=== PATIENT | male | born 1950 | race Caucasian/White ===

== ENCOUNTER 2017-04-21 07:07 | Day surgery (SDC) | payer MEDICARE ==
[~2017-04-21 07:07] MED LIST: Acetaminophen TAB* 325 MG PO PRN; Buffered Lidocaine 0.9% SYRIN* 5 ML/SYR SYRINGE INTRADERM ONE
[2017-04-21] MEDS ORDERED: Midazolam* 1 MG/ML 2 ML VIAL (2 MG) ONE (07:35)
[2017-04-21] MEDS ORDERED: fentaNYL* 50 MCG/ML 2 ML VIAL (100 MCG VIAL) ONE (07:35)
[2017-04-21] MEDS ORDERED: Ondansetron INJ* 2 MG/ML VIAL ONE (08:59)
[2017-04-21 09:02] VITALS: BP 128/72
[2017-04-21] MEDS ORDERED: Lidocaine 1% MPF* 2 ML VIAL ONE (10:20)
[2017-04-21] MEDS ORDERED: acetaZOLAMIDE TAB* 250 MG ONE (10:20)
[2017-04-21] MEDS ORDERED: Phenylephrine 2.5% OPTH.SOL* 2 ML BTL ONE (10:20)
[2017-04-21] MEDS ORDERED: Povidone Iodine 5% OPTH* 30 ML BTL ONE (10:20)
[2017-04-21] MEDS ORDERED: Tetracaine 0.5% OPTH.SOL 4 ML* 1 DROP BTL ONE (10:20)
[2017-04-21] MEDS ORDERED: Neomycin/Polymy/Dex OPHTH.OIN* 3.5 GM ONE (10:20)
[2017-04-21] MEDS ORDERED: Cyclopentolate 1% OPTH.SOL* 2 ML BTL ONE (10:20)
[2017-04-21] MEDS ORDERED: Flurbiprofen 0.03% OPTH.SOL* 2.5 ML BTL ONE (10:20)
[2017-04-21] MEDS ORDERED: Tropicamide 1% OPTH.SOL* BTL ONE (10:20)
[2017-04-21] MEDS ORDERED: Buffered Lidocaine 0.9% SYRIN* 5 ML/SYR SYRINGE ONE (10:21)
--- NOTE | 2017-04-22 08:30 | OP ---
DATE OF OPERATION: 04/21/17 - [facility] DATE OF : 46 SURGEON: Sukhjinder Bach MD ANESTHESIOLOGIST: Cesar Boone MD ANESTHESIA: Monitored anesthesia care. PRE-OP DIAGNOSIS: Cataract, right eye. POST-OP DIAGNOSIS: Cataract, right eye. OPERATIVE PROCEDURE: Cataract surgery of the right eye. IMPLANT: SN60WF 20.0 diopter lens to the right eye. COMPLICATIONS: None. DESCRIPTION OF PROCEDURE: The patient was given phenylephrine 2.5% and cyclopentolate 1% eye drops to the operative eye in the preoperative area. The patient was brought to the operating room, where time-out was taken to identify the correct patient, side, and site of the surgery. The patient's right eye was prepped and draped in the usual sterile fashion with 5% Betadine. A second time-out was taken to verify the correct patient, side, and site of surgery, and correct lens selection. A lid speculum was placed to the right eye. A 1- mm paracentesis blade was used to make a clear corneal incision in the superotemporal position. Preservative-free 1% lidocaine was injected into the anterior chamber. DisCoVisc was then injected into the anterior chamber. A 2.75-mm keratome blade was used to make a triplanar incision at the inferotemporal position. A cystotome was used to initiate a capsulorrhexis, which was completed with Utrata forceps in a continuous and curvilinear manner. Hydrodissection of the lens was performed with BSS on a cannula. The lens could be spun in the capsular bag. The phacoemulsification handpiece was used with [id number] technique to remove the nucleus in its entirety with 17.93 CDE. The I/A handpiece then removed the residual cortical lens material. DisCoVisc was injected to inflate the capsular bag. The planned SN60WF 20.0 diopter lens was injected into the capsular bag. The residual DisCoVisc was removed from the eye with I/A handpiece. The corneal incisions were hydrated and no leaks occurred at physiologic pressure around 20 mmHg per palpation. The lid speculum was then removed and drapes removed. Maxitrol ointment was placed on the surface of the operative eye. An adhesive patch and shield was placed on the operative eye. The patient was taken to the postoperative area in stable condition. [id number]/[facility] #: [id number] MTDAsh
== END 2017-04-21 09:03 | disposition home or self-care (01) ==
LOC: OREAST 07:07
PROVIDERS: ATTEND Student in an Organized Health Care Education/Training Program
DX: H25.13 Age-related nuclear cataract, bilateral (principal); E11.9 Type 2 diabetes mellitus without complications; G47.33 Obstructive sleep apnea (adult) (pediatric); E66.9 Obesity, unspecified; I25.10 Atherosclerotic heart disease of native coronary artery without angina pectoris; I25.2 Old myocardial infarction; I10 Essential (primary) hypertension; J45.909 Unspecified asthma, uncomplicated; Z79.01 Long term (current) use of anticoagulants; Z79.84 Long term (current) use of oral hypoglycemic drugs; Z79.82 Long term (current) use of aspirin; M54.9 Dorsalgia, unspecified; Z88.5 Allergy status to narcotic agent; Z95.2 Presence of prosthetic heart valve; I48.91 Unspecified atrial fibrillation; F17.210 Nicotine dependence, cigarettes, uncomplicated
CPT/HCPCS: A9270-GY; J2250; J2405; J3010; V2632

== ENCOUNTER → 2017-12-09 12:40 | Day surgery (SDC) | payer MEDICARE ==
[~2017-12-09 12:40] MED LIST changes: -Acetaminophen TAB* 325 MG PO PRN; +Buffered Lidocaine 0.9% SYRIN* 5 ML/SYR SYRINGE ONE; +Famotidine IV* 10 MG/ML 2 ML (20 mg) IV ONE; +Famotidine IV* 10 MG/ML 2 ML (20 mg) ONE; +Insulin LISPRO* 1 UNITS UNIT SUBCUT ONE; +Levalbuterol 0.63MG/3ML NEB* UNIT OF USE INH ONE; +Levalbuterol 1.25MG/0.5ML NEB ONE; +Phytonadione INJ (Adult)* 10 MG/ML 1 ML AMP SUBCUT ONE
[2017-12-09 13:20] VITALS: BP 108/78
== END | disposition home or self-care (01) ==
LOC: OR 12:40 → UNDOADMOB 16:44 → SSU 16:44
PROVIDERS: ATTEND Internal Medicine Gastroenterology
DX: R17 Unspecified jaundice (principal); Z53.09 Procedure and treatment not carried out because of other contraindication; I10 Essential (primary) hypertension; I35.8 Other nonrheumatic aortic valve disorders; E11.9 Type 2 diabetes mellitus without complications; G47.33 Obstructive sleep apnea (adult) (pediatric); E78.00 Pure hypercholesterolemia, unspecified; E66.9 Obesity, unspecified; I48.2 Chronic atrial fibrillation; Z88.0 Allergy status to penicillin; Z88.5 Allergy status to narcotic agent; Z79.01 Long term (current) use of anticoagulants; Z87.891 Personal history of nicotine dependence; Z79.4 Long term (current) use of insulin
CPT/HCPCS: A9270-GY; J3430

== ENCOUNTER 2017-12-09 15:40 | Observation (INO) | payer MEDICARE ==
[2017-12-09] MEDS ORDERED: Ondansetron INJ* 2 MG/ML VIAL IV PRN (15:43)
[2017-12-09] MEDS ORDERED: Dextrose 50% Syringe 50 ML* 25 GM/50 ML SYRINGE IV PUSH PRN (15:43)
[2017-12-09] MEDS: Insulin LISPRO* 1 UNITS UNIT SUBCUT SCH (17:12)
[2017-12-09 17:44] LABS: INR 2.55 (0.77-1.02)
[2017-12-09 17:57] LABS: EGFR Non-African American 53.8 (>60)
[2017-12-09] MEDS ORDERED: Insulin GLARGINE(*) 1 UNITS UNIT SUBCUT SCH ×2 (18:00→21:00)
[2017-12-09 18:06] LABS: Hematocrit 34 % (42-52); Hemoglobin 11.3 g/dl (14.0-18.0); Mean Corpuscular HGB Conc 34 g/dl (31-36); Mean Corpuscular Hemoglobin 28 pg (27-31); Mean Corpuscular Volume 82 fL (80-94); Mean Platelet Volume 9 um3 (7.4-10.4); Platelet Count 244 10^3/ul (150-450); Red Cell Distribution Width 22 % (10.5-15); White Blood Count 9.2 10^3/ul (3.5-10.8)
[2017-12-09 18:07] LABS: Monocytes % 6 % (0-7)
[2017-12-09] MEDS: Metoprolol Succinate XL TAB* 25 MG PO SCH (21:25)
--- NOTE | 2017-12-09 22:03 | HP ---
CC: Dr. Banegas; Dr. Stevenson * HISTORY AND PHYSICAL: DATE OF ADMISSION: 12/09/17 PRIMARY CARE PROVIDER: Dr. Banegas. ATTENDING PHYSICIAN WHILE IN THE HOSPITAL: Gloria Eli DO * (report dictated by Rosas Arellano NP). CONSULTING MACHINE OPERATOR GENERAL: Dr. Stevenson. CHIEF COMPLAINT: 1. Jaundice. 2. Coagulopathy. HISTORY OF PRESENT ILLNESS: Mr. Collins is a 67-year-old male patient. He has a history of AFib, hypertension. He has had a history of left knee infection in the setting of hardware requiring 3 surgeries. He also has a history of nephrolithiasis. He has a history of a thoracic aneurysm, which was repaired, history of hypertension, hyperlipidemia, JADE, diabetes, and CAD. He comes in to Dr. Stevenson's services today. He has been being worked up in the outpatient setting for weight loss and painless jaundice. Ultimately found on an MRCP that a pancreatic head mass. He was in to the hospital today for an ERCP. Plan was to place a stent to help relieve this obstruction. Unfortunately, it was noted that his INR was 2.36 despite being off his warfarin for several days. In addition to this, also being on vitamin K throughout the weekend and yesterday. The patient denies any episodes of bleeding. He denied having any chest pain or shortness of breath. He denied having any abdominal pain. He says this really started out when he had an episode of 3 weeks of diarrhea. He saw his primary initially for the diarrhea. There were concerns because he appeared to be jaundiced and workup did reveal ultimately that he did have a pancreatic mass and is why here today in the preop area and we were asked to get involved because the INR not responding to the vitamin K and he says he has been on warfarin for about 10 days. PAST MEDICAL HISTORY: Significant for: 1. AFib. 2. Hypertension. 3. He has had left knee hardware infection in the past. 4. He has a history of nephrolithiasis. 5. Thoracic aneurysm. 6. Hyperlipidemia. 7. Aortic stenosis, status post replacement. 8. JADE. 9. Diabetes. 10. CAD. PAST SURGICAL HISTORY: 1. He has had hernia repair. 2. Aortic valve replacement, which was porcine with a thoracic aneurysm repair. 3. He has had left total knee replacement with 2 revisions. 4. He has had a right total knee replacement. 5. He has had a right thumb surgery. HOME MEDICATIONS: Include: 1. Percocet 1 to 2 tablets p.o. every 6 hours as needed. 2. Glipizide 10 mg p.o. b.i.d. 3. Potassium 40 mEq p.o. daily. 4. Lopressor 12.5 mg p.o. b.i.d. as metoprolol succinate. 5. Metformin 1000 mg p.o. b.i.d. 6. Victoza 1.8 mg subcu q.a.m. 7. Lantus 70 units subcu q.p.m. 8. Lasix 20 mg a day. 9. Finasteride 5 mg p.o. daily. 10. Vasotec 10 mg p.o. daily. 11. Aspirin 81 mg daily. 12. Allopurinol 300 mg daily. 13. Warfarin, which he has been off for. He was taking 1 tablet at h.s. He was on 2 mg and he has been off that for about 10 days. ALLERGIES TO MEDICATION: Include MORPHINE and AMOXICILLIN. FAMILY HISTORY: His mother had a history of hiatal hernia. Father had a history of diabetes and liver cancer. SOCIAL HISTORY: He does smoke cigar occasionally. Rarely drinks alcohol. Surrogate decision maker is his . REVIEW OF SYSTEMS: There is no documented fever. He does admit to having a weight change. He did not quantify how much. He denies having any double vision. There is no ear discharge. He denies having any rhinorrhea. He denies having any sore throat. There is no thyroid enlargement. Denied having any chest pain. He denies having any abdominal pain. He does admit at times being nauseous. No vomiting, though he did admit to having diarrhea. There is no dysuria, no frequency, no seizure. No loss of consciousness, no pruritus, and no skin ulcerations. Review of 14 systems completed, all others negative. PHYSICAL EXAMINATION GENERAL: At this time, Mr. Collins is a 67-year-old male patient. He is sitting in the PACU bed. He does not appear to be in any acute distress. He appears to be well nourished and well developed. VITAL SIGNS: Blood pressure 108/78, pulse of 91, respirations 18, O2 sat 98%, temperature 96.6. HEENT: Head is atraumatic, normocephalic. Eyes: His sclerae did appear to be icteric and jaundice. Throat: Oral mucosa appears to be dry. No oropharyngeal erythema. NECK: Supple. LUNGS: Clear to auscultation bilaterally. No wheezes, rales, or rhonchi. HEART: Sounds S1, S2. Regular rate and rhythm. No murmurs, rubs, or gallops. ABDOMEN: Soft, flat, nontender. Bowel sounds are present. EXTREMITIES: Pulses were 2+ throughout. He is moving all 4 extremities with 5/ 5 strength. NEUROLOGIC: The patient is awake. He is alert. He is oriented x3. His tongue is midline. His cabinetmaker supervisor were equal. He had no gross focal deficits. SKIN: Intact. He does appear to be again jaundice. DIAGNOSTIC STUDIES/LAB DATA: He had an INR today at 2.36. Sodium of 132, potassium 3.8, chloride 100, BUN was 25. His creatinine was 1.44, which is where he has been running the last 3 draws. He has a glucose of 130. Total bili of 26.2, which is steadily increasing since 11/25/17. AST 151, ALT 121, alk phos 414, albumin 3.2. He did have a CBC done yesterday, WBC of 10, RBC of 4.4, hemoglobin 12.5, hematocrit 37, and his platelet count was 287. He had an MRCP, which was done 5 days ago revealing impression: Constellation of findings between the MRCP and 11/27/17 CT is consistent with a subtle 1 cm maximal dimension pancreatic head mass accounting for noted mild biliary dilatation. Old medical records were reviewed. ASSESSMENT AND PLAN: Mr. Collins is a 67-year-old male patient coming in as an outpatient to Dr. Stevenson service for an ERCP today. It was noted that his INR was 2.36 despite several attempts with vitamin K. We were asked to evaluate for admission. He will be admitted under observation status for: 1. Coagulopathy. I suspect this is multifactorial. He probably has decreased excretion of the warfarin due to liver congestion secondary to that pancreatic mass. Also, he could have some coagulopathy secondary to the biliary dilatation and possibly some hepatic congestion. My plan at this point will be go ahead and give him FFP. He got a subcu vitamin K down here in the preop holding area. We will go ahead and give him FFP, repeat the INR in the morning. Continue to hold his warfarin and continue to follow him closely. 2. Pancreatic mass with jaundice. Again is concerning for possible pancreatic carcinoma. We will repeat the CMP and follow and Dr. Stevenson is monitoring and following along with us. 3. Atrial fibrillation. Continue with rate control of his Lopressor. Hold his warfarin. 4. Hypertension. Again, his blood pressure is unstable. I am going to hold the lisinopril particularly if he needs general anesthetics tomorrow. In addition to this, he is going to hold his Lasix preoperatively. He does appear to be a little on the dry side, so we will hold the Lasix for now and we will go ahead and restart when able. 5. History of left knee infection, not an active issue. Follow with his primary. 6. History of nephrolithiasis. Continue his allopurinol. 7. History of thoracic aneurysm. Again, continue to follow with his cardiothoracic surgeon. 8. History of aortic stenosis. Follow with his PCP and follow with his apn. 9. Hyperlipidemia. Continue his current medical regimen. 10. Obstructive sleep apnea. He does have a CPAP in his truck, which his will be getting for us. 11. Diabetes. I will put him on a lispro sliding scale. Also, going to go ahead and give him half dose Lantus as he is going to be n.p.o. after midnight tonight. 12. History of coronary artery disease. Continue his beta-abdulkadir therapy. Could consider a statin; but in the setting of liver dysfunction, I would hold off on this for now and I will get him back on his aspirin as soon as possible after the procedure. 13. DVT prophylaxis. Again, his INR is 2.3. I just ordered SCDs. 14. Code status. Full code. 15. Fluids, electrolytes, and nutrition. He can have a consistent carb diet and n.p.o. after midnight. TIME SPENT: Time spent on admission 60 minutes; greater than half the time spent [id number] with the patient obtaining my history and physical, other half of the time spent going over the plan of care with the patient and implementing the plan of care. I did discuss the plan of care with my attending, Dr. Eli, she is in agreement. ROSAS ARELLANO, JEMMA [id number]/[facility] #: [id number] [facility]OSPITALAsh
[2017-12-10 06:36] LABS: INR 1.59 (0.77-1.02)
[2017-12-10 06:46] LABS: ABS Basophils 0.2 10^3/ul (0-0.2); ABS Eosinophils 0.1 10^3/ul (0-0.6); ABS Lymphocytes 6.1 10^3/ul (1.0-4.8); ABS Monocytes 0.3 10^3/ul (0-0.8); ABS Neutrophils 1.9 10^3/ul (1.5-7.7); ABS Nucleated RBC 0 10^3/ul; Eosinophil % 0.8 % (0-6); Hematocrit 33 % (42-52); Hemoglobin 11.1 g/dl (14.0-18.0); Lymphocyte % 71.5 % (25-47); Mean Corpuscular HGB Conc 34 g/dl (31-36); Mean Corpuscular Hemoglobin 28 pg (27-31); Mean Corpuscular Volume 82 fL (80-94); Mean Platelet Volume 10 um3 (7.4-10.4); Nucleated Red Blood Cells % 0; Platelet Count 239 10^3/ul (150-450); Red Blood Count 3.97 10^6/ul (4.0-5.4); Red Cell Distribution Width 22 % (10.5-15); White Blood Count 8.5 10^3/ul (3.5-10.8)
[2017-12-10 06:50] LABS: EGFR Non-African American 52.4 (>60)
[2017-12-10 07:20] LABS: Monocytes % 8 % (0-7)
[2017-12-10] MEDS: Insulin LISPRO* 1 UNITS UNIT SUBCUT SCH ×3 (08:29→17:53)
[2017-12-10] MEDS: Finasteride TAB* 5 MG PO SCH (08:35)
[2017-12-10] MEDS: Allopurinol TAB* 300 MG PO SCH (08:35)
[2017-12-10] MEDS: Metoprolol Succinate XL TAB* 25 MG PO SCH ×2 (08:35→21:12)
[2017-12-10] MEDS ORDERED: KCL 20 MEQ/100 ML IVPREMIX* 20 MEQ/100 ML BAG IV SCH (13:00)
[2017-12-10] MEDS ORDERED: Potassium Chloride IV* 40 MEQ in NS 0.9% 250 ML* 250 ML IVPB ONE (14:00)
[2017-12-10 14:22] LABS: INR 1.35 (0.77-1.02)
--- NOTE | 2017-12-10 15:41 | PN ---
Subjective Date of Service: 12/10/17 Interval History: feels good today, anxious for the procedure. +pruritis +thirst Objective Active Medications: Allopurinol (Zyloprim Tab*) 300 mg PO QAM [facility] Last Admin: 12/10/17 08:35 Dose: 300 mg Dextrose (D50w Syringe 50 Ml*) 12.5 gm IV PUSH .FOR FS < 60 - SS PRN PRN Reason: FS < 60 Finasteride (Proscar Tab*) 5 mg PO QAM [facility] Last Admin: 12/10/17 08:35 Dose: 5 mg Potassium Chloride 40 meq/ (Sodium Chloride) 270 mls @ 67.5 mls/hr IVPB ONCE ONE Stop: 12/10/17 17:59 Insulin Glargine (Lantus(*)) 35 units SUBCUT BEDTIME [facility] Last Admin: 12/09/17 21:24 Dose: 35 units Insulin Human Lispro (Humalog*) 0 units SUBCUT AC [facility] PRN Reason: Protocol Last Admin: 12/10/17 11:48 Dose: Not Given Metoprolol Succinate (Toprol Xl Tab*) 25 mg PO BID [facility] Last Admin: 12/10/17 08:35 Dose: 25 mg Ondansetron HCl (Zofran Inj*) 4 mg IV Q6H PRN PRN Reason: NAUSEA Vital Signs - 8 hr 12/10/17 12/10/17 12/10/17 07:40 08:40 11:35 Temperature 97.7 F 98.1 F Pulse Rate 85 93 Respiratory 16 18 16 Rate Blood Pressure 123/59 112/42 (mmHg) O2 Sat by Pulse 99 100 Oximetry 12/10/17 15:13 Temperature 97.5 F Pulse Rate 92 Respiratory 16 Rate Blood Pressure 115/81 (mmHg) O2 Sat by Pulse 97 Oximetry Oxygen Devices in Use Now: None Appearance: jaundiced, obese, comfortable Eyes: - - +scleral icterus, +subungual jaundice Neck: NL Appearance and Movements; NL JVP Respiratory: Symmetrical Chest Expansion and Respiratory Effort, Clear to Auscultation Cardiovascular: RRR, - - systolic murmur throughout; healed sternotomy incision Abdominal: NL Sounds; No Tenderness; No Distention, No Hepatosplenomegaly Lymphatic: No Cervical Adenopathy Extremities: No Edema Skin: No Rash or Ulcers Neurological: Alert and Oriented x 3, - - no asterixis Result Diagrams: 12/10/17 05:39 12/10/17 05:39 Assess/Plan/Problems-Billing Assessment: 67 yo man with history of bioprosthetic aortic valve replacement, c. diff, and knee replacements presents with one week of painless jaundice for ERCP but was found to have coagulopathy despite vitamin k - Patient Problems (1) Coagulopathy Current Visit: Yes Status: Acute Comment: warfarin in setting of liver dysfunction reversed yesterday with subcu vitamin k, and subcu vitamin k this morning (2) Jaundice Current Visit: Yes Status: Acute Code(s): R17 - UNSPECIFIED JAUNDICE SNOMED Code(s): 21789744 Comment: concerning for pancreatic adenoca, awaiting ERCP today (3) Aortic valve prosthesis present Current Visit: Yes Status: Acute Code(s): Z95.2 - PRESENCE OF PROSTHETIC HEART VALVE SNOMED Code(s): 7247258429812 Comment: bioprosthesis; no AC indicated (4) Diabetes mellitus Current Visit: Yes Status: Acute Code(s): E11.9 - TYPE 2 DIABETES MELLITUS WITHOUT COMPLICATIONS SNOMED Code(s): 56264781 Comment: increase lantus back to 70U nightly tonight
[2017-12-10] MEDS ORDERED: Insulin GLARGINE(*) 1 UNITS UNIT SUBCUT SCH (15:53)
--- NOTE | 2017-12-10 17:05 | RAD ---
Amended report to correct patient account number. INDICATION: Jaundice COMPARISONS: MR quadrant dated December 04, 2017 TECHNIQUE: Fluoroscopy was provided for ERCP. Total fluoroscopy time is: 2 minutes, 27 seconds FINDINGS: Spot images demonstrate a balloon within the distal common duct, as well as a stent within the distal common duct. The intrahepatic biliary tree is not visualized on the submitted images. IMPRESSION: FLUOROSCOPY WAS PROVIDED FOR ERCP CPT II Codes: 6045F MTDD
[2017-12-10] MEDS ORDERED: Ondansetron INJ* 2 MG/ML VIAL IV PRN (17:30)
[2017-12-10] MEDS ORDERED: fentaNYL* 50 MCG/ML 2 ML VIAL (100 MCG VIAL) IV PRN (17:30)
[2017-12-10] MEDS ORDERED: Naloxone* 0.4 MG/ML 1 ML VIAL IV PRN (17:30)
[2017-12-10] MEDS ORDERED: DiMENhydriNATE IV* 50 MG/ML VIAL IV PUSH PRN (17:30)
[2017-12-11 05:34] LABS: Hematocrit 32 % (42-52); Hemoglobin 11.1 g/dl (14.0-18.0); INR 1.18 (0.77-1.02); Mean Corpuscular HGB Conc 35 g/dl (31-36); Mean Corpuscular Hemoglobin 29 pg (27-31); Mean Corpuscular Volume 82 fL (80-94); Mean Platelet Volume 9.4 um3 (7.4-10.4); Platelet Count 218 10^3/ul (150-450); Red Blood Count 3.89 10^6/ul (4.0-5.4); Red Cell Distribution Width 22 % (10.5-15); White Blood Count 7.6 10^3/ul (3.5-10.8)
[2017-12-11 05:42] LABS: EGFR Non-African American 57.8 (>60)
[2017-12-11] MEDS: Allopurinol TAB* 300 MG PO SCH (08:13)
[2017-12-11] MEDS: Metoprolol Succinate XL TAB* 25 MG PO SCH (08:13)
[2017-12-11] MEDS: Finasteride TAB* 5 MG PO SCH (08:13)
[2017-12-11 08:15] VITALS: BP 135/59
[2017-12-11] MEDS: Insulin LISPRO* 1 UNITS UNIT SUBCUT SCH ×2 (08:30→12:42)
--- NOTE | 2017-12-11 14:15 | PRO ---
DATE: 12/10/17 - ROOM #[id number] REFERRING PHYSICIAN: Dmitry Banegas MD * PROCEDURE: ERCP and sphincterotomy with common bile duct brushing and placement of 10-Yakut 7 cm plastic stent. INDICATION: This 67-year-old man presented with jaundice. He had no pain or itching. CT scan showed a small lesion in the head of the pancreas and questionable lymph nodes. He was on warfarin and despite holding it, his INR was falling very slowly. Oral vitamin K 10 mg x3 days or 4 days just slightly accelerated the diminution in INR. He was therefore, admitted because of his multiple medical problems for more IV vitamin K including SQ on the morning of the procedure and to facilitate volume and electrolyte management. Informed consent had been obtained in the office and a second opportunity for questions occurred yesterday and today with his present. ENDOSCOPIST: Dr. Stevenson ANESTHESIOLOGIST: Dr. Altman. FINDINGS: He is a morbidly obese man (326 pounds) in no distress, intensely jaundiced. He was positioned on the table under general anesthesia. All areas were padded per the experience of the OR staff. ERCP: Esophagus - 10% to 20% views are normal. Stomach - 80% views are normal including fundus and antrum and pylorus. Duodenum - normal contours without any inflammatory disease or edema. Ampulla of Vater - appeared normal with no drainage. Initial approaches with the sphincterotome slightly bowed yielded pancreatic duct orientation with the guidewire. After 4 such attempts, a different plane was located in the left upper area. The guidewire then went high into the liver. Dye injection showed stricture ending at about 5 cm above the papilla. It did have a smooth contour. There were no abnormalities in the high common duct or common hepatic duct. A sphincterotomy was done at 11 o'clock orientation about 7 or 8 mm. There was no enhanced flow of bile. A brushing was then done with 2 passes of the brush and aspiration of fluid. Then, a 10- Yakut 7 cm plastic stent was inserted in a standard technique and appeared well localized with copious drainage of bile evident. IMPRESSION: 1. Pancreatic duct - appeared blocked based on obstruction with the guidewire. 2. Common bile duct stricture -suspected malignancy in the distal to mid duct, now brushed and stent placed. 3. Status post sphincterotomy - no anticoagulants for 3 days Addendum - brushing + for adenocarcinoma [id number]/[facility] #: [id number] [facility]OSPITALAsh
--- NOTE | 2017-12-12 02:48 | DS ---
CC: Dr. Banegas; Dr. Stevenson; Dr. Tran * DISCHARGE SUMMARY: DATE OF ADMISSION: 12/09/17 DATE OF DISCHARGE: 12/11/17 PRINCIPAL DISCHARGE DIAGNOSES: 1. Painless jaundice. 2. Elevated INR in the setting of warfarin use. SECONDARY DISCHARGE DIAGNOSES: 1. Atrial fibrillation. 2. Hypertension. 3. Prosthetic aortic valve. 4. Nephrolithiasis. 5. Hyperlipidemia. 6. Obstructive sleep apnea. 7. Diabetes. 8. Coronary artery disease. DISCHARGE MEDICATIONS: 1. Allopurinol 300 mg daily. 2. Lasix 40 mg daily. 3. KCl 40 mEq daily. 4. Percocet 1 to 2 tabs q.6 p.r.n. pain. 5. Victoza 1.8 mg subcu in the morning. 6. Glipizide 10 mg b.i.d. 7. Finasteride 5 mg daily. 8. Aspirin 81 mg daily. 9. Metformin 1000 mg b.i.d. 10. Lantus 70 units q.h.s. 11. Metoprolol succinate 25 mg b.i.d. 12. Enalapril 10 mg in the morning. 13. Warfarin 5 mg daily. PHYSICAL EXAMINATION AT THE TIME OF DISCHARGE: Temperature 97.7, heart rate 103 , respiratory rate 18, pulse ox 100% on room air, blood pressure 135/59. General: Alert, well-appearing man, sitting up in bed, eating lunch, has generalized jaundice. HEENT: Pupils are 3 mm bilaterally and reactive to light. He has scleral icterus. He has moist mucosa and subungual jaundice. Neck: No cervical or supraclavicular lymphadenopathy. No JVP. Chest: 3/6 systolic murmur at the right upper sternal border with radiation to the carotids. PMI is nondisplaced. He has a healed sternotomy incision. Lungs are clear bilaterally. No wheezes or rhonchi. Abdomen is obese, soft, nontender, nondistended. Liver is nonpalpable. Spleen is nonpalpable. No guarding or rebound. Extremities: No edema, no rashes, no ulcers. Healed knee incisions bilaterally. Neurologic: No asterixis. Strength is 5+ throughout. He is oriented x3. HOSPITAL COURSE BY PROBLEM: 1. Painless jaundice. Mr. Collins presented to the endoscopy suite for elective ERCP when he was found to have painless jaundice as an outpatient. However, when he presented, an INR was checked and was found to be 2.3 in the setting of warfarin use despite having been on vitamin K for 2 days prior to his ERCP. He was admitted for reversal of his coagulopathy so as to expedite this procedure. He received subcutaneous vitamin K on the day of admission and the following morning and the second day of admission, his INR was 1.35 prior to the ERCP. The ERCP was performed by Dr. Stevenson on 12/10/17 without complications and pathology is pending at the time of discharge. He and his are aware of the very high likelihood of malignancy and they have been scheduled for a followup appointment with Dr. Tran next week and are in the process of researching surgeons in [place] and [place]. On the day of discharge, his total bilirubin is 25.7, his direct bilirubin is 19.3, and his indirect bilirubin is 6.4. 2. Coagulopathy. His INR was 2.36 on admission, this is in the setting of warfarin use and some intrinsic liver dysfunction. He had no evidence of bleeding, but was reversed for the urgency of the procedure. At the time of discharge, his INR was 1.18, the indication is for atrial fibrillation, so he does not warrant bridging. He was instructed to resume his warfarin at 5 mg daily beginning tomorrow, this is a reduced dose from his previous dose where he was taking 5 mg 3 days a week and 7.5 mg 4 days a week. He will follow up with Dr. Banegas within the next week to get an INR checked. 3. Atrial fibrillation. He was continued on his home dose of metoprolol and was well controlled during his admission. 4. Insulin dependent diabetes. He is continued on Lantus 70 units daily. 5. Bioprosthetic aortic valve noted. 6. JADE. He was continued on his home CPAP nocturnally. 7. Disposition. Mr. Collins was discharged to home on 12/11/17 with his . He has followup with Dr. Tran for next week and Dr. Banegas within the week. He is scheduled for a stress test with Dr. Wick tomorrow. All of he and his 's questions were answered. He is instructed to return to the emergency department with any abdominal pain, nausea, vomiting, diarrhea or fevers. [id number]/[facility] #: [id number] MTDD
== END 2017-12-11 13:40 | disposition home or self-care (01) ==
LOC: SSU 16:56
PROVIDERS: ADMIT Internal Medicine; ATTEND Internal Medicine
PROC: 0FB98ZX Excision of Common Bile Duct, Via Natural or Artificial Opening Endoscopic, Diagnostic (ICD-10-PCS; principal; 2017-12-09)
DX: C24.9 Malignant neoplasm of biliary tract, unspecified (principal); R17 Unspecified jaundice; D68.9 Coagulation defect, unspecified; I48.91 Unspecified atrial fibrillation; Z79.01 Long term (current) use of anticoagulants; I10 Essential (primary) hypertension; Z95.2 Presence of prosthetic heart valve; Z87.442 Personal history of urinary calculi; E78.5 Hyperlipidemia, unspecified; G47.33 Obstructive sleep apnea (adult) (pediatric); E11.9 Type 2 diabetes mellitus without complications; Z79.84 Long term (current) use of oral hypoglycemic drugs; Z79.4 Long term (current) use of insulin; Z79.899 Other long term (current) drug therapy; Z88.1 Allergy status to other antibiotic agents; Z88.5 Allergy status to narcotic agent; F17.210 Nicotine dependence, cigarettes, uncomplicated; I71.4 Abdominal aortic aneurysm, without rupture; I35.0 Nonrheumatic aortic (valve) stenosis
CPT/HCPCS: 36415; 74328; 80048; 80053; 80076; 85025; 85027; 85060; 85610; 86850; 86900; 86901; 88112; 96360; 96361; A9270-GY; C1769; C2625; G0378; J3480

== ENCOUNTER 2018-01-02 06:06 | Day surgery (SDC) | payer MEDICARE ==
[~2018-01-02 06:06] MED LIST changes: -Buffered Lidocaine 0.9% SYRIN* 5 ML/SYR SYRINGE ONE; -Famotidine IV* 10 MG/ML 2 ML (20 mg) IV ONE; -Famotidine IV* 10 MG/ML 2 ML (20 mg) ONE; -Insulin LISPRO* 1 UNITS UNIT SUBCUT ONE; -Levalbuterol 0.63MG/3ML NEB* UNIT OF USE INH ONE; -Levalbuterol 1.25MG/0.5ML NEB ONE; -Phytonadione INJ (Adult)* 10 MG/ML 1 ML AMP SUBCUT ONE
[2018-01-02] MEDS ORDERED: Buffered Lidocaine 0.9% SYRIN* 5 ML/SYR SYRINGE ONE (06:20)
[2018-01-02] MEDS ORDERED: Clindamycin 900 MG IVPREMIX(* 900 MG/50 ML SDV IV ONE (06:20)
[2018-01-02] MEDS ORDERED: Lidocain 1% EPI 1:100,000 * 30 ML MDV ONE (07:11)
[2018-01-02] MEDS ORDERED: Bupivacaine 0.5%* 50 ML VIAL ONE (07:12)
[2018-01-02] MEDS ORDERED: Naloxone* 0.4 MG/ML 1 ML VIAL IV PRN (07:27)
[2018-01-02] MEDS ORDERED: fentaNYL* 50 MCG/ML 2 ML VIAL (100 MCG VIAL) ONE (08:44)
[2018-01-02] MEDS ORDERED: Midazolam* 1 MG/ML 2 ML VIAL (2 MG) ONE (08:44)
[2018-01-02] MEDS ORDERED: Propofol* 10 MG/ML 20 ML BTL IV PUSH ONE (08:50)
--- NOTE | 2018-01-02 09:36 | BRIEFOPN ---
Brief Operative Note - Surgery Procedures: Procedures AMBULAT & GAIT TRAINING (01/17/09) DX ULTRASOUND-HEART (04/20/13) EXCISION OF COMMON BILE DUCT, ENDO, DIAGN (12/09/17) FUNCTIONAL PT EVALUATION (01/17/09) HEMODIALYSIS (04/20/13) INJECT ANTICOAGULANT (07/27/12) INSERT INDWELLING CATH (04/20/13) NON-INVASIVE MECHANICAL VENTILATION (01/17/09) OCCUPATIONAL THERAPY (10/25/08) OTH ARTHROTOMY-KNEE (07/27/12) PACKED CELL TRANSFUSION (07/27/12) PERIOP AUTOLOGOUS BLOOD/COMP TRANS (01/17/09) REMOVAL OF (CEMENT) SPACER (07/27/12) MARNIE OF KNEE REPLACEMENT, TOTAL (ALL COMPONENTS) (07/27/12) SERUM TRANSFUSION NEC (04/20/13) TOTAL KNEE REPLACEMENT (01/17/09) TU REMOV URETER OBSTRUCT (03/24/02) UMBIL HERNIA REPAIR NEC (10/27/01) URETERAL CATHETERIZATION (04/08/02) VENOUS CATHETERIZATION NEC (04/20/13) [ESWL] OF THE KIDNEY, URETER AND/OR BLADDER (05/07/02) 01/02/18 Op Note Pre-op dx: pancreatic cancer Post-op dx: same Procedure: power port placement Surgeon: Yovany Asst: none Anesth: local-MAC SCDs: on during surgery Abx: given pre-op Complications: none EBL: 5 cc Pt. tolerated procedure well and was transferred to in a stable condition. CLFoster
[2018-01-02 10:08] VITALS: BP 127/56
--- NOTE | 2018-01-02 10:08 | OP ---
CC: Dr. Dmitry Banegas; Dr. Sid Wick * DATE OF OPERATION: 01/02/18 - [facility] DATE OF : 46 SURGEON: Francine Pedroza MD ACT ENGLISH TUTOR: There was no orthodontic technician assistant for this case. PRE-OP DIAGNOSIS: Pancreatic cancer. POST-OP DIAGNOSIS: Pancreatic cancer. OPERATIVE PROCEDURE: PowerPort placement. INDICATIONS: This patient is a 67-year-old male who has a history of recently diagnosed pancreatic cancer, who is about to undergo chemotherapy for which he will need a PowerPort placement. He was therefore prepared for surgery and brought to the operating room. DESCRIPTION OF PROCEDURE: He was placed on the OR table in a supine position and given IV sedation. The right chest was prepped and draped in the usual sterile fashion. After infiltrating with local anesthetic, using a Seldinger technique, a wire was placed in the right subclavian vein under fluoroscopic visualization. Next, the port pocket was created by making an incision on the chest wall after infiltrating with local anesthetic and developing a pocket with electrocautery inferiorly. Once the pocket was of a size adequate to accommodate the port, the catheter was tunneled from the port pocket site to the wire exit site and then a dilator and introducer were placed over the wire. The wire and dilator were removed and the catheter was advanced through the introducer under fluoroscopic visualization to an appropriate depth and the introducer was peeled away. The catheter was pulled back to just above the right atrium and trimmed to an appropriate length, attached to the port. The port was inserted into the port pocket and secured to the chest wall with 2-0 Surgipro. The function of the port was checked and found to be adequate. Then , closure was accomplished, 3-0 Polysorb was used to approximate the subcutaneous layer and the skin was closed with 4-0 Prolene in a subcuticular fashion. Steri-Strips and a dry sterile dressing were applied. Bent Tolbert needle was left in place, so that he could go to chemotherapy later today. [id number]/[facility] #: [id number] MTDD
--- NOTE | 2018-01-02 10:23 | RAD ---
INDICATION: Status post central line placement evaluate for pneumothorax. COMPARISON: Comparison is made with a prior study from April 20, 2013. TECHNIQUE: A portable view of the chest was obtained. FINDINGS: The patient is status post sternotomy. There is a power port central venous catheter present entering on the right side. The catheter tip projects over the region of the superior vena cava. The heart is mildly enlarged and unchanged from the prior exam. The lungs are clear. No pleural effusion or pneumothorax is seen. IMPRESSION: STATUS POST CENTRAL LINE PLACEMENT, NO EVIDENCE FOR ACUTE FINDING.
--- NOTE | 2018-01-07 09:21 | RAD ---
INDICATION: Power port placement. COMPARISON: There are no prior studies available for comparison. TECHNIQUE: 24.3 seconds of intermittent fluoroscopic guidance were provided and 2 spot films of the chest were obtained in the operating room. FINDINGS: The films demonstrate a power port central venous catheter entering on the right side. IMPRESSION: INTRAOPERATIVE CONTROL FILMS. CPT II Codes: G9500
== END 2018-01-02 10:12 | disposition home or self-care (01) ==
LOC: OR 06:06
PROVIDERS: ATTEND Surgery
DX: C25.3 Malignant neoplasm of pancreatic duct (principal); I48.91 Unspecified atrial fibrillation; Z51.11 Encounter for antineoplastic chemotherapy; Z79.01 Long term (current) use of anticoagulants; Z95.2 Presence of prosthetic heart valve; Z87.891 Personal history of nicotine dependence; I10 Essential (primary) hypertension; G47.33 Obstructive sleep apnea (adult) (pediatric); E11.9 Type 2 diabetes mellitus without complications; Z79.4 Long term (current) use of insulin
CPT/HCPCS: 71045; 76000; C1788; J1642; J2250; J2704; J3010

== ENCOUNTER 2018-01-23 18:32 | Inpatient (IN) | payer MEDICARE ==
[2018-01-23] MEDS ORDERED: Dextrose 50% Syringe 50 ML* 25 GM/50 ML SYRINGE IV PUSH PRN (18:43)
[2018-01-23] MEDS ORDERED: NS 0.9% 1000 ML* 1,000 ML IV SCH (18:45)
[2018-01-23] MEDS: Acetaminophen TAB* 325 MG PO PRN (19:54)
[2018-01-23] MEDS: Cefepime 2 GM in Dextrose(*) 2 GM/50 ML BAG IV SCH (20:51)
[2018-01-23] MEDS: Metoprolol Tartrate TAB* 25 MG PO SCH (21:00)
[2018-01-24] MEDS: Cefepime 2 GM in Dextrose(*) 2 GM/50 ML BAG IV SCH ×3 (03:58→23:34)
[2018-01-24 06:12] LABS: Hematocrit 26 % (42-52); Hemoglobin 8.6 g/dl (14.0-18.0); Mean Corpuscular HGB Conc 33 g/dl (31-36); Mean Corpuscular Hemoglobin 30 pg (27-31); Mean Corpuscular Volume 90 fL (80-94); Mean Platelet Volume 7.1 um3 (7.4-10.4); Platelet Count 447 10^3/ul (150-450); Red Blood Count 2.92 10^6/ul (4.0-5.4); Red Cell Distribution Width 17 % (10.5-15); White Blood Count 14.6 10^3/ul (3.5-10.8)
[2018-01-24 06:26] LABS: EGFR Non-African American 34.7 (>60)
[2018-01-24 06:32] LABS: INR 3.63 (0.77-1.02)
[2018-01-24 07:22] LABS: ABS Basophils 0.1 10^3/ul (0-0.2); ABS Eosinophils 0 10^3/ul (0-0.6); ABS Lymphocytes 2.3 10^3/ul (1.0-4.8); ABS Monocytes 2.4 10^3/ul (0-0.8); ABS Neutrophils 9.9 10^3/ul (1.5-7.7); ABS Nucleated RBC 0 10^3/ul; Eosinophil % 0 % (0-6); Lymphocyte % 15.5 % (25-47); Nucleated Red Blood Cells % 0.1
[2018-01-24] MEDS: Insulin LISPRO* 1 UNITS UNIT SUBCUT SCH ×3 (07:43→18:00)
[2018-01-24] MEDS: Finasteride TAB* 5 MG PO SCH (10:08)
[2018-01-24] MEDS: Metoprolol Tartrate TAB* 25 MG PO SCH ×2 (10:08→20:03)
[2018-01-24] MEDS: Insulin GLARGINE(*) 1 UNITS UNIT SUBCUT SCH (10:08)
[2018-01-24] MEDS: Potassium Chlor TAB* 20 MEQ TAB.ER PO SCH (10:08)
[2018-01-24] MEDS: Aspirin 81 mg CHEW TAB* 81 MG TAB.CHEW PO SCH (10:08)
[2018-01-24] MEDS ORDERED: Warfarin TAB(*) 5 MG PO SCH (17:00)
[2018-01-24] MEDS: Acetaminophen TAB* 325 MG PO PRN (19:33)
[2018-01-25] MEDS: Acetaminophen TAB* 325 MG PO PRN ×3 (03:25→16:49)
[2018-01-25 04:28] LABS: Hematocrit 25 % (42-52); Hemoglobin 8.1 g/dl (14.0-18.0); Mean Corpuscular HGB Conc 33 g/dl (31-36); Mean Corpuscular Hemoglobin 29 pg (27-31); Mean Corpuscular Volume 89 fL (80-94); Mean Platelet Volume 7.4 um3 (7.4-10.4); Platelet Count 353 10^3/ul (150-450); Red Blood Count 2.76 10^6/ul (4.0-5.4); Red Cell Distribution Width 17 % (10.5-15); White Blood Count 12.8 10^3/ul (3.5-10.8)
[2018-01-25 04:38] LABS: INR 2.58 (0.77-1.02)
[2018-01-25 05:01] LABS: Monocytes % 8 % (0-7)
[2018-01-25] MEDS: Potassium Chlor TAB* 20 MEQ TAB.ER PO SCH (08:46)
[2018-01-25] MEDS: Aspirin 81 mg CHEW TAB* 81 MG TAB.CHEW PO SCH (08:46)
[2018-01-25] MEDS: Metoprolol Tartrate TAB* 25 MG PO SCH ×2 (08:46→21:42)
[2018-01-25] MEDS: Insulin LISPRO* 1 UNITS UNIT SUBCUT SCH ×3 (08:46→21:34)
[2018-01-25] MEDS: Finasteride TAB* 5 MG PO SCH (08:46)
[2018-01-25] MEDS: Insulin GLARGINE(*) 1 UNITS UNIT SUBCUT SCH (08:46)
[2018-01-25] MEDS: Cefepime 2 GM in Dextrose(*) 2 GM/50 ML BAG IV SCH ×2 (11:40→22:15)
[2018-01-25] MEDS: Furosemide TAB* 40 MG PO SCH (13:35)
[2018-01-25 14:05] LABS: Urine Appearance Cloudy; Urine Blood 3+ (Negative); Urine Color Amber; Urine Ketones Negative (Negative); Urine Protein 2+(100 mg/dL) (Negative); Urine Specific Gravity 1.018 (1.010-1.030); Urine Urobilinogen Negative (Negative)
[2018-01-25 16:01] LABS: EGFR Non-African American 30.6 (>60)
[2018-01-25] MEDS ORDERED: Vancomycin(*) 1,000 MG in NS 0.9% 250 ML* 250 ML IVPB ONE (16:51)
[2018-01-25] MEDS ORDERED: Warfarin TAB(*) 7.5 MG PO SCH (17:00)
[2018-01-25] MEDS: NS 0.9% 250 ML* 250 ML IV ONE ×2 (17:15→19:08)
--- NOTE | 2018-01-25 20:43 | RAD ---
INDICATION: Fever of evaluate for abscess. COMPARISON: Comparison is made with a prior CT angiogram of the chest from July 29, 2012, prior CT of the abdomen and from November 27, [address] of the abdomen and pelvis from February 19, 2017. TECHNIQUE: A CT scan of the chest, abdomen and pelvis was performed without intravenous or oral contrast. Contiguous axial sections were obtained from the lung apices through the symphysis pubis. Images were reconstructed in the coronal and sagittal planes. FINDINGS: There is a 3 mm pulmonary nodule present in the right middle lobe adjacent to the minor fissure best seen on image #[id number] of [id number] which is unchanged from the prior CT angiogram of the chest and therefore consistent with a benign nodule. The lungs are otherwise clear. No pleural effusion is seen. No significant enlarged mediastinal or hilar lymph nodes are seen. The heart is within normal limits in size. No pericardial effusion is present. The patient appears to be status post aortic aneurysm repair with an endovascular stent graft. The aortic diameter measures up to 4.4 cm and previously measured 5.0 cm. The liver and spleen appear mildly enlarged. The liver is decreased in attenuation consistent with fatty infiltration. There is pneumobilia present. There appears to be a biliary stent extending from the region of the common bile duct to the duodenum. No intra or extrahepatic ductal distention is noted. The pancreas is not enlarged. No pancreatic ductal distention is seen. The adrenal glands appear to be within normal limits. There are multiple bilateral renal calculi present measuring between 2 and 10 mm. In addition there is a large calculus present at the left ureteropelvic junction measuring 12 x 7 mm in size causing moderate hydronephrosis. The aorta is normal in caliber without significant calcific plaque. No significant enlarged retroperitoneal lymph nodes are seen. The stomach, small and large bowel appear nondistended. No free intraperitoneal air or fluid is seen. No significant focal osseous abnormality is seen. The results of this exam were discussed with the referring clinician. IMPRESSION: 1. MULTIPLE BILATERAL RENAL CALCULI. IN ADDITION THERE IS A LARGE CALCULUS PRESENT AT THE LEFT URETEROPELVIC JUNCTION CAUSING MODERATE HYDRONEPHROSIS. 2. PNEUMOBILIA, THERE IS A BILIARY STENT IN PLACE. NO INTRA-OR EXTRAHEPATIC DUCTAL DISTENTION IS SEEN. 3. MILD HEPATOSPLENOMEGALY AND HEPATIC STEATOSIS. 4. STATUS POST THORACIC AORTIC ANEURYSM REPAIR. 5. SMALL STABLE RIGHT MIDDLE LOBE PULMONARY NODULE.
[2018-01-25] MEDS ORDERED: NS 0.9% 500 ML* 500 ML IV ONE (21:35)
[2018-01-25] MEDS ORDERED: Iohexol 180 (CONTRAST) 10 ML SDV IV ONE (21:53)
[2018-01-25] MEDS ORDERED: fentaNYL* 50 MCG/ML 2 ML VIAL (100 MCG VIAL) ONE (22:42)
[2018-01-25] MEDS ORDERED: Lidocaine 2% JELLY* 20 ML (for OR use) ONE (22:44)
[2018-01-25] MEDS ORDERED: Lidocaine 2% PF * 5 ML VIAL ONE (22:47)
[2018-01-25] MEDS ORDERED: Propofol* 10 MG/ML 20 ML BTL IV PUSH ONE (22:47)
[2018-01-25] MEDS ORDERED: Naloxone* 0.4 MG/ML 1 ML VIAL IV PRN (23:03)
[2018-01-26] MEDS: oxyCODONE/Acetamin 5/325 MG* TAB PO PRN (01:00)
[2018-01-26] MEDS: Acetaminophen TAB* 325 MG PO PRN ×4 (02:16→21:24)
--- NOTE | 2018-01-26 03:03 | OP ---
CC: Dr. Tran * DATE OF OPERATION: 01/25/18 - ROOM #ICU-06 DATE OF : 46 LOCATION: The patient is in ICU. SURGEON: Los Love MD ANESTHESIOLOGIST: Raúl Jacques DO. ANESTHESIA: IV sedation with MAC. PRE-OP DIAGNOSES: 1. Urosepsis. 2. Obstructing 1.2 cm calculus at left UPJ. 3. Bilateral renal calculi. POST-OP DIAGNOSES: 1. Bulbar urethral stricture. 2. Partial urinary retention. 3. Gross hematuria from right ureteral orifice. 4. Left UPJ calculus, 1.2 cm with pyonephrosis. OPERATIVE PROCEDURE: 1. Cystoscopy. 2. Left retrograde pyelography and placement of left ureteral stent (6-Azerbaijani). INDICATION FOR PROCEDURE: Mr. Collins is a 67-year-old white male who is a known stone former and is followed in our office by Dr. Stephenson. He is morbidly obese (340 lbs), diabetic, on anticoagulation with warfarin. The stones have been asymptomatic and non-obstructing and he has been managed conservatively. He was recently diagnosed with early pancreatic cancer and he is going to be started on chemotherapy He was admitted about 36 hours ago with sepsis, and his blood pressure hovering between 80 and 100 systolic. His urine was positive for infection with preliminary culture showing Staph. He had a noncontrast CT of the abdomen and pelvis this evening which showed left hydronephrosis, non-obstructing 1.5 cm calculus in the lower pole calyx of the left kidney and a 1.5 cm obstructing calculus at the left ureteropelvic junction. There was a smaller calculus in the right kidney, but no hydronephrosis and no ureteral calculi. The patent is insulin-dependent diabetic and he is on anticoagulation with warfarin. Because of above history and findings and because of his morbid obesity and the fact he is on Coumadin, will make him not a candidate for placement of a percutaneous nephrostomy tube. The patient is taken urgently to the operating room for placement of left ureteral stent. PATHOLOGY AT CYSTOSCOPY: The penile urethra looked normal. There was a partial stricture of the bulbar urethra which had to be dilated to introduce the cystoscope. The prostatic urethra measured about 2.5 cm in length and there was moderate obstruction by prostate enlargement. There was a partial urinary retention of about 400 cc. The urine was bloody and cloudy and foul smelling. Examination of the bladder showed moderate trabeculations. There were no suspicious bladder lesions seen. The ureteral orifices looked normal. Bloody efflux was noted from the right ureteral orifice. No efflux was noted from the left orifice. At fluoroscopy, 2 calcifications were noted in the left kidney, one at the ureteropelvic junction and the other one in the lower pole calyx, confirming the findings of the CT scan. Following placement of the guidewire and the open-ended catheter in the left renal pelvis, there was a gush of bloody and purulent urine. Thick pus was aspirated from the left renal pelvis. DESCRIPTION OF PROCEDURE: With the patient in the dorsal lithotomy position and under intravenous sedation and with anesthesia monitoring and after scrubbing and draping, Xylocaine jelly was instilled into the urethra. Cystoscopy was performed. The findings in the bulbar urethra and the bladder were noted. The bladder was emptied. Bladder was then inspected and the above findings were noted. Because of the purulent urine noted inside the bladder, the present sepsis, it was decided not to perform a right retrograde pyelography as a work-up of the hematuria noted from the Rt orifice. A flexible-tip guidewire was passed into the left ureteral orifice and introduced without difficulty past the stone and inside the renal pelvis. Purulent urine was noted gushing out from the left orifice. The open-ended catheter was then fed over the guidewire and positioned in the area of the renal pelvis. Hydronephrotic purulent and bloody urine was drained from the left renal pelvis. 5 cc of thick purulent urine was aspirated from the left kidney and sent for culture and sensitivity. When the hydronephrotic drip was slowed down, a total of 2 to 3 cc of contrast were then injected delineating the left collecting system. A size 6-Azerbaijani stent was then placed with the proximal end coiling in the renal pelvis and the distal end coiling inside the bladder. A size 16-Azerbaijani thermometer Rachel catheter was passed inside the bladder and the balloon inflated with 10 cc of water. The patient tolerated the procedure well and left the operating room in good condition. His vital signs remained stable the whole case. The plan is to observe the patient for sepsis. We will also have to investigate the cause of the gross hematuria from the right kidney. Probably it is secondary to the combination of anticoagulation and the presence of the stone. The patient will need definitive treatment of his left renal calculi at a later date. [id number]/[facility] #: [id number] MTDD
[2018-01-26] MEDS ORDERED: HYDROmorphone INJ* 2 MG/ML CARPUJECT SYRINGE IV ONE (03:58)
[2018-01-26 05:46] LABS: Hematocrit 23 % (42-52); Hemoglobin 7.6 g/dl (14.0-18.0); Mean Corpuscular HGB Conc 33 g/dl (31-36); Mean Corpuscular Hemoglobin 30 pg (27-31); Mean Corpuscular Volume 89 fL (80-94); Mean Platelet Volume 7.2 um3 (7.4-10.4); Platelet Count 275 10^3/ul (150-450); Red Blood Count 2.57 10^6/ul (4.0-5.4); Red Cell Distribution Width 18 % (10.5-15); White Blood Count 10.5 10^3/ul (3.5-10.8)
[2018-01-26 05:48] LABS: ABS Basophils 0 10^3/ul (0-0.2); ABS Eosinophils 0 10^3/ul (0-0.6); ABS Lymphocytes 0.7 10^3/ul (1.0-4.8); ABS Monocytes 1.5 10^3/ul (0-0.8); ABS Neutrophils 8.2 10^3/ul (1.5-7.7)
[2018-01-26 05:51] LABS: INR 1.87 (0.77-1.02)
[2018-01-26 06:30] LABS: Monocytes % 10 % (0-7)
--- NOTE | 2018-01-26 07:47 | RAD ---
INDICATION: Stent insertion COMPARISON: None FINDINGS: 8 seconds of fluoroscopy were provided for the urology department. Fluoroscopic spot imaging of the abdomen were obtained for operative control and show left ureteral stent insertion . CPT II Codes: G9500 (fluoro time doc)
[2018-01-26] MEDS: Metoprolol Tartrate TAB* 25 MG PO SCH ×2 (09:06→21:18)
[2018-01-26] MEDS: Insulin LISPRO* 1 UNITS UNIT SUBCUT SCH ×3 (09:06→19:14)
[2018-01-26] MEDS: Aspirin 81 mg CHEW TAB* 81 MG TAB.CHEW PO SCH (09:06)
[2018-01-26] MEDS: Finasteride TAB* 5 MG PO SCH (09:07)
[2018-01-26] MEDS: Potassium Chlor TAB* 20 MEQ TAB.ER PO SCH (09:07)
[2018-01-26] MEDS: Insulin GLARGINE(*) 1 UNITS UNIT SUBCUT SCH (09:07)
[2018-01-26] MEDS: Furosemide TAB* 40 MG PO SCH (09:07)
--- NOTE | 2018-01-26 11:09 | PN ---
Progress Note - Progress Note Date of Service: 01/26/18 SOAP: Subjective: [67 yo male with pancreatic CA admitted with sepsis, now identified to be due to pyelonephritis due obstructing L ureteral stone. He developed hypotension last night and went to the OR with Dr Love where a L ureteral stent was placed. Hypotension has resolved, urine output improved. Afebrile since the procedure. He feels much better this am. He is having some R flank pain this am however, not severe. No nausea or vomiting.] Objective: [ Acetaminophen (Tylenol Tab*) 650 mg PO Q4H PRN PRN Reason: FEVER/PAIN Last Admin: 01/26/18 02:16 Dose: 650 mg Aspirin (Aspirin 81 Mg Chew Tab*) 81 mg PO DAILY [facility] Last Admin: 01/26/18 09:06 Dose: 81 mg Dextrose (D50w Syringe 50 Ml*) 12.5 gm IV PUSH .FOR FS < 60 - SS PRN PRN Reason: FS < 60 Finasteride (Proscar Tab*) 5 mg PO DAILY [facility] Last Admin: 01/26/18 09:07 Dose: 5 mg Furosemide (Lasix Tab*) 40 mg PO DAILY [facility] Last Admin: 01/26/18 09:07 Dose: 40 mg Furosemide (Lasix Iv*) 20 mg IV SLOW PU ONCE ONE Stop: 01/26/18 12:01 Heparin Sodium (Porcine) (Heparin Flush Port (Ivad)) 5 ml FLUSH DAILY [facility] PRN Reason: Protocol Last Admin: 01/25/18 08:46 Dose: 5 ml Cefepime HCl (Maxipime 2 Gm In Dextrose Duplex (*)) 2 gm in 50 mls @ 100 mls/ hr IV 0000,1200 [facility] Last Admin: 01/25/18 22:15 Dose: 100 mls/hr Insulin Glargine (Lantus(*)) 66 units SUBCUT DAILY [facility] Last Admin: 01/26/18 09:07 Dose: 66 units Insulin Human Lispro (Humalog*) 0 units SUBCUT AC [facility] PRN Reason: Protocol Last Admin: 01/26/18 09:06 Dose: 2 units Metoprolol Tartrate (Lopressor Tab*) 25 mg PO BID [facility] Last Admin: 01/26/18 09:06 Dose: 25 mg Oxycodone/Acetaminophen (Percocet 5/325 Tab*) 1 tab PO Q6H PRN PRN Reason: PAIN Last Admin: 01/26/18 01:00 Dose: 1 tab Potassium Chloride (Klor Con Er Tab*) 40 meq PO DAILY [facility] Last Admin: 01/26/18 09:07 Dose: 40 meq Warfarin Sodium (Coumadin Tab(*)) 5 mg PO DAILY@1700 [facility] PRN Reason: Protocol Laboratory Results - last 24 hr 01/25/18 01/25/18 01/25/18 11:40 13:30 15:30 WBC RBC Hgb Hct MCV MCH MCHC RDW Plt Count MPV Neut % (Auto) Lymph % (Auto) [place] % (Auto) Eos % (Auto) Baso % (Auto) Absolute Neuts (auto) Absolute Lymphs (auto) Absolute Monos (auto) Absolute Eos (auto) Absolute Basos (auto) Absolute Nucleated RBC Immature Gran % Neutrophils % Band Neutrophils % Lymphocytes % Monocytes % Eosinophils % Basophils % Myelocytes % Nucleated RBC % Abs Neuts (Manual) Abs Lymphs (Manual) Abs Monocytes (Manual) Absolute Eos (Manual) Abs Basophils (Manual) Large Platelets Normal RBC Morphology Polychromasia Anisocytosis INR (Anticoag Therapy) Sodium 127 L Potassium 4.8 Chloride 102 Carbon Dioxide 19 L Anion Gap 6 BUN 30 H Creatinine 2.15 H Est GFR ( Amer) 39.4 Est GFR (Non-Af Amer) 30.6 BUN/Creatinine Ratio 14.0 Glucose 186 H POC Glucose (mg/dL) 179 H Calcium 8.3 L Urine Color Lisseth Urine Appearance Cloudy Urine pH 5.0 Ur Specific [place] 1.018 Urine Protein 2+(100 mg/dl) A Urine Ketones Negative Urine Blood 3+ A Urine Nitrate Negative Urine Bilirubin Negative Urine Urobilinogen Negative Ur Leukocyte Esterase 2+ A Urine WBC (Auto) 2+(11-20/hpf) A Urine RBC (Auto) 3+(>10/hpf) A Urine Bacteria Absent Urine Yeast Present A Urine Glucose Negative Blood Type Antibody Screen Crossmatch 01/25/18 01/25/18 01/26/18 17:02 23:29 05:25 WBC RBC Hgb Hct MCV MCH MCHC RDW Plt Count MPV Neut % (Auto) Lymph % (Auto) [place] % (Auto) Eos % (Auto) Baso % (Auto) Absolute Neuts (auto) Absolute Lymphs (auto) Absolute Monos (auto) Absolute Eos (auto) Absolute Basos (auto) Absolute Nucleated RBC Immature Gran % Neutrophils % Band Neutrophils % Lymphocytes % Monocytes % Eosinophils % Basophils % Myelocytes % Nucleated RBC % Abs Neuts (Manual) Abs Lymphs (Manual) Abs Monocytes (Manual) Absolute Eos (Manual) Abs Basophils (Manual) Large Platelets Normal RBC Morphology Polychromasia Anisocytosis INR (Anticoag Therapy) Sodium 128 L Potassium 5.0 Chloride 104 Carbon Dioxide 17 L Anion Gap 7 BUN 33 H Creatinine 2.40 H Est GFR ( Amer) 34.7 Est GFR (Non-Af Amer) 27.0 BUN/Creatinine Ratio 13.8 Glucose 149 H POC Glucose (mg/dL) 172 H 155 H Calcium 8.1 L Urine Color Urine Appearance Urine pH Ur Specific [place] Urine Protein Urine Ketones Urine Blood Urine Nitrate Urine Bilirubin Urine Urobilinogen Ur Leukocyte Esterase Urine WBC (Auto) Urine RBC (Auto) Urine Bacteria Urine Yeast Urine Glucose Blood Type Antibody Screen Crossmatch 01/26/18 01/26/18 01/26/18 05:25 05:25 05:25 WBC 10.5 RBC 2.57 L Hgb 7.6 L Hct 23 L MCV 89 MCH 30 MCHC 33 RDW 18 H Plt Count 275 MPV 7.2 L Neut % (Auto) Not Reportable Lymph % (Auto) Not Reportable [place] % (Auto) Not Reportable Eos % (Auto) Not Reportable Baso % (Auto) Not Reportable Absolute Neuts (auto) 8.2 H Absolute Lymphs (auto) 0.7 L Absolute Monos (auto) 1.5 H Absolute Eos (auto) 0 Absolute Basos (auto) 0 Absolute Nucleated RBC Not Reportable Immature Gran % 11 H Neutrophils % 73 Band Neutrophils % 10 H Lymphocytes % 6 L Monocytes % 10 H Eosinophils % 0 Basophils % 0 Myelocytes % 1 Nucleated RBC % Not Reportable Abs Neuts (Manual) 7.7 Abs Lymphs (Manual) 0.6 L Abs Monocytes (Manual) 1.1 H Absolute Eos (Manual) 0 Abs Basophils (Manual) 0 Large Platelets Present Normal RBC Morphology Not Reportable Polychromasia 1+ Anisocytosis 2+ INR (Anticoag Therapy) 1.87 H Sodium Potassium Chloride Carbon Dioxide Anion Gap BUN Creatinine Est GFR ( Amer) Est GFR (Non-Af Amer) BUN/Creatinine Ratio Glucose POC Glucose (mg/dL) Calcium Urine Color Urine Appearance Urine pH Ur Specific [place] Urine Protein Urine Ketones Urine Blood Urine Nitrate Urine Bilirubin Urine Urobilinogen Ur Leukocyte Esterase Urine WBC (Auto) Urine RBC (Auto) Urine Bacteria Urine Yeast Urine Glucose Blood Type A Positive Antibody Screen Negative Crossmatch See Detail Vital Signs: Temp Pulse Resp BP Pulse Ox 97.5 F 100 16 118/63 100 01/26/18 09:30 01/26/18 09:30 01/26/18 09:30 01/26/18 09:00 01/26/18 09:30 Exam: Gen: Well appearing 67 yo male in NAD, accompanied by his HEENT: MMM CV: RRR, no m/r/g Resp: LCAT, limited exam Abd: Soft, nonTTP, no CVA tenderness, blood tinged urine draining from Rachel catheter Extremities: trace to 1+ LE edema Skin: No rashes] Assessment: [67 yo male with pancreatic CA s/p C1 gem/abraxane admitted with sepsis secondary to pyelonephritis due to an obstructing ureteral stone with placement of ureteral stent by Dr Love] Plan: [1. Sepsis - due to pyelonephritis - improving BP and urine output following ureteral stent - cultures pending - blood cultures from port growing Staph epidermidis in both bottles from that site - assuming culture from L pyelo grows a different organism, it is likely a contaminant - requested ID consult, repeat cultures from line today - cont Cefepime 2. Acute on chronic renal insufficieny - Rising Cr noted, likely due to sepsis and L hydro - appears hypervolemic - good urine output - start light diuresis, monitor Cr and electrolytes 3. Anemia - likely do to chemotherapy - transfuse 1U PRBCs 4. CHF - no acute exacerbation Dispo: cont ICU care today, if stable and transfer to medical floor later today or tomorrow am]
[2018-01-26] MEDS ORDERED: Furosemide IV* 10 MG/ML 2 ML VIAL (20 MG) IV SLOW PU ONE (12:00)
[2018-01-26] MEDS: Cefepime 2 GM in Dextrose(*) 2 GM/50 ML BAG IV SCH ×2 (12:47→23:56)
[2018-01-26] MEDS ORDERED: Warfarin TAB(*) 5 MG PO SCH (17:00)
[2018-01-27] MEDS: Acetaminophen TAB* 325 MG PO PRN ×3 (05:30→22:42)
[2018-01-27 05:35] LABS: Hematocrit 26 % (42-52); Hemoglobin 8.7 g/dl (14.0-18.0); Mean Corpuscular HGB Conc 33 g/dl (31-36); Mean Corpuscular Hemoglobin 29 pg (27-31); Mean Corpuscular Volume 88 fL (80-94); Mean Platelet Volume 7.7 um3 (7.4-10.4); Platelet Count 248 10^3/ul (150-450); Red Blood Count 2.98 10^6/ul (4.0-5.4); Red Cell Distribution Width 17 % (10.5-15); White Blood Count 10.4 10^3/ul (3.5-10.8)
[2018-01-27 05:40] LABS: INR 1.57 (0.77-1.02)
[2018-01-27 05:51] LABS: EGFR Non-African American 29.1 (>60)
[2018-01-27 06:21] LABS: Monocytes % 16 % (0-7)
[2018-01-27] MEDS: Insulin LISPRO* 1 UNITS UNIT SUBCUT SCH ×3 (09:29→17:05)
[2018-01-27] MEDS: Insulin GLARGINE(*) 1 UNITS UNIT SUBCUT SCH (09:29)
[2018-01-27] MEDS: Potassium Chlor TAB* 20 MEQ TAB.ER PO SCH (09:30)
[2018-01-27] MEDS: Metoprolol Tartrate TAB* 25 MG PO SCH ×2 (09:31→20:27)
[2018-01-27] MEDS: Aspirin 81 mg CHEW TAB* 81 MG TAB.CHEW PO SCH (09:31)
[2018-01-27] MEDS: Furosemide TAB* 40 MG PO SCH (09:31)
[2018-01-27] MEDS: Finasteride TAB* 5 MG PO SCH (09:31)
[2018-01-27] MEDS ORDERED: Vancomycin(*) 1,500 MG in NS 0.9% 250 ML* 250 ML IVPB ONE (11:30)
[2018-01-27] MEDS: Cefepime 2 GM in Dextrose(*) 2 GM/50 ML BAG IV SCH ×2 (12:11→23:56)
[2018-01-27] MEDS ORDERED: Vancomycin per Pharmacy* NOTE FOLLOW UP SCH (16:00)
[2018-01-27] MEDS: Warfarin TAB(*) 7.5 MG PO SCH (17:06)
--- NOTE | 2018-01-27 21:49 | CONS ---
CONSULTATION REPORT: DATE OF CONSULT: 01/27/18 REQUESTING PHYSICIAN: Koko Tran MD CONSULTING SERVICE: Infectious Disease. REASON FOR CONSULT: Fever. IMPRESSION: 1. Recent neutropenic fever, though the neutropenia has resolved, he is still febrile and found to have left-sided pyelonephritis and obstructing left ureteral stone, which was infected. Now status post left ureteral stent. Urine culture is growing Staph epidermidis that may or may not be the pathogen involved, could have been another organism, which was not isolated in the culture. He was on Levaquin as an outpatient and the urine sample taken after admission is negative. I suspect it was a gram negative and that may have inhabited the gram negative growth in the culture. Differential diagnosis also includes drug fever. 2. Right chest port Staph epidermidis in 2/4 blood culture bottles taken at admission that included the 2 samples that were positive from the line, it could still be contaminant. Followup line cultures taken yesterday are negative. He does have a prosthetic aortic valve, no murmur. No peripheral stigmata of infective endocarditis. I think infective endocarditis unlikely. 3. Morbid obesity. 4. Pancreatic cancer, status post biliary stent and current chemotherapy. RECOMMENDATIONS: A transthoracic echocardiogram. As followup blood cultures are negative, we will continue vancomycin and cefepime for today. If the fever does not denice, then we will change this gram-negative coverage and see if the fever improves with main concern for drug fever. HISTORY OF PRESENT ILLNESS: This is a 67-year-old male with obesity, recent diagnosis of pancreatic cancer, being treated with chemotherapy, admitted with neutropenic fever. He was treated with Levaquin as an outpatient with some improvement in his symptoms. However, his fever worsened and he came to the hospital on 01/23/18 with worsening fatigue and the sore throat. He was taking Levaquin as an outpatient tolerating it well. He had no urinary symptoms at that time and he did not notice any flank pain or abdominal pain, but he was admitted to the hospital on 01/23/18, started on cefepime. A CT scan showed left-sided hydronephrosis. On 01/25/18, Dr. Love took him to OR, placed ureteral stents and found pus in the ureter behind the stone. His fever was as high as 39.3 on 01/20/18 and is hovering in the low 38 to 38.5 range over the last 24 hours. He does not feel fever, sometimes chilled, occasional sweats. No abdominal pain. Blood cultures taken as an outpatient on 01/23/18 were negative. The urine culture on 01/23/18 grew Staph epidermidis. Blood cultures from 01/25/18 from the line growing Staph epidermidis and peripheral blood are no growth. Interestingly, the timing of the venous draw and the blood draw is exactly the same. There is a possibility that both were line draws or both were venous draws. The followup line draw on 01/26/18 is negative. PAST MEDICAL HISTORY: 1. Pancreatic cancer, treated with chemotherapy, gemcitabine and Abraxane via right chest port. 2. Thoracic aortic aneurysm repair. 3. Status post aortic valve replacement. 4. Status post left knee arthroplasty complicated by infection and treated with explantation and long-term antibiotics. 5. Atrial fibrillation. 6. Hypertension. 7. Obstructive sleep apnea. 8. Morbid obesity. 9. Hypercholesterolemia. 10. Tobacco abuse. 11. Type 2 diabetes. 12. Uric acid urolithiasis. 13. Status post umbilical hernia repair. ALLERGIES: OXACILLIN and MORPHINE. MEDICATIONS: 1. Tylenol. 2. Aspirin. 3. Cefepime 2 g every 12 hours. 4. Finasteride. 5. Lasix. 6. Heparin flushes through the port. 7. Insulin glargine. 8. Metoprolol. 9. Potassium. 10. Warfarin. SOCIAL HISTORY: He lives with his in [place]. There is no travel or sick contacts. FAMILY HISTORY: No recurrent infections. No tuberculosis. PHYSICAL EXAM: Vital Signs: Temperature is 38, heart rate 80, respiratory rate 20, blood pressure 135/69, oxygen saturation 100% on room air. General: He is awake, not in distress. Neurologic: He is oriented x3. Follows all commands. HEENT: There is no conjunctival hemorrhage. Oropharynx without lesions. Neck: Supple without mass. Lymph Nodes: There is no cervical, supraclavicular, inguinal, axillary, or epitrochlear lymphadenopathy. Heart: Regular rate and rhythm without murmurs, rubs, or gallops. Lungs: Clear to auscultation bilaterally. Abdomen: Soft, nontender, nondistended. There are bowel sound present. There is no flank tenderness to palpation. Skin: There is no rash or splinter hemorrhages. Musculoskeletal: There is no spinal tenderness to palpation or joint synovitis. DIAGNOSTIC STUDIES/LAB DATA: White blood cell count 10, hemoglobin 8.7, platelets 248. Creatinine 2.2, now it is 2.4. Please see impression and recommendations outlined above. Thanks for asking me to see Mr. Collins in consultation. [id number]/[facility] #: [id number] [facility]
[2018-01-28] MEDS ORDERED: Vancomycin Random Level* NOTE FOLLOW UP ONE (06:00)
[2018-01-28 06:09] LABS: Hematocrit 27 % (42-52); Mean Corpuscular HGB Conc 34 g/dl (31-36); Mean Corpuscular Hemoglobin 29 pg (27-31); Mean Corpuscular Volume 88 fL (80-94); Mean Platelet Volume 7.6 um3 (7.4-10.4); Platelet Count 225 10^3/ul (150-450); Red Blood Count 3.07 10^6/ul (4.0-5.4); Red Cell Distribution Width 17 % (10.5-15); White Blood Count 10.7 10^3/ul (3.5-10.8)
[2018-01-28 06:33] LABS: EGFR Non-African American 34.7 (>60)
[2018-01-28 06:40] LABS: Monocytes % 14 % (0-7)
[2018-01-28] MEDS: Vancomycin(*) 1,000 MG in NS 0.9% 250 ML* 250 ML IVPB SCH ×2 (08:21→19:51)
[2018-01-28] MEDS: Insulin LISPRO* 1 UNITS UNIT SUBCUT SCH ×3 (09:02→18:04)
[2018-01-28] MEDS: Insulin GLARGINE(*) 1 UNITS UNIT SUBCUT SCH (09:02)
[2018-01-28] MEDS: Aspirin 81 mg CHEW TAB* 81 MG TAB.CHEW PO SCH (09:03)
[2018-01-28] MEDS: Potassium Chlor TAB* 20 MEQ TAB.ER PO SCH (09:03)
[2018-01-28] MEDS: Furosemide TAB* 40 MG PO SCH (09:03)
[2018-01-28] MEDS: Metoprolol Tartrate TAB* 25 MG PO SCH ×2 (09:03→19:55)
[2018-01-28] MEDS: Finasteride TAB* 5 MG PO SCH (09:03)
[2018-01-28] MEDS: Cefepime 2 GM in Dextrose(*) 2 GM/50 ML BAG IV SCH (11:46)
[2018-01-28] MEDS ORDERED: Perflutren Lipid Microsphere* 3 ML VIAL ONE (15:35)
[2018-01-28] MEDS: Warfarin TAB(*) 7.5 MG PO SCH (18:04)
--- NOTE | 2018-01-28 18:57 | ECHO ---
Patient: NICK CONNELLY Rec#: [id number] : 1950 Date: 01/28/2018 Age: 67y Height: 170.18 cm / 67.0 in Weight: 153.77 kg / 338.9 lbs Sex: M BSA: 2.53 Room#: ICU 6 Admit Date#: 01/23/2018 Type: Inpatient Referring: Sushil Siddiqui MD Reading: Vianney Cantu MD 1 [employer] Teacher: Kat Escobar,RDCS,RDMS CC: HENRIQUE HIDALGO Transthoracic Echocardiogram Indication: Fever BP: 167/86 HR: 97 Rhythm: A-Fib Findings History: AVR (bioprosthetic), AFIB, thoracic AO aneurysm repair, DM, HTN, JADE Technical Comments: The study quality is fair. Left Ventricle: The left ventricular chamber size is normal. Mild to moderate concentric left ventricular hypertrophy is observed. Global left ventricular wall motion and contractility are within normal limits. The estimated ejection fraction is 50-55%. The assessment of diastolic function is non-diagnostic. Left Atrium: The left atrium is mild to moderately dilated. Right Ventricle: The right ventricular cavity size is normal. The right ventricular global systolic function is low normal. Right Atrium: The right atrium is mildly dilated. Aortic Valve: The aortic valve structure is not well visualized. There is no evidence of aortic regurgitation. The mean gradient of the aortic valve is 4.9 mmHg. The aortic valve area, by peak velocities, is calculated at 2.1 cm2. A bio-prosthetic aortic valve is present. The bio-prosthetic aortic valve appears to be functioning normally. Mitral Valve: There is mitral annular calcification. The mitral valve leaflets are mildly thickened. There is moderate mitral regurgitation. The mitral regurgitant jet is posteriorly directed. The mitral regurgitant jet is laterally directed. There is no evidence of mitral stenosis. Tricuspid Valve: The tricuspid valve leaflets are normal. There is trace to mild tricuspid regurgitation. No pulmonary hypertension is noted. Pulmonic Valve: There is no evidence of pulmonic valve thickening. There is a trace pulmonic regurgitation. Pericardium: There is no significant pericardial effusion. Aorta: The aortic root appears normal. The aortic arch is not well visualized. Pulmonary Artery: The main pulmonary artery is not well visualized. Venous: The inferior vena cava appears normal in size. There is a greater than 50% respiratory change in the inferior vena cava dimension. Contrast: Definity was used to optimize study. A total of 3 ml was used Conclusions Mild to moderate concentric left ventricular hypertrophy is observed. Global left ventricular wall motion and contractility are within normal limits, atrial fibrillation throughout. The estimated ejection fraction is 50-55%. The right ventricular global systolic function is low normal. The left atrium is mild to moderately dilated. A bio-prosthetic aortic valve is present with good function. The mean gradient of the aortic valve is 4.9 mmHg. No vegetations appreciated, but only fair to reduced imaging of valves. The aortic valve area, by peak velocities, is calculated at 2.1 cm2. There is moderate mitral regurgitation, posteriorly-laterraly directed jet. There is trace to mild tricuspid regurgitation. Compared with prior echo of 07/07/17, EF is stable, MR has increased from trace, TR was trace, prior mean gradient across the aortic valve was 3.7 mmHg, prior LORENZO was 2.3 cm2 (VTI). Recommendation: ASHOK if clinically indicated to follow up on new moderate MR in setting of bacteremia. Measurements Name Value Normal Range RVIDd (AP) 2D 3.6 cm (0.9 - 2.6) RVDdMajor (2D) 3.8 cm (2.2 - 4.4) RAd ISD 4CH 6 cm (3.4 - 4.9) RA (A4C)W 3.4 cm (2.9 - 4.6) IVSd (2D) 1.6 cm (0.6 - 1) LVPWd (2D) 1.5 cm (0.6 - 1) LVIDd (2D) 4.6 cm (3.6 - 5.4) LVIDs (2D) 3.5 cm - LV FS (2D) 24 % (25 - 45) Aortic Annulus 2 cm (1.4 - 2.6) Ao root diameter (2D) 3 cm (2.1 - 3.5) Ascending Ao 2.9 cm (2.1 - 3.4) LA dimension (AP) 2D 5.4 cm (2.3 - 3.8) LAd ISD 4CH 6.3 cm (2.9 - 5.3) LA ISD 4CH W 5.1 cm (2.5 - 4.5) Name Value Normal Range LA ESV SP 4CH (A/L) 121.09 ml - LA ESV SP 2CH (A/L) 87.41 ml - LA ESV BP (A/L) 105.5 ml - LA ESV BP (A/L) index 42 ml/m2 - LA ESV SP 4CH (MOD) 113.87 ml - LA ESV SP 2CH (MOD) 83.62 ml - Name Value Normal Range MV E-wave Vmax 1.4 m/sec - MV deceleration time 202 msec - LV lateral e' Vmax 0.12 m/sec - LV E:e' lateral ratio 12 ratio - Name Value Normal Range AV Vmax 1.5 m/sec - AV VTI 21.7 cm - AV peak gradient 9 mmHg - AV mean gradient 4.9 mmHg - LVOT diameter 2 cm - LVOT Vmax 1 m/sec - LVOT VTI 17 cm - LVOT peak gradient 4 mmHg - LVOT mean gradient 2 mmHg - DOI (VTI) 0.8 ratio - LORENZO (continuity Vmax) 2.1 cm2 - LORENZO (continuity VTI) 2.5 cm2 - ANI Vmax 0.7 m/sec - Name Value Normal Range MV Vmax 1.4 m/sec - MV VTI 27.04 cm - MV peak gradient 8 mmHg - MV mean gradient 2.9 mmHg - MV PHT 68 msec - MR Vmax 5.1 m/sec - MR VTI 124 cm - MR volume (PISA) 26 ml - MR flow (PISA) 97.97 ml/sec - MR ERO 2.1 cm2 - MR PISA radius 0.7 cm - MR alias Vmax 35 cm/sec - MVA (PHT) 3.2 cm2 - MVA (continuity VTI) 1.8 cm2 - Name Value Normal Range TR Vmax 2.2 m/sec - TR peak gradient 19 mmHg - RAP 3 mmHg - RVSP 22 mmHg - IVC diameter 2.1 cm -
[2018-01-28] MEDS: Acetaminophen TAB* 325 MG PO PRN (19:56)
[2018-01-29] MEDS: Cefepime 2 GM in Dextrose(*) 2 GM/50 ML BAG IV SCH (00:03)
[2018-01-29 06:18] LABS: Hematocrit 24 % (42-52); Hemoglobin 8.2 g/dl (14.0-18.0); Mean Corpuscular HGB Conc 35 g/dl (31-36); Mean Corpuscular Hemoglobin 30 pg (27-31); Mean Corpuscular Volume 87 fL (80-94); Mean Platelet Volume 8.2 um3 (7.4-10.4); Platelet Count 198 10^3/ul (150-450); Red Blood Count 2.71 10^6/ul (4.0-5.4); Red Cell Distribution Width 17 % (10.5-15); White Blood Count 9.9 10^3/ul (3.5-10.8)
[2018-01-29 06:34] LABS: INR 2.29 (0.77-1.02)
[2018-01-29 06:35] LABS: EGFR Non-African American 36.9 (>60)
[2018-01-29 07:04] LABS: Monocytes % 17 % (0-7)
[2018-01-29] MEDS ORDERED: Vancomycin Trough Check NOTE FOLLOW UP ONE (07:30)
[2018-01-29] MEDS: Aspirin 81 mg CHEW TAB* 81 MG TAB.CHEW PO SCH (08:45)
[2018-01-29] MEDS: Metoprolol Tartrate TAB* 25 MG PO SCH ×2 (08:45→20:07)
[2018-01-29] MEDS: Potassium Chlor TAB* 20 MEQ TAB.ER PO SCH (08:45)
[2018-01-29] MEDS: Vancomycin(*) 1,000 MG in NS 0.9% 250 ML* 250 ML IVPB SCH (08:45)
[2018-01-29] MEDS: Insulin LISPRO* 1 UNITS UNIT SUBCUT SCH ×3 (08:45→18:00)
[2018-01-29] MEDS: Furosemide TAB* 40 MG PO SCH (08:45)
[2018-01-29] MEDS: Finasteride TAB* 5 MG PO SCH (08:45)
[2018-01-29] MEDS: Insulin GLARGINE(*) 1 UNITS UNIT SUBCUT SCH (08:46)
--- NOTE | 2018-01-29 09:58 | PN ---
Progress Note - Progress Note Date of Service: 01/29/18 SOAP: Subjective: CC: pyelonephritis HPI: 67 year old man with right chest port for chemotherapy admitted with fever , obstructing ureteral stone s/p stent. Feels well. Objective: Vital Signs Temp 37.1 C 01/29/18 07:26 Pulse 96 01/29/18 07:26 Resp 22 01/29/18 07:26 BP 107/51 01/29/18 07:26 Pulse Ox 99 01/29/18 07:26 Intake & Output 01/28/18 01/29/18 01/29/18 18:59 06:59 18:59 Intake Total 1122 Output Total 2125 850 Balance -1003 -850 Weight 334 lb 9.6 oz Intake: IV Fluids 372 NS (0.9%) 372 Oral 750 Output: Urine 450 Rachel 1675 850 Other: # Bowel Movements 0 Estimated Stool Amount Large Gen:awake, no distress HEENT: no thrush Heart:RRR no murmur Chest: no wheeze; right chest port no edema Abd:+BS NTND soft Skin: no rash MSK: no knee effusion Abnormal Lab Results 01/28/18 01/28/18 01/29/18 12:42 16:59 05:33 WBC 9.9 RBC 2.71 L Hgb 8.2 L Hct 24 L MCV 87 MCH 30 MCHC 35 RDW 17 H Plt Count 198 MPV 8.2 Neut % (Auto) Not Reportable Lymph % (Auto) Not Reportable Miller % (Auto) Not Reportable Eos % (Auto) Not Reportable Baso % (Auto) Not Reportable Absolute Neuts (auto) Not Reportable Absolute Lymphs (auto) Not Reportable Absolute Monos (auto) Not Reportable Absolute Eos (auto) Not Reportable Absolute Basos (auto) Not Reportable Absolute Nucleated RBC Not Reportable Immature Gran % 2 Neutrophils % 66 Band Neutrophils % 1 Lymphocytes % 12 L Monocytes % 17 H Eosinophils % 3 Basophils % 0 Metamyelocytes % 1 Nucleated RBC % Not Reportable Abs Neuts (Manual) 6.5 Abs Lymphs (Manual) 1.2 Abs Monocytes (Manual) 1.7 H Absolute Eos (Manual) 0.3 Abs Basophils (Manual) 0 Nucleated RBCs/100 WBC 0 Normal RBC Morphology Not Reportable Polychromasia 1+ INR (Anticoag Therapy) BUN Creatinine Est GFR ( Amer) Est GFR (Non-Af Amer) POC Glucose (mg/dL) 206 H 221 H Vancomycin Trough 01/29/1818 01/29/18 05:33 05:33 07:30 WBC RBC Hgb Hct MCV MCH MCHC RDW Plt Count MPV Neut % (Auto) Lymph % (Auto) Miller % (Auto) Eos % (Auto) Baso % (Auto) Absolute Neuts (auto) Absolute Lymphs (auto) Absolute Monos (auto) Absolute Eos (auto) Absolute Basos (auto) Absolute Nucleated RBC Immature Gran % Neutrophils % Band Neutrophils % Lymphocytes % Monocytes % Eosinophils % Basophils % Metamyelocytes % Nucleated RBC % Abs Neuts (Manual) Abs Lymphs (Manual) Abs Monocytes (Manual) Absolute Eos (Manual) Abs Basophils (Manual) Nucleated RBCs/100 WBC Normal RBC Morphology Polychromasia INR (Anticoag Therapy) 2.29 H BUN 43 H Creatinine 1.83 H Est GFR ( Amer) 47.4 Est GFR (Non-Af Amer) 36.9 POC Glucose (mg/dL) Vancomycin Trough 15.8 01/29/18 07:33 WBC RBC Hgb Hct MCV MCH MCHC RDW Plt Count MPV Neut % (Auto) Lymph % (Auto) Miller % (Auto) Eos % (Auto) Baso % (Auto) Absolute Neuts (auto) Absolute Lymphs (auto) Absolute Monos (auto) Absolute Eos (auto) Absolute Basos (auto) Absolute Nucleated RBC Immature Gran % Neutrophils % Band Neutrophils % Lymphocytes % Monocytes % Eosinophils % Basophils % Metamyelocytes % Nucleated RBC % Abs Neuts (Manual) Abs Lymphs (Manual) Abs Monocytes (Manual) Absolute Eos (Manual) Abs Basophils (Manual) Nucleated RBCs/100 WBC Normal RBC Morphology Polychromasia INR (Anticoag Therapy) BUN Creatinine Est GFR ( Amer) Est GFR (Non-Af Amer) POC Glucose (mg/dL) 162 H Vancomycin Trough Assessment: 1. left ureteral stone with hydronephrosis, s/p stent 2. left pyelonephritis and pyuria; Candiduria (from ureteral culture) 3. Staph epi 2/4 BC, contaminant 4. chemotherapy for pancreatic cancer 5. morbid obesity Plan: 1. DC cefepime and vancomycin; flucon 400 mg po daily while ureteral stent present 35 minutes floor time >50% counseling regarding antibiotic plans and coordinating care with Dr Muniz
--- NOTE | 2018-01-29 10:25 | PN ---
Progress Note - Progress Note Date of Service: 01/29/18 SOAP: Subjective: feels good. denies any pain. eating well. moving bowels. still has nevarez in place Objective: Vital Signs Temp Pulse Resp BP Pulse Ox 98.8 F 96 22 107/51 99 01/29/18 07:26 01/29/18 07:26 01/29/18 07:26 01/29/18 07:26 01/29/18 07:26 lying flat in bed in nad perr eomi op moist cta anteriorly s1 s2 nl morbidly obese NT +bs trace LE edema bilaterally nevarez in place with dark urine with sediment Acetaminophen (Tylenol Tab*) 650 mg PO Q4H PRN PRN Reason: FEVER/PAIN Last Admin: 01/28/18 19:56 Dose: 650 mg Aspirin (Aspirin 81 Mg Chew Tab*) 81 mg PO DAILY [facility] Last Admin: 01/29/18 08:45 Dose: 81 mg Dextrose (D50w Syringe 50 Ml*) 12.5 gm IV PUSH .FOR FS < 60 - SS PRN PRN Reason: FS < 60 Finasteride (Proscar Tab*) 5 mg PO DAILY [facility] Last Admin: 01/29/18 08:45 Dose: 5 mg Fluconazole (Diflucan 100 Mg Tab*) 400 mg PO DAILY [facility] Furosemide (Lasix Tab*) 40 mg PO DAILY [facility] Last Admin: 01/29/18 08:45 Dose: 40 mg Heparin Sodium (Porcine) (Heparin Flush Port (Ivad)) 5 ml FLUSH DAILY [facility] PRN Reason: Protocol Last Admin: 01/29/18 06:00 Dose: 5 ml Insulin Glargine (Lantus(*)) 66 units SUBCUT DAILY [facility] Last Admin: 01/29/18 08:46 Dose: 66 units Insulin Human Lispro (Humalog*) 0 units SUBCUT AC [facility] PRN Reason: Protocol Last Admin: 01/29/18 08:45 Dose: 2 units Metoprolol Tartrate (Lopressor Tab*) 25 mg PO BID [facility] Last Admin: 01/29/18 08:45 Dose: 25 mg Oxycodone/Acetaminophen (Percocet 5/325 Tab*) 1 tab PO Q6H PRN PRN Reason: PAIN Last Admin: 01/26/18 01:00 Dose: 1 tab Pharmacy Profile Note (Coumadin Daily Reminder*) 0 note FOLLOW UP 1700 [facility] Last Admin: 01/28/18 18:41 Dose: 1 note Potassium Chloride (Klor Con Er Tab*) 40 meq PO DAILY [facility] Last Admin: 01/29/18 08:45 Dose: 40 meq Warfarin Sodium (Coumadin Tab(*)) 3 mg PO DAILY@1700 [facility] PRN Reason: Protocol Laboratory Results - last 24 hr 01/28/18 01/28/18 01/29/18 12:42 16:59 05:33 WBC 9.9 RBC 2.71 L Hgb 8.2 L Hct 24 L MCV 87 MCH 30 MCHC 35 RDW 17 H Plt Count 198 MPV 8.2 Neut % (Auto) Not Reportable Lymph % (Auto) Not Reportable [place] % (Auto) Not Reportable Eos % (Auto) Not Reportable Baso % (Auto) Not Reportable Absolute Neuts (auto) Not Reportable Absolute Lymphs (auto) Not Reportable Absolute Monos (auto) Not Reportable Absolute Eos (auto) Not Reportable Absolute Basos (auto) Not Reportable Absolute Nucleated RBC Not Reportable Immature Gran % 2 Neutrophils % 66 Band Neutrophils % 1 Lymphocytes % 12 L Monocytes % 17 H Eosinophils % 3 Basophils % 0 Metamyelocytes % 1 Nucleated RBC % Not Reportable Abs Neuts (Manual) 6.5 Abs Lymphs (Manual) 1.2 Abs Monocytes (Manual) 1.7 H Absolute Eos (Manual) 0.3 Abs Basophils (Manual) 0 Nucleated RBCs/100 WBC 0 Normal RBC Morphology Not Reportable Polychromasia 1+ INR (Anticoag Therapy) BUN Creatinine Est GFR ( Amer) Est GFR (Non-Af Amer) POC Glucose (mg/dL) 206 H 221 H Vancomycin Trough 01/29/18 01/29/18 01/29/18 05:33 05:33 07:30 WBC RBC Hgb Hct MCV MCH MCHC RDW Plt Count MPV Neut % (Auto) Lymph % (Auto) [place] % (Auto) Eos % (Auto) Baso % (Auto) Absolute Neuts (auto) Absolute Lymphs (auto) Absolute Monos (auto) Absolute Eos (auto) Absolute Basos (auto) Absolute Nucleated RBC Immature Gran % Neutrophils % Band Neutrophils % Lymphocytes % Monocytes % Eosinophils % Basophils % Metamyelocytes % Nucleated RBC % Abs Neuts (Manual) Abs Lymphs (Manual) Abs Monocytes (Manual) Absolute Eos (Manual) Abs Basophils (Manual) Nucleated RBCs/100 WBC Normal RBC Morphology Polychromasia INR (Anticoag Therapy) 2.29 H BUN 43 H Creatinine 1.83 H Est GFR ( Amer) 47.4 Est GFR (Non-Af Amer) 36.9 POC Glucose (mg/dL) Vancomycin Trough 15.8 01/29/18 07:33 WBC RBC Hgb Hct MCV MCH MCHC RDW Plt Count MPV Neut % (Auto) Lymph % (Auto) [place] % (Auto) Eos % (Auto) Baso % (Auto) Absolute Neuts (auto) Absolute Lymphs (auto) Absolute Monos (auto) Absolute Eos (auto) Absolute Basos (auto) Absolute Nucleated RBC Immature Gran % Neutrophils % Band Neutrophils % Lymphocytes % Monocytes % Eosinophils % Basophils % Metamyelocytes % Nucleated RBC % Abs Neuts (Manual) Abs Lymphs (Manual) Abs Monocytes (Manual) Absolute Eos (Manual) Abs Basophils (Manual) Nucleated RBCs/100 WBC Normal RBC Morphology Polychromasia INR (Anticoag Therapy) BUN Creatinine Est GFR ( Amer) Est GFR (Non-Af Amer) POC Glucose (mg/dL) 162 H Vancomycin Trough Assessment: 67 yo M w metastatic pancreatic CA on palliative chemotherapy admitted with sepsis from pyelonephritis from obstructing ureteral stone. now sp stent with cultures from intraoperative procedure growing jordon. In discussing with ID, blood cx felt to be contaminate and the jordon felt to be the true pathogen so antibiotics stopped and antifungals initiated. will need to watch INR very closely. Plan: -decrease coumadin to 3 mg daily -cont fluconazole 400 mg daily as long as stent in place -discuss with urology if nevarez can be removed -oob encourage ambulation -likely d/c 24-48 hrs if afebrile
[2018-01-29] MEDS: Fluconazole 100 MG TAB* TAB PO SCH (10:30)
[2018-01-29] MEDS ORDERED: Warfarin TAB(*) 3 MG PO SCH (17:00)
[2018-01-29] MEDS: oxyCODONE/Acetamin 5/325 MG* TAB PO PRN (19:20)
[2018-01-30 05:42] LABS: Hematocrit 24 % (42-52); Hemoglobin 8.1 g/dl (14.0-18.0); Mean Corpuscular HGB Conc 34 g/dl (31-36); Mean Corpuscular Hemoglobin 30 pg (27-31); Mean Corpuscular Volume 88 fL (80-94); Mean Platelet Volume 8.2 um3 (7.4-10.4); Platelet Count 213 10^3/ul (150-450); Red Blood Count 2.72 10^6/ul (4.0-5.4); Red Cell Distribution Width 18 % (10.5-15); White Blood Count 9.6 10^3/ul (3.5-10.8)
[2018-01-30 05:46] LABS: INR 3.61 (0.77-1.02)
[2018-01-30 05:54] LABS: EGFR Non-African American 38.1 (>60)
[2018-01-30 06:31] LABS: Monocytes % 14 % (0-7)
[2018-01-30] MEDS: Insulin LISPRO* 1 UNITS UNIT SUBCUT SCH ×2 (08:38→14:31)
[2018-01-30] MEDS: oxyCODONE/Acetamin 5/325 MG* TAB PO PRN (08:39)
[2018-01-30] MEDS: Furosemide TAB* 40 MG PO SCH (08:39)
[2018-01-30] MEDS: Insulin GLARGINE(*) 1 UNITS UNIT SUBCUT SCH (08:39)
[2018-01-30] MEDS: Fluconazole 100 MG TAB* TAB PO SCH (08:39)
[2018-01-30] MEDS: Potassium Chlor TAB* 20 MEQ TAB.ER PO SCH (08:40)
[2018-01-30] MEDS: Aspirin 81 mg CHEW TAB* 81 MG TAB.CHEW PO SCH (08:40)
[2018-01-30] MEDS: Finasteride TAB* 5 MG PO SCH (08:40)
[2018-01-30] MEDS: Metoprolol Tartrate TAB* 25 MG PO SCH (08:40)
--- NOTE | 2018-01-30 09:20 | PN ---
Progress Note - Progress Note Date of Service: 01/30/18 SOAP: Subjective: CC: pyelonephritis HPI: 67 year old man with right chest port for chemotherapy admitted with fever , obstructing ureteral stone s/p stent. No fever, rash, or diarrhea. Appetite ok. Has been up walking a little. Objective: Vital Signs Temp 37.4 C 01/30/18 07:12 Pulse 100 01/30/18 07:12 Resp 16 01/30/18 08:39 BP 115/58 01/30/18 07:12 Pulse Ox 98 01/30/18 07:56 Intake & Output 01/29/18 01/30/18 01/30/18 18:59 06:59 18:59 Intake Total 250 480 Output Total 1400 1950 Balance -1150 -1470 Weight 333 lb 1.6 oz Intake: Oral 250 480 Output: Urine 1400 Rachel 1950 Gen:awake, no distress HEENT: no thrush Heart:RRR no murmur Chest: no wheeze; right chest port no edema Abd:+BS NTND soft Skin: no rash MSK: no knee effusion Assessment: 1. left ureteral stone with hydronephrosis, s/p stent 2. left pyelonephritis and pyuria; Candiduria (from ureteral culture) 3. Staph epi 2/4 BC, contaminant 4. chemotherapy for pancreatic cancer 5. morbid obesity Plan: 1. continue flucon 400 mg po daily while ureteral stent present, micro lab will send isolate for susceptibility testing 2. PT
--- NOTE | 2018-01-30 15:00 | RAD ---
INDICATION: Elevated liver enzymes. COMPARISON: Comparison is made with prior CTs of the abdomen from November 27, 2017 in January 25, 2018. TECHNIQUE: Multiple real-time images of the right upper quadrant were obtained. FINDINGS: The gallbladder appears distended. No gallbladder wall thickening or gallstones are seen. No pericholecystic fluid or positive sonographic Leal sign was present. There is suggestion of mild intrahepatic ductal distention. The common bile duct measures up to 0.7 cm in diameter and is unchanged from the prior CT study. The liver is enlarged without significant focal abnormality. The pancreas is partially obscured by overlying bowel gas. The right kidney is normal in size without evidence for hydronephrosis. IMPRESSION: 1. FINDINGS SUGGESTIVE OF MILD INTRAHEPATIC DUCTAL DISTENTION ALTHOUGH NO CHANGE IN THE DIAMETER OF THE COMMON BILE DUCT. 2. HEPATOMEGALY WITHOUT FOCAL ABNORMALITY SEEN.
[2018-01-30 16:14] VITALS: BP 142/57
--- NOTE | 2018-01-31 02:39 | DS ---
CC: Dr. Tran; Dr. Siddiqui; Dr. Stephenson; Dr. Jones * DISCHARGE SUMMARY: DATE OF ADMISSION: 01/23/18 DATE OF DISCHARGE: 01/30/18 PRIMARY CARE PROVIDER: Dr. Jones. PRIMARY ONCOLOGIST: Dr. Tran. ATTENDING PHYSICIAN: Dr. Tran.* (DICTATED BY STEFANIA MONTGOMERY) CONSULTING INFECTIOUS DISEASE SPECIALIST: Sushil Siddiqui MD DISCHARGING PROVIDER: STEFANIA Montgomery PRIMARY DISCHARGE DIAGNOSES: 1. Sepsis secondary to pyelonephritis with Frida being the most likely pathogen. 2. Acute on chronic renal insufficiency likely secondary to sepsis. 3. Anemia secondary to myelosuppression from chemotherapy status post transfusion of 1 unit of packed red blood cells. 4. Chronic diastolic heart failure without acute exacerbation. 5. Pancreatic cancer status post cycle 1 gemcitabine and Abraxane, 01/02/18. 4. Elevated transaminases and total bilirubin with mild intrahepatic biliary duct dilatation, but stable common bile duct diameter. SECONDARY DISCHARGE DIAGNOSES: 1. Morbid obesity with a BMI of 53. 2. Insulin dependent diabetes. 3. Atrial fibrillation. 4. Obstructive sleep apnea. DISCHARGE MEDICATIONS: 1. Allopurinol 300 mg p.o. daily. 2. Aspirin 81 mg p.o. daily. 3. Enalapril 10 mg p.o. daily. 4. Finasteride 5 mg p.o. daily. 5. Fluconazole 400 mg p.o. daily. 6. Glipizide 10 mg p.o. twice daily. 7. Lantus 66 units subcu daily. 8. Victoza 18 mg subcu daily. 9. Metformin 1000 mg p.o. twice daily. 10. Metoprolol tartrate 25 mg p.o. twice daily. 11. Percocet 5/325, 1 to 2 tablets p.o. q.6 hours as needed. 12. Potassium chloride 40 mEq p.o. daily. 13. Coumadin 2.5 mg p.o. daily. Medication changes: 1. Fluconazole 400 mg p.o. daily through to until ureteral stent removed. 2. Decrease Coumadin to 2.5 mg daily (roughly 50% of usual dose). 3. Stop Levaquin. HOSPITAL IMAGIN. CT chest, abdomen, and pelvis demonstrates multiple bilateral renal calculi in addition to a large calculus present at the left UPJ causing moderate hydronephrosis, pneumobilia, there is a biliary stent in place, no intra or extrahepatic ductal distention is appreciated. Mild hepatosplenomegaly and hepatic steatosis, small post-thoracic aortic aneurysm repair, small stable right middle lobe pulmonary nodule. 2. Liver ultrasound, 01/30/18, shows findings suggestive of mild intrahepatic ductal distention, although no change in diameter of the common bile duct measuring 7 mm in diameter. Hepatomegaly without focal abnormalities seen. HOSPITAL COURSE: This is a 67-year-old gentleman with a relatively recent diagnosis of pancreatic cancer who completed cycle 1 of neoadjuvant gemcitabine and Abraxane on 01/02/18. The patient was seen in medical oncology office approximately 1 week prior to admission with complaints of fever. He was neutropenic at that time but did not appear septic. He had an associated cough. Chest x-ray was nonfocal. The patient was subsequently started on Levaquin. Urine and blood cultures were also gathered at that time. Blood cultures were negative. Urine cultures grew Frida glabrata and normal scotty. The patient subsequently returned to the office after initially feeling better for a couple of days but with recurrent fever. His cough had subsequently resolved and he had noted some hematuria. He had continued his Levaquin as prescribed. In the office setting, he otherwise looked relatively nontoxic, but due to persistent fevers on oral Levaquin and recent neutropenia, recommendation was made for hospital admission. The patient at the time of admission was not neutropenic. He actually had a mild leukocytosis with a total white blood cell count of 14,600. Chemistries demonstrated acute on chronic renal insufficiency with a baseline creatinine just above 1 and at the time of admission was 1.88. The patient was normotensive and afebrile in the office. Urinalysis demonstrated blood, leuk esterase, and white blood cells. He was empirically treated with cefepime. The patient continued to have intermittent fevers and leukocytosis despite IV cefepime. For this reason, CT of the chest, abdomen, and pelvis was completed to evaluate for source of infection and at that time, an obstructing left ureteral stone was appreciated at the level of the UPJ with moderate hydronephrosis. Urologist, Dr. Love, was contacted at that time for ureteral stent placement. Overnight, the patient became hypotensive and went to the operating room for urgent retrograde pyelogram with left ureteral stent placement. Dr. Love noted a mild urethral stricture at that time with approximately 400 mL present in the bladder at the time of cystoscopy. The stricture was dilated and a left ureteral stent was placed with purulent urine noted, which was subsequently cultured and eventually grew Frida glabrata in greater than 100,000 colonies. On initial culture, the patient grew Staph epidermidis from 2 culture bottles taken from his recently implanted port. He also grew Staph epidermidis from initial urine culture, but as mentioned previously, culture taken intraoperatively grew Frida glabrata. Due to conflicting micro reports, Dr. Sushil Siddiqui was consulted for opinion of Infectious Disease. He felt that the Frida was likely a true pathogen and antibiotics were discontinued after the patient had received multiple doses of cefepime and a couple of days of vancomycin and fluconazole was subsequently started. The patient was afebrile for approximately 48 hours prior to discharge. On the day of discharge, comprehensive metabolic panel was completed, which demonstrated elevated transaminases and total bilirubin. The patient has a biliary stent in place, which was placed for biliary obstruction due to his pancreatic mass. Total bilirubin was 2. Liver ultrasound was completed, which demonstrated mild dilation of the intrahepatic biliary duct, the common bile duct remains normal in diameter at 7 mm, and the patient was asymptomatic. DISPOSITION AND FOLLOWUP PLAN: The patient is being discharged to home. Recommendation from the Infectious Disease is to continue fluconazole 400 mg p.o. daily. Transaminitis is noted and we will plan to monitor liver enzymes. Dr. Siddiqui recommends continuing fluconazole until ALT is at least 4 times upper limit of normal, at which point it should be discontinued. Frida glabrata species is being sent out for sensitivity testing from the micro lab. The patient requires followup with primary urologist Dr. Stephenson and will require retrieval of his left renal calculi as he exceeds weight limit for lithotripsy. Dr. Siddiqui recommends continuing fluconazole until the ureteral stent is removed. Plan to repeat labs with close followup next week. If total bilirubin continues to increase, the patient will require repeat MRCP for further evaluation of possible biliary obstruction. STEFANIA MONTGOMERY [id number]/[facility] #: [id number] [facility]
== END 2018-01-30 17:01 | disposition home or self-care (01) | DRG 872 ==
LOC: MED 19:32 → ICU 01-25 20:28 → MED 01-28 16:39
PROVIDERS: ADMIT Internal Medicine Hematology & Oncology; ATTEND Internal Medicine Hematology & Oncology
PROC: 0T778DZ Dilation of Left Ureter with Intraluminal Device, Via Natural or Artificial Opening Endoscopic (ICD-10-PCS; 2018-01-25)
PROC: 30233N1 Transfusion of Nonautologous Red Blood Cells into Peripheral Vein, Percutaneous Approach (ICD-10-PCS; principal; 2018-01-26)
PROC: 5A09357 Assistance with Respiratory Ventilation, Less than 24 Consecutive Hours, Continuous Positive Airway Pressure (ICD-10-PCS; 2018-01-26)
DX: A41.9 Sepsis, unspecified organism (principal); N17.9 Acute kidney failure, unspecified; I50.32 Chronic diastolic (congestive) heart failure; C25.9 Malignant neoplasm of pancreas, unspecified; N13.6 Pyonephrosis; Z68.43 Body mass index [BMI] 50.0-59.9, adult; I13.0 Hypertensive heart and chronic kidney disease with heart failure and stage 1 through stage 4 chronic kidney disease, or unspecified chronic kidney disease; M86.8X6 Other osteomyelitis, lower leg; N18.9 Chronic kidney disease, unspecified; D64.81 Anemia due to antineoplastic chemotherapy; E66.01 Morbid (severe) obesity due to excess calories; G47.33 Obstructive sleep apnea (adult) (pediatric); D70.9 Neutropenia, unspecified; I48.2 Chronic atrial fibrillation; I25.10 Atherosclerotic heart disease of native coronary artery without angina pectoris; E78.00 Pure hypercholesterolemia, unspecified; N35.9 Urethral stricture, unspecified; M19.90 Unspecified osteoarthritis, unspecified site; Z96.652 Presence of left artificial knee joint; E11.22 Type 2 diabetes mellitus with diabetic chronic kidney disease; I95.9 Hypotension, unspecified; R16.0 Hepatomegaly, not elsewhere classified; Z92.21 Personal history of antineoplastic chemotherapy; Z79.82 Long term (current) use of aspirin; Z79.4 Long term (current) use of insulin; Z79.01 Long term (current) use of anticoagulants; Z88.8 Allergy status to other drugs, medicaments and biological substances; Z88.1 Allergy status to other antibiotic agents; Z87.891 Personal history of nicotine dependence; Z95.3 Presence of xenogenic heart valve
CPT/HCPCS: 36415; 36591; 71046; 71250; 74176; 74420; 76705; 80048; 80053; 80202; 81003; 81015; 82565; 83605; 84520; 85025; 85060; 85610; 86850; 86900; 86901; 86922; 87040; 87077; 87086; 87106; 87150; 87186; 87205; 87651; 88112; 93306; 96365; 99213; 99222; 99232; 99233; 99239; A9270-GY; C1876; C8929; G0463; J0692; J1170; J1642; J1940; J2704; J3010; J3370; P9040

== ENCOUNTER 2018-02-02 07:59 | Inpatient (IN) | payer MEDICARE ==
[2018-02-02] MEDS ORDERED: Dextrose 50% Syringe 50 ML* 25 GM/50 ML SYRINGE IV PUSH ONE ×2 (08:13→08:19)
[2018-02-02] MEDS ORDERED: Dextrose 50% Syringe 50 ML* 25 GM/50 ML SYRINGE ONE (08:15)
[2018-02-02 08:56] LABS: Hematocrit 25 % (42-52); Hemoglobin 8.2 g/dl (14.0-18.0); Mean Corpuscular HGB Conc 33 g/dl (31-36); Mean Corpuscular Hemoglobin 29 pg (27-31); Mean Corpuscular Volume 88 fL (80-94); Platelet Count 291 10^3/ul (150-450); Red Blood Count 2.84 10^6/ul (4.0-5.4); Red Cell Distribution Width 18 % (10.5-15); White Blood Count 11.7 10^3/ul (3.5-10.8)
[2018-02-02] MEDS ORDERED: Sodium Chloride Conc 23.4%* 77 MEQ in D10W 1000 ML BAG* 1,000 ML IV SCH (09:00)
[2018-02-02 09:03] LABS: EGFR Non-African American 40.4 (>60)
[2018-02-02 09:45] LABS: ABS Basophils 0 10^3/ul (0-0.2); ABS Eosinophils 0 10^3/ul (0-0.6); ABS Lymphocytes 0.5 10^3/ul (1.0-4.8); ABS Monocytes 1.2 10^3/ul (0-0.8); ABS Neutrophils 9.9 10^3/ul (1.5-7.7); ABS Nucleated RBC 0 10^3/ul; Nucleated Red Blood Cells % 0.1
[2018-02-02 09:49] LABS: Monocytes % 15 % (0-7)
[2018-02-02 10:17] LABS: Urine Appearance Cloudy; Urine Blood 3+ (Negative); Urine Color Amber; Urine Ketones Negative (Negative); Urine Protein 1+(30 mg/dL) (Negative); Urine Specific Gravity 1.009 (1.010-1.030); Urine Urobilinogen Negative (Negative)
[2018-02-02] MEDS ORDERED: oxyCODONE/Acetamin 5/325 MG* TAB PO PRN (11:32)
[2018-02-02 12:14] LABS: INR 6.45 (0.77-1.02)
--- NOTE | 2018-02-02 12:44 | ED ---
Anshu Bell Jennifer, scribed for Jun Nicholas MD on 02/02/18 at 0820 . HPI Diabetic - HPI Summary HPI Summary: The patient is a 67 y/o M who presents with low blood sugar since last night. Patient states his sugar last night was 57, so he decreased his lantus from 70 to 50. He was found unresponsive by his this morning with sugar <10. EMS gave the patient 2 amps of D10, which brought his sugar back up to 140s. The patient states he currently has a kidney infection and a kidney stone and is on antibiotics. He is also going through chemotherapy for recently diagnosed pancreatic cancer. - History Of Current Complaint Chief Complaint: EDDiabeticProb Time Seen by Provider: 02/02/18 08:12 Hx Obtained From: Patient Onset/Duration: Sudden Onset, Lasting Hours - last night, Other - blood sugar increased after EMS gave 2 amps of D10 Timing: Hours - last night Severity Initially: Mild Severity Currently: None Character: Alert Aggravating: Nothing Alleviating: EMS Treatment Related History: DM II - Allergies/Home Medications Allergies/Adverse Reactions: Allergies Allergy/AdvReac Type Severity Reaction Status Date / Time oxacillin Allergy Severe Rash Verified 02/02/18 08:06 morphine AdvReac Severe Itching Verified 02/02/18 08:06 PMH/Surg Hx/FS Hx/Imm Hx Endocrine/Hematology History: Reports: Hx Diabetes - type 2 Cardiovascular History: Reports: Hx Aneurysm - aneurysm repair and aortic valve repair 12/02/12 [facility], Hx Atrial Fibrillation, Hx Coronary Artery Disease, Hx Hypertension - on meds, Hx Valvular Heart Disease, Other Cardiovascular Problems/Disorders - AORTIC VALVE REPLACEMENT 11/2012 [facility], aortic anuerysm repaired Denies: Hx Pacemaker/ICD Respiratory History: Reports: Hx Sleep Apnea, Other Respiratory Problems/ Disorders - SLEEP APNEA, BIPAP DEPENDENT Denies: Hx Asthma GI History: Reports: Hx Jaundice - improving since stent, Other GI Disorders - COLITIS C DIFF 2014 History: Reports: Hx Dialysis - 2 day hx 2014 when he was dx with C diff, Hx Kidney Stones - 2000s NUMEROUS EPISODES, SHOCKED, DR SKAGGS FOLLOWS, Hx Renal Disease - hx previous abnormal gfr Musculoskeletal History: Reports: Hx Arthritis - HANDS Sensory History: Reports: Hx Cataracts - left EYE ONLY Denies: Hx Contacts or Glasses, Hx Hearing Aid Opthamlomology History: Reports: Hx Cataracts - left EYE ONLY Denies: Hx Contacts or Glasses Psychiatric History: Denies: Hx Panic Disorder - Cancer History Cancer Type, Location and Year: Pancreatic Cancer Hx Chemotherapy: Yes - Surgical History Surgery Procedure, Year, and Place: UMBILICAL HERNIA REPAIR [facility]. 1986 RIGHT THUMB LACAERATION [place]. 2008, 2009, 04/2012 LEFT KNEE [facility] , right knee 2008 , lithotripsy approx . 3 yrs ago, Open heart surgery november 2012 Hx Anesthesia Reactions: No - Immunization History Date of Tetanus Vaccine: UTD Date of Influenza Vaccine: UTD Infectious Disease History: No Infectious Disease History: Reports: Hx Clostridium Difficile Denies: Traveled Outside the [place] in Last 30 Days - Family History Known Family History: Negative: Blood Disorder - Social History Alcohol Use: Occasionally Alcohol Amount: 1-2 Substance Use Type: Reports: None Smoking Status (MU): Former Smoker Amount Used/How Often: smoked for 3-4 years 1/2ppd Review of Systems Positive: Other - low blood sugar Genitourinary: Other - kidney stone, kidney infection All Other Systems Reviewed And Are Negative: Yes Physical Exam - Summary Physical Exam Summary: Appearance: The patient is morbidly obese in no acute distress and in no acute pain. Skin: The skin is warm and dry and skin color reflects adequate perfusion. HEENT: The head is normocephalic and atraumatic. The pupils are equal and reactive. The conjunctivae are clear and without drainage. Nares are patent and without drainage. Mouth reveals moist mucous membranes and the throat is without erythema and exudate. The external ears are intact. The ear canals are patent and without drainage. The tympanic membranes are intact. Neck: the neck is supple with full range of motion and non-tender. There are no carotid bruits. There is no neck vein distension. Respiratory: Chest is non-tender. Lungs are clear to auscultation and breath sounds are symmetrical and equal. Cardiovascular: Heart is regular rate and rhythm. There is no murmur or rub auscultated. There is no peripheral edema and pulses are symmetrical and equal. Abdomen: The abdomen is soft and non-tender. There are normal bowel sounds heard in all four quadrants and there is no organomegaly palpated. Musculoskeletal: There is no back tenderness noted. Extremities are non-tender with full range of motion. There is good capillary refill. There is no peripheral edema or calf tenderness elicited. Neurological: Patient is alert and oriented to person, place and time. The patient has symmetrical motor strength in all four extremities. Cranial nerves are grossly intact. Deep tendon reflexes are symmetrical and equal in all four extremities. Psychiatric: The patient has an appropriate affect and does not exhibit any anxiety or depression. Triage Information Reviewed: Yes Vital Signs On Initial Exam: Initial Vitals Temp Pulse Resp BP Pulse Ox 97.3 F 86 20 120/69 100 02/02/18 08:06 02/02/18 08:06 02/02/18 08:06 02/02/18 08:06 02/02/18 08:06 Vital Signs Reviewed: Yes Diagnostics - Vital Signs Vital Signs Temp Pulse Resp BP Pulse Ox 02/02/18 08:06 97.3 F 86 20 120/69 100 - Laboratory Lab Results: Lab Results 02/02/18 02/02/18 02/02/18 Range/Units 08:10 08:30 08:30 WBC 11.7 H (3.5-10.8) 10^3/ul RBC 2.84 L (4.0-5.4) 10^6/ul Hgb 8.2 L (14.0-18.0) g/dl Hct 25 L (42-52) % MCV 88 (80-94) fL MCH 29 (27-31) pg MCHC 33 (31-36) g/dl RDW 18 H (10.5-15) % Plt Count 291 (150-450) 10^3/ul MPV 8.0 (7.4-10.4) um3 Neut % (Auto) Not Reportable Lymph % (Auto) Not Reportable [place] % (Auto) Not Reportable Eos % (Auto) Not Reportable Baso % (Auto) Not Reportable Absolute Neuts (auto) 9.9 H (1.5-7.7) 10^3/ul Absolute Lymphs (auto) 0.5 L (1.0-4.8) 10^3/ul Absolute Monos (auto) 1.2 H (0-0.8) 10^3/ul Absolute Eos (auto) 0 (0-0.6) 10^3/ul Absolute Basos (auto) 0 (0-0.2) 10^3/ul Absolute Nucleated RBC 0 10^3/ul Immature Gran % 5 (0-9) % Neutrophils % 77 (38-83) % Lymphocytes % 3 L (25-47) % Monocytes % 15 H (0-7) % Eosinophils % 0 (0-6) % Basophils % 0 (0-2) % Metamyelocytes % 3 H (0-2) % Myelocytes % 2 H (0-1) % Nucleated RBC % 0.1 Abs Neuts (Manual) 9.0 H (1.5-7.7) 10^3/ul Abs Lymphs (Manual) 0.4 L (1.0-4.8) 10^3/ul Abs Monocytes (Manual) 1.8 H (0-0.8) 10^3/ul Absolute Eos (Manual) 0 (0-0.6) 10^3/ul Abs Basophils (Manual) 0 (0-0.2) 10^3/ul Normal RBC Morphology Normal (Normal) INR (Anticoag Therapy) (0.77-1.02) Sodium 134 L (139-145) mmol/L Potassium 3.6 (3.5-5.0) mmol/L Chloride 103 (101-111) mmol/L Carbon Dioxide 23 (22-32) mmol/L Anion Gap 8 (2-11) mmol/L BUN 38 H (6-24) mg/dL Creatinine 1.69 H (0.67-1.17) mg/dL Est GFR ( Amer) 52.0 (>60) Est GFR (Non-Af Amer) 40.4 (>60) BUN/Creatinine Ratio 22.5 H (8-20) Glucose 78 (70-100) mg/dL POC Glucose (mg/dL) 67 L (70-100) mg/dL Lactic Acid (0.5-2.0) mmol/L Calcium 8.1 L (8.6-10.3) mg/dL Total Bilirubin 3.00 H (0.2-1.0) mg/dL AST 297 H (13-39) U/L ALT 172 H (7-52) U/L Alkaline Phosphatase 939 H (34-104) U/L Troponin I 0.06 H* (<0.04) ng/mL C-Reactive Protein 100.38 H (< 5.00) mg/L Total Protein 6.4 (6.4-8.9) g/dL Albumin 2.5 L (3.2-5.2) g/dL Globulin 3.9 (2-4) g/dL Albumin/Globulin Ratio 0.6 L (1-3) Urine Color Urine Appearance Urine pH (5-9) Ur Specific Gary (1.010-1.030) Urine Protein (Negative) Urine Ketones (Negative) Urine Blood (Negative) Urine Nitrate (Negative) Urine Bilirubin (Negative) Urine Urobilinogen (Negative) Ur Leukocyte Esterase (Negative) Urine WBC (Auto) (Absent) Urine RBC (Auto) (Absent) Urine Bacteria (Absent) Urine Glucose (Negative) 02/02/18 02/02/18 02/02/18 Range/Units 08:30 08:56 09:50 WBC (3.5-10.8) 10^3/ul RBC (4.0-5.4) 10^6/ul Hgb (14.0-18.0) g/dl Hct (42-52) % MCV (80-94) fL MCH (27-31) pg MCHC (31-36) g/dl RDW (10.5-15) % Plt Count (150-450) 10^3/ul MPV (7.4-10.4) um3 Neut % (Auto) Lymph % (Auto) [place] % (Auto) Eos % (Auto) Baso % (Auto) Absolute Neuts (auto) (1.5-7.7) 10^3/ul Absolute Lymphs (auto) (1.0-4.8) 10^3/ul Absolute Monos (auto) (0-0.8) 10^3/ul Absolute Eos (auto) (0-0.6) 10^3/ul Absolute Basos (auto) (0-0.2) 10^3/ul Absolute Nucleated RBC 10^3/ul Immature Gran % (0-9) % Neutrophils % (38-83) % Lymphocytes % (25-47) % Monocytes % (0-7) % Eosinophils % (0-6) % Basophils % (0-2) % Metamyelocytes % (0-2) % Myelocytes % (0-1) % Nucleated RBC % Abs Neuts (Manual) (1.5-7.7) 10^3/ul Abs Lymphs (Manual) (1.0-4.8) 10^3/ul Abs Monocytes (Manual) (0-0.8) 10^3/ul Absolute Eos (Manual) (0-0.6) 10^3/ul Abs Basophils (Manual) (0-0.2) 10^3/ul Normal RBC Morphology (Normal) INR (Anticoag Therapy) (0.77-1.02) Sodium (139-145) mmol/L Potassium (3.5-5.0) mmol/L Chloride (101-111) mmol/L Carbon Dioxide (22-32) mmol/L Anion Gap (2-11) mmol/L BUN (6-24) mg/dL Creatinine (0.67-1.17) mg/dL Est GFR ( Amer) (>60) Est GFR (Non-Af Amer) (>60) BUN/Creatinine Ratio (8-20) Glucose (70-100) mg/dL POC Glucose (mg/dL) 69 L 62 L (70-100) mg/dL Lactic Acid 1.7 (0.5-2.0) mmol/L Calcium (8.6-10.3) mg/dL Total Bilirubin (0.2-1.0) mg/dL AST (13-39) U/L ALT (7-52) U/L Alkaline Phosphatase (34-104) U/L Troponin I (<0.04) ng/mL C-Reactive Protein (< 5.00) mg/L Total Protein (6.4-8.9) g/dL Albumin (3.2-5.2) g/dL Globulin (2-4) g/dL Albumin/Globulin Ratio (1-3) Urine Color Urine Appearance Urine pH (5-9) Ur Specific Gary (1.010-1.030) Urine Protein (Negative) Urine Ketones (Negative) Urine Blood (Negative) Urine Nitrate (Negative) Urine Bilirubin (Negative) Urine Urobilinogen (Negative) Ur Leukocyte Esterase (Negative) Urine WBC (Auto) (Absent) Urine RBC (Auto) (Absent) Urine Bacteria (Absent) Urine Glucose (Negative) 02/02/18 02/02/18 02/02/18 Range/Units 09:53 10:58 11:04 WBC (3.5-10.8) 10^3/ul RBC (4.0-5.4) 10^6/ul Hgb (14.0-18.0) g/dl Hct (42-52) % MCV (80-94) fL MCH (27-31) pg MCHC (31-36) g/dl RDW (10.5-15) % Plt Count (150-450) 10^3/ul MPV (7.4-10.4) um3 Neut % (Auto) Lymph % (Auto) [place] % (Auto) Eos % (Auto) Baso % (Auto) Absolute Neuts (auto) (1.5-7.7) 10^3/ul Absolute Lymphs (auto) (1.0-4.8) 10^3/ul Absolute Monos (auto) (0-0.8) 10^3/ul Absolute Eos (auto) (0-0.6) 10^3/ul Absolute Basos (auto) (0-0.2) 10^3/ul Absolute Nucleated RBC 10^3/ul Immature Gran % (0-9) % Neutrophils % (38-83) % Lymphocytes % (25-47) % Monocytes % (0-7) % Eosinophils % (0-6) % Basophils % (0-2) % Metamyelocytes % (0-2) % Myelocytes % (0-1) % Nucleated RBC % Abs Neuts (Manual) (1.5-7.7) 10^3/ul Abs Lymphs (Manual) (1.0-4.8) 10^3/ul Abs Monocytes (Manual) (0-0.8) 10^3/ul Absolute Eos (Manual) (0-0.6) 10^3/ul Abs Basophils (Manual) (0-0.2) 10^3/ul Normal RBC Morphology (Normal) INR (Anticoag Therapy) (0.77-1.02) Sodium (139-145) mmol/L Potassium (3.5-5.0) mmol/L Chloride (101-111) mmol/L Carbon Dioxide (22-32) mmol/L Anion Gap (2-11) mmol/L BUN (6-24) mg/dL Creatinine (0.67-1.17) mg/dL Est GFR ( Amer) (>60) Est GFR (Non-Af Amer) (>60) BUN/Creatinine Ratio (8-20) Glucose (70-100) mg/dL POC Glucose (mg/dL) 77 (70-100) mg/dL Lactic Acid (0.5-2.0) mmol/L Calcium (8.6-10.3) mg/dL Total Bilirubin (0.2-1.0) mg/dL AST (13-39) U/L ALT (7-52) U/L Alkaline Phosphatase (34-104) U/L Troponin I 0.06 H* (<0.04) ng/mL C-Reactive Protein (< 5.00) mg/L Total Protein (6.4-8.9) g/dL Albumin (3.2-5.2) g/dL Globulin (2-4) g/dL Albumin/Globulin Ratio (1-3) Urine Color Lisseth Urine Appearance Cloudy Urine pH 5.0 (5-9) Ur Specific Gary 1.009 L (1.010-1.030) Urine Protein 1+(30 mg/dl) A (Negative) Urine Ketones Negative (Negative) Urine Blood 3+ A (Negative) Urine Nitrate Negative (Negative) Urine Bilirubin Negative (Negative) Urine Urobilinogen Negative (Negative) Ur Leukocyte Esterase 2+ A (Negative) Urine WBC (Auto) 3+(>20/hpf) A (Absent) Urine RBC (Auto) 3+(>10/hpf) A (Absent) Urine Bacteria Absent (Absent) Urine Glucose Negative (Negative) 02/02/18 Range/Units 11:08 WBC (3.5-10.8) 10^3/ul RBC (4.0-5.4) 10^6/ul Hgb (14.0-18.0) g/dl Hct (42-52) % MCV (80-94) fL MCH (27-31) pg MCHC (31-36) g/dl RDW (10.5-15) % Plt Count (150-450) 10^3/ul MPV (7.4-10.4) um3 Neut % (Auto) Lymph % (Auto) [place] % (Auto) Eos % (Auto) Baso % (Auto) Absolute Neuts (auto) (1.5-7.7) 10^3/ul Absolute Lymphs (auto) (1.0-4.8) 10^3/ul Absolute Monos (auto) (0-0.8) 10^3/ul Absolute Eos (auto) (0-0.6) 10^3/ul Absolute Basos (auto) (0-0.2) 10^3/ul Absolute Nucleated RBC 10^3/ul Immature Gran % (0-9) % Neutrophils % (38-83) % Lymphocytes % (25-47) % Monocytes % (0-7) % Eosinophils % (0-6) % Basophils % (0-2) % Metamyelocytes % (0-2) % Myelocytes % (0-1) % Nucleated RBC % Abs Neuts (Manual) (1.5-7.7) 10^3/ul Abs Lymphs (Manual) (1.0-4.8) 10^3/ul Abs Monocytes (Manual) (0-0.8) 10^3/ul Absolute Eos (Manual) (0-0.6) 10^3/ul Abs Basophils (Manual) (0-0.2) 10^3/ul Normal RBC Morphology (Normal) INR (Anticoag Therapy) 6.45 H* (0.77-1.02) Sodium (139-145) mmol/L Potassium (3.5-5.0) mmol/L Chloride (101-111) mmol/L Carbon Dioxide (22-32) mmol/L Anion Gap (2-11) mmol/L BUN (6-24) mg/dL Creatinine (0.67-1.17) mg/dL Est GFR ( Amer) (>60) Est GFR (Non-Af Amer) (>60) BUN/Creatinine Ratio (8-20) Glucose (70-100) mg/dL POC Glucose (mg/dL) (70-100) mg/dL Lactic Acid (0.5-2.0) mmol/L Calcium (8.6-10.3) mg/dL Total Bilirubin (0.2-1.0) mg/dL AST (13-39) U/L ALT (7-52) U/L Alkaline Phosphatase (34-104) U/L Troponin I (<0.04) ng/mL C-Reactive Protein (< 5.00) mg/L Total Protein (6.4-8.9) g/dL Albumin (3.2-5.2) g/dL Globulin (2-4) g/dL Albumin/Globulin Ratio (1-3) Urine Color Urine Appearance Urine pH (5-9) Ur Specific Gary (1.010-1.030) Urine Protein (Negative) Urine Ketones (Negative) Urine Blood (Negative) Urine Nitrate (Negative) Urine Bilirubin (Negative) Urine Urobilinogen (Negative) Ur Leukocyte Esterase (Negative) Urine WBC (Auto) (Absent) Urine RBC (Auto) (Absent) Urine Bacteria (Absent) Urine Glucose (Negative) Result Diagrams: 02/02/18 08:30 02/02/18 08:30 Lab Statement: Any lab studies that have been ordered have been reviewed, and results considered in the medical decision making process. - EKG 1225 EKG Rhythm: Atrial Fibrillation - 88 bpm Ectopy: PVCs Diabetic Course/Dx - Course Course Of Treatment: Mr. Collins is an unfortunate man who has recently been diagnosed with pancreatic cancer and started on chemo. He has longstanding DM and checked his FSG before bed last night. He found it low and reduced his Lantus from 70 to 50. He was unresponsive this AM and EMS roused him with D50. They had to give it twice on the way here and we gave it once with the immediate return of his hypoglycemia. He was started on D50 and the hospitalist service is admitting him. - Diagnoses Provider Diagnoses: Hypoglycemia - Physician Notifications Discussed Care Of Patient With: Adalberto Farrar Time Discussed With Above Provider: 09:49 Instructed by Provider To: Admit As Inpatient Discharge - Sign-Out/Discharge Documenting (check all that apply): Discharge/Admit/Transfer - Discharge Plan Condition: Good Disposition: ADMITTED TO [facility] Referrals: Krystyna Jones MD [Primary Care Provider] - - Billing Disposition and Condition Condition: GOOD Disposition: [facility] [place] The documentation as recorded by the Anshu ledezma Jennifer accurately reflects the service I personally performed and the decisions made by , Jun Nicholas MD.
[2018-02-02] MEDS: Sodium Chloride Conc 23.4%* 77 MEQ in D10W 1000 ML BAG* 1,000 ML IV SCH ×2 (14:27→19:42)
--- NOTE | 2018-02-02 16:52 | HP ---
CC: Dr. Angel; Dr. Tran * ADMISSION HISTORY AND PHYSICAL: DATE OF ADMISSION: 02/02/18. PRIMARY CARE PROVIDER: Dr. Angel. PRIMARY ONCOLOGIST: Dr. Tran. ATTENDING PHYSICIAN: Dr. Emre Nolen.* (DICTATED BY STEFANIA MONTGOMERY) ADMITTING PROVIDER: STEFANIA Montgomery. CHIEF COMPLAINT: Hypoglycemia and unresponsiveness. HISTORY OF PRESENT ILLNESS: This is a 67-year-old gentleman with relatively recent diagnosis of pancreatic cancer who completed his first cycle of gemcitabine and Abraxane and was admitted last week with sepsis secondary to pyelonephritis due to an obstructing ureteral stone and was just discharged on Friday. The patient states that his weekend was relatively uneventful although he did feel some what weak and had fallen a couple of times stating that his legs just simply felt weak. He noticed on Friday that his glucose had been running low, he checked it multiple occasions. In the evening before bed, his glucose was less than 100 and he adjusted his usual Lantus dose from 70 down to 55. The patient's had otherwise continued to take his usual hyperglycemic agents which includes metformin, glipizide, Victoza and Lantus as described. The patient awoke this morning at approximately 6 o'clock and attempted to get to the bathroom. He called out to his that he was falling and by the time she got to his side he was unresponsive and she subsequently called 911. EMS arrived and his glucose was measured at 10. He received an amp of D50 from EMS and glucose transiently marin but fell again during transportation and he received an additional amp. Since reaching the emergency department he has had 2 additional amps of D50, and is awake and alert, eating and drinking, but glucose continues to hover in the 60 to 70 range. The patient reports that he is otherwise been feeling well over the weekend. No complaints of flank pain. He has had no fevers or chills. He has been taking the fluconazole as directed. Prior to this acute episode he has not had any recent changes to his diabetes medications. PAST MEDICAL HISTORY: 1. Pancreatic cancer: Followed by Dr. Tran, status post cycle 1 gemcitabine and Abraxane. 2. Frida pyelonephritis currently treated with fluconazole with a left ureteral stent in place. 3. Atrial fibrillation chronically anticoagulated on Coumadin. 4. Insulin dependent diabetes. 5. Morbid obesity. HOME MEDICATIONS: 1. Allopurinol 300 mg p.o. daily. 2. Aspirin 81 mg p.o. daily. 3. Enalapril 10 mg p.o. daily. 4. Finasteride 5 mg p.o. daily. 5. Diflucan 400 mg p.o. daily. 6. Glipizide 10 mg p.o. twice daily. 7. Lantus 66 units subcu daily. 8. Victoza 18 mg subcu daily. 9. Metformin 1000 mg p.o. twice daily. 10. Metoprolol tartrate 25 mg p.o. twice daily. 11. Percocet 5/325 one to two tablets p.o. q. 6 hours as needed for pain. 12. Potassium chloride 8 mEq p.o. daily. 13. Coumadin 2.5 mg p.o. daily. REVIEW OF SYSTEMS: As noted above in the HPI. All other systems reviewed and otherwise negative. PHYSICAL EXAMINATION GENERAL: This is a very pleasant 67-year-old gentleman accompanied by his , and son who is in no acute distress. VITAL SIGNS: Initial vitals, temperature 97.3 degree Fahrenheit, pulse 86 beats per minute, respiratory rate 20 per minute, oxygen saturation 100% on room air, blood pressure 120/69 mmHg. HEENT: Head is normocephalic, atraumatic. Mucous membranes are pink and moist. RESPIRATORY: Lungs are clear to auscultation without wheezes, crackles, or rhonchi. CARDIOVASCULAR: The patient has and irregularly irregular rhythm. No murmurs, rubs or gallops appreciated. ABDOMEN: Abdomen is soft and nontender to palpation. No CVA tenderness, exam is somewhat limited by body habitus. EXTREMITIES: No edema appreciated. PSYCH: The patient is alert, and appropriately oriented. SKIN: No concerning rashes or lesions. LABORATORY DATA: CBC shows a white blood cell count 11,700, hemoglobin 8.2, platelet count of 291,000. Chemistries show sodium of 134, BUN 38, creatinine 1.69, glucose at the time of this lab draw was 78. Total bilirubin of 3.0, AST of 297, ALT of 172, alk phos 939, troponin 0.06. CRP 100. Urinalysis shows 1+ protein, 3+ blood, 3+ leukocyte esterase, 3+ WBC, 3+ RBC. IMAGING: EKG pending. ASSESSMENT AND PLAN: This is a 67-year-old gentleman with pancreatic cancer and insulin dependent diabetes, who presented to the emergency department after a period of unresponsiveness due to severe hypoglycemia. He took Lantus approximately 12 hours ago and continues to be intermittently hypoglycemic despite multiple boluses of dextrose. The patient will subsequently be admitted to observation status for further monitoring. 1. Hypoglycemia - patient's hypoglycemic medication will be held. Plan to continue D10 infusion and q.2 hour glucose fingersticks. Once glucose is consistently greater than 100 mg/dL on 2 occasions can stop D10 infusion and continue to monitor closely. The patient's hypoglycemic medications will need to be addressed in detail at the time of discharge. It does not sound like there has been significant change in oral intake that would account for his significant hypoglycemia. Check a hemoglobin A1c as well. 2. Pancreatic cancer - as noted above. The patient has received since first cycle of gemcitabine and Abraxane has a [id number] stent in place that was placed by Dr. Stevenson. His total bilirubin and transaminase is unfortunately appeared to be climbing. He is asymptomatic, as the result of this. Ultrasound of the liver was completed late last week, which showed a normal appearing [id number], some dilatation of the biliary tree. Seeing that his total bilirubin continues to be climb, recommend MRCP to reevaluate for obstruction. This will be completed tomorrow. 3. Recent pyelonephritis with left ureteral stent in place - plan to continue fluconazole. Please see discharge summary from 01/30/18, regarding this. Transaminitis noted in the setting of fluconazole, this has previously been discussed with Dr. Sushil Morgan. Plan to continue this fluconazole until ALT reaches 4 times upper limits of normal. Currently approximately 3 times upper limits of normal. 4. Atrial fibrillation - patient is appropriately rate controlled. Check an INR today. 5. Morbid obesity with a BMI of 52. 6. Code status: The patient is full code. 7. Health care proxy is his . DISPOSITION: The patient is being admitted to observation status due to hypoglycemia anticipate likely discharge tomorrow. STEFANIA MONTGOMERY [id number]/[facility] #: [id number] MTDD
[2018-02-02] MEDS: Metoprolol Tartrate TAB* 25 MG PO SCH ×2 (18:18→20:49)
[2018-02-02] MEDS: Acetaminophen TAB* 325 MG PO PRN (20:50)
[2018-02-02] MEDS ORDERED: PHYTONADIONE 5 MG PO ONE (21:05)
[2018-02-02] MEDS ORDERED: Phytonadione Oral Solution* 5 MG/25 ML UDC PO ONE (22:00)
[2018-02-03] MEDS: Sodium Chloride Conc 23.4%* 77 MEQ in D10W 1000 ML BAG* 1,000 ML IV SCH (00:47)
[2018-02-03 05:16] LABS: Hematocrit 23 % (42-52); Hemoglobin 7.9 g/dl (14.0-18.0); Mean Corpuscular HGB Conc 34 g/dl (31-36); Mean Corpuscular Hemoglobin 30 pg (27-31); Mean Corpuscular Volume 88 fL (80-94); Mean Platelet Volume 7.8 um3 (7.4-10.4); Platelet Count 253 10^3/ul (150-450); Red Blood Count 2.61 10^6/ul (4.0-5.4); Red Cell Distribution Width 18 % (10.5-15); White Blood Count 10.7 10^3/ul (3.5-10.8)
[2018-02-03 05:37] LABS: INR 6.98 (0.77-1.02)
[2018-02-03 05:39] LABS: EGFR Non-African American 43.1 (>60)
[2018-02-03 05:54] LABS: ABS Basophils 0.1 10^3/ul (0-0.2); ABS Eosinophils 0.1 10^3/ul (0-0.6); ABS Lymphocytes 1.1 10^3/ul (1.0-4.8); ABS Monocytes 1.5 10^3/ul (0-0.8); ABS Neutrophils 7.9 10^3/ul (1.5-7.7); ABS Nucleated RBC 0 10^3/ul
[2018-02-03] MEDS: Sodium Chloride Conc 23.4%* 77 MEQ in D10W 1000 ML BAG* 1,000 ML IVPB SCH ×4 (08:42→21:57)
[2018-02-03] MEDS ORDERED: Fluconazole 100 MG TAB* TAB PO SCH (09:00)
[2018-02-03] MEDS ORDERED: Phytonadione Oral Solution* 5 MG/25 ML UDC PO ONE (10:10)
[2018-02-03] MEDS ORDERED: Dextrose 50% Syringe 50 ML* 25 GM/50 ML SYRINGE IV PUSH PRN (10:11)
[2018-02-03] MEDS: Aspirin 81 mg CHEW TAB* 81 MG TAB.CHEW PO SCH (11:59)
[2018-02-03] MEDS: Finasteride TAB* 5 MG PO SCH (12:00)
[2018-02-03] MEDS: Metoprolol Tartrate TAB* 25 MG PO SCH ×2 (12:00→21:44)
[2018-02-03] MEDS: Potassium Chlor TAB* 20 MEQ TAB.ER PO SCH (12:00)
[2018-02-03] MEDS: Enalapril TAB* 5 MG PO SCH (12:00)
--- NOTE | 2018-02-03 12:16 | RAD ---
INDICATION: Pancreatic cancer elevated bilirubin. COMPARISON: Comparison is made with TECHNIQUE: Axial and coronal heavily T2-weighted images of the abdomen were obtained. Images were reconstructed in the maximum intensity projection format. The exam is limited. The patient had difficulty tolerating the study. The MRCP images do not include the entire distal common bile duct although these are included on the axial and coronal T2 weighted conventional images. FINDINGS: The liver and spleen are mildly enlarged. There is intra and extrahepatic ductal distention to level of the distal common bile duct and region of the previously noted pancreatic head mass. The distal common bile duct measures 1.3 cm in diameter and previously measured 0.9 cm in diameter on the prior MRCP study. Just above the level of the obstruction there is a hypointense structure which likely represents the proximal portion of the stent catheter which appears low in position and may be obstructed. The gallbladder is distended. No gallstones or gallbladder wall thickening is seen. The adrenal glands appear normal. The kidneys appear slightly small in size. There are small bilateral cysts. There is a 8 mm calculus in the left ureter at the ureteropelvic junction causing mild hydronephrosis. The degree of hydronephrosis appears slightly less prominent than on the prior CT study. The results of this exam were discussed with the referring clinician. IMPRESSION: 1. THERE IS INTRA AND EXTRAHEPATIC DUCTAL DISTENTION WHICH HAS INCREASED SLIGHTLY FROM THE PRIOR STUDY POSSIBLY DUE TO STENT MIGRATION OR OBSTRUCTION. RECOMMEND A KUB FILM TO ASSESS POSITION OF THE CATHETER. 2. 8 MM CALCULUS AT THE LEFT URETEROPELVIC JUNCTION CAUSING MILD HYDRONEPHROSIS. 3. HEPATOSPLENOMEGALY.
[2018-02-03] MEDS: Allopurinol TAB* 300 MG PO SCH (12:18)
--- NOTE | 2018-02-03 13:44 | RAD ---
INDICATION: The patient is status post common bile duct stent placement. COMPARISON: MRCP from the same date TECHNIQUE: 4 views the abdomen were obtained. FINDINGS: Overlying the right upper quadrant there has been interval placement of a stent approximately corresponding to the location of the common bile duct. There is an anatomically aligned left ureteral stent. IMPRESSION: OVERLYING THE RIGHT UPPER QUADRANT THERE IS A STENT APPROXIMATELY CORRESPONDING TO THE EXPECTED LOCATION OF THE COMMON BILE DUCT.
[2018-02-03] MEDS ORDERED: Warfarin TAB(*) 5 MG PO SCH (17:00)
[2018-02-03] MEDS ORDERED: Alteplase (CATHFLO)* 2 MG VIAL IV ONE (21:30)
[2018-02-04] MEDS: Sodium Chloride Conc 23.4%* 77 MEQ in D10W 1000 ML BAG* 1,000 ML IVPB SCH ×2 (05:09→08:38)
[2018-02-04 05:53] LABS: Hematocrit 23 % (42-52); Hemoglobin 7.6 g/dl (14.0-18.0); Mean Corpuscular HGB Conc 34 g/dl (31-36); Mean Corpuscular Hemoglobin 30 pg (27-31); Mean Corpuscular Volume 88 fL (80-94); Mean Platelet Volume 7.9 um3 (7.4-10.4); Platelet Count 245 10^3/ul (150-450); Red Blood Count 2.56 10^6/ul (4.0-5.4); Red Cell Distribution Width 18 % (10.5-15); White Blood Count 10.2 10^3/ul (3.5-10.8)
[2018-02-04 05:59] LABS: INR 3.54 (0.77-1.02)
[2018-02-04 06:11] LABS: EGFR Non-African American 42.2 (>60)
[2018-02-04 06:48] LABS: Monocytes % 3 % (0-7)
[2018-02-04] MEDS: Potassium Chlor TAB* 20 MEQ TAB.ER PO SCH (08:00)
[2018-02-04] MEDS: Allopurinol TAB* 300 MG PO SCH (08:01)
[2018-02-04] MEDS: Aspirin 81 mg CHEW TAB* 81 MG TAB.CHEW PO SCH (08:01)
[2018-02-04] MEDS: Enalapril TAB* 5 MG PO SCH (08:02)
[2018-02-04] MEDS: Finasteride TAB* 5 MG PO SCH (08:02)
[2018-02-04] MEDS: Metoprolol Tartrate TAB* 25 MG PO SCH ×2 (08:02→20:00)
--- NOTE | 2018-02-04 10:11 | CONS ---
GASTROENTEROLOGY CONSULT: DATE: 02/03/18 CONSULTING PHYSICIAN: Koko Tran* REASON FOR CONSULTATION: Rising bilirubin in a man with a CBD stent since now being treated for pancreatic cancer with chemo and with surgery still a consideration. HISTORY: This 67-year-old man presented with obstructive jaundice in November. There was some back pain, with it being unclear whether it was mechanical or related to the tumor. He had a 10-Vincentian 7 cm stent placed, and his bilirubin fell nicely. He did get a surgical consult at [facility] by Dr. Saurabh De La Cruz and he is to undergo chemo and see what his situation is at that point - surgery is still a consideration. He has received one round of chemo. About 10d ago, he developed a fever without any localizing pain. He was found to have a hydronephrosis on the left with a large stone and a stent was placed. He was on Levaquin and then later vancomycin and then 5d ago was switched to Diflucan. Dr Siddiqui has consulted regarding whether he might have an infection of his PowerPort or another site or just had been febrile from the left hydronephrosis. This particular admission was prompted by weakness and finding of hypoglycemia and he has been on D10 in the intensive care unit. PAST MEDICAL HISTORY: 1. Morbid obesity. 2. Atrial fibrillation. 3. Chronic warfarin - no history of bleeding. 4. Pancreatic cancer. 5. BPH. 6. History kidney stones, uric acid on chronic allopurinol. SOCIAL HISTORY: He is retired. He is . REVIEW OF SYSTEMS: His INR was very difficult to reverse prior to his ERCP a couple of months ago. There is no history of chronic pulmonary disease, TB, hemoptysis, pulmonary masses. PHYSICAL EXAM: He is a morbidly obese man in the ICU, balding, anicteric, in no distress. Per report of the nurses, he has been eating and doing fine while on the D10 drip He has no pain. There is no adenopathy. His lungs are clear. Heart sounds are regular. Abdomen is grossly obese, soft without tenderness. Rectal deferred. Extremities show no edema. Neurologic is nonfocal with normal cranial nerves, movement of all 4 extremities. DIAGNOSTIC STUDIES/LAB DATA: Imaging - CT scan 9 days ago showed a stable common duct and position of his stent. MRCP today showed the duct somewhat enlarged to 13 mm. The stent appears to be in good position. IMPRESSION: This 67-year-old man in some ways has weathered his first round of pancreatic cancer chemo well, but he has been dealing with sepsis from an obstructed left kidney and now it appears that his biliary tree is pinching off again. There is some consideration that medication could be related to the worsening liver function, but that seems less likely given the increase in dimensions of the common duct on imaging. He will likely need another stent and the question is to whether replace with a plastic stent or to go to a metal stent. I will be checking with Dr De La Cruz regarding this and plan probably in 3 or 4 days once his INR has reversed. [id number]/[facility] #: [id number] MTDAsh
[2018-02-04] MEDS ORDERED: Phytonadione Oral Solution* 5 MG/25 ML UDC PO ONE (10:36)
--- NOTE | 2018-02-04 10:43 | PN ---
Progress Note - Progress Note Date of Service: 02/04/18 SOAP: Subjective: []Feeling much better than admission. Involved in plan of care and aware of possible ERCP tomorrow. No diarrhea though states stool is "plentiful". Normal UO. Eating well. Denies chest pain and pressure. No fevers/chills/night sweats. Medications: Acetaminophen (Tylenol Tab*) 650 mg PO Q6H PRN PRN Reason: FEVER/PAIN Last Admin: 02/02/18 20:50 Dose: 650 mg Allopurinol (Zyloprim Tab*) 300 mg PO DAILY [facility] Last Admin: 02/04/18 08:01 Dose: 300 mg Aspirin (Aspirin 81 Mg Chew Tab*) 81 mg PO DAILY [facility] Last Admin: 02/04/18 08:01 Dose: 81 mg Dextrose (D50w Syringe 50 Ml*) 25 gm IV PUSH .FOR FS < 60 - SS PRN PRN Reason: FS < 60 Enalapril Maleate (Vasotec Tab*) 10 mg PO DAILY [facility] Last Admin: 02/04/18 08:02 Dose: 10 mg Finasteride (Proscar Tab*) 5 mg PO DAILY [facility] Last Admin: 02/04/18 08:02 Dose: 5 mg Metoprolol Tartrate (Lopressor Tab*) 25 mg PO BID [facility] Last Admin: 02/04/18 08:02 Dose: 25 mg Oxycodone/Acetaminophen (Percocet 5/325 Tab*) 1 tab PO Q6H PRN PRN Reason: PAIN Phytonadione (Vitamin K Oral Solution*) 5 mg PO ONCE ONE Stop: 02/04/18 10:37 Potassium Chloride (Klor Con Er Tab*) 40 meq PO DAILY [facility] Last Admin: 02/04/18 08:00 Dose: 40 meq Objective: [] Vital Signs Temp Pulse Resp BP Pulse Ox 98.1 F 82 25 106/53 98 02/04/18 07:41 02/04/18 10:00 02/04/18 10:00 02/04/18 10:00 02/04/18 10:00 A&Ox3, EOMI, PERRLA, neuro grossly non-focal [place], ambulating in room with standby HRI, A.Fib on Tele LS clear bilat. with mildly dim. bases though poor resp. effort +BS, abd. obese, soft, and non-tender No peripheral edema noted Laboratory Tests 02/03/18 02/04/18 02/04/18 23:19 05:30 05:30 WBC 10.2 RBC 2.56 L Hgb 7.6 L Hct 23 L MCV 88 MCH 30 MCHC 34 RDW 18 H Plt Count 245 Immature Gran % 3 Neutrophils % 84 H Band Neutrophils % 2 INR (Anticoag Therapy) 3.54 H Sodium 135 L Potassium 4.2 Chloride 109 Carbon Dioxide 22 Anion Gap 4 BUN 30 H Creatinine 1.63 H Est GFR (Non-Af Amer) 42.2 Glucose 223 H POC Glucose (mg/dL) 220 H Calcium 8.1 L Total Bilirubin 4.20 H AST 204 H ALT 168 H Alkaline Phosphatase 809 H Total Protein 6.1 L Albumin 2.3 L Assessment: []67 yo male admitted with hypoglycemia and liver failure secondary to blocked stent. Hypoglycemia likely related to poor metabolism of oral anti-diabetics in liver failure, appears resolved. Plan: []1. Hypoglycemia: resolved and will transfer to medical floor, stop Dextrose infusion, cont. PO intake and monitor FS as/hs with sliding insulin coverage - will likely need to NPO overnight for procedure so check early AM fasting FS as may need D5 push - Stop Metformin indefinitely 2. Liver Failure: blocked stent, pending metal stent placement with Dr. Stevenson tomorrow - follow daily labs - Hold Fluconazole while blood cultures pending 3. A.Fib: chronic, cont. beta-abdulkadir, monitor tele while inpt. - Elevated INR secondary to liver failure now improved, however with planned procedure will repeat Vit. K 5 mg with goal of <2 for tomorrow 4. Anemia: secondary to chronic disease, will follow for now as he is not symptomatic, however would consider transfusion for hmg <8 prior to d/c 5. Recent pyelonephritis with jordon glabrata: fluconazole on hold d/t liver failure, had a temp. @ 2300 02/02, blood cultures drawn yesterday and awaiting results - hold off on further anti-infectives for now - urine culture from admission pending 6. Pancreatic Cancer: s/p C1 [place]/Abraxane, last received full dose D8 on 01/09 ( D15 held d/t prior admission), chemotherapy on hold until acute illness resolved and improved LFTs 7. DVT Prophylaxis: hold anti-coags d/t planned procedure, SCDs while in bed, enc. ambulation Full Code
[2018-02-04] MEDS: Acetaminophen TAB* 325 MG PO PRN (20:00)
[2018-02-05 06:25] LABS: Hematocrit 23 % (42-52); Hemoglobin 7.7 g/dl (14.0-18.0); Mean Corpuscular HGB Conc 33 g/dl (31-36); Mean Corpuscular Hemoglobin 29 pg (27-31); Mean Corpuscular Volume 88 fL (80-94); Mean Platelet Volume 7.9 um3 (7.4-10.4); Platelet Count 224 10^3/ul (150-450); Red Blood Count 2.65 10^6/ul (4.0-5.4); Red Cell Distribution Width 18 % (10.5-15); White Blood Count 8.4 10^3/ul (3.5-10.8)
[2018-02-05 06:27] LABS: INR 2.39 (0.77-1.02)
[2018-02-05 06:35] LABS: EGFR Non-African American 41.6 (>60)
[2018-02-05 07:01] LABS: ABS Basophils 0 10^3/ul (0-0.2); ABS Eosinophils 0.2 10^3/ul (0-0.6); ABS Lymphocytes 1.2 10^3/ul (1.0-4.8); ABS Monocytes 0.9 10^3/ul (0-0.8); ABS Neutrophils 6.1 10^3/ul (1.5-7.7); ABS Nucleated RBC 0 10^3/ul; Lymphocyte % 14.4 % (25-47); Nucleated Red Blood Cells % 0.1
[2018-02-05] MEDS ORDERED: Dextrose 50% Syringe 50 ML* 25 GM/50 ML SYRINGE IV PUSH PRN (08:18)
[2018-02-05] MEDS ORDERED: Phytonadione INJ (Adult)* 1 MG in NS 0.9% 50 ML* 50 ML IV ONE (08:30)
--- NOTE | 2018-02-05 08:41 | PN ---
Progress Note - Progress Note Date of Service: 02/05/18 SOAP: Subjective: feels good today. having BMs. denies any pain. no further fevers Objective: Vital Signs Temp Pulse Resp BP Pulse Ox 97.8 F 90 20 122/64 100 02/05/18 07:32 02/05/18 07:32 02/05/18 07:32 02/05/18 07:32 02/05/18 07:32 lying flat in bed in nad perr eomi +scleral icterus op moist cta anteriorly obese nt +bs no le edema A+O x 3 , did not ambulate Laboratory Results - last 24 hr 02/04/18 02/04/18 02/04/18 08:35 11:40 16:32 WBC RBC Hgb Hct MCV MCH MCHC RDW Plt Count MPV Neut % (Auto) Lymph % (Auto) [place] % (Auto) Eos % (Auto) Baso % (Auto) Absolute Neuts (auto) Absolute Lymphs (auto) Absolute Monos (auto) Absolute Eos (auto) Absolute Basos (auto) Absolute Nucleated RBC Nucleated RBC % INR (Anticoag Therapy) Sodium Potassium Chloride Carbon Dioxide Anion Gap BUN Creatinine Est GFR ( Amer) Est GFR (Non-Af Amer) BUN/Creatinine Ratio Glucose POC Glucose (mg/dL) 198 H 208 H 342 H Calcium Total Bilirubin AST ALT Alkaline Phosphatase Total Protein Albumin Globulin Albumin/Globulin Ratio 02/04/18 02/05/18 02/05/18 20:04 06:00 06:00 WBC 8.4 RBC 2.65 L Hgb 7.7 L Hct 23 L MCV 88 MCH 29 MCHC 33 RDW 18 H Plt Count 224 MPV 7.9 Neut % (Auto) 71.8 Lymph % (Auto) 14.4 L [place] % (Auto) 11.2 H Eos % (Auto) 2.0 Baso % (Auto) 0.6 Absolute Neuts (auto) 6.1 Absolute Lymphs (auto) 1.2 Absolute Monos (auto) 0.9 H Absolute Eos (auto) 0.2 Absolute Basos (auto) 0 Absolute Nucleated RBC 0 Nucleated RBC % 0.1 INR (Anticoag Therapy) Sodium 135 L Potassium 4.3 Chloride 107 Carbon Dioxide 23 Anion Gap 5 BUN 30 H Creatinine 1.65 H Est GFR ( Amer) 53.5 Est GFR (Non-Af Amer) 41.6 BUN/Creatinine Ratio 18.2 Glucose 294 H POC Glucose (mg/dL) 184 H Calcium 8.2 L Total Bilirubin 4.50 H AST 147 H ALT 144 H Alkaline Phosphatase 714 H Total Protein 6.3 L Albumin 2.3 L Globulin 4.0 Albumin/Globulin Ratio 0.6 L 02/05/18 02/05/18 06:00 07:20 WBC RBC Hgb Hct MCV MCH MCHC RDW Plt Count MPV Neut % (Auto) Lymph % (Auto) [place] % (Auto) Eos % (Auto) Baso % (Auto) Absolute Neuts (auto) Absolute Lymphs (auto) Absolute Monos (auto) Absolute Eos (auto) Absolute Basos (auto) Absolute Nucleated RBC Nucleated RBC % INR (Anticoag Therapy) 2.39 H Sodium Potassium Chloride Carbon Dioxide Anion Gap BUN Creatinine Est GFR ( Amer) Est GFR (Non-Af Amer) BUN/Creatinine Ratio Glucose POC Glucose (mg/dL) 290 H Calcium Total Bilirubin AST ALT Alkaline Phosphatase Total Protein Albumin Globulin Albumin/Globulin Ratio Acetaminophen (Tylenol Tab*) 650 mg PO Q6H PRN PRN Reason: FEVER/PAIN Last Admin: 02/04/18 20:00 Dose: 650 mg Allopurinol (Zyloprim Tab*) 300 mg PO DAILY [facility] Last Admin: 02/04/18 08:01 Dose: 300 mg Aspirin (Aspirin 81 Mg Chew Tab*) 81 mg PO DAILY [facility] Last Admin: 02/04/18 08:01 Dose: 81 mg Dextrose (D50w Syringe 50 Ml*) 25 gm IV PUSH .FOR FS < 60 - SS PRN PRN Reason: FS < 60 Dextrose (D50w Syringe 50 Ml*) 12.5 gm IV PUSH .FOR FS < 60 - SS PRN PRN Reason: FS < 60 Enalapril Maleate (Vasotec Tab*) 10 mg PO DAILY [facility] Last Admin: 02/04/18 08:02 Dose: 10 mg Finasteride (Proscar Tab*) 5 mg PO DAILY [facility] Last Admin: 02/04/18 08:02 Dose: 5 mg Heparin Sodium (Porcine) (Heparin Flush Port (Ivad)) 5 ml FLUSH DAILY [facility] PRN Reason: Protocol Last Admin: 02/05/18 05:48 Dose: 5 ml Phytonadione 1 mg/ Sodium (Chloride) 50.1 mls @ 100 mls/hr IV ONCE ONE Stop: 02/05/18 09:00 Insulin Human Lispro (Humalog*) 0 units SUBCUT ACHS [facility] PRN Reason: Protocol Metoprolol Tartrate (Lopressor Tab*) 25 mg PO BID [facility] Last Admin: 02/04/18 20:00 Dose: 25 mg Oxycodone/Acetaminophen (Percocet 5/325 Tab*) 1 tab PO Q6H PRN PRN Reason: PAIN Potassium Chloride (Klor Con Er Tab*) 40 meq PO DAILY [facility] Last Admin: 02/04/18 08:00 Dose: 40 meq Assessment: 67 yo M w metastatic pancreatic CA admitted with hypoglycemia and liver failure in the setting of an occluded biliary stent and ongoing metformin/glipizide usage, as well as fluconazole for candidal infection. Plan: -still with elevated INR though coming down. will give 1 mg IV vitamin K today and anticipate that he will be able to get stent changed tomorrow Diabetes: initiate insulin sliding scale no metformin on discharge will need to resume glipizide cautiously if at all. may want to consider lantus instead given risk of liver failure and hypoglycemia afib: rate controlled reversing anticoagulation for above will need to reinitiate cautiously full code
[2018-02-05] MEDS ORDERED: Insulin LISPRO* 1 UNITS UNIT SUBCUT ONE (08:46)
[2018-02-05] MEDS: Finasteride TAB* 5 MG PO SCH (08:47)
[2018-02-05] MEDS: Aspirin 81 mg CHEW TAB* 81 MG TAB.CHEW PO SCH (08:47)
[2018-02-05] MEDS: Enalapril TAB* 5 MG PO SCH (08:47)
[2018-02-05] MEDS: Metoprolol Tartrate TAB* 25 MG PO SCH ×2 (08:47→20:59)
[2018-02-05] MEDS: Allopurinol TAB* 300 MG PO SCH (08:48)
[2018-02-05] MEDS: Potassium Chlor TAB* 20 MEQ TAB.ER PO SCH (08:48)
[2018-02-05] MEDS: Insulin LISPRO* 1 UNITS UNIT SUBCUT SCH ×4 (08:48→20:59)
--- NOTE | 2018-02-05 12:10 | CONS ---
CONSULTATION REPORT: DATE OF CONSULT: 02/05/18 REQUESTING PHYSICIAN: Dr. Muniz. CONSULTING SERVICE: Infectious Disease. REASON FOR CONSULT: Acute liver failure. IMPRESSION: 1. Liver failure manifesting with supratherapeutic INR, transaminitis, elevated alkaline phosphatase, elevated bilirubin; improving, felt to be related to obstruction in the setting of a pancreatic tumor with non-biliary obstruction and a biliary stent. He was on fluconazole for a few days, which can cause transaminitis, liver failure will be pretty rare, though drug-induced hepatitis still is a consideration. 2. Recent Frida glabrata urinary tract infection, infected left ureteral stone, treated with a ureteral stent, off antifungal a couple days and he is afebrile. 3. Morbid obesity. 4. Pancreatic cancer, treated with chemotherapy. 5. Right chest port. PLAN/RECOMMENDATIONS: I do not think he needs further antibiotic at this time. We will follow his fever curve. Urine culture and blood culture have been negative. If the fever does change, please re-culture and we will consider reinstituting antifungal therapy, which we could consider an echinocandin, previously was considered a poor urine penetration but probably is better than originally thought. HISTORY OF PRESENT ILLNESS: This is a 67-year-old male with pancreatic cancer, left ureteral stents and infected kidney stone. The urine culture from the cystoscopy procedure grew Frida glabrata. He defervesced after stent placement a couple of weeks ago, was on fluconazole for about 2 days here, had a mild transaminitis which is asymptomatic. He left for about 2 days continued to take fluconazole, came back with a ALT of 170, INR of 6, bilirubin of 3. MRCP showed increased dilatation of the biliary tree, he is going to have an ERCP tomorrow. He has had no fevers, chills, or sweats since he had been here. Followup blood culture is negative as is the urine culture. The urinalysis shows some blood and leukocyte esterase. He has had no trouble with right chest port including no fever during infusion through it. PAST MEDICAL HISTORY: 1. Pancreatic cancer, treated with chemotherapy. 2. Biliary obstruction due to pancreatic cancer status post biliary stent. 3. Right chest port. 4. Left hydronephrosis treated with ureteral stent. 5. Insulin dependent diabetes. 6. Morbid obesity. 7. Atrial fibrillation, anticoagulated. MEDICATIONS: 1. Tylenol. 2. Allopurinol. 3. Aspirin. 4. Enalapril. 5. Finasteride. 6. Heparin flush through the port. 7. Metoprolol. ALLERGIES: OXACILLIN and MORPHINE. FAMILY HISTORY: No recurrent infections. SOCIAL HISTORY: He lives in [place] with his . No travel, no sick contacts. REVIEW OF SYSTEMS: All negative on the 14-point review of systems except as noted above. PHYSICAL EXAM: Vital Signs: Temperature is 36.6, heart rate 90, respiratory rate 20, blood pressure 120/60, oxygen saturation 100% on room air. General: He is awake, not in distress. Neurologic: He is oriented x3. Follows all commands. HEENT: There is no conjunctival hemorrhage. He has scleral icterus. Neck: Neck is supple without mass. Heart: Regular rate and rhythm without murmurs, rubs or gallops. Lungs: Clear to auscultation bilaterally. Abdomen: Soft, nontender, nondistended. Bowel sounds present. Chest: There is a right chest port without surrounding erythema or edema. Musculoskeletal: There is no joint synovitis. DIAGNOSTIC STUDIES/LAB DATA: White blood cell count 8, hemoglobin 7, platelets 224, creatinine 1.6, ALT 144, bilirubin 4.5. Please see impression and recommendations outlined above which I discussed with Dr. Muniz. Thanks for asking me to see Mr. Collins in consultation. [id number]/[facility] #: [id number] MTDD
[2018-02-06 05:14] LABS: Hematocrit 24 % (42-52); Hemoglobin 7.6 g/dl (14.0-18.0); Mean Corpuscular HGB Conc 32 g/dl (31-36); Mean Corpuscular Hemoglobin 29 pg (27-31); Mean Corpuscular Volume 89 fL (80-94); Mean Platelet Volume 7.9 um3 (7.4-10.4); Platelet Count 238 10^3/ul (150-450); Red Blood Count 2.66 10^6/ul (4.0-5.4); Red Cell Distribution Width 18 % (10.5-15); White Blood Count 8.9 10^3/ul (3.5-10.8)
[2018-02-06 05:20] LABS: INR 1.53 (0.77-1.02)
[2018-02-06] MEDS: Insulin LISPRO* 1 UNITS UNIT SUBCUT SCH ×4 (08:30→21:16)
[2018-02-06] MEDS: Allopurinol TAB* 300 MG PO SCH (08:35)
[2018-02-06] MEDS: Aspirin 81 mg CHEW TAB* 81 MG TAB.CHEW PO SCH (08:35)
[2018-02-06] MEDS: Enalapril TAB* 5 MG PO SCH ×2 (08:35→09:00)
[2018-02-06] MEDS: Finasteride TAB* 5 MG PO SCH (08:36)
[2018-02-06] MEDS: Potassium Chlor TAB* 20 MEQ TAB.ER PO SCH (08:36)
[2018-02-06] MEDS: Metoprolol Tartrate TAB* 25 MG PO SCH ×2 (09:00→21:17)
--- NOTE | 2018-02-06 09:58 | PN ---
Progress Note - Progress Note Date of Service: 02/06/18 SOAP: Subjective: [Plan for ERCP today, scheduled for 3p with Dr Stevenson. No acute complaints this am. Some jaundice noted this am. Dr Stephenson would like to do lithotripsy Friday as an outpatient. No abd pain, n/v. No fevers.] Objective: [ Acetaminophen (Tylenol Tab*) 650 mg PO Q6H PRN PRN Reason: FEVER/PAIN Last Admin: 02/04/18 20:00 Dose: 650 mg Allopurinol (Zyloprim Tab*) 300 mg PO DAILY [facility] Last Admin: 02/06/18 08:35 Dose: Not Given Aspirin (Aspirin 81 Mg Chew Tab*) 81 mg PO DAILY [facility] Last Admin: 02/06/18 08:35 Dose: Not Given Dextrose (D50w Syringe 50 Ml*) 25 gm IV PUSH .FOR FS < 60 - SS PRN PRN Reason: FS < 60 Dextrose (D50w Syringe 50 Ml*) 12.5 gm IV PUSH .FOR FS < 60 - SS PRN PRN Reason: FS < 60 Enalapril Maleate (Vasotec Tab*) 10 mg PO DAILY [facility] Last Admin: 02/06/18 09:00 Dose: 10 mg Finasteride (Proscar Tab*) 5 mg PO DAILY [facility] Last Admin: 02/06/18 08:36 Dose: Not Given Furosemide (Lasix Iv*) 20 mg IV SLOW PU ONCE ONE Stop: 02/06/18 12:01 Heparin Sodium (Porcine) (Heparin Flush Port (Ivad)) 5 ml FLUSH DAILY [facility] PRN Reason: Protocol Last Admin: 02/06/18 09:01 Dose: 5 ml Insulin Glargine (Lantus(*)) 15 units SUBCUT Q24H [facility] Insulin Human Lispro (Humalog*) 0 units SUBCUT ACHS [facility] PRN Reason: Protocol Last Admin: 02/06/18 08:30 Dose: Not Given Metoprolol Tartrate (Lopressor Tab*) 25 mg PO BID [facility] Last Admin: 02/06/18 09:00 Dose: 25 mg Oxycodone/Acetaminophen (Percocet 5/325 Tab*) 1 tab PO Q6H PRN PRN Reason: PAIN Potassium Chloride (Klor Con Er Tab*) 40 meq PO DAILY [facility] Last Admin: 02/06/18 08:36 Dose: Not Given Laboratory Results - last 24 hr 02/05/18 02/05/18 02/05/18 11:28 16:52 20:48 WBC RBC Hgb Hct MCV MCH MCHC RDW Plt Count MPV INR (Anticoag Therapy) Sodium Potassium Chloride Carbon Dioxide Anion Gap BUN Creatinine Est GFR ( Amer) Est GFR (Non-Af Amer) BUN/Creatinine Ratio Glucose POC Glucose (mg/dL) 314 H 196 H 319 H Calcium Total Bilirubin AST ALT Alkaline Phosphatase Total Protein Albumin Globulin Albumin/Globulin Ratio 02/06/18 02/06/18 02/06/18 05:00 05:00 05:00 WBC 8.9 RBC 2.66 L Hgb 7.6 L Hct 24 L MCV 89 MCH 29 MCHC 32 RDW 18 H Plt Count 238 MPV 7.9 INR (Anticoag Therapy) 1.53 H Sodium 135 L Potassium 4.4 Chloride 107 Carbon Dioxide 23 Anion Gap 5 BUN 31 H Creatinine 1.67 H Est GFR ( Amer) 52.7 Est GFR (Non-Af Amer) 41.0 BUN/Creatinine Ratio 18.6 Glucose 260 H POC Glucose (mg/dL) Calcium 8.3 L Total Bilirubin 4.80 H AST 143 H ALT 142 H Alkaline Phosphatase 849 H Total Protein 6.4 Albumin 2.4 L Globulin 4.0 Albumin/Globulin Ratio 0.6 L 02/06/18 07:29 WBC RBC Hgb Hct MCV MCH MCHC RDW Plt Count MPV INR (Anticoag Therapy) Sodium Potassium Chloride Carbon Dioxide Anion Gap BUN Creatinine Est GFR ( Amer) Est GFR (Non-Af Amer) BUN/Creatinine Ratio Glucose POC Glucose (mg/dL) 304 H Calcium Total Bilirubin AST ALT Alkaline Phosphatase Total Protein Albumin Globulin Albumin/Globulin Ratio Vital Signs: Temp Pulse Resp BP Pulse Ox 97.9 F 99 18 123/68 99 02/06/18 07:47 02/06/18 07:47 02/06/18 08:00 02/06/18 07:47 02/06/18 07:47 Exam: Gen: Well appearing 67 yo male in NAD. Accompanied by his . He appears slightly jaundice HEENT: MMM CV: RRR, no m/r/g Resp: Lungs CTA, no w/c/r Abd: soft, nonTTP Ext: trace edema Skin: mild jaundice] Assessment: [67 yo male with pancreatic CA with recent admission for pyelonephritis with sepsis due to Frida who returned with severe hypoglycemia and liver failure due to recurrent biliary obstruction.] Plan: 1. Biliary obstruction with liver failure - ERCP planned for this afternoon with Dr Stevenson - plan for metal stent as prior CBD stent failed within ~ 1month 2. Hypoglycemia - resolved - resume Lantus at 15U daily today and titrate up - permanently discontinue metformin and glipizide - can resume Victoza when he returns home as well 3. L ureteral stone - lithotripsy with Dr Stephenson Friday - hold ASA and Coumadin until after procedure 4. Recent Frida pyelonephritis - fluconazole stopped due to worsening liver function - no fevers - no plan to resume fluconazole unless new fevers develop - blood and urine cx's neg this admission 5. Pancreatic CA - plan for C2 gemcitabine/abraxane next week assuming no additional complications develop 6. Anemia - some associated fatigue - transfuse 1U PRBCs today dispo: anticipate dc home tomorrow am]
[2018-02-06] MEDS: Insulin GLARGINE(*) 1 UNITS UNIT SUBCUT SCH (10:33)
[2018-02-06] MEDS ORDERED: Furosemide IV* 10 MG/ML 2 ML VIAL (20 MG) IV SLOW PU ONE (12:00)
[2018-02-06] MEDS ORDERED: Sodium Citrate/Citric Acid* 15 ML UDC ONE (16:12)
[2018-02-06] MEDS ORDERED: Succinylcholine* 20 MG/ML 10 ML VIAL ONE (16:28)
[2018-02-06] MEDS ORDERED: Propofol* 10 MG/ML 20 ML BTL IV PUSH ONE (16:28)
[2018-02-06] MEDS ORDERED: fentaNYL* 50 MCG/ML 2 ML VIAL (100 MCG VIAL) ONE (16:56)
[2018-02-06] MEDS ORDERED: Naloxone* 0.4 MG/ML 1 ML VIAL IV PRN (18:08)
--- NOTE | 2018-02-06 18:27 | RAD ---
INDICATION: Stent change COMPARISON: None FINDINGS: 57 seconds of fluoroscopy were provided for the gastroneurology department. Fluoroscopic spot imaging of the abdomen were obtained for operative control. CPT II Codes: G9500 (fluoro time doc)
[2018-02-07 05:45] LABS: EGFR Non-African American 44.3 (>60)
[2018-02-07 05:46] LABS: INR 1.39 (0.77-1.02)
[2018-02-07 05:50] LABS: Hematocrit 25 % (42-52); Hemoglobin 8.4 g/dl (14.0-18.0); Mean Corpuscular HGB Conc 33 g/dl (31-36); Mean Corpuscular Hemoglobin 29 pg (27-31); Mean Corpuscular Volume 87 fL (80-94); Mean Platelet Volume 8.1 um3 (7.4-10.4); Platelet Count 232 10^3/ul (150-450); Red Cell Distribution Width 18 % (10.5-15); White Blood Count 9.8 10^3/ul (3.5-10.8)
[2018-02-07 05:51] LABS: ABS Basophils 0.1 10^3/ul (0-0.2); ABS Eosinophils 0.2 10^3/ul (0-0.6); ABS Lymphocytes 1.5 10^3/ul (1.0-4.8); ABS Monocytes 0.9 10^3/ul (0-0.8)
[2018-02-07 06:12] LABS: ABS Nucleated RBC 0 10^3/ul; Eosinophil % 2.5 % (0-6); Lymphocyte % 15.2 % (25-47); Nucleated Red Blood Cells % 0.1
--- NOTE | 2018-02-07 06:17 | PRO ---
DATE: 02/06/18 REFERRING PHYSICIANS: Emre Nolen; Saurabh De La Cruz, [facility]. PROCEDURE: ERCP with removal of clogged 10-Bruneian 7cm stent- replaced with plastic stent 10-Bruneian 9 cm INDICATION: This 67-year-old man with pancreatic cancer (biliary cytology, ) was admitted with hypoglycemia from his diabetic meds. While being treated for that, it was noted that his bilirubin was rising slowly about 0.5 mg a day. His bile duct was more distended on MRCP. It was elected to exchange his stent. In conversation with his surgeon in [facility], it was decided if possible to use a plastic stent once again, which would facilitate the possibility of surgery. His warfarin was reversed over the last several days with multiple doses of Sub Q Vit K with an INR this morning of 1.58. It appeared that he was not yet symptomatic from this stricture and presumably clogged stent and his liver synthetic function is still good ENDOSCOPIST: Dr. Stevenson ANESTHESIOLOGIST: Dr. Jacques FINDINGS: He is a morbidly obese man positioned on the x-ray table with cushioning for his elbows, chest, and head. ERCP: Esophagus - 10% views are normal and it is easily traversed. Stomach - 30% views are normal and the antrum and pylorus appeared normal. Duodendum - normal appearance. The old stent was seen. No bile was seen exiting. The old stent was grasped with a snare and pulled out into the stomach and an incision was made to pull it out through mouth at that time. The patient was then reintubated. Duodendum - the papilla and previous sphincterotomy site was easily identified. A sphincterotome was inclined in the expected axis of the common duct. It readily entered the common duct and went into the common hepatic duct area. The guidewire went into the liver. Images were limited based on his body habitus. Dye injection did show a dilated duct. A 10-Bruneian 9 cm stent was chosen and was inserted in a standard fashion with good flow of bile through the flange. Positioning appeared as desired. The scope was removed. 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 The patient will continue his hopefully preoperative chemotherapy. [id number]/[facility] #: [id number] MTDD
[2018-02-07 07:28] VITALS: BP 134/69
[2018-02-07] MEDS: Metoprolol Tartrate TAB* 25 MG PO SCH (08:27)
[2018-02-07] MEDS: Allopurinol TAB* 300 MG PO SCH (08:27)
[2018-02-07] MEDS: Aspirin 81 mg CHEW TAB* 81 MG TAB.CHEW PO SCH (08:27)
[2018-02-07] MEDS: Finasteride TAB* 5 MG PO SCH (08:27)
[2018-02-07] MEDS: Enalapril TAB* 5 MG PO SCH (08:27)
[2018-02-07] MEDS: Potassium Chlor TAB* 20 MEQ TAB.ER PO SCH (08:28)
[2018-02-07] MEDS: Insulin LISPRO* 1 UNITS UNIT SUBCUT SCH (08:28)
--- NOTE | 2018-02-07 08:52 | DS ---
- Discharge Summary ADMIT DATE: 02/02/2018 DISCHARGE DATE: 02/07/2018 DISCHARGE DIAGNOSES: 1. severe hypoglycemia, resolved 2. acute liver failure, improving 3. biliary stent occlusion, replaced 4. fever, unclear source, resolved off antibiotics 5. locally advanced pancreatic cancer getting neoadjuvant chemotherapy 6. diabetes 7. morbid obesity DISCHARGE MEDICATIONS: Home Medications Medication Instructions Recorded Confirmed Type Allopurinol TAB* [Zyloprim 300 MG 300 mg PO DAILY 01/23/18 02/02/18 History TAB*] Enalapril TAB* [Vasotec TAB*] 10 mg PO DAILY 01/23/18 02/02/18 History Finasteride TAB* [Proscar TAB*] 5 mg PO DAILY 01/23/18 02/02/18 History Liraglutide (NF) [Victoza (NF)] 18 mg SUBCUT DAILY 01/23/18 02/02/18 History Metoprolol Tartrate TAB* 25 mg PO BID 01/23/18 02/02/18 History [Lopressor TAB*] Potassium Chlor TAB* [Potassium 40 meq PO DAILY 01/23/18 02/02/18 History Chlor TAB 20 MEQ*] oxyCODONE/Acetamin 5/325 MG* 1 - 2 tab PO Q6H PRN 01/23/18 02/02/18 History [Percocet 5/325 TAB*] Aspirin 81 mg CHEW TAB* 81 mg PO DAILY #0 02/06/18 02/02/18 Rx Furosemide TAB* [Lasix TAB*] 40 mg PO DAILY 02/06/18 02/06/18 History Insulin GLARGINE(*) [Lantus(*)] 15 units SUBCUT DAILY #0 02/06/18 02/02/18 Rx Warfarin TAB(*) [Coumadin TAB(*)] 5 mg PO DAILY #0 02/06/18 02/02/18 Rx STOP METFORMIN AND GLIPIZIDE DISCHARGE FOLLOW UP: 1. lithotripsy with Dr. Stephenson Friday 2. F/nasrin Farrar 02/13 HOSPITAL COURSE: Nathan was admitted with syncope and severe hypoglycemia in the setting of acute liver failure related to biliary stent occlusion. His metformin and glipizide were held and he was given D5 with good response. His fluconazole was held and he had one fever with negative cultures but has remained afebrile since. He had marked coagulopathy related to fluconazole and warfarin use in the setting of acute liver failure. He requires 25 mg po and 1 mg IV vitamin K to reverse this. He had no bleeding. He had his biliary stent exchanged on the day prior to discharge with a plastic stent at the discretion of the surgeon from [facility] (and in consultation with Dr. Stevenson). He will be discharged home OFF metformin and glipizide, as well as off all antibiotics. He will have lithotripsy on his kidney stone on Friday and so will take 1./2 dose lantus the night prior. >30 mins spent >50% in face to face counseling
[2018-02-07] MEDS: Insulin GLARGINE(*) 1 UNITS UNIT SUBCUT SCH (11:17)
[2018-02-09] MEDS ORDERED: Buffered Lidocaine 0.9% SYRIN* 5 ML/SYR SYRINGE INTRADERM ONE (06:00)
[2018-02-09] MEDS ORDERED: Sodium Citrate/Citric Acid* 15 ML UDC PO ONE (06:00)
== END 2018-02-07 11:43 | disposition home or self-care (01) | DRG 919 ==
LOC: ED 07:59 → MEDTELE 10:55 → ICU 13:28 → MED 02-04 12:38
PROVIDERS: ADMIT Internal Medicine Hematology & Oncology; ATTEND Internal Medicine Hematology & Oncology
PROC: 30233N1 Transfusion of Nonautologous Red Blood Cells into Peripheral Vein, Percutaneous Approach (ICD-10-PCS; principal; 2018-02-05)
PROC: 0FPB8DZ Removal of Intraluminal Device from Hepatobiliary Duct, Via Natural or Artificial Opening Endoscopic (ICD-10-PCS; 2018-02-06)
PROC: 0F798DZ Dilation of Common Bile Duct with Intraluminal Device, Via Natural or Artificial Opening Endoscopic (ICD-10-PCS; 2018-02-06)
DX: T85.898A Other specified complication of other internal prosthetic devices, implants and grafts, initial encounter (principal); K72.00 Acute and subacute hepatic failure without coma; B37.7 Candidal sepsis; C25.9 Malignant neoplasm of pancreas, unspecified; N20.2 Calculus of kidney with calculus of ureter; N39.0 Urinary tract infection, site not specified; K80.51 Calculus of bile duct without cholangitis or cholecystitis with obstruction; C24.0 Malignant neoplasm of extrahepatic bile duct; Z68.43 Body mass index [BMI] 50.0-59.9, adult; E11.649 Type 2 diabetes mellitus with hypoglycemia without coma; I48.2 Chronic atrial fibrillation; I25.10 Atherosclerotic heart disease of native coronary artery without angina pectoris; I10 Essential (primary) hypertension; M19.042 Primary osteoarthritis, left hand; M19.041 Primary osteoarthritis, right hand; H26.9 Unspecified cataract; E66.01 Morbid (severe) obesity due to excess calories; R79.1 Abnormal coagulation profile; B96.89 Other specified bacterial agents as the cause of diseases classified elsewhere; N40.1 Benign prostatic hyperplasia with lower urinary tract symptoms; G47.33 Obstructive sleep apnea (adult) (pediatric); D63.8 Anemia in other chronic diseases classified elsewhere; Y73.3 Surgical instruments, materials and gastroenterology and urology devices (including sutures) associated with adverse incidents; Z95.2 Presence of prosthetic heart valve; Z88.1 Allergy status to other antibiotic agents; Z88.5 Allergy status to narcotic agent; Z99.81 Dependence on supplemental oxygen; Z99.2 Dependence on renal dialysis; Z92.21 Personal history of antineoplastic chemotherapy; Z86.19 Personal history of other infectious and parasitic diseases; Z72.89 Other problems related to lifestyle; Z87.891 Personal history of nicotine dependence; Z79.01 Long term (current) use of anticoagulants; Z79.82 Long term (current) use of aspirin; Z79.4 Long term (current) use of insulin; Z96.0 Presence of urogenital implants; R50.9 Fever, unspecified
CPT/HCPCS: 36415; 74018; 74181; 74330; 76376; 80053; 81003; 81015; 82947; 83605; 84484; 85025; 85027; 85610; 86140; 86850; 86900; 86901; 86922; 87040; 87086; 93005; 99219; 99232; 99233; 99239; 99285; A9270-GY; C1769; C2625; J0330; J1642; J1940; J2704; J2997; J3010; J3430; P9040

== ENCOUNTER 2018-02-09 08:07 | Day surgery (SDC) | payer MEDICARE ==
[2018-02-09] MEDS ORDERED: Levofloxacin 500 MG IVPREMIX(* 500 MG/100 ML BAG IVPB ONE (08:09)
[2018-02-09] MEDS ORDERED: Iohexol 180 (CONTRAST) 10 ML SDV IV ONE (10:06)
--- NOTE | 2018-02-09 10:10 | RAD ---
HISTORY: Left ureteral calculus COMPARISONS: February 03, 2013 VIEWS: Frontal views of the abdomen. FINDINGS: BOWEL: There is a nonspecific bowel gas pattern, with nondilated small bowel gas noted. There is a large amount of stool within the colon. CALCULI: There are bilateral calculi overlying the renal parenchymal shadows measuring up to 1 cm on the right and 0.5 cm and the left. There is a 1.1 cm calculus of the proximal left ureter. Left ureteral stent is noted. BONES AND SOFT TISSUES: Degenerative changes noted of the spine OTHER FINDINGS: The lung bases are clear. There is no subphrenic gas. IMPRESSION: BILATERAL NEPHROLITHIASIS WITH A LEFT URETERAL STENT
[2018-02-09] MEDS ORDERED: Propofol* 10 MG/ML 20 ML BTL IV PUSH ONE (11:08)
[2018-02-09] MEDS ORDERED: fentaNYL* 50 MCG/ML 2 ML VIAL (100 MCG VIAL) ONE (11:09)
[2018-02-09] MEDS ORDERED: Phenylephrine INJ* 10 MG/ML 1 ML VIAL (10 MG) ONE (12:11)
[2018-02-09] MEDS ORDERED: Naloxone* 0.4 MG/ML 1 ML VIAL IV PRN (12:23)
[2018-02-09 12:47] VITALS: BP 139/99
--- NOTE | 2018-02-09 13:45 | RAD ---
INDICATION: Postoperative COMPARISON: KUB February 09, 2018 TECHNIQUE: A single view of the abdomen is submitted. FINDINGS: Bones: There are no acute bony findings. Soft tissues: There is a left ureteral stent in expected position. Bowel gas pattern: Normal Calcifications: There is bilateral nephrolithiasis and left-sided ureterolithiasis there is apparent mild fragmentation of the proximal left ureteral calculus Other: None IMPRESSION: FRAGMENTATION OF THE PROXIMAL LEFT URETERAL CALCULUS. BILATERAL NEPHROLITHIASIS. LEFT URETERAL STENT IN EXPECTED POSITION.
--- NOTE | 2018-02-10 08:00 | OP ---
CC: Dr. Krystyna Jones; STEFANIA Busch * DATE OF OPERATION: 02/09/18 - [facility] DATE OF : 46 SURGEON: Dr. Stephenson. ANESTHESIOLOGIST: Dr. Jacques. ANESTHESIA: General. PRE-OP DIAGNOSIS: Calculus, left proximal ureter. POST-OP DIAGNOSIS: Calculus, left proximal ureter. OPERATIVE PROCEDURE: Shockwave lithotripsy of calculus, left ureter. COMPLICATIONS: None. POSTOPERATIVE CONDITION: Stable. INDICATIONS: Nathan Collins is a 67-year-old gentleman who had undergone urgent left stent insertion because of an obstructing calculus in the left proximal ureter. DESCRIPTION OF PROCEDURE: After induction of general anesthesia, the patient was placed on the lithotripsy table in supine position. The calculus in the proximal left ureter was visualized using fluoroscopy. Shockwave lithotripsy was commenced at a rate of 60 shocks per minute. Periodic imaging revealed adequate localization and a total of 2400 shocks were administered. PLAN: To obtain a postoperative x-ray to assess the degree of fragmentation. Because of the large size of the calculus, it is possible that he may require an additional procedure in the future in the form of laser lithotripsy to completely fragment the calculus. The patient tolerated the procedure satisfactorily and was transferred back to the recovery area in stable condition. [id number]/CPS #: [id number] MTDD
== END 2018-02-09 12:57 | disposition home or self-care (01) ==
LOC: OR 08:07
PROVIDERS: ATTEND Urology
DX: N20.1 Calculus of ureter (principal); C25.9 Malignant neoplasm of pancreas, unspecified; G47.33 Obstructive sleep apnea (adult) (pediatric); I48.91 Unspecified atrial fibrillation; Z79.01 Long term (current) use of anticoagulants; E66.01 Morbid (severe) obesity due to excess calories; Z68.43 Body mass index [BMI] 50.0-59.9, adult; D64.9 Anemia, unspecified; Z95.2 Presence of prosthetic heart valve; E11.9 Type 2 diabetes mellitus without complications; Z79.4 Long term (current) use of insulin; Z79.84 Long term (current) use of oral hypoglycemic drugs
CPT/HCPCS: 74018; J1956; J2704; J3010

== ENCOUNTER 2018-02-24 20:44 | Emergency (ER) | payer MEDICARE ==
[2018-02-24] MEDS ORDERED: NS 0.9% 1000 ML* 2,000 ML IV ONE (21:12)
[2018-02-24] MEDS ORDERED: Levofloxacin 750 MG IVPREMIX(* 750 MG/150 ML BAG IVPB ONE (21:42)
[2018-02-24] MEDS ORDERED: Vancomycin(*) 1,000 MG in NS 0.9% 250 ML* 250 ML IVPB ONE (21:43)
[2018-02-24 22:01] LABS: EGFR Non-African American 16.7 (>60)
[2018-02-24 22:04] LABS: Hematocrit 19 % (42-52); Hemoglobin 6.5 g/dl (14.0-18.0); Mean Corpuscular HGB Conc 34 g/dl (31-36); Mean Corpuscular Hemoglobin 29 pg (27-31); Mean Corpuscular Volume 87 fL (80-94); Mean Platelet Volume 8.5 um3 (7.4-10.4); Platelet Count 76 10^3/ul (150-450); Red Blood Count 2.24 10^6/ul (4.0-5.4); Red Cell Distribution Width 17 % (10.5-15); White Blood Count 0.2 10^3/ul (3.5-10.8)
[2018-02-24 22:05] LABS: INR 5.13 (0.77-1.02)
--- NOTE | 2018-02-24 22:06 | RAD ---
Indication: Shortness of breath. Single frontal view of the chest performed at 2144 hours was reviewed. Comparison is made with previous exam dated January 23, 2018. No mediastinal shift is noted. Heart is of normal size and configuration. Lung staley appear clear. Central line is in place. Patient is status post tracer thoracotomy. IMPRESSION: NO ACTIVE CARDIOPULMONARY DISEASE IS NOTED.
[2018-02-24 22:14] LABS: ABS Basophils 0 10^3/ul (0-0.2); ABS Eosinophils 0 10^3/ul (0-0.6); ABS Lymphocytes 0.1 10^3/ul (1.0-4.8); ABS Monocytes 0 10^3/ul (0-0.8); ABS Neutrophils 0 10^3/ul (1.5-7.7); ABS Nucleated RBC 0 10^3/ul; Eosinophil % 0.2 % (0-6); Lymphocyte % 76.9 % (25-47); Nucleated Red Blood Cells % 0
--- NOTE | 2018-02-24 23:12 | ED ---
Angela Bell Rebecca, scribed for Martin Chapin MD on 02/24/18 at 2112 . Complex/Multi-Sys Presentation - HPI Summary HPI Summary: Pt is a 67 y/o M BIBA who presents to ED c/o generalized weakness. Sx began Friday (4 days ago) after his chemotherapy Tx. Sx aggravated and alleviated by nothing. Additionally c/o SOB characterized as dyspnea at exertion and intermittent rectal bleeding for 4 days. Denies fever, chills, and any pain. Has had blood transfusions after chemotherapy before. Took ASA and Tylenol (3 tabs) today at noon. Currently is having chemotherapy Tx for pancreatic CA - began about 2 months ago. - History Of Current Complaint Chief Complaint: EDWeakness Time Seen by Provider: 02/24/18 21:06 Hx Obtained From: Patient Onset/Duration: Lasting Days - 4 days, Still Present Severity Currently: None Location: Negative Aggravating Factor(s): Nothing Alleviating Factor(s): Nothing Associated Signs And Symptoms: Negative: Fever - Allergies/Home Medications Allergies/Adverse Reactions: Allergies Allergy/AdvReac Type Severity Reaction Status Date / Time oxacillin Allergy Severe Rash Verified 02/09/18 08:47 morphine AdvReac Severe Itching Verified 02/09/18 08:47 Home Medications: Home Medications Insulin GLARGINE(*) [Lantus(*)] 66 units SUBCUT DAILY 02/24/18 [History Confirmed 02/24/18] Warfarin TAB(*) [Coumadin TAB(*)] 2.5 mg PO DAILY 02/24/18 [History Confirmed ] glipiZIDE TAB* [Glucotrol TAB*] 10 mg PO BID 02/24/18 [History Confirmed ] PMH/Surg Hx/FS Hx/Imm Hx Endocrine/Hematology History: Reports: Hx Diabetes - type 2 Cardiovascular History: Reports: Hx Aneurysm - aneurysm repair and aortic valve repair 12/02/12 [facility], Hx Atrial Fibrillation, Hx Coronary Artery Disease, Hx Hypertension - on meds, Hx Valvular Heart Disease, Other Cardiovascular Problems/Disorders - AORTIC VALVE REPLACEMENT 11/2012 [facility], aortic anuerysm repaired Denies: Hx Pacemaker/ICD Respiratory History: Reports: Hx Sleep Apnea, Other Respiratory Problems/ Disorders - SLEEP APNEA, BIPAP DEPENDENT Denies: Hx Asthma GI History: Reports: Hx Jaundice - improving since stent, Other GI Disorders - COLITIS C DIFF 2014 History: Reports: Hx Dialysis - 2 day hx 2014 when he was dx with C diff, Hx Kidney Stones - 2000s NUMEROUS EPISODES, SHOCKED, DR GILES [place], Hx Renal Disease - hx previous abnormal gfr Musculoskeletal History: Reports: Hx Arthritis - HANDS Sensory History: Reports: Hx Cataracts - left EYE ONLY Denies: Hx Contacts or Glasses, Hx Hearing Aid Opthamlomology History: Reports: Hx Cataracts - left EYE ONLY Denies: Hx Contacts or Glasses Psychiatric History: Denies: Hx Panic Disorder - Cancer History Cancer Type, Location and Year: Pancreatic Cancer Hx Chemotherapy: Yes - last chemo January 10 - Surgical History Surgery Procedure, Year, and Place: UMBILICAL HERNIA REPAIR [facility] [place]. 1985 RIGHT THUMB LACAERATION [place]. 2008, 2009, 04/2012 LEFT KNEE [facility] , right knee 2008 , lithotripsy approx . 3 yrs ago, Open heart surgery november 2012 ( heart valve and aneurysm repair) Hx Anesthesia Reactions: No - Immunization History Date of Tetanus Vaccine: UTD Date of Influenza Vaccine: UTD Infectious Disease History: No Infectious Disease History: Reports: Hx Clostridium Difficile - 2012 Denies: Traveled Outside the [place] in Last 30 Days - Family History Known Family History: Negative: Blood Disorder - Social History Alcohol Use: Occasionally Alcohol Amount: 1-2 Substance Use Type: Reports: None Smoking Status (MU): Former Smoker Amount Used/How Often: smoked for 3-4 years 1/2ppd Review of Systems Positive: Other - Generalized weakness. Negative: Fever, Chills Positive: other - Rectal bleeding Positive: Other - NEGATIVE: Pain All Other Systems Reviewed And Are Negative: Yes Physical Exam - Summary Physical Exam Summary: ~ VITAL SIGNS: Reviewed. GENERAL: ~Patient is a morbidly obese male who is lying comfortable in the stretcher. Patient is not in any acute respiratory distress. HEAD AND FACE: No signs of trauma. No ecchymosis, hematomas or skull depressions. No sinus tenderness. EYES: PERRLA, EOMI x 2, No injected conjunctiva, no nystagmus. EARS: Hearing grossly intact. Ear canals and tympanic membranes are within normal limits. MOUTH: Oropharynx within normal limits. NECK: Supple, trachea is midline, no adenopathy, no JVD, no carotid bruit, no c- spine tenderness, neck with full ROM. CHEST: Symmetric, no tenderness at palpation LUNGS: Clear to auscultation bilaterally. No wheezing or crackles. Decreased breath sounds bilaterally. CVS: Regular rate and rhythm, S1 and S2 present, no murmurs or gallops appreciated. ABDOMEN: Soft, non-tender. No signs of distention. No rebound no guarding, and no masses palpated. Bowel sounds are normal. EXTREMITIES: FROM in all major joints, no edema, no cyanosis or clubbing. NEURO: Alert and oriented x 3. No acute neurological deficits. Speech is normal and follows commands. Somewhat lethargic. SKIN: Very pale, dry and warm Rectal: Small external hemorrhoids and brown stool, sending the Hemoccult for blood. Triage Information Reviewed: Yes Vital Signs On Initial Exam: Initial Vitals Temp Pulse Resp BP Pulse Ox 98.0 F 106 16 75/37 98 02/24/18 20:51 02/24/18 20:51 02/24/18 20:51 02/24/18 20:51 02/24/18 20:51 Vital Signs Reviewed: Yes Diagnostics - Vital Signs Vital Signs Temp Pulse Resp BP Pulse Ox 02/24/18 20:51 98.0 F 106 16 75/37 98 - Laboratory Result Diagrams: 02/24/18 21:23 02/24/18 21:23 Lab Statement: Any lab studies that have been ordered have been reviewed, and results considered in the medical decision making process. - Radiology CXR Xray Interpretation: No Acute Changes - NO ACTIVE CARDIOPULMONARY DISEASE IS NOTED. ED physician reviewed this report. Radiology Interpretation Completed By: Radiologist - EKG 2214 Cardiac Rate: NL - 86 bpm EKG Rhythm: Atrial Fibrillation EKG Interpretation: A fib at a rate of 86 bpm Re-Evaluation - Re-Evaluation First Eval Re-Evaluation Time: 22:40 Comment: Discussed with the pt, his son and his and he agrees to transfer to [facility]. Complex Multi-Symp Course/Dx Assessment/Plan: Pt is a 67 y/o M BIBA who presents to ED c/o generalized weakness with dyspnea at exertion and intermittent rectal bleeding since Friday (4 days ago) after his chemotherapy Tx. Denies fever, chills, and any pain. Currently is having chemotherapy Tx for pancreatic CA - began about 2 months ago. In the ED course blood work was done with results including a WBC of 0.2, RBC of 2.24, Hgb of 6.5, Hct of 19, absolute neutrophils of 0 L, INR of 5.13, APTT of 43.1, lactic acid of 2.5 and troponin of 0.01. CXR reveals no acute findings. EKG is A Fib. In the ED course, pt received Levaquin, Vancomycin and fluids and blood transfusion. Discussed care of pt with Dr. Lopez who does not feel comfortable admitting the pt without GI coverage tonight. Discussed care of pt with Dr. Nolen at 2233 who states that if the hospitalist will not admit, he cannot pressure them to do so. Based on that conversation, the pt will be transferred. Discussed care of pt with [facility] who will page their ICU. Discussed care of pt with Dr. White at [facility] in [place], [place] at 2255 who accepts pt for transfer to ICU. The pt will be getting transferred directly to the ICU at [facility] in [place], [place]. Pt will be transferred to [facility] with Dx of pancytopenia, renal insufficiency, pancreatic CA and possible GI bleed. 70 minutes of critical care time. Allergies noted. - Diagnoses Provider Diagnoses: Pancytopenia, Pancreatic cancer, Renal insufficiency - Physician Notifications Discussed Care Of Patient With: Javier Lopez Time Discussed With Above Provider: 22:15 Instructed by Provider To: Other - Does not feel comfortable admitting the pt without GI coverage tonight. Discussed care of pt with Dr. Nolen at 2233 who states that if the hospitalist will not admit, he cannot pressure them to do so. Based on that conversation, the pt will be transferred. Discussed care of pt with [facility] at 2245 who will page their ICU. Discussed care of pt with Dr. White at [facility] in [place], [place] at 2255 who accepts pt for transfer to ICU. - Critical Care Time Critical Care Time: 30-74 min - 70 minutes Discharge - Sign-Out/Discharge Documenting (check all that apply): Discharge/Admit/Transfer - Transfer - Discharge Plan Condition: Fair Disposition: TRANS HIGHER LVL OF CARE FAC Referrals: Krystyna Jones MD [Primary Care Provider] - The documentation as recorded by the scribe, DiFabio,Homa accurately reflects the service I personally performed and the decisions made by me, Martin Chapin MD.
[2018-02-25 02:32] VITALS: BP 103/60
--- NOTE | 2018-02-25 07:29 | ED ---
Progress - Progress Note Progress Note: + FOBT - pt transfered for GI bleed Re-Evaluation - Re-Evaluation First Eval Re-Evaluation Time: 22:40 Comment: Discussed with the pt, his son and his and he agrees to transfer to [facility]. Course/Dx - Diagnoses Provider Diagnoses: Pancytopenia, Pancreatic cancer, Renal insufficiency - Provider Notifications Time Discussed With Above Provider: 22:15 Instructed by Provider To: Other - Does not feel comfortable admitting the pt without GI coverage tonight. Discussed care of pt with Dr. Nolen at 2233 who states that if the hospitalist will not admit, he cannot pressure them to do so. Based on that conversation, the pt will be transferred. Discussed care of pt with [facility] at 2245 who will page their ICU. Discussed care of pt with Dr. White at [facility] in [place], [place] at 2255 who accepts pt for transfer to ICU. - Critical Care Time Critical Care Time: 30-74 min - 70 minutes Discharge - Sign-Out/Discharge Documenting (check all that apply): Post-Discharge Follow Up - Discharge Plan Condition: Fair Disposition: TRANS HIGHER LVL OF CARE FAC Referrals: Krystyna Jones MD [Primary Care Provider] - - Billing Disposition and Condition Condition: FAIR Disposition: Trans Higher Lvl of Care Fac
== END 2018-02-25 02:29 | disposition short-term general hospital (02) ==
LOC: ED 20:44
DX: D61.818 Other pancytopenia (principal); C25.9 Malignant neoplasm of pancreas, unspecified; N28.9 Disorder of kidney and ureter, unspecified; R53.83 Other fatigue; I25.10 Atherosclerotic heart disease of native coronary artery without angina pectoris; Z95.4 Presence of other heart-valve replacement; Z87.891 Personal history of nicotine dependence; Z85.07 Personal history of malignant neoplasm of pancreas; K62.5 Hemorrhage of anus and rectum
CPT/HCPCS: 36415; 36430; 71045; 80053; 82150; 82270; 83605; 83690; 83880; 84484; 85025; 85060; 85610; 85730; 86140; 86850; 86870; 86880; 86900; 86901; 86905; 86922; 86927; 87040; 93005; 96374; 99285; J3370; P9017; P9040

== ENCOUNTER 2018-04-21 16:29 | Inpatient (IN) | payer MEDICARE ==
[2018-04-21] MEDS ORDERED: Furosemide IV* 10 MG/ML 2 ML VIAL (20 MG) IV ONE (16:35)
[2018-04-21] MEDS ORDERED: Dextrose 50% Syringe 50 ML* 25 GM/50 ML SYRINGE IV PUSH PRN (16:42)
[2018-04-21] MEDS ORDERED: Temazepam CAP* 15 MG PO PRN (17:05)
[2018-04-21] MEDS ORDERED: Acetaminophen TAB* 325 MG PO PRN (17:05)
[2018-04-21] MEDS: KCL 20 MEQ/100 ML IVPREMIX* 20 MEQ/100 ML BAG IV SCH ×3 (18:20→23:18)
[2018-04-21] MEDS: Vancomycin CAP* 125 MG CAP PO SCH ×2 (18:20→20:26)
[2018-04-21] MEDS: Metoprolol Tartrate TAB* 25 MG PO SCH (20:26)
[2018-04-21] MEDS: Insulin LISPRO* 1 UNITS UNIT SUBCUT SCH (20:27)
[2018-04-21] MEDS: Heparin VIAL(*) 5000 UNITS/ML VIAL (FIVE THOUSAND) SUBCUT SCH (21:44)
[2018-04-22] MEDS: Heparin VIAL(*) 5000 UNITS/ML VIAL (FIVE THOUSAND) SUBCUT SCH ×3 (05:38→21:29)
[2018-04-22 05:41] LABS: Hematocrit 21 % (42-52); Hemoglobin 7.1 g/dl (14.0-18.0); Mean Corpuscular HGB Conc 34 g/dl (31-36); Mean Corpuscular Hemoglobin 30 pg (27-31); Mean Corpuscular Volume 89 fL (80-94); Mean Platelet Volume 8.7 um3 (7.4-10.4); Platelet Count 102 10^3/ul (150-450); Red Blood Count 2.37 10^6/ul (4.00-5.40); Red Cell Distribution Width 18 % (10.5-15)
[2018-04-22 06:00] LABS: EGFR Non-African American 45.7 (>60)
[2018-04-22 06:14] LABS: ABS Basophils 0 10^3/ul (0-0.2); ABS Neutrophils 4.4 10^3/ul (1.5-7.7); ABS Neutrophils 4.5 10^3/ul (1.5-7.7); Monocytes % 6 % (0-7)
[2018-04-22] MEDS: Insulin LISPRO* 1 UNITS UNIT SUBCUT SCH ×4 (08:19→21:13)
[2018-04-22] MEDS ORDERED: Potassium Chlor TAB* 20 MEQ TAB.ER PO SCH (09:00)
[2018-04-22] MEDS: Insulin GLARGINE(*) 1 UNITS UNIT SUBCUT SCH (09:20)
[2018-04-22] MEDS: Vancomycin CAP* 125 MG CAP PO SCH ×4 (09:46→21:11)
[2018-04-22] MEDS: Omeprazole CAP* 20 MG PO SCH (09:46)
[2018-04-22] MEDS: Finasteride TAB* 5 MG PO SCH (09:46)
[2018-04-22] MEDS: Metoprolol Tartrate TAB* 25 MG PO SCH ×2 (09:46→21:11)
[2018-04-22] MEDS: Furosemide TAB* 40 MG PO SCH (09:47)
--- NOTE | 2018-04-22 10:29 | RAD ---
INDICATION: Congestive heart failure. COMPARISON: Comparison is made with the prior study from April 20, 2018. Correlation is also made with an exam from February 24, 2018. TECHNIQUE: Dual-energy PA and lateral views of the chest were obtained. FINDINGS: The patient is status post sternotomy. The heart is moderately enlarged and unchanged. There is a power port central venous catheter present. There is diffuse prominence of the interstitial markings suggestive of mild congestive heart failure. In addition there is a more focal infiltrate present laterally in the left mid and lower lung field which appears unchanged. No pleural effusion is seen. IMPRESSION: 1. LEFT LUNG INFILTRATE, UNCHANGED, RECOMMEND FOLLOW-UP CHEST X-RAYS TO RESOLUTION. 2. FINDINGS SUGGESTIVE OF MILD CONGESTIVE HEART FAILURE DEMONSTRATING SLIGHT PROGRESSION.
[2018-04-22] MEDS ORDERED: Magnesium Sulf 4 GM/100 ML IV* 4,000 MG/100 ML BAG IVPB ONE (10:48)
[2018-04-22] MEDS ORDERED: Azithromycin TAB* 250 MG PO ONE (10:50)
--- NOTE | 2018-04-22 11:11 | PN ---
Progress Note - Progress Note Date of Service: 04/22/18 SOAP: Subjective: [67 yo male with pancreatic CA on neoadjuvant gemcitabine/abraxane s/p C3 who has zamudio multiple complications throughout his treatment course including recent GI bleed and development of C.diff colitis. He has had persistent, although improving diarrhea since starting po vancomycin ~ 2 weeks ago. he was admitted yesterday for progressive weakness and multiple electrolyte abnormalities. Since admission he has had low volume mucus stools. No abd cramping, n/v. Also of note he has had a persistent cough for the last few weeks. No significant dyspnea. No orthopnea. LE edema stable] Objective: [ Laboratory Results - last 24 hr 04/21/18 04/21/18 04/21/18 18:19 18:21 20:26 WBC RBC Hgb Hct MCV MCH MCHC RDW Plt Count MPV Neut % (Auto) Lymph % (Auto) [place] % (Auto) Eos % (Auto) Baso % (Auto) Absolute Neuts (auto) Absolute Lymphs (auto) Absolute Monos (auto) Absolute Eos (auto) Absolute Basos (auto) Absolute Nucleated RBC Immature Gran % Neutrophils % Band Neutrophils % Lymphocytes % Monocytes % Eosinophils % Basophils % Metamyelocytes % Myelocytes % Nucleated RBC % Abs Neuts (Manual) Abs Lymphs (Manual) Abs Monocytes (Manual) Absolute Eos (Manual) Abs Basophils (Manual) Toxic Granulation Normal RBC Morphology Anisocytosis Sodium Potassium Chloride Carbon Dioxide Anion Gap BUN Creatinine Est GFR ( Amer) Est GFR (Non-Af Amer) BUN/Creatinine Ratio Glucose POC Glucose (mg/dL) 99 111 H Calcium Magnesium Total Bilirubin AST ALT Alkaline Phosphatase B-Natriuretic Peptide 194 H Total Protein Albumin Globulin Albumin/Globulin Ratio 04/22/18 04/22/18 04/22/18 05:33 05:33 07:31 WBC 6.0 RBC 2.37 L Hgb 7.1 L Hct 21 L MCV 89 MCH 30 MCHC 34 RDW 18 H Plt Count 102 L MPV 8.7 Neut % (Auto) Not Reportable Lymph % (Auto) Not Reportable [place] % (Auto) Not Reportable Eos % (Auto) Not Reportable Baso % (Auto) Not Reportable Absolute Neuts (auto) 4.5 Absolute Lymphs (auto) Not Reportable Absolute Monos (auto) Not Reportable Absolute Eos (auto) Not Reportable Absolute Basos (auto) Not Reportable Absolute Nucleated RBC Not Reportable Immature Gran % 4 Neutrophils % 73 Band Neutrophils % 2 Lymphocytes % 17 L Monocytes % 6 Eosinophils % 0 Basophils % 0 Metamyelocytes % 1 Myelocytes % 1 Nucleated RBC % Not Reportable Abs Neuts (Manual) 4.4 Abs Lymphs (Manual) 1.0 Abs Monocytes (Manual) 0.4 Absolute Eos (Manual) 0 Abs Basophils (Manual) 0 Toxic Granulation 1+ Normal RBC Morphology Not Reportable Anisocytosis 1+ Sodium 134 L Potassium 3.2 L Chloride 102 Carbon Dioxide 25 Anion Gap 7 BUN 24 Creatinine 1.52 H Est GFR ( Amer) 55.3 Est GFR (Non-Af Amer) 45.7 BUN/Creatinine Ratio 15.8 Glucose 60 L POC Glucose (mg/dL) 61 L Calcium 8.1 L Magnesium 1.5 L Total Bilirubin 0.80 AST 37 ALT 16 Alkaline Phosphatase 94 B-Natriuretic Peptide Total Protein 5.6 L Albumin 2.0 L Globulin 3.6 Albumin/Globulin Ratio 0.6 L 04/22/18 04/22/18 07:57 08:16 WBC RBC Hgb Hct MCV MCH MCHC RDW Plt Count MPV Neut % (Auto) Lymph % (Auto) [place] % (Auto) Eos % (Auto) Baso % (Auto) Absolute Neuts (auto) Absolute Lymphs (auto) Absolute Monos (auto) Absolute Eos (auto) Absolute Basos (auto) Absolute Nucleated RBC Immature Gran % Neutrophils % Band Neutrophils % Lymphocytes % Monocytes % Eosinophils % Basophils % Metamyelocytes % Myelocytes % Nucleated RBC % Abs Neuts (Manual) Abs Lymphs (Manual) Abs Monocytes (Manual) Absolute Eos (Manual) Abs Basophils (Manual) Toxic Granulation Normal RBC Morphology Anisocytosis Sodium Potassium Chloride Carbon Dioxide Anion Gap BUN Creatinine Est GFR ( Amer) Est GFR (Non-Af Amer) BUN/Creatinine Ratio Glucose POC Glucose (mg/dL) 81 100 Calcium Magnesium Total Bilirubin AST ALT Alkaline Phosphatase B-Natriuretic Peptide Total Protein Albumin Globulin Albumin/Globulin Ratio Acetaminophen (Tylenol Tab*) 650 mg PO Q6H PRN PRN Reason: pain/headache/fever Azithromycin (Zithromax Tab*) 250 mg PO DAILY LUISA Stop: 04/26/18 09:01 Cholestyramine Resin (Questran*) 4 gm PO BID LUISA Dextrose (D50w Syringe 50 Ml*) 12.5 gm IV PUSH .FOR FS < 60 - SS PRN PRN Reason: FS < 60 Finasteride (Proscar Tab*) 5 mg PO DAILY [facility] Last Admin: 04/22/18 09:46 Dose: 5 mg Furosemide (Lasix Tab*) 40 mg PO DAILY [facility] Last Admin: 04/22/18 09:47 Dose: 40 mg Heparin Sodium (Porcine) (Heparin Vial(*)) 5,000 units SUBCUT Q8HR [facility] Last Admin: 04/22/18 05:38 Dose: 5,000 units Heparin Sodium (Porcine) (Heparin Flush Port (Ivad)) 5 ml FLUSH DAILY [facility]; Protocol Last Admin: 04/22/18 09:47 Dose: 5 ml Magnesium Sulfate (Magnesium Sulf 4 Gm/100 Ml Iv*) 4,000 mg in 100 mls @ 33.333 mls/hr IVPB ONCE ONE Stop: 04/22/18 13:47 Potassium Chloride (Potassium Chloride 10 Meq/50 Ml Ivpremix*) 10 meq in 50 mls @ 50 mls/hr IV Q1H LUISA Stop: 04/22/18 13:59 Insulin Glargine (Lantus(*)) 15 units SUBCUT DAILY [facility] Last Admin: 04/22/18 09:20 Dose: Not Given Insulin Human Lispro (Humalog*) 0 units SUBCUT ACHS [facility]; Protocol Last Admin: 04/22/18 08:19 Dose: Not Given Metoprolol Tartrate (Lopressor Tab*) 25 mg PO BID [facility] Last Admin: 04/22/18 09:46 Dose: 25 mg Omeprazole (Prilosec Cap*) 20 mg PO DAILY [facility] Last Admin: 04/22/18 09:46 Dose: 20 mg Potassium Chloride (Klor Con Er Tab*) 40 meq PO BID [facility] Temazepam (Restoril Cap*) 15 mg PO BEDTIME PRN PRN Reason: INSOMNIA Vancomycin HCl (Vancomycin Cap*) 125 mg PO QID [facility] Last Admin: 04/22/18 09:46 Dose: 125 mg Vital Signs: Temp Pulse Resp BP Pulse Ox 98.3 F 104 22 136/64 95 04/22/18 07:37 04/22/18 07:37 04/22/18 08:00 04/22/18 07:37 04/22/18 07:37 Exam: Gen: Relatively well appearing and pleasant 67 yo in NAD HEENT: MMM Resp: few rhonchi, freq dry cough CV: irregular rhythm, no m/r/g Abd: soft, nonTTP, normoactive BS Ext: 1+ LE edema Psych: alert, appropriate] Assessment: [67 yo male with pancreatic CA on neoadjuvant gemcitabine/abraxane s/p C3 who has zamudio multiple complications throughout his treatment course including recent GI bleed and development of C.diff colitis. Admitted for progressive weakness and electrolyte management] Plan: [C.diff colitis - phone consultation with Dr Siddiqui - plan to continue oral Vancomycin - trial cholestyramine for toxin binding effect Electrolyte abnormalities - due to GI loss - replete potassium and Mg as necessary - hold additional IV fluid at this time, appears euvolemic Cough - reviewed CXR, which is of poor quality - looks like a LLL infiltrate - he is symptomatic, treat for PNA - start po azithromycin (avoiding abx that may exacerbate Cdiff) Deconditioning - PT/OT consult Pancreatic CA - chemo on hold until C.diff resolves Afib - Coumadin held due to recent GI bleed DM - hypoglycemic this am - cont to monitor BG, hold Lantus today Dispo: anticipate dc home in 1-2 days]
[2018-04-22] MEDS: Cholestyramine Resin* 4 GM POWDER PO SCH ×2 (11:25→21:09)
[2018-04-22] MEDS: KCL 10 MEQ/50 ML IVPREMIX* 10 MEQ/50 ML BAG IV SCH ×4 (12:31→17:23)
[2018-04-22] MEDS: Potassium Chlor TAB* 20 MEQ TAB.ER PO SCH (21:12)
[2018-04-23] MEDS: Heparin VIAL(*) 5000 UNITS/ML VIAL (FIVE THOUSAND) SUBCUT SCH (05:43)
[2018-04-23 06:06] LABS: Hematocrit 21 % (42-52); Hemoglobin 7.2 g/dl (14.0-18.0); Mean Corpuscular HGB Conc 34 g/dl (31-36); Mean Corpuscular Hemoglobin 30 pg (27-31); Mean Corpuscular Volume 90 fL (80-94); Mean Platelet Volume 8.9 um3 (7.4-10.4); Platelet Count 118 10^3/ul (150-450); Red Blood Count 2.38 10^6/ul (4.00-5.40); Red Cell Distribution Width 19 % (10.5-15); White Blood Count 7.4 10^3/ul (3.5-10.8)
[2018-04-23 06:22] LABS: EGFR Non-African American 56.2 (>60)
[2018-04-23 06:29] LABS: ABS Basophils 0 10^3/ul (0-0.2); ABS Eosinophils 0 10^3/ul (0-0.6); ABS Lymphocytes 0.9 10^3/ul (1.0-4.8); ABS Monocytes 0.9 10^3/ul (0-0.8); ABS Neutrophils 5.5 10^3/ul (1.5-7.7); ABS Nucleated RBC 0 10^3/ul; Eosinophil % 0.3 % (0-6); Lymphocyte % 12.8 % (25-47); Nucleated Red Blood Cells % 0.4
[2018-04-23] MEDS: Omeprazole CAP* 20 MG PO SCH (08:17)
[2018-04-23] MEDS: Potassium Chlor TAB* 20 MEQ TAB.ER PO SCH (08:17)
[2018-04-23] MEDS: Metoprolol Tartrate TAB* 25 MG PO SCH (08:17)
[2018-04-23] MEDS: Furosemide TAB* 40 MG PO SCH (08:18)
[2018-04-23] MEDS: Cholestyramine Resin* 4 GM POWDER PO SCH (08:18)
[2018-04-23] MEDS: Insulin GLARGINE(*) 1 UNITS UNIT SUBCUT SCH (08:18)
[2018-04-23] MEDS: Insulin LISPRO* 1 UNITS UNIT SUBCUT SCH ×2 (08:18→12:54)
[2018-04-23] MEDS: Finasteride TAB* 5 MG PO SCH (08:18)
[2018-04-23] MEDS: Vancomycin CAP* 125 MG CAP PO SCH ×2 (08:28→13:00)
[2018-04-23] MEDS ORDERED: Azithromycin TAB* 250 MG PO SCH (09:00)
[2018-04-23 12:00] VITALS: BP 128/57
--- NOTE | 2018-04-24 08:05 | DS ---
CC: Dr. Jones; Dr. Koko Tran * DISCHARGE SUMMARY: DATE OF ADMISSION: 04/21/18 DATE OF DISCHARGE: 04/23/18 PRIMARY CARE PROVIDER: Dr. Jones. PRIMARY ONCOLOGIST AND ATTENDING PHYSICIAN: Dr. Koko Tran.* (DICTATED BY STEFANIA GUTIERREZ) DISCHARGING PROVIDER: STEFANIA Montgomery PRIMARY DISCHARGE DIAGNOSES: 1. C. diff colitis - plan to continue oral vancomycin. 2. Hypokalemia and hypomagnesemia. 3. Left lower lobe pneumonia. 4. Pancreatic cancer. 5. Atrial fibrillation. 6. Recent history of GI bleed, but not a factor during this hospitalization. 7. Insulin-dependent diabetes. DISCHARGE MEDICATIONS: 1. Finasteride 5 mg p.o. daily. 2. Furosemide 40 mg p.o. daily. 3. Lantus 15 units subcu daily. 4. Victoza 18 mg subcu daily. 5. Metoprolol tartrate 25 mg p.o. twice daily. 6. Omeprazole 20 mg p.o. daily. 7. Azithromycin 250 mg p.o. daily. 8. Cholestyramine 4 g p.o. twice daily. 9. Potassium chloride 40 mEq p.o. daily. 10. Vancomycin 125 mg p.o. 4 times daily. Medication changes: 1. Start cholestyramine. 2. Start azithromycin. 3. Increase potassium chloride. HOSPITAL IMAGING: Chest x-ray - this is a poor quality chest x-ray, but suggestive of left lower lobe infiltrate and some mild pulmonary edema. HOSPITAL COURSE: This is a very pleasant 67-year-old gentleman with pancreatic cancer, currently on neoadjuvant therapy with gemcitabine and Abraxane, status post cycle 3. He has had multiple complications of treatment, most recently developing a GI bleed and C. diff colitis. The patient had been on oral vancomycin for nearly 2 weeks, but had persistent, although improving diarrhea, but was having difficulty keeping up with appropriate fluid replacement given the significant GI losses and had associated hypokalemia and hypomagnesemia and was subsequently admitted for symptom management. Discussed the case with infectious disease specialist, Dr. Jesús Siddiqui, who suggested that in some cases it can take several weeks for the diarrhea associated with C. diff to resolve completely and recommended that chance of resistance is low and to continue with the oral vancomycin. The patient's fluids and electrolytes were repleted accordingly and his energy and appetite improved. The patient's stooling continued to be frequent, but generally low volume and mostly filled with mucus. He had no associated nausea, vomiting, or abdominal cramping. Also of note, the patient had a cough for the last couple of weeks. Chest x- ray was suggestive of possible left lower lobe infiltrate and review of his chest x-ray from a few days ago was suggestive of similar findings and he was empirically started on azithromycin for treatment of pneumonia. DISPOSITION AND FOLLOWUP PLAN: The patient is being discharged to home. We will plan to see him in the oncology office on 04/27/18, with repeat labs and we will continue electrolyte support as needed on an outpatient basis. We will plan to continue vancomycin, refill was called in for this. Treat pneumonia with azithromycin. Chemotherapy is currently on hold until resolution of the C. diff colitis, at which point he will resume. STEFANIA MONTGOMERY [id number]/[facility] #: [id number] [facility]
== END 2018-04-23 13:45 | disposition home health service (06) | DRG 371 ==
LOC: MED 17:06
PROVIDERS: ADMIT Internal Medicine Hematology & Oncology; ATTEND Internal Medicine Hematology & Oncology
DX: A04.72 Enterocolitis due to Clostridium difficile, not specified as recurrent (principal); J18.9 Pneumonia, unspecified organism; M86.669 Other chronic osteomyelitis, unspecified tibia and fibula; C25.9 Malignant neoplasm of pancreas, unspecified; N17.9 Acute kidney failure, unspecified; E87.6 Hypokalemia; Z96.659 Presence of unspecified artificial knee joint; G47.33 Obstructive sleep apnea (adult) (pediatric); E78.00 Pure hypercholesterolemia, unspecified; F17.200 Nicotine dependence, unspecified, uncomplicated; I48.2 Chronic atrial fibrillation; I11.0 Hypertensive heart disease with heart failure; I50.9 Heart failure, unspecified; D64.9 Anemia, unspecified; E11.649 Type 2 diabetes mellitus with hypoglycemia without coma; E83.42 Hypomagnesemia; Z88.5 Allergy status to narcotic agent; Z88.0 Allergy status to penicillin; Z87.442 Personal history of urinary calculi; Z95.2 Presence of prosthetic heart valve; Z79.4 Long term (current) use of insulin
CPT/HCPCS: 0521F; 1036F; 1125F; 36415; 36591; 71046; 80053; 81003; 81015; 82272; 83630; 83735; 83880; 85025; 87045; 87046; 87077; 87086; 87328; 87329; 87899; 96360; 96361; 96365; 99212; 99213; 99214; 99222; 99232; 99239; A9270-GY; G0463; G8427; G8978-GP-CI; G8979-GP-CH; J1642; J1644; J1940; J3475; J3480

== ENCOUNTER 2018-06-06 06:04 | Inpatient (IN) | payer MEDICARE ==
[2018-06-06] MEDS ORDERED: Levofloxacin 750 MG IVPREMIX(* 750 MG/150 ML BAG IVPB ONE (06:15)
[2018-06-06] MEDS ORDERED: Cefepime(*) 2 GM in NS 0.9% 50 ML* 50 ML IVPB ONE (06:15)
--- NOTE | 2018-06-06 06:30 | ED ---
Complex/Multi-Sys Presentation - HPI Summary HPI Summary: Pt is 67 y/o M BIBA to [facility] c/o generalized weakness for past week. He has fallen out of bed multiple times in the past week, and today his and he were not able to get him off the floor. Notes cough and SOB. Came down with C- diff 3 days ago. Denies fever. Rates his pain intensity as 2/10 in severity. EMS reports his glucose levels are low. PMHx of pancreatic cancer and had chemotherapy about 1 week ago. - History Of Current Complaint Chief Complaint: EDWeakness Hx Obtained From: Patient, EMS Onset/Duration: Lasting Days, Still Present Severity Currently: Mild - 2/10 Alleviating Factor(s): Nothing Associated Signs And Symptoms: Positive: Weakness, SOB, Cough. Negative: Fever - Allergies/Home Medications Allergies/Adverse Reactions: Allergies Allergy/AdvReac Type Severity Reaction Status Date / Time oxacillin Allergy Severe Rash Verified 06/06/18 07:29 morphine AdvReac Severe Itching Verified 06/06/18 07:29 PMH/Surg Hx/FS Hx/Imm Hx Endocrine/Hematology History: Reports: Hx Diabetes - type 2 Cardiovascular History: Reports: Hx Aneurysm - aneurysm repair and aortic valve repair 12/02/12 [facility], Hx Atrial Fibrillation, Hx Coronary Artery Disease, Hx Hypertension - on meds, Hx Valvular Heart Disease, Other Cardiovascular Problems/Disorders - AORTIC VALVE REPLACEMENT 11/2012 [facility], aortic anuerysm repaired Denies: Hx Pacemaker/ICD Respiratory History: Reports: Hx Sleep Apnea, Other Respiratory Problems/ Disorders - SLEEP APNEA, BIPAP DEPENDENT Denies: Hx Asthma GI History: Reports: Hx Jaundice - improving since stent, Other GI Disorders - COLITIS C DIFF 2014 History: Reports: Hx Dialysis - 2 day hx 2014 when he was dx with C diff, Hx Kidney Stones - 2000s NUMEROUS EPISODES, SHOCKED, DR SKAGGS FOLLOWS, Hx Renal Disease - hx previous abnormal gfr Musculoskeletal History: Reports: Hx Arthritis - HANDS Sensory History: Reports: Hx Cataracts - left EYE ONLY Denies: Hx Contacts or Glasses, Hx Hearing Aid Opthamlomology History: Reports: Hx Cataracts - left EYE ONLY Denies: Hx Contacts or Glasses Psychiatric History: Denies: Hx Panic Disorder - Cancer History Cancer Type, Location and Year: Pancreatic Cancer Hx Chemotherapy: Yes - last chemo January 10 Hx Radiation Therapy: No - Surgical History Surgery Procedure, Year, and Place: POWER PORT. AORTIC VALVE REPLACEMENT - PIG VALVE. SHI KNEES - REPLACEMENT. 1983 - Rt THUMB. LITHROTRIPSY. ERCP Xs 2 Hx Anesthesia Reactions: No - Immunization History Date of Tetanus Vaccine: UTD Date of Influenza Vaccine: UTD Infectious Disease History: No Infectious Disease History: Reports: Hx Clostridium Difficile Denies: Traveled Outside the [place] in Last 30 Days - Family History Known Family History: Negative: Blood Disorder - Social History Alcohol Use: None Alcohol Amount: 1-2 Substance Use Type: Reports: None Smoking Status (MU): Former Smoker Amount Used/How Often: smoked for 3-4 years 1/2ppd Review of Systems Positive: Other - Generalized weakness. Negative: Fever Positive: Shortness Of Breath, Cough All Other Systems Reviewed And Are Negative: Yes Physical Exam - Summary Physical Exam Summary: Appearance: Morbidly obese, Well-nourished, lying in bed comfortably Skin: Warm, dry, no obvious rash Eyes: sclera anicteric, no conjunctival pallor ENT: mucous membranes moist, pharynx appears normal Neck: Supple, nontender Respiratory: C Some bronchial breath sounds and egophony in lungs. Cardiovascular: Tachycardic and hypotensive. Peripheral edema. No murmurs. Normal distal pulses in tibial and radial bilaterally. Abdomen: Soft, nontender, normal active bowel sounds present Musculoskeletal: Normal, Strength/ROM Intact Neurological: A&Ox3, awake and alert, mentation is normal, speech is fluent and appropriate Psychiatric: affect is normal, does not appear anxious or depressed Triage Information Reviewed: Yes Vital Signs On Initial Exam: Initial Vitals Pulse Resp BP Pulse Ox 101 26 91/66 97 06/06/18 06:06 06/06/18 06:06 06/06/18 06:06 06/06/18 06:06 Vital Signs Reviewed: Yes Diagnostics - Vital Signs Vital Signs Temp Pulse Resp BP Pulse Ox 06/06/18 06:22 95 06/06/18 06:10 97.1 F 102 20 91/66 95 06/06/18 06:09 104 13 97 06/06/18 06:06 101 26 91/66 97 - Laboratory Result Diagrams: 06/06/18 07:37 06/06/18 07:37 Lab Statement: Any lab studies that have been ordered have been reviewed, and results considered in the medical decision making process. Complex Multi-Symp Course/Dx Course Of Treatment: Pt is 67 y/o M BIBA to [facility] c/o generalized weakness. He has fallen out of bed multiple times in the past week, and today his and he were not able to get him off the floor. Notes cough and SOB. Came down with C -diff 3 days ago. Denies fever. Rates his pain intensity as 2/10 in severity. EMS reports his glucose levels are low. PMHx of pancreatic cancer and had chemotherapy about 1 week ago. Pt will be signed out to Dr. Jun Nicholas awaiting CXR and disposition. - Diagnoses Provider Diagnoses: Pneumonia Discharge - Sign-Out/Discharge Documenting (check all that apply): Sign-Out Patient Signing out patient TO: Jun Nicholas Receiving patient FROM: Jun Galeano - Discharge Plan Condition: Fair Disposition: ADMITTED TO [facility] - Billing Disposition and Condition Condition: FAIR Disposition: Admitted to [facility] - Attestation Statements Document Initiated by Scribe: Yes Documenting Scribe: Janeth Aguirre Provider For Whom Akua is Documenting (Include Credential): Dr. Jun Galeano MD Scribe Attestation: IJaneth, scribed for Dr. Jun Galeano MD on 06/06/18 at 2314. Scribe Documentation Reviewed: Yes Provider Attestation: The documentation as recorded by the scribe, Janeth Aguirre accurately reflects the service I personally performed and the decisions made by me, Dr. Jun Galeano MD
--- OUTSIDE RECORDS SUMMARY | 2018-06-06 06:44 | XMS REPORT | Continuity of Care Document ---
:1950 External Reference #:[id number] Author Name Sukhjinder Bach M.D. Address [address] [place] [address] Care Team Providers Name Role Phone Krystyna Jones M.D. Primary Care Physician Unavailable Payers Type Date Identification Numbers Payment Provider Subscriber Policy Number: [id number] Medicare - [facility] Nathan Collins PayID: [id number] [address] [place] [address] Policy Number: [id number] Formerly [facility] Nathan Collins PayID: [id number] [address] [place] [address] Advance Directives Description No Information Available Problems Date Description Provider Status Onset: Type 2 diabetes mellitus Active Note: 1999 Onset: Replacement of aortic valve Active Onset: History of myocardial infarction Active Onset: Atrial fibrillation Active Onset: Large prostate Active Onset: Uric acid renal calculus Active Onset: 03/27/2017 Nuclear senile cataract Sukhjinder Bach M.D. Active Onset: 04/22/2017 Presence of intraocular lens Sukhjinder Bach M.D. Active Onset: 11/20/2017 Malignant tumor of pancreas Active Note: CHEMO TREATMENT ONCE A WEEK WHEN HIS BLOOD COUNTS ARE GOOD ENOUGH Family History Date Family Member(s) Problem(s) Comments Father No Current Problems Mother No Current Problems Social History Type Date Description Comments Sex Unknown Marital Status Legal Status: Occupation [employer] Work Status Retired ETOH Use Rarely consumes alcohol Tobacco Use Start: Unknown Light tobacco smoker (10 or fewer Cigar cigarettes/day) Smoking Status Reviewed: 05/21/18 Light tobacco smoker (10 or fewer Cigar cigarettes/day) Allergies, Adverse Reactions, Alerts Date Description Reaction Status Severity Comments 03/27/2017 Morphine Active Medications Medication Date Status Form Strength Qnty SIG Indications Ordering Provider Furosemide / Active Tablets 40mg Wick, 0000 Sid M.D. Metoprolol / Active Tablets 25mg Wick, Tartrate 0000 Sid M.D. Enalapril / Active Tablets 10mg Makenzie, Maleate 0000 Dmitry M.D. Finasteride / Active Tablets 5mg Vorha, 0000 Abran M.D. Potassium / Active Tablets ER 20Meq Wick, Chloride Nicci 0000 Sid M.D. ER Victoza / Active Solution 18mg/3ML Makenzie, 0000 Pen-Inject Dmitry M.DOral Oxycodone-Aceta / Active Tablets 5-325mg Take 1-2 Unknown minophen 0000 Tabletss By Mouth Every 4-6 Hours as Needed For Pain Metformin HCL / Active Tablets 500mg Makenzie, 0000 Dmitry M.D. Warfarin Sodium / Active Tablets 5mg Makenzie, 0000 Dmitry M.DOral Ciprofloxacin 04/08/ Hx Solution 0.3% 5unit instill Sukhjinder HCL 2017 - s one drop Isreal, 05/05/ in the M.D. 2017 right eye three times a day, start the day before surgery Ketorolac 04/08/ Hx Solution 0.5% 10ml 1 drop Sukhjinder Tromethamine 2017 - right eye Zablocki, 05/20/ daily M.D. 2018 Prednisolone 04/08/ Hx Suspension 1% 10ml 1 drop Sukhjinder Acetate 2017 - right eye Zablocki, 05/20/ daily M.D. 2018 Pravastatin / Hx Tablets 40mg Wick, Sodium 0000 - Sid M.D. 2017 Glipizide / Hx Tablets 10mg Take One Unknown 0000 - Tablet By Mouth 2018 Twice Daily Allopurinol / Hx Tablets 300mg Take One Unknown 0000 - Tablet By Mouth One 2018 Time Daily Lantus Solostar / Hx Solution 100Unit/ML Makenzie, 0000 - Pen-Inject Dmitry M.DOral 2016 Aspirin / Hx Tablets DR 81mg Unknown 0000 - 2017 Immunizations Description No Information Available Vital Signs Description No Information Available Results Test Date Facility Test Result H/L Range Note Laboratory test 04/21/2017 [facility] 178 mg/dL High 70-[address] [place] [address] [phone] Safety Representative: [id number] Procedures Date Code Description Status 04/21/2017 41643 Extracapsular Cataract Extraction W/Intraocular Lens Completed 04/08/2017 58735 Ophthalmic Biometry Completed 03/27/2017 62984 New Patient Comprehensive Exam Completed Encounters Type Date Location Provider Dx Diagnosis Office Visit 04/08/2017 Sukhjinder Edwards, H25.11 Age- related 11:15a [employer] M.D. nuclear cataract, right eye H25.12 Age-related nuclear cataract, left eye E11.9 Type 2 diabetes mellitus without complications Plan of Treatment 05/21/2018 - Sukhjinder Bach M.D.E11.3293 Type 2 diabetes mellitus with mild nonproliferative diabetic retinopathy without macular edema, bilateralComments: Smoking can increase the risk of developing or worsening any eye related disease , as well as affect your overall health. If you are a smoker, we strongly recommend that you quit.If you are not a smoker, we strongly recommend that you do not start. I can detect diabetic changes in your eyes. Proper control of your diabetes is important for the health of your eyes. It is important that you keep all of your follow up appointments.Follow up:1 Year Follow Up DFE You can expect to have your eyes dilated at your next visit. If Dr. Bach orders any additional testing, it may require extra time. We recommend that you bring sunglasses, as dilation drops often make you light sensitive until they wear off. We always recommend you bring someone to drive you home if you are uncomfortable driving with your eyes dilated. If you have any questions before your next visit, feel free to call our office at .H25.12 Age- related nuclear cataract, left eyeComments:You have been diagnosed with cataracts. If you are happy with your vision as it is now, then we willsee you at your next scheduled appointment. If you feel like your vision is getting worse before your scheduled appointment, please call Yazmin Keating at .
[2018-06-06] MEDS: NS 0.9% 1000 ML* 3,000 ML IV ONE ×2 (07:28→08:58)
[2018-06-06 07:48] LABS: Hematocrit 27 % (42-52); Hemoglobin 8.9 g/dl (14.0-18.0); Mean Corpuscular HGB Conc 33 g/dl (31-36); Mean Corpuscular Hemoglobin 30 pg (27-31); Mean Corpuscular Volume 90 fL (80-94); Mean Platelet Volume 8.5 um3 (7.4-10.4); Platelet Count 31 10^3/ul (150-450); Red Blood Count 2.99 10^6/ul (4.00-5.40); Red Cell Distribution Width 18 % (10.5-15); White Blood Count 1.8 10^3/ul (3.5-10.8)
[2018-06-06 07:54] LABS: INR 1.45 (0.77-1.02)
[2018-06-06 08:01] LABS: EGFR Non-African American 36.7 (>60)
--- NOTE | 2018-06-06 08:09 | RAD ---
INDICATION: Cough and weakness. COMPARISON: Comparison is made with a prior chest x-ray study from June 04, 2018. TECHNIQUE: AP and lateral views of the chest were obtained. FINDINGS: The patient is status post sternotomy. The heart appears mildly enlarged. There is a power port central venous catheter entering on the right side. The catheter tip projects over the superior vena cava. The lungs are underinflated. There is a small infiltrate at the right lung base. No pleural effusion is seen. IMPRESSION: LOW LUNG VOLUMES, SMALL RIGHT BASILAR INFILTRATE.
--- NOTE | 2018-06-06 08:36 | ED ---
Progress - Progress Note Progress Note: 67 year old M signed out from Dr. Galeano, awaiting CXR and pending disposition. - EKG/XRAY/CT XRAY: chest - Per radiologist, LOW LUNG VOLUMES, SMALL RIGHT BASILAR INFILTRATE. ED physician has reviewed this report. Course/Dx - Course Course Of Treatment: Mr. Collins remained stable here in the ED although he was tachycardic. He was found to have an infiltrate and given fluids and ABX for his sepsis. - Diagnoses Provider Diagnoses: Pneumonia - Provider Notifications Discussed Care Of Patient With: Emre Nolen Time Discussed With Above Provider: 08:30 Instructed by Provider To: Other - Dr. Nolen, oncology, agrees to admit patient. Discharge - Sign-Out/Discharge Documenting (check all that apply): Patient Departure - Admit - Discharge Plan Condition: Fair Disposition: ADMITTED TO [facility] Referrals: Krystyna Jones MD [Primary Care Provider] - - Billing Disposition and Condition Condition: FAIR Disposition: Admitted to [facility] - Attestation Statements Document Initiated by Scribe: Yes Documenting Scribe: Sarah Barnes Provider For Whom Scribe is Documenting (Include Credential): Jun Nicholas MD Scribe Attestation: I, Sarah Barnes, scribed for Jun Nicholas MD on 06/06/18 at 1040. Scribe Documentation Reviewed: Yes Provider Attestation: The documentation as recorded by the scribeSarah accurately reflects the service I personally performed and the decisions made by me, Jun Nicholas MD
[2018-06-06 08:40] LABS: ABS Basophils 0 10^3/ul (0-0.2); ABS Neutrophils 1.1 10^3/ul (1.5-7.7); Monocytes % 10 % (0-7)
[2018-06-06] MEDS ORDERED: Dextrose 50% Syringe 50 ML* 25 GM/50 ML SYRINGE IV PUSH ONE (09:07)
[2018-06-06 09:38] LABS: ABS Neutrophils 1.2 10^3/ul (1.5-7.7)
[2018-06-06] MEDS ORDERED: oxyCODONE/Acetamin 5/325 MG* TAB PO PRN (11:56)
[2018-06-06] MEDS ORDERED: Ondansetron INJ* 2 MG/ML VIAL IV PRN (11:56)
[2018-06-06 13:03] LABS: Urine Appearance Cloudy; Urine Blood 3+ (Negative); Urine Color Amber; Urine Ketones Negative (Negative); Urine Protein 2+(100 mg/dL) (Negative); Urine Red Blood Cell 3+(>10/hpf) (Absent); Urine Specific Gravity 1.027 (1.010-1.030); Urine Urobilinogen Negative (Negative); Urine White Blood Cell 3+(>20/hpf) (Absent)
[2018-06-06] MEDS: D5NS 0.9% 1000 ML BAG* 1,000 ML IV SCH ×2 (13:43→21:13)
[2018-06-06] MEDS: Vancomycin CAP* 125 MG CAP PO SCH ×3 (13:43→20:20)
[2018-06-06] MEDS ORDERED: NS 0.9% 1000 ML* 1,000 ML IV ONE (17:00)
--- NOTE | 2018-06-06 17:44 | HP ---
HISTORY AND PHYSICAL: DATE OF ADMISSION: IDENTIFICATION: A 67-year-old male with pancreatic cancer currently on chemotherapy with gemcitabine and Abraxane. Course complicated by C. diff colitis and history of hydronephrosis with obstructing ureteral stone and ureteral stent placement in January. CHIEF COMPLAINT: Weakness and diarrhea. HISTORY OF PRESENT ILLNESS: A 67-year-old male, who is currently on chemotherapy with gemcitabine and Abraxane. He had an admission in January with an obstructing hydronephrosis and had a stent placement at that time by Dr. Stephenson. To my knowledge, his stent is still in place. More recently, he had admission in April with C. difficile colitis. He had been on fluconazole and then sent home on oral vancomycin. It appears he had a fairly resistant course with persistent C. diff. He had C. diff toxin that was positive on 04/09/18, but then repeat C. diff toxin was negative on 05/15/18. He was able to continue with chemotherapy being treated on 05/19/18 and then 05/29/18. He tolerated the chemotherapy recently well. However, on 06/04/18, he was seen in clinic with a complaint of increasing cough and fullness in his throat, as well as low-grade fevers and difficulty swallowing. He was not having excessive diarrhea at that time, breathing was stable. He had blood counts that showed white count of 300 with an ANC of 0. On exam, he was noted to have thrush. He was started on fluconazole and doxycycline in an effort to avoid admission. His throat did get little bit better with antibiotics and antifungal medication. However, 5 days ago, he developed increasing diarrhea. Diarrhea started occurring 4 to 5 times per day and was quite voluminous. He had several episodes where he is incontinent and it was difficult to get cleaned up. His said he had gotten sores on his buttocks from prior C. diff, but it cleared off and now they recurred. He has been seen a few times in clinic and given IV fluids. He has had increasing weakness and he fell twice at home over the past 24 hours. The second time he fell, his could not get him up and had to call the fire department. When they were able to raise him, he fell again and was too weak to recover. That triggered coming to the emergency room. His breathing is stable. His primary complaint is being weak. He is not having excessive abdominal pain, just the diarrhea. He is urinating some. The throat still hurts, but he is coughing less. PAST MEDICAL HISTORY: 1. Pancreatic cancer. Diagnosed in November 2017. He had ERCP with a biliary stent placed and received neoadjuvant gemcitabine and Abraxane starting in December. Course complicated by neutropenic fever. He had hospitalization in January with obstructing hydronephrosis. In February, he had a GI bleed and in March, he had C. difficile colitis. 2. Urinary obstruction from a stone, in January, on left side, status post stent. 3. Chronic thoracic aortic aneurysm. 4. Aortic stenosis. 5. Atrial fibrillation. 6. Osteomyelitis of the left leg. 7. Hypertension. 8. Obstructive sleep apnea. 9. Obesity. 10. High cholesterol. 11. Type 2 diabetes. PAST SURGICAL HISTORY: 1. Knee replacement and knee replacement revision after infection. 2. Umbilical hernia repair. 3. Valve replacement with aortic bioprosthetic valve. 4. Stent placement in January. MEDICATIONS AT HOME: 1. Cholestyramine 4 g pack per day. 2. Finasteride 5 mg daily. 3. Furosemide 20 mg a day. 4. Potassium 20 mEq a day. 5. Lantus 15 units daily. 6. Metoprolol 25 b.i.d. 7. Miracle Mouthwash. 8. Omeprazole 20 mg a day. 9. Vancomycin 125 mg t.i.d. 10. Victoza 18 units subcutaneous daily. 11. Fluconazole 200 mg daily. 12. Levaquin 500 mg daily. ALLERGIES: OXACILLIN, MORPHINE. FAMILY HISTORY: No significant family history of malignancy. SOCIAL HISTORY: . He has a family with him in clinic. is primary source of support. REVIEW OF SYSTEMS: Constitutional: Fatigue, weight loss, feeling weak. Eyes: Negative. HEENT: Thrush, slowly improving. Endocrine: Diabetes. Hematologic : On chemotherapy. Respiratory: Sleep apnea, question of COPD. Cardiovascular : Valve repair and no coronary artery disease. GI: C. diff colitis, recurrent diarrhea. : Stent placed in January. Musculoskeletal: Knee surgery. No acute complaints. Dermatologic: Sores on buttocks per . Neurologic: Negative. Psychiatric: Negative. PHYSICAL EXAMINATION VITAL SIGNS: BP 86/50, heart rate 98, respiratory rate 27, O2 sat 98%. HEENT: Conjunctivae pale. Mucosa dry. No thrush. NECK: No lymphadenopathy. LUNGS: He is clear bilaterally without crackles or wheezes. Has good air movement. HEART: Regular rate and rhythm. 2/6 systolic murmur. S1, S2. ABDOMEN: Obese and nonspecific exam. He is nontender, good bowel sounds. He has scarring from prior surgery. EXTREMITIES: No edema. Good pulses x4. NEUROLOGIC: Alert and oriented x3. SKIN: Could not examine his buttocks, could not turn him in the ER. DIAGNOSTIC STUDIES/LAB DATA: White count 1.8, hemoglobin 8.9, platelets 31, and ANC 1.1, which is improved from 06/05/18 with white count 700, hemoglobin of 7.5. His creatinine is 1.84, up from 1.61 on 06/04/18 and his baseline is under 1. His glucose is 49 this morning, potassium 4.1. Bilirubin 1.4. LFTs unremarkable, but he has an albumin of 2.2. His INR is 1.45 and I do not have clinic record of him being on anticoagulation. CT chest done and pelvis reviewed with Dr. Patel. I do no really see a pancreatic mass or any evidence of metastatic pancreatic cancer on my review. In comparison with January, the stone is gone, but he now has diffuse left hydronephrosis. I do not see a stent in place. The hydronephrosis goes to the bladder and he does have thickening of the bladder wall. There is not a pulmonary infiltrate on the CT scan from 06/05/18. 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 1. Dehydration. He had had normal saline boluses in ER, remains with low blood pressure. We will give an additional 1L then normal saline at 150 cc per hour in the hospital. We are going to hold the Lasix and his potassium. 2. Hypotension. Hold Victoza. We are going to hold the metoprolol for blood pressure under 100, but otherwise continue given his atrial fibrillation. 3. Thrush. I will continue the fluconazole 200 mg daily. 4. Possible Clostridium difficile colitis. Check Clostridium difficile. Hold all antibiotics as he is no longer neutropenic. I do not have clear evidence of infection and we will treat him with Imodium. 5. Left hydronephrosis. I am going to put in a Rachel to track his urinary flow , send UA and culture.. We will discuss with Urology and double check to see if he is on anticoagulation. 6. Diabetes. He is hypoglycemic. We are going to hold the Lantus and the Victoza, then I will put him on an insulin sliding scale while he is here. We will put D5 in the normal saline for now given he has got a single low sugar in the ER. 7. He has been full code. We will continue that for the moment in the hospital. 8. Pancreatic cancer. His CA 19-9 has been down. I do not see any clear progression of disease on CT scan. I do not know what the plan is going to be with future chemotherapy given recurrent complications. 9. ID. ANC 1200 now and no clear evidence infection. Check UA but will hold antibiotics given possible C.Diff.Can continue Fluconazole. 9. DVT prophylaxis per protocol once platelets are greater than 50,000. [id number]/[facility] #: [id number] [facility] [address] [facility]
[2018-06-06] MEDS ORDERED: Dextrose 50% Syringe 50 ML* 25 GM/50 ML SYRINGE IV PUSH PRN (18:41)
[2018-06-06] MEDS: Insulin LISPRO* 1 UNITS UNIT SUBCUT SCH (19:09)
[2018-06-06] MEDS: Metoprolol Tartrate TAB* 25 MG PO SCH (20:20)
--- NOTE | 2018-06-06 22:13 | CONS ---
CONSULTATION NOTE: DATE OF CONSULT: 06/06/18 LOCATION: The patient is in room #433. HISTORY OF PRESENT ILLNESS: I was asked by Dr. Nolen to see this 67-year-old white male because of left hydronephrosis and decreased renal function. Mr. Collins is a known stone former and back in January 2018, he presented with a 1.5 -cm obstructing calculus at the level of the left ureteropelvic junction associated with pyonephrosis. He had urgent placement of a left ureteral stent. He did well postoperatively. He then was taken back to the operating room on 02/09/18 and underwent shockwave lithotripsy of the left ureteral calculus with good fragmentation, and the stent was removed about 10 days later. He passed a large number of stone fragments. He had been asymptomatic from his kidney. He had a residual non obstructing calculus in the lower pole calyx of the left kidney. He has been doing well rose, having no recurrent renal symptoms. The patient was diagnosed with early pancreatic cancer and has been on chemotherapy. He was admitted today because of C. difficilis enterocolitis, associated with loose BM's, and dehydration. He had noted on & off gross hematuria for the last 3 days, associated with mild back pain. No associated symptoms of urinary tract infection or prostatitis, and no change in the urinary stream or the frequency. No associated fever or chills. He presented to the ER because of the persistent diarrhea and weakness.. He was found to be hypotensive with his BP 85/50, Pulse 95, afebrile. His lab work showed leukopenia with a white count of 1,800, anemia with HH 9/ 27. His INR was 1.45. His serum creatinine was up to 1.84 from a baseline of 1.2 Urine analysis showed +3 blood, +3 leukocytes, neg nitrites. Noncontrast CT of the abdomen and pelvis showed moderate right hydroureteronephrosis with the dilatation of the ureter all the way to the level of the ureterovesical junction. There was a small non-obstructing calculus in the lower pole calyx of the left kidney. No calculi were noted in the ureter and there was no lymphadenopathy or masses in the retroperitoneum or in the pelvis to explain the ureteral obstruction. The bladder wall was asymmetrically thickened, but the bladder was not distended. The patient was admitted for IV hydration and to continue the treatment for his C. diff. A Rachel catheter was placed, with a small residual volume. Urine was sent for C & S.. Initially, the urine was light red, then it cleared up. On PHYSICAL EXAM: He is lying comfortably in bed. There is no flank tenderness and no left upper quadrant tenderness. Catheter draining clear concentrated urine. IMPRESSION: Left hydroureteronephrosis with dilated ureter all the way to the left ureterovesical junction without any pathology to explain the ureteral obstruction. Elevated serum Cr, secondary to the combination of the dehydration and left hydronephrosis. It is possible that the patient passed a stone from the left ureter, explaining the hematuria, back pain, and hydronephrosis, and what we are seeing on the CT is residual edema at the UVJ from the recent passage of the stone. He does not seem to be septic. PLAN: Patient is dehydrated and hypotensive, and does not seem to be septic, so will hold off on taking him to the OR for urgent left ureteral stent placement. Considering the patient is afebrile and has no flank tenderness and the serum creatinine is not too elevated, the plan at this time is for conservative management with IV hydration and continued treatment of his enterocolitis. The serum creatinine will be repeated in the morning, and if it does not go down on the hydration, I suggest repeating the CT in 2 to [address] continues to show the hydronephrosis he will need a cystoscopy and placement of a left ureteral stent. If he develops acute left flank pain, or signs of left pyelonephritis, will proceed with urgent stent placement. Thank you [id number]/[facility] #: [id number] GUILHERME
[2018-06-07] MEDS: D5NS 0.9% 1000 ML BAG* 1,000 ML IV SCH (02:56)
[2018-06-07 04:53] LABS: INR 1.34 (0.77-1.02)
[2018-06-07 04:58] LABS: Hematocrit 20 % (42-52); Hemoglobin 6.6 g/dl (14.0-18.0); Mean Corpuscular HGB Conc 34 g/dl (31-36); Mean Corpuscular Hemoglobin 30 pg (27-31); Mean Corpuscular Volume 91 fL (80-94); Mean Platelet Volume 8.7 um3 (7.4-10.4); Platelet Count 32 10^3/ul (150-450); Red Blood Count 2.16 10^6/ul (4.00-5.40); Red Cell Distribution Width 18 % (10.5-15)
[2018-06-07 05:05] LABS: EGFR Non-African American 43.1 (>60)
[2018-06-07 05:29] LABS: ABS Neutrophils 2.9 10^3/ul (1.5-7.7)
[2018-06-07] MEDS: Metoprolol Tartrate TAB* 25 MG PO SCH ×2 (08:03→21:01)
[2018-06-07] MEDS: Finasteride TAB* 5 MG PO SCH (08:04)
[2018-06-07] MEDS: Omeprazole CAP* 20 MG PO SCH (08:05)
[2018-06-07] MEDS: Vancomycin CAP* 125 MG CAP PO SCH ×5 (08:05→21:01)
[2018-06-07] MEDS: Fluconazole 100 MG TAB* TAB PO SCH (08:06)
--- NOTE | 2018-06-07 08:44 | PN ---
Subjective Date of Service: 06/07/18 Interval History: No diarrhea since [place]. Appetite fair, but states he can't swallow bread. No nausea. No new c/o. Objective Active Medications: Dextrose (D50w Syringe 50 Ml*) 12.5 gm IV PUSH .FOR FS < 60 - SS PRN PRN Reason: FS < 60 Finasteride (Proscar Tab*) 5 mg PO DAILY [facility] Last Admin: 06/07/18 08:04 Dose: 5 mg Fluconazole (Diflucan 100 Mg Tab*) 200 mg PO DAILY [facility] Last Admin: 06/07/18 08:06 Dose: 200 mg Potassium Chloride/Sodium Chloride (Ns 0.45% Kcl 20 Meq 1000 Ml*) 1,000 mls @ 125 mls/hr IV PER RATE [facility] Insulin Glargine (Lantus(*)) 10 units SUBCUT Q24H [facility] Insulin Human Lispro (Humalog*) 0 units SUBCUT AC [facility]; Protocol Last Admin: 06/06/18 19:09 Dose: Not Given Metoprolol Tartrate (Lopressor Tab*) 25 mg PO BID [facility] Last Admin: 06/07/18 08:03 Dose: 25 mg Omeprazole (Prilosec Cap*) 20 mg PO DAILY [facility] Last Admin: 06/07/18 08:05 Dose: 20 mg Ondansetron HCl (Zofran Inj*) 4 mg IV Q4H PRN PRN Reason: NAUSEA/VOMITING Oxycodone/Acetaminophen (Percocet 5/325 Tab*) 1 tab PO Q4H PRN PRN Reason: Pain Vital Signs - 8 hr 06/07/18 06/07/18 06/07/18 03:54 04:38 07:15 Temperature 97.9 F 97.3 F Pulse Rate 103 95 100 Respiratory 22 18 Rate Blood Pressure 99/45 107/59 112/56 (mmHg) O2 Sat by Pulse 97 98 Oximetry 06/07/18 08:00 Temperature Pulse Rate Respiratory 20 Rate Blood Pressure (mmHg) O2 Sat by Pulse Oximetry Oxygen Devices in Use Now: None Appearance: Alert, partly up in bed. In good spirits. Looks comfortable. Eyes: No Scleral Icterus Respiratory: Symmetrical Chest Expansion and Respiratory Effort, Clear to Auscultation, Clear to Percussion Cardiovascular: NL Sounds; No Murmurs; No JVD, RRR, No Edema, - Extremities: No Clubbing, Cyanosis, - - Tr edema BL Skin: No Rash or Ulcers, No Nodules or Sclerosis, - Neurological: Alert and Oriented x 3, NL Sensation Result Diagrams: 06/07/18 04:30 06/07/18 04:30 Microbiology and Other Data: Microbiology 06/06/18 08:28 Aerobic Blood Culture - Preliminary Blood Venous No Growth Day 1 Anaerobic Blood Culture - Preliminary No Growth Day 1 06/06/18 07:37 Aerobic Blood Culture - Preliminary Blood Venous No Growth Day 1 Anaerobic Blood Culture - Preliminary No Growth Day 1 06/06/18 16:10 Stool Gross Appearance - Final Stool C. difficile DNA Amplification - Final 027 Presumptive NEGATIVE Toxigenic C.diff NEGATIVE Assess/Plan/Problems-Billing Assessment: - Patient Problems (1) Diarrhea Current Visit: Yes Status: Acute Code(s): R19.7 - DIARRHEA, UNSPECIFIED SNOMED Code(s): 19364092 Comment: C. diff test neg, will stop vanco. Multiple possible causes of diarrha. Diarrhea may have already resolved. (2) CARRIE (acute kidney injury) Current Visit: Yes Status: Acute Code(s): N17.9 - ACUTE KIDNEY FAILURE, UNSPECIFIED SNOMED Code(s): 99449075 Comment: Improved. NS 0.45% + 20 meq KCO/L at 125 ml/r 06/07. BMP 06/08. (3) Pancreatic cancer Current Visit: Yes Status: Acute Comment: Management per Dr. Tran. (4) Diabetes mellitus Current Visit: No Status: Acute Code(s): E11.9 - TYPE 2 DIABETES MELLITUS WITHOUT COMPLICATIONS SNOMED Code(s): 10970581 Comment: Lantus 10 U daily start PM 06/07. (5) Morbid obesity Current Visit: Yes Status: Acute Code(s): E66.01 - MORBID (SEVERE) OBESITY DUE TO EXCESS CALORIES SNOMED Code(s): 736658036 Comment: BMI 42.2. (6) Aortic valve prosthesis present Current Visit: No Status: Acute Code(s): Z95.2 - PRESENCE OF PROSTHETIC HEART VALVE SNOMED Code(s): 9223738705949 Comment: bioprosthesis; no AC indicated (7) Atrial fibrillation Current Visit: Yes Status: Acute Code(s): I48.91 - UNSPECIFIED ATRIAL FIBRILLATION SNOMED Code(s): 67086761 Comment: Warfarin stopped about a month ago. Platelet count 06/07 of 32 precludes AC. (8) Anemia Current Visit: Yes Status: Acute Code(s): D64.9 - ANEMIA, UNSPECIFIED SNOMED Code(s): 101970565 Comment: 2 U PC's ordered 06/07. CBC 06/08.
[2018-06-07] MEDS: Insulin LISPRO* 1 UNITS UNIT SUBCUT SCH ×3 (08:59→17:22)
[2018-06-07] MEDS ORDERED: Insulin GLARGINE(*) 1 UNITS UNIT SUBCUT SCH (09:00)
[2018-06-07] MEDS: NS 0.45% KCl 20 Meq 1000 ML* 1,000 ML IV SCH (09:19)
--- NOTE | 2018-06-07 09:20 | PN ---
Progress Note - Progress Note Date of Service: 06/07/18 Note: Patient is finishing up the last few days of a prolonged course of vancomycin. Vanco 125 mg po QID ordered.
[2018-06-07] MEDS: Insulin GLARGINE(*) 1 UNITS UNIT SUBCUT SCH (21:07)
[2018-06-08] MEDS: NS 0.45% KCl 20 Meq 1000 ML* 1,000 ML IV SCH ×3 (01:35→17:53)
[2018-06-08 05:46] LABS: EGFR Non-African American 46.4 (>60)
[2018-06-08 06:11] LABS: ABS Basophils 0 10^3/ul (0-0.2); ABS Neutrophils 4.3 10^3/ul (1.5-7.7); ABS Neutrophils 6.2 10^3/ul (1.5-7.7); Hematocrit 24 % (42-52); Hemoglobin 8.1 g/dl (14.0-18.0); Mean Corpuscular HGB Conc 34 g/dl (31-36); Mean Corpuscular Hemoglobin 30 pg (27-31); Mean Corpuscular Volume 89 fL (80-94); Mean Platelet Volume 8.7 um3 (7.4-10.4); Monocytes % 4 % (0-7); Platelet Count 43 10^3/ul (150-450); Red Blood Count 2.69 10^6/ul (4.00-5.40); Red Cell Distribution Width 18 % (10.5-15); White Blood Count 8.4 10^3/ul (3.5-10.8)
[2018-06-08] MEDS: Metoprolol Tartrate TAB* 25 MG PO SCH ×2 (08:28→21:17)
[2018-06-08] MEDS: Vancomycin CAP* 125 MG CAP PO SCH ×4 (08:28→21:22)
[2018-06-08] MEDS: Finasteride TAB* 5 MG PO SCH (08:29)
[2018-06-08] MEDS: Fluconazole 100 MG TAB* TAB PO SCH (08:29)
[2018-06-08] MEDS: Insulin LISPRO* 1 UNITS UNIT SUBCUT SCH ×3 (08:30→17:08)
[2018-06-08] MEDS: Omeprazole CAP* 20 MG PO SCH (08:30)
--- NOTE | 2018-06-08 08:57 | PN ---
Progress Note - Progress Note Date of Service: 06/08/18 SOAP: Subjective: []Follow up urology note. No flank pain. No renal symptoms Objective: []Remains afebrile. Diarrhea slowing down. Urine looks concentrated. Serum Cr down to 1.5 from 1.8 on admission. Vital Signs Temp 98.0 F 06/08/18 08:17 Pulse 85 06/08/18 08:17 Resp 18 06/08/18 08:17 BP 116/59 06/08/18 08:17 Pulse Ox 97 06/08/18 08:17 Intake & Output 06/07/18 06/08/18 06/08/18 18:59 06:59 18:59 Intake Total 2889 1478 Output Total 600 650 Balance 2289 828 Intake: IV Fluids 717 1378 D5W NS (0.9%) 716 NS (0.45%) 20 meq KCL 1 1378 Oral 1852 100 Packed Cells 320 Output: Rachel 600 650 Other: Estimated Void Medium Assessment: []Improved . Plan: Recommend repeating the non contrast CT of the abdomen and pelvis in 2 to 3 days to check on the Lt hydroureteronephrosis. []
--- NOTE | 2018-06-08 10:40 | PN ---
Progress Note - Progress Note Date of Service: 06/08/18 SOAP: Subjective: []Feeling OK. A little stronger than 2 days ago. Got up with PT and walked to door. Still feels a little out of it. No further episodes of diarrhea. Mouth hurts a lot but was able to eat a little better today. Medications: Dextrose (D50w Syringe 50 Ml*) 12.5 gm IV PUSH .FOR FS < 60 - SS PRN PRN Reason: FS < 60 Finasteride (Proscar Tab*) 5 mg PO DAILY [facility] Last Admin: 06/08/18 08:29 Dose: 5 mg Fluconazole (Diflucan 100 Mg Tab*) 200 mg PO DAILY [facility] Last Admin: 06/08/18 08:29 Dose: 200 mg Potassium Chloride/Sodium Chloride (Ns 0.45% Kcl 20 Meq 1000 Ml*) 1,000 mls @ 125 mls/hr IV PER RATE [facility] Last Admin: 06/08/18 09:45 Dose: 125 mls/hr Insulin Glargine (Lantus(*)) 10 units SUBCUT Q24H [facility] Last Admin: 06/07/18 21:07 Dose: 10 units Insulin Human Lispro (Humalog*) 0 units SUBCUT AC [facility]; Protocol Last Admin: 06/08/18 08:30 Dose: 2 units Metoprolol Tartrate (Lopressor Tab*) 25 mg PO BID [facility] Last Admin: 06/08/18 08:28 Dose: 25 mg Omeprazole (Prilosec Cap*) 20 mg PO DAILY [facility] Last Admin: 06/08/18 08:30 Dose: 20 mg Ondansetron HCl (Zofran Inj*) 4 mg IV Q4H PRN PRN Reason: NAUSEA/VOMITING Oxycodone/Acetaminophen (Percocet 5/325 Tab*) 1 tab PO Q4H PRN PRN Reason: Pain Vancomycin HCl (Vancomycin Cap*) 125 mg PO QID [facility] Last Admin: 06/08/18 08:28 Dose: 125 mg Objective: [] Vital Signs Temp Pulse Resp BP Pulse Ox 98.0 F 85 18 116/59 97 06/08/18 08:17 06/08/18 08:17 06/08/18 08:17 06/08/18 08:17 06/08/18 08:17 A&Ox3, EOMI, [place], neuro grossly non-focal HRR, S1S2 LS clear with dim. bases +BS, obese, abd. soft and non-tender +1 edema ankles Laboratory Results - last 24 hr 06/06/18 06/07/18 06/07/18 07:37 04:30 04:30 WBC 1.8 L 4.0 RBC 2.99 L 2.16 L Hgb 8.9 L 6.6 L Hct 27 L 20 L MCV 90 91 MCH 30 30 MCHC 33 34 RDW 18 H 18 H Plt Count 31 L 32 L MPV 8.5 8.7 Absolute Neuts (auto) 1.1 L 2.9 Immature Gran % 12 H Neutrophils % 49 Band Neutrophils % 6 Lymphocytes % 29 Monocytes % 10 H Eosinophils % 0 Basophils % 0 Metamyelocytes % 3 H Myelocytes % 3 H Abs Neuts (Manual) 1.2 L Abs Lymphs (Manual) 0.5 L Abs Monocytes (Manual) 0.2 Absolute Eos (Manual) 0 Abs Basophils (Manual) 0 Giant Platelets Normal RBC Morphology Hypochromasia 1+ Anisocytosis 1+ Elliptocytes 1+ Sodium Potassium Chloride Carbon Dioxide Anion Gap BUN Creatinine Est GFR ( Amer) Est GFR (Non-Af Amer) BUN/Creatinine Ratio Glucose POC Glucose (mg/dL) Calcium Blood Type A Positive Antibody Screen Negative Crossmatch See Detail 06/08/18 06/08/18 06/08/18 05:20 05:20 07:21 WBC 8.4 RBC 2.69 L Hgb 8.1 L Hct 24 L MCV 89 MCH 30 MCHC 34 RDW 18 H Plt Count 43 L MPV 8.7 Absolute Neuts (auto) 6.2 Immature Gran % 28 H Neutrophils % 51 Band Neutrophils % 6 Lymphocytes % 17 L Monocytes % 4 Eosinophils % 0 Basophils % 0 Metamyelocytes % 8 H Myelocytes % 14 H Abs Neuts (Manual) 4.3 Abs Lymphs (Manual) 1.4 Abs Monocytes (Manual) 0.3 Absolute Eos (Manual) 0 Abs Basophils (Manual) 0 Giant Platelets Present Normal RBC Morphology Normal Hypochromasia Anisocytosis Elliptocytes Sodium 137 Potassium 4.2 Chloride 112 H Carbon Dioxide 20 L Anion Gap 5 BUN 32 H Creatinine 1.50 H Est GFR ( Amer) 56.1 Est GFR (Non-Af Amer) 46.4 BUN/Creatinine Ratio 21.3 H Glucose 156 H POC Glucose (mg/dL) 161 H Calcium 7.8 L Blood Type Antibody Screen Crossmatch Assessment: []67 yo m admitted with left hydronephrosis and severe weakness now appearing to improve with volume repletion. Plan: []1. Left hydronephrosis: recheck CT as per urology 2. Acute kidney injury: improving with fluids, recheck in AM 3. Weakness: cont. PT, OOB to chair at least TID 4. Mucositis: start MMW 5. Pancreatic cancer: s/p C4 [place]/Abraxane with restaging scans 06/05 showing stable disease. No evidence for metastatic disease, however is not considered a surgical candidate with co-morbidities and multiple complications during therapy; will consider RT +/- 5FU at discharge
[2018-06-08] MEDS: Magic M W2 Ben/Maal/Nyst/Lido* 240 ML MOUTHWASH (alt formulation) SWISH SWAL SCH ×3 (13:11→21:22)
[2018-06-08] MEDS: Insulin GLARGINE(*) 1 UNITS UNIT SUBCUT SCH (21:14)
[2018-06-09] MEDS: NS 0.45% KCl 20 Meq 1000 ML* 1,000 ML IV SCH (02:06)
[2018-06-09 05:34] LABS: ABS Neutrophils 7.7 10^3/ul (1.5-7.7)
[2018-06-09 05:35] LABS: Hematocrit 25 % (42-52); Hemoglobin 8.2 g/dl (14.0-18.0); Mean Corpuscular HGB Conc 33 g/dl (31-36); Mean Corpuscular Hemoglobin 30 pg (27-31); Mean Corpuscular Volume 90 fL (80-94); Mean Platelet Volume 8.8 um3 (7.4-10.4); Platelet Count 58 10^3/ul (150-450); Red Blood Count 2.73 10^6/ul (4.00-5.40); Red Cell Distribution Width 18 % (10.5-15); White Blood Count 10.5 10^3/ul (3.5-10.8)
[2018-06-09 06:50] LABS: Monocytes % 6 % (0-7)
[2018-06-09 06:55] LABS: Eosinophil % 0 % (0-6); Lymphocyte % 12.3 % (25-47)
[2018-06-09 07:00] LABS: EGFR Non-African American 52.9 (>60)
[2018-06-09] MEDS: Metoprolol Tartrate TAB* 25 MG PO SCH ×2 (08:42→20:43)
[2018-06-09] MEDS: Finasteride TAB* 5 MG PO SCH (08:42)
[2018-06-09] MEDS: Magic M W2 Ben/Maal/Nyst/Lido* 240 ML MOUTHWASH (alt formulation) SWISH SWAL SCH ×4 (08:42→20:44)
[2018-06-09] MEDS: Vancomycin CAP* 125 MG CAP PO SCH ×4 (08:43→20:43)
[2018-06-09] MEDS: Fluconazole 100 MG TAB* TAB PO SCH (08:43)
[2018-06-09] MEDS: Insulin LISPRO* 1 UNITS UNIT SUBCUT SCH ×3 (08:44→17:03)
[2018-06-09] MEDS: Omeprazole CAP* 20 MG PO SCH (08:46)
[2018-06-09] MEDS ORDERED: Furosemide IV* 10 MG/ML 2 ML VIAL (20 MG) IV ONE (10:04)
[2018-06-09] MEDS: Enoxaparin(*) 40 MG/0.4 ML SYR SUBCUT SCH (10:47)
[2018-06-09] MEDS: Insulin GLARGINE(*) 1 UNITS UNIT SUBCUT SCH (20:43)
[2018-06-10 05:23] LABS: EGFR Non-African American 56.7 (>60)
[2018-06-10] MEDS: Magic M W2 Ben/Maal/Nyst/Lido* 240 ML MOUTHWASH (alt formulation) SWISH SWAL SCH ×4 (08:33→21:40)
[2018-06-10] MEDS: Insulin LISPRO* 1 UNITS UNIT SUBCUT SCH ×3 (08:34→17:02)
[2018-06-10] MEDS: Metoprolol Tartrate TAB* 25 MG PO SCH ×2 (08:35→21:36)
[2018-06-10] MEDS: Fluconazole 100 MG TAB* TAB PO SCH (08:35)
[2018-06-10] MEDS: Vancomycin CAP* 125 MG CAP PO SCH ×4 (08:36→21:36)
[2018-06-10] MEDS: Finasteride TAB* 5 MG PO SCH (08:36)
[2018-06-10] MEDS: Omeprazole CAP* 20 MG PO SCH (08:36)
--- NOTE | 2018-06-10 10:03 | PN ---
Progress Note - Progress Note Date of Service: 06/10/18 SOAP: Subjective: continues to have 3-4 loose stools/day (c diff neg on admission). no abdominal pain or cramping. no fevers. feels fluid overloaded. got lasix yesterday evening for this. weight up30 lbs in 2 days (as of yesterday). overall feels a little stronger. Objective: Vital Signs Temp Pulse Resp BP Pulse Ox 99.4 F 83 18 106/60 98 06/10/18 07:27 06/10/18 07:27 06/10/18 07:27 06/10/18 07:36 06/10/18 07:27 sitting up in nad perr eomi op moist dec bs bases bilaterally s1 s2 nl obese nt +Bs 2+ pitting edema to sacrum A+Ox3, globally weak but nonfocal Laboratory Results - last 24 hr 06/09/18 06/09/18 06/09/18 05:00 12:03 16:30 Hem Pathologist Commnt Sodium Potassium Chloride Carbon Dioxide Anion Gap BUN Creatinine Est GFR ( Amer) Est GFR (Non-Af Amer) BUN/Creatinine Ratio Glucose POC Glucose (mg/dL) 192 H 186 H Calcium 06/09/18 06/10/18 06/10/18 19:56 04:50 07:30 Hem Pathologist Commnt Sodium 135 Potassium 4.6 Chloride 112 H Carbon Dioxide 20 L Anion Gap 3 BUN 29 H Creatinine 1.26 H Est GFR ( Amer) 68.7 Est GFR (Non-Af Amer) 56.7 BUN/Creatinine Ratio 23.0 H Glucose 171 H POC Glucose (mg/dL) 168 H 172 H Calcium 7.7 L Dextrose (D50w Syringe 50 Ml*) 12.5 gm IV PUSH .FOR FS < 60 - SS PRN PRN Reason: FS < 60 Enoxaparin Sodium (Lovenox(*)) 40 mg SUBCUT Q24H [facility] Last Admin: 06/09/18 10:47 Dose: 40 mg Finasteride (Proscar Tab*) 5 mg PO DAILY [facility] Last Admin: 06/10/18 08:36 Dose: 5 mg Fluconazole (Diflucan 100 Mg Tab*) 200 mg PO DAILY [facility] Last Admin: 06/10/18 08:35 Dose: 200 mg Insulin Glargine (Lantus(*)) 10 units SUBCUT Q24H [facility] Last Admin: 06/09/18 20:43 Dose: 10 units Insulin Human Lispro (Humalog*) 0 units SUBCUT AC [facility]; Protocol Last Admin: 06/10/18 08:34 Dose: 2 units Metoprolol Tartrate (Lopressor Tab*) 25 mg PO BID [facility] Last Admin: 06/10/18 08:35 Dose: 25 mg Multi-Ingredient Mouthwash/Gargle (Magic M W2 Delio/Maal/Nyst/Lido*) 10 ml SWISH SWAL QID [facility] Last Admin: 06/10/18 08:33 Dose: 10 ml Omeprazole (Prilosec Cap*) 20 mg PO DAILY [facility] Last Admin: 06/10/18 08:36 Dose: 20 mg Ondansetron HCl (Zofran Inj*) 4 mg IV Q4H PRN PRN Reason: NAUSEA/VOMITING Oxycodone/Acetaminophen (Percocet 5/325 Tab*) 1 tab PO Q4H PRN PRN Reason: Pain Vancomycin HCl (Vancomycin Cap*) 125 mg PO QID [facility] Last Admin: 06/10/18 08:36 Dose: 125 mg Assessment: 67 yo m admitted with left hydronephrosis and severe weakness now appearing to improve with volume repletion, though clearly fluid overloaded. As per urology will repeat noncontrast scan today to assess hydronephrosis. Plan: 1. Left hydronephrosis: recheck CT as per urology 2. Acute kidney injury: improved with fluids and now clinically fluid overloaded with anasarca and increasing weights. will give another gentle dose of lasix today. will try to get accurate weights with standing weights given quick fluctation and clinical concern that these are not accurate 3. Weakness: cont. PT, OOB to chair at least TID 4. Mucositis: contMMW 5. Pancreatic cancer: s/p C4 Sedan/Abraxane with restaging scans 06/05 showing stable disease. No evidence for metastatic disease, however is not considered a surgical candidate with co-morbidities and multiple complications during therapy; will consider RT +/- 5FU at discharge
[2018-06-10] MEDS ORDERED: Furosemide IV* 10 MG/ML 2 ML VIAL (20 MG) IV ONE (10:06)
[2018-06-10] MEDS: Enoxaparin(*) 40 MG/0.4 ML SYR SUBCUT SCH (10:44)
--- NOTE | 2018-06-10 11:36 | RAD ---
Indication: Follow-up hydronephrosis. CT of the abdomen and pelvis was performed without oral or IV contrast administration. Comparison is made with previous exam dated June 05, 2018 The lung bases demonstrate bilateral pleural effusions with bibasilar atelectasis. Heart is of normal size without evidence of pericardial effusion. Liver is normal in size. No focal lesions or intrahepatic duct dilatation is noted. A small amount of ascites is noted which is increased since previous exam. A biliary stent is in place. Pancreas demonstrates no mass or pancreatic duct dilatation. The spleen is normal in size. No adrenal lesions are noted. The kidneys demonstrate small renal calculi. Mild left hydronephrosis is noted. This is improved since previous exam of June 05, 2018. There is now a Rachel catheter in place within the urinary bladder. The right kidney shows no hydroureter or hydronephrosis. Urinary bladder is collapsed. No dilated loops of bowel are noted. The colon is filled with stool. IMPRESSION: Biliary stent in place. Left hydronephrosis appears to be improved when compared to previous exam of June 05, 2018.
[2018-06-10] MEDS: Insulin GLARGINE(*) 1 UNITS UNIT SUBCUT SCH (21:34)
--- NOTE | 2018-06-10 21:38 | PN ---
Progress Note - Progress Note Date of Service: 06/10/18 Note: Follow up Urology Note. Serum Cr down to 1.[address] of the abdomen and pelvis was done today as follow up for the Lt hydronephrosis noted on admission 4 days ago. I reviewed the study. The CT shows small bilateral non obstructing renal calculi , mild Lt hydronephrosis, much improved compared to the earlier CT. Considering the above, the plan is to continue with conservative management, no indication for stent placement at this time.
[2018-06-11 06:11] LABS: Hematocrit 25 % (42-52); Hemoglobin 8.4 g/dl (14.0-18.0); Mean Corpuscular HGB Conc 34 g/dl (31-36); Mean Corpuscular Hemoglobin 31 pg (27-31); Mean Corpuscular Volume 90 fL (80-94); Mean Platelet Volume 7.9 um3 (7.4-10.4); Platelet Count 75 10^3/ul (150-450); Red Blood Count 2.72 10^6/ul (4.00-5.40); Red Cell Distribution Width 19 % (10.5-15); White Blood Count 10.8 10^3/ul (3.5-10.8)
[2018-06-11 06:24] VITALS: BP 118/56
[2018-06-11 06:37] LABS: EGFR Non-African American 58.9 (>60)
[2018-06-11 06:53] LABS: ABS Basophils 0 10^3/ul (0-0.2); ABS Eosinophils 0 10^3/ul (0-0.6); ABS Lymphocytes 1.3 10^3/ul (1.0-4.8); ABS Monocytes 2.3 10^3/ul (0-0.8); ABS Neutrophils 7.2 10^3/ul (1.5-7.7); ABS Nucleated RBC 0.1 10^3/ul
[2018-06-11 07:01] LABS: ABS Basophils 0 10^3/ul (0-0.2); ABS Neutrophils 4.6 10^3/ul (1.5-7.7); Monocytes % 15 % (0-7)
[2018-06-11] MEDS: Vancomycin CAP* 125 MG CAP PO SCH ×2 (08:44→12:45)
[2018-06-11] MEDS: Omeprazole CAP* 20 MG PO SCH (08:44)
[2018-06-11] MEDS: Finasteride TAB* 5 MG PO SCH (08:44)
[2018-06-11] MEDS: Insulin LISPRO* 1 UNITS UNIT SUBCUT SCH ×2 (08:44→12:45)
[2018-06-11] MEDS: Metoprolol Tartrate TAB* 25 MG PO SCH (08:44)
[2018-06-11] MEDS: Fluconazole 100 MG TAB* TAB PO SCH (08:44)
[2018-06-11] MEDS ORDERED: Furosemide IV* 10 MG/ML 2 ML VIAL (20 MG) IV ONE (09:00)
--- NOTE | 2018-06-11 09:28 | DS ---
- Discharge Summary ADMIT DATE:06/06/2018 DISCHARGE DATE:06/11/2018 DISCHARGE DIAGNOSIS: 1. Acute renal failure 2/2 hydronephrosis from obstructing stone as well as prerenal azotemia from diarrhea 2. diarrhea, likely antibiotic or chemotherapy induced, do not suspect acute c diff 3. Locally advanced pancreatic cancer DISCHARGE MEDICATIONS: Home Medications Medication Instructions Recorded Confirmed Type Finasteride TAB* [Proscar TAB*] 5 mg PO DAILY 01/23/18 06/06/18 History Liraglutide (NF) [Victoza (NF)] 18 mg SUBCUT DAILY 01/23/18 06/06/18 History Metoprolol Tartrate TAB* 25 mg PO BID 01/23/18 06/06/18 History [Lopressor TAB*] Insulin GLARGINE(*) [Lantus(*)] 15 units SUBCUT DAILY 02/24/18 06/06/18 History Furosemide 40 mg PO DAILY 04/21/18 06/06/18 History Omeprazole CAP* [Prilosec CAP* 20 20 mg PO DAILY 04/21/18 06/06/18 History MG] Clotrimazole MIK* [Mycelex 10 mg PO BID 06/06/18 06/06/18 History Mik*] Omeprazole 20 mg PO DAILY 06/06/18 06/06/18 History Potassium Chlor TAB* [Potassium 20 meq PO DAILY 06/06/18 06/06/18 History Chlor TAB 20 MEQ*] Vancomycin CAP* 125 mg PO QID cap 06/11/18 Rx oxyCODONE/Acetamin 5/325 MG* 1 tab PO Q4H PRN tab 06/11/18 Rx [Percocet 5/325 TAB*] DISCHARGE FOLLOW UP: 1. Dr. Tran 06/16 @ 1:20 pm HOSPITAL COURSE: 67 yo M w multiple medical comorbidities, with locally advanced pancreatic cancer, most recently on gemcitabine/abraxane, admitted with acute renal failure and fatigue. He was found to have left sided hydronephrosis, which was felt to be likely 2/2 an occult kidney stone given his history of recurrent kidney stones. He was treated with hydration and observation, and his creatinine markedly improved. Repeat noncontrast CT showed marked resolution of the hydronephrosis. He was also felt to have prerenal azotemia from his diarrhea, which is attributed to either his chemotherapy OR his levaquin and not ongoing c diff (negative on admission, no fevers, no abdominal pain). He became markedly fluid overloaded from the aggressive hydration and so got IV lasix and his home lasix will be resumed on discharge. Given his medical comorbidities he is not felt to be a candidate for curative resection and so the plan is likely for 5FU/RT. He will follow up with Dr. Tran next week to discuss further. >30 mins spent, >50% on face to face counseling
[2018-06-11] MEDS: Magic M W2 Ben/Maal/Nyst/Lido* 240 ML MOUTHWASH (alt formulation) SWISH SWAL SCH ×2 (09:36→12:45)
[2018-06-11] MEDS: Enoxaparin(*) 40 MG/0.4 ML SYR SUBCUT SCH (12:45)
== END 2018-06-11 14:40 | disposition home health service (06) | DRG 683 ==
LOC: ED 06:04 → MEDTELE 11:56 → MED 06-11 00:15
PROVIDERS: ADMIT Internal Medicine Hematology & Oncology; ATTEND Internal Medicine Hematology & Oncology
PROC: 30233N1 Transfusion of Nonautologous Red Blood Cells into Peripheral Vein, Percutaneous Approach (ICD-10-PCS; principal; 2018-06-07)
DX: N17.9 Acute kidney failure, unspecified (principal); C25.9 Malignant neoplasm of pancreas, unspecified; Z68.42 Body mass index [BMI] 45.0-49.9, adult; B37.81 Candidal esophagitis; N13.2 Hydronephrosis with renal and ureteral calculous obstruction; E86.0 Dehydration; I95.9 Hypotension, unspecified; B37.9 Candidiasis, unspecified; E11.649 Type 2 diabetes mellitus with hypoglycemia without coma; I10 Essential (primary) hypertension; I48.91 Unspecified atrial fibrillation; G47.33 Obstructive sleep apnea (adult) (pediatric); E78.5 Hyperlipidemia, unspecified; I25.10 Atherosclerotic heart disease of native coronary artery without angina pectoris; M19.042 Primary osteoarthritis, left hand; M19.041 Primary osteoarthritis, right hand; E11.36 Type 2 diabetes mellitus with diabetic cataract; E66.01 Morbid (severe) obesity due to excess calories; R31.9 Hematuria, unspecified; D72.819 Decreased white blood cell count, unspecified; R19.7 Diarrhea, unspecified; D64.9 Anemia, unspecified; K12.30 Oral mucositis (ulcerative), unspecified; E87.70 Fluid overload, unspecified; Z92.21 Personal history of antineoplastic chemotherapy; Z95.828 Presence of other vascular implants and grafts; Z95.2 Presence of prosthetic heart valve; Z88.1 Allergy status to other antibiotic agents; Z88.5 Allergy status to narcotic agent; Z87.891 Personal history of nicotine dependence; W19.XXXA Unspecified fall, initial encounter; Y92.009 Unspecified place in unspecified non-institutional (private) residence as the place of occurrence of the external cause; Z87.442 Personal history of urinary calculi; E11.9 Type 2 diabetes mellitus without complications; F17.210 Nicotine dependence, cigarettes, uncomplicated; Z79.4 Long term (current) use of insulin
CPT/HCPCS: 1036F; 1126F; 36415; 36591; 71046; 71260; 74176; 74177; 80048; 80053; 81003; 81015; 83605; 83735; 85025; 85049; 85060; 85610; 86850; 86900; 86901; 86905; 86922; 87040; 87086; 87493; 93005; 96360; 96361; 99214; 99231; 99232; 99233; 99239; 99285; A9270-GY; G8427; G8978-GP-CK; G8979-GP-CI; J0692; J1642; J1650; J1940; P9035; P9040; Q9967

== ENCOUNTER 2018-06-12 17:02 | Inpatient (IN) | payer MEDICARE ==
[2018-06-12 18:18] LABS: Hematocrit 26 % (42-52); Hemoglobin 8.8 g/dl (14.0-18.0); Mean Corpuscular HGB Conc 33 g/dl (31-36); Mean Corpuscular Hemoglobin 30 pg (27-31); Mean Corpuscular Volume 91 fL (80-94); Mean Platelet Volume 8.1 um3 (7.4-10.4); Platelet Count 104 10^3/ul (150-450); Red Blood Count 2.91 10^6/ul (4.00-5.40); Red Cell Distribution Width 18 % (10.5-15); White Blood Count 10.9 10^3/ul (3.5-10.8)
[2018-06-12 18:37] LABS: EGFR Non-African American 63.1 (>60)
[2018-06-12 18:48] LABS: ABS Basophils 0 10^3/ul (0-0.2); ABS Neutrophils 6.8 10^3/ul (1.5-7.7); ABS Neutrophils 7.4 10^3/ul (1.5-7.7); Monocytes % 10 % (0-7)
--- NOTE | 2018-06-12 19:06 | ED ---
Complex/Multi-Sys Presentation - HPI Summary HPI Summary: This patient is a 67 year old M presenting to [facility] accompanied by his and son with a chief complaint of weakness and associated fall this PM. Pt was seen and discharged from [facility] yesterday for the same complaint. PMHx pancreatic cancer on the head of the pancreas, not metastatic, no recent growth. He endorses his most recent chemotherapy was 2 weeks ago. He endorses sore throat secondary to thrush (using magic mouth wash), severe peripheral pedal edema, 3 weeks of diarrhea (rx vancomycin, 1st it was dx as C. Diff, but he claims now it is not, stating it is related to the medication for his thrush), cough aggravated by deep breaths, recent 40lb weight gain, hematuria, and thrush. Shx porcine aortic valve replacement. PMHx afib, usually in Afib, congenital heart defect, and a murmur. - History Of Current Complaint Chief Complaint: EDWeakness Hx Obtained From: Patient Onset/Duration: Gradual Onset, Lasting Days, Still Present Timing: Constant Severity Currently: Mild Severity Initially: Mild Location: Negative Associated Signs And Symptoms: Positive: Weakness, Edema, Diarrhea, Dysuria - hematuria, Immunocompromised - chemo, Recent Medication Changes, Other - sore throat. Negative: Headache, SOB, Chest Pain, Abdominal Pain, Back Pain, Melena , Fever - Allergies/Home Medications Allergies/Adverse Reactions: Allergies Allergy/AdvReac Type Severity Reaction Status Date / Time oxacillin Allergy Severe Rash Verified 06/12/18 17:13 morphine AdvReac Severe Itching Verified 06/12/18 17:13 PMH/Surg Hx/FS Hx/Imm Hx Endocrine/Hematology History: Reports: Hx Diabetes - type 2, Hx Anemia, Other Endocrine/Hematological Disorders - ANEMIA Cardiovascular History: Reports: Hx Aneurysm - aneurysm repair and aortic valve repair 12/02/12 [facility], Hx Atrial Fibrillation, Hx Coronary Artery Disease, Hx Hypertension - on meds, Hx Valvular Heart Disease, Other Cardiovascular Problems/Disorders - AORTIC VALVE REPLACEMENT 11/2012 [facility], aortic anuerysm repaired Denies: Hx Pacemaker/ICD Respiratory History: Reports: Hx Sleep Apnea, Other Respiratory Problems/ Disorders - SLEEP APNEA, BIPAP DEPENDENT Denies: Hx Asthma GI History: Reports: Hx Jaundice - improving since stent, Other GI Disorders - COLITIS C DIFF 2014 History: Reports: Hx Dialysis - 2 day hx 2014 when he was dx with C diff, Hx Kidney Stones - 2000s NUMEROUS EPISODES, SHOCKED, DR SKAGGS FOLLOWS, Hx Renal Disease - hx previous abnormal gfr, Other Problems/Disorders - CARRIE Musculoskeletal History: Reports: Hx Arthritis - HANDS Sensory History: Reports: Hx Cataracts - left EYE ONLY Denies: Hx Contacts or Glasses, Hx Hearing Aid Opthamlomology History: Reports: Hx Cataracts - left EYE ONLY Denies: Hx Contacts or Glasses EENT History: Denies: Hx Deafness Neurological History: Denies: Hx Dementia Psychiatric History: Denies: Hx Panic Disorder - Cancer History Cancer Type, Location and Year: Pancreatic Cancer Hx Chemotherapy: Yes - last chemo January 10 Hx Radiation Therapy: No - Surgical History Surgery Procedure, Year, and Place: POWER PORT. AORTIC VALVE REPLACEMENT - PIG VALVE. SHI KNEES - REPLACEMENT. 1983 - Rt THUMB. LITHROTRIPSY. ERCP Xs 2 Hx Anesthesia Reactions: No - Immunization History Date of Tetanus Vaccine: UTD Date of Influenza Vaccine: UTD Infectious Disease History: No Infectious Disease History: Reports: Hx Clostridium Difficile Denies: Traveled Outside the [place] in Last 30 Days - Family History Known Family History: Negative: Blood Disorder - Social History Occupation: Retired Lives: With Family Alcohol Use: None Alcohol Amount: 1-2 Substance Use Type: Reports: None Smoking Status (MU): Former Smoker Amount Used/How Often: smoked for 3-4 years 1/2ppd Review of Systems Negative: Fever Negative: Blurred Vision, Diplopia Positive: Sore Throat Negative: Chest Pain Negative: Shortness Of Breath Positive: Diarrhea. Negative: Abdominal Pain Positive: hematuria Positive: Edema - peripheral pedal Negative: Rash Positive: Weakness, Syncope - fall. Negative: Headache Positive: Depressed All Other Systems Reviewed And Are Negative: No Physical Exam - Summary Physical Exam Summary: Appearance: Alert, conversive, nontoxic appearing, morbidly obese, alopecia noted, general weakness Skin: Warm, dry, no mottling, no rashes, no contusions, no ecchymosis, midline sternotomy scar HEENT: EOMI, PERRL, moist mucous membranes Neck: No masses on the neck, supple Respiratory: Diminished breath sounds bilaterally, no rales, no rhonchi, no wheezes Cardiovascular: RRR, pulses are symmetrical in both lower and upper extremities Abdomen: Soft, non-tender Bowel Sounds: Present Musculoskeletal: No CVA tenderness, chest non-tender, no obvious deformity, moving all extremities in a grossly normal manner, 2+ bilateral pitting edema Neurological: A&Ox3, CN II-XII Intact, moving all extremities symmetrically Psychiatric: Normal affect and mood Triage Information Reviewed: Yes Vital Signs On Initial Exam: Initial Vitals Temp Pulse Resp BP Pulse Ox 96.1 F 85 20 103/64 95 06/12/18 17:10 06/12/18 17:10 06/12/18 17:10 06/12/18 17:10 06/12/18 17:10 Vital Signs Reviewed: Yes Diagnostics - Vital Signs Vital Signs Temp Pulse Resp BP Pulse Ox 06/12/18 18:10 20 117/60 06/12/18 18:00 90 19 98 06/12/18 17:39 93 22 100/59 96 06/12/18 17:11 103/64 06/12/18 17:10 96.1 F 86 20 103/64 94 - Laboratory Lab Results: Lab Results 06/12/18 06/12/18 06/12/18 Range/Units 17:23 17:59 17:59 WBC 10.9 H (3.5-10.8) 10^3/ul RBC 2.91 L (4.00-5.40) 10^6/ul Hgb 8.8 L (14.0-18.0) g/dl Hct 26 L (42-52) % MCV 91 (80-94) fL MCH 30 (27-31) pg MCHC 33 (31-36) g/dl RDW 18 H (10.5-15) % Plt Count 104 L (150-450) 10^3/ul MPV 8.1 (7.4-10.4) um3 Neut % (Auto) Not Reportable Lymph % (Auto) Not Reportable Erath % (Auto) Not Reportable Eos % (Auto) Not Reportable Baso % (Auto) Not Reportable Absolute Neuts (auto) 7.4 (1.5-7.7) 10^3/ul Absolute Lymphs (auto) Not Reportable Absolute Monos (auto) Not Reportable Absolute Eos (auto) Not Reportable Absolute Basos (auto) Not Reportable Absolute Nucleated RBC Not Reportable Immature Gran % 14 H (0-9) % Neutrophils % 62 (38-83) % Band Neutrophils % 12 H (0-8) % Lymphocytes % 14 L (25-47) % Monocytes % 10 H (0-7) % Eosinophils % 0 (0-6) % Basophils % 0 (0-2) % Metamyelocytes % 2 (0-2) % Nucleated RBC % Not Reportable Abs Neuts (Manual) 6.8 (1.5-7.7) 10^3/ul Abs Lymphs (Manual) 1.5 (1.0-4.8) 10^3/ul Abs Monocytes (Manual) 1.1 H (0-0.8) 10^3/ul Absolute Eos (Manual) 0 (0-0.6) 10^3/ul Abs Basophils (Manual) 0 (0-0.2) 10^3/ul Normal RBC Morphology Not Reportable Hypochromasia 1+ Anisocytosis 2+ Sodium 137 (135-145) mmol/L Potassium 3.9 (3.5-5.0) mmol/L Chloride 110 (101-111) mmol/L Carbon Dioxide 21 L (22-32) mmol/L Anion Gap 6 (2-11) mmol/L BUN 28 H (6-24) mg/dL Creatinine 1.15 (0.67-1.17) mg/dL Est GFR ( Amer) 76.3 (>60) Est GFR (Non-Af Amer) 63.1 (>60) BUN/Creatinine Ratio 24.3 H (8-20) Glucose 144 H (70-100) mg/dL POC Glucose (mg/dL) 140 H (70-100) mg/dL Lactic Acid (0.5-2.0) mmol/L Calcium 8.2 L (8.6-10.3) mg/dL Magnesium 1.8 L (1.9-2.7) mg/dL Total Bilirubin 0.90 (0.2-1.0) mg/dL AST 48 H (13-39) U/L ALT 14 (7-52) U/L Alkaline Phosphatase 144 H (34-104) U/L Troponin I 0.03 (<0.04) ng/mL B-Natriuretic Peptide ( - 100) pg/mL Total Protein 5.5 L (6.4-8.9) g/dL Albumin 2.2 L (3.2-5.2) g/dL Globulin 3.3 (2-4) g/dL Albumin/Globulin Ratio 0.7 L (1-3) Lipase 82 (11.0-82.0) U/L TSH Pending 06/12/18 06/12/18 Range/Units 17:59 17:59 WBC (3.5-10.8) 10^3/ul RBC (4.00-5.40) 10^6/ul Hgb (14.0-18.0) g/dl Hct (42-52) % MCV (80-94) fL MCH (27-31) pg MCHC (31-36) g/dl RDW (10.5-15) % Plt Count (150-450) 10^3/ul MPV (7.4-10.4) um3 Neut % (Auto) Lymph % (Auto) Erath % (Auto) Eos % (Auto) Baso % (Auto) Absolute Neuts (auto) (1.5-7.7) 10^3/ul Absolute Lymphs (auto) Absolute Monos (auto) Absolute Eos (auto) Absolute Basos (auto) Absolute Nucleated RBC Immature Gran % (0-9) % Neutrophils % (38-83) % Band Neutrophils % (0-8) % Lymphocytes % (25-47) % Monocytes % (0-7) % Eosinophils % (0-6) % Basophils % (0-2) % Metamyelocytes % (0-2) % Nucleated RBC % Abs Neuts (Manual) (1.5-7.7) 10^3/ul Abs Lymphs (Manual) (1.0-4.8) 10^3/ul Abs Monocytes (Manual) (0-0.8) 10^3/ul Absolute Eos (Manual) (0-0.6) 10^3/ul Abs Basophils (Manual) (0-0.2) 10^3/ul Normal RBC Morphology Hypochromasia Anisocytosis Sodium (135-145) mmol/L Potassium (3.5-5.0) mmol/L Chloride (101-111) mmol/L Carbon Dioxide (22-32) mmol/L Anion Gap (2-11) mmol/L BUN (6-24) mg/dL Creatinine (0.67-1.17) mg/dL Est GFR ( Amer) (>60) Est GFR (Non-Af Amer) (>60) BUN/Creatinine Ratio (8-20) Glucose (70-100) mg/dL POC Glucose (mg/dL) (70-100) mg/dL Lactic Acid 1.8 (0.5-2.0) mmol/L Calcium (8.6-10.3) mg/dL Magnesium (1.9-2.7) mg/dL Total Bilirubin (0.2-1.0) mg/dL AST (13-39) U/L ALT (7-52) U/L Alkaline Phosphatase (34-104) U/L Troponin I (<0.04) ng/mL B-Natriuretic Peptide 340 H ( - 100) pg/mL Total Protein (6.4-8.9) g/dL Albumin (3.2-5.2) g/dL Globulin (2-4) g/dL Albumin/Globulin Ratio (1-3) Lipase (11.0-82.0) U/L TSH Result Diagrams: 06/12/18 17:59 06/12/18 17:59 Lab Statement: Any lab studies that have been ordered have been reviewed, and results considered in the medical decision making process. - Radiology CXR Xray Interpretation: No Acute Changes Radiology Interpretation Completed By: ED Physician - Cardiomegaly. Pending official imaging report. - EKG 1738 Cardiac Rate: NL - 93 EKG Rhythm: Atrial Fibrillation ST Segment: Normal Ectopy: None EKG Interpretation: Prolonged QRS and QTc. Re-Evaluation - Re-Evaluation First Eval Re-Evaluation Time: 20:10 Change: Unchanged Comment: discussed admission, fairly benign lab and imaging results. Pt is doing fine. Complex Multi-Symp Course/Dx Course Of Treatment: This pt is a 67 y/o male with a CC of weakness and associated fall. PMHx pancreatic cancer; non-metastatic, no new growth. A CXR shows cardiomegaly but is otherwise (-). An EKG shows Atrial fibrillation at 93 BPM with prolonged QRS and QTc. labs show chronic anemia, hypoalbuminemia, fluid overload. Pt to be admitted. - Diagnoses Provider Diagnoses: Weakness, Peripheral edema, Fluid overload, Hypoalbuminemia, Chronic anemia - Physician Notifications Discussed Care Of Patient With: Libby Sidhu Time Discussed With Above Provider: 20:30 Instructed by Provider To: Other - Accepts admission. Discharge - Sign-Out/Discharge Documenting (check all that apply): Patient Departure - admit - Discharge Plan Condition: Fair Disposition: ADMITTED TO [facility] Referrals: Krystyna Jones MD [Primary Care Provider] - - Attestation Statements Document Initiated by Scribe: Yes Documenting Scribe: Jac Hoff Provider For Whom Scribe is Documenting (Include Credential): Dr. Jaycee Camp MD Scribe Attestation: IJac, scribed for Dr. Jaycee Camp MD on 06/12/18 at 2037.
[2018-06-12] MEDS ORDERED: Furosemide IV* 10 MG/ML VIAL (40 MG) IV ONE (20:03)
[2018-06-12] MEDS ORDERED: oxyCODONE/Acetamin 5/325 MG* TAB PO PRN (21:14)
[2018-06-12] MEDS ORDERED: Magnesium Sulfate 2 GM IV* 2 GM/50 ML BAG IVPB ONE (21:18)
[2018-06-12] MEDS ORDERED: Magnesium Sulfate IV* 2 GM in NS 0.9% 100 ML* 100 ML IVPB ONE (21:53)
[2018-06-12] MEDS: Heparin VIAL(*) 5000 UNITS/ML VIAL (FIVE THOUSAND) SUBCUT SCH (23:59)
[2018-06-13] MEDS ORDERED: Dextrose 50% Syringe 50 ML* 25 GM/50 ML SYRINGE IV PUSH PRN (00:17)
--- NOTE | 2018-06-13 02:40 | HP ---
CC: Dr. Jones; Dr. Tran * HISTORY AND PHYSICAL: DATE OF ADMISSION: 06/12/18 PRIMARY CARE PROVIDER: Dr. Jones ONCOLOGIST: Dr. Tran CHIEF COMPLAINT: Falls. HISTORY OF PRESENT ILLNESS: Mr. Collins is a 67-year-old male who was admitted to [facility] on 06/06/18 through 06/11/18 for weakness, acute renal failure, and diarrhea. It was felt that diarrhea was likely chemotherapy induced. His renal failure is felt to be secondary to possible obstruction from a ureteral stone and prerenal azotemia. The patient states that during the hospitalization, he received significant amount of fluid. According to the discharge summary, the patient was found to be fluid overloaded during the hospitalization, was started on IV Lasix, then to continue on his oral Lasix. The patient states that he prior to last hospitalization had lower extremity edema, however, has markedly worsened during the hospitalization and after. The patient states that on the morning of today, 06/12/18, he got up and he had a bowel movement that was loose. He took Imodium at that point. He states in the afternoon, he had a small amount of liquid stool in his Depend. This afternoon approximately at 2:15, the patient got up to go to the bathroom. He fell on the bathroom floor. Ultimately around 3:30 p.m. the patient's son came over to the house and helped him get up. While trying to get up, the patient again fell. The patient's is unable to help him ambulate and get up if he falls and therefore, he is brought back to the emergency room. The patient states that his legs feel very weak and heavy. He thinks it may be related to the marked edema in the legs. Generally, the patient feels about the same as he did during his hospitalization. His biggest issue right now is he feels very discouraged stating that after each chemotherapy treatment, something goes wrong and he has not been doing well recently. The patient's last chemotherapy was approximately 2 weeks ago. PAST MEDICAL HISTORY: 1. Locally advanced pancreatic cancer. 2. Chronic thoracic aortic aneurysm. 3. Left ureteral stent. 4. Aortic stenosis, status post bioprosthetic aortic valve replacement. 5. Atrial fibrillation. 6. History of osteomyelitis of the left leg. 7. Hypertension. 8. JADE. 9. Type 2 diabetes. PAST SURGICAL HISTORY: 1. Right total knee replacement. 2. Left total knee replacement with revision due to infection. 3. Umbilical hernia repair. 4. Bioprosthetic aortic valve replacement. MEDICATIONS: 1. Percocet 5/325 one tab p.o. q.4 hours p.r.n. pain. 2. Vancomycin 125 mg p.o. q.i.d. 3. Potassium 20 mEq p.o. daily. 4. Omeprazole 20 mg p.o. daily. 5. Metoprolol tartrate 25 mg p.o. b.i.d. 6. Victoza 18 mg subcutaneous daily. 7. Lantus 15 units subcutaneous daily. 8. Lasix 40 mg p.o. daily. 9. Finasteride 5 mg p.o. daily. 10. Clotrimazole Mik 10 mg p.o. b.i.d. ALLERGIES: OXACILLIN, MORPHINE. FAMILY HISTORY: Mom at the age of 92 of CHF. Dad at the age of 68 of possibly renal cell carcinoma. SOCIAL HISTORY: The patient smoked for a few years in his early 20s. He now smokes an occasional cigar. He drinks alcohol occasionally. He worked at [employer]. He is . He has 2 children. His , Rocio, is his health care proxy. REVIEW OF SYSTEMS: Complete 11 system review of systems is obtained. Pertinent positives and negatives are as per HPI and in addition, the patient does state that he had had some shortness of breath since his last hospitalization and the fluid build up increasing in his legs. He also states that he has had hematuria over the last 7 to 10 days and he has noted difficulty swallowing related to thrush. The rest of the review of systems is negative. PHYSICAL EXAMINATION GENERAL: The patient is a well-developed, super morbidly obese male who appears older than stated age, sitting up in the stretcher, in no acute distress. VITAL SIGNS: Blood pressure 106/68, pulse 85, respirations 18, temp 96.1, O2 sat 97% on room air. HEENT: Pupils are equal and round. Extraocular muscles are intact. Oropharynx is clear. Oral mucosa is moist. There is no submandibular, cervical , or supraclavicular adenopathy. Thyroid is unable to be palpated due to significant obesity of the neck. CARDIAC: Normal S1 and S2. Regular rate and rhythm. I do not appreciate any murmurs. There is marked anasarca to the waist. The skin of the legs is warm and slightly erythematous bilaterally. PULMONARY: There are crackles about a third of the way up bilaterally. ABDOMEN: Bowel sounds present. Abdomen is soft, nontender, and nondistended. MUSCULOSKELETAL: There is no cyanosis or clubbing of the digits. There is full active range of motion of all 4 extremities. NEUROLOGIC: Cranial nerves II through XII are grossly intact. Sensation is intact to light touch throughout. STRENGTH: 5/5 and symmetric in both upper and lower extremities bilaterally. PSYCH: The patient is alert, she is oriented x3. Affect appears appropriate. SKIN: Warm, dry, again there is slight erythema to the lower legs bilaterally with slight warmth. DIAGNOSTIC DATA/LAB DATA: WBC 10.9, hemoglobin 8.8, hematocrit 26, platelets 104. Sodium 137, potassium 3.9, chloride 110, CO2 21, BUN 28, creatinine 1.15, glucose 144, lactic acid 1.8. Calcium 8.2, magnesium 1.8, bilirubin 0.9. AST 48, ALT 14, alk phos 144, troponin 0.03, BNP 340, albumin 2.2, lipase 82, TSH 6.18. Free T4 pending. EKG reveals likely atrial fibrillation without any acute ST-T wave abnormalities. There are PVCs noted. Chest x-ray perhaps slight vascular congestion to my interpretation. ASSESSMENT AND PLAN: Mr. Collins is a 67-year-old male with a history of locally advanced pancreatic cancer who received gemcitabine and Abraxane approximately 2 weeks ago, who presents to the emergency room 1 day after being treated for acute renal failure, weakness, and diarrhea with complaints of falls. 1. Falls. It is suspected that the patient's falls are related to deconditioning as well as marked anasarca of the lower extremities. The patient has found it difficult to ambulate partly due to the edema of his legs. The patient will need physical therapy evaluation likely once the edema has improved. 2. Anasarca. This is likely related to the patient's chemotherapy agents both which have a high percentage of edema as a side effect. Additionally, the patient has low albumin of 2.2. Therefore likely low oncotic pressure leading to third spacing of fluid. The patient will have Kendall wraps placed on for 12 hours off for 12 hours starting tomorrow morning. He will be started on IV Lasix 40 mg IV daily, though if he tolerates this in terms of his blood pressure and if his urine output tapers off over the day, can be increased to twice daily dosing. Transthoracic echocardiogram was last obtained in January 2018. At that time, his echo revealed an EF of 50% to 55%. Assessment of diastolic dysfunction was felt to be nondiagnostic. If the patient is does not respond as anticipated, the repeat echocardiogram could be considered. 3. Atrial fibrillation. The patient will remain on metoprolol tartrate 25 mg twice daily. It appears he is no longer on anticoagulant. 4. Type 2 diabetes. The patient will be continued on Lantus 15 units daily along with the lispro sliding scale. His Victoza will be held as this is non- formulary. 5. Benign prostatic hypertrophy. We will continue Proscar. 6. Gastroesophageal reflux disease. Continue omeprazole. 7. DVT prophylaxis. According to the Adult Thrombosis Prophylaxis Risk Factor Assessment Guide, the patient has a total risk factor score of 6 making him the highest risk. He will be placed on heparin 5000 units subcutaneous q. 8 hours. 8. Code status is full though further discussion with the patient should be had about his code status. TIME SPENT: Sixty five minutes were spent admitting this patient. [id number]/[facility] #: [id number] GUILHERME
[2018-06-13] MEDS: Heparin VIAL(*) 5000 UNITS/ML VIAL (FIVE THOUSAND) SUBCUT SCH ×3 (05:30→22:04)
[2018-06-13 06:22] LABS: EGFR Non-African American 66.4 (>60)
[2018-06-13] MEDS: Insulin LISPRO* 1 UNITS UNIT SUBCUT SCH ×4 (07:25→20:42)
--- NOTE | 2018-06-13 08:03 | PN ---
Progress Note - Progress Note Date of Service: 06/13/18 SOAP: Subjective: patient well known to me from prior hospitalization. reports he was able to go home and ambulate, however the day of admission he fell x 2, which he reports is because his legs are just so heavy he can't move them. His family was unable to get him up and so they brought him here. Objective: Vital Signs Temp Pulse Resp BP Pulse Ox 97.6 F 94 18 110/49 99 06/13/18 03:20 06/13/18 03:20 06/13/18 03:20 06/13/18 03:20 06/13/18 03:20 perr eomi op mild thrush CTA anteriorly s1 s2 nl obese nt +bs 2+ edema to sacrum 3/5 strength LE related to inability to lift heavy legs A+O x3 Laboratory Results - last 24 hr 06/12/18 06/12/18 06/12/18 17:23 17:59 17:59 WBC 10.9 H RBC 2.91 L Hgb 8.8 L Hct 26 L MCV 91 MCH 30 MCHC 33 RDW 18 H Plt Count 104 L MPV 8.1 Neut % (Auto) Not Reportable Lymph % (Auto) Not Reportable [place] % (Auto) Not Reportable Eos % (Auto) Not Reportable Baso % (Auto) Not Reportable Absolute Neuts (auto) 7.4 Absolute Lymphs (auto) Not Reportable Absolute Monos (auto) Not Reportable Absolute Eos (auto) Not Reportable Absolute Basos (auto) Not Reportable Absolute Nucleated RBC Not Reportable Immature Gran % 14 H Neutrophils % 62 Band Neutrophils % 12 H Lymphocytes % 14 L Monocytes % 10 H Eosinophils % 0 Basophils % 0 Metamyelocytes % 2 Nucleated RBC % Not Reportable Abs Neuts (Manual) 6.8 Abs Lymphs (Manual) 1.5 Abs Monocytes (Manual) 1.1 H Absolute Eos (Manual) 0 Abs Basophils (Manual) 0 Normal RBC Morphology Not Reportable Hypochromasia 1+ Anisocytosis 2+ Sodium 137 Potassium 3.9 Chloride 110 Carbon Dioxide 21 L Anion Gap 6 BUN 28 H Creatinine 1.15 Est GFR ( Amer) 76.3 Est GFR (Non-Af Amer) 63.1 BUN/Creatinine Ratio 24.3 H Glucose 144 H POC Glucose (mg/dL) 140 H Lactic Acid Calcium 8.2 L Magnesium 1.8 L Total Bilirubin 0.90 AST 48 H ALT 14 Alkaline Phosphatase 144 H Troponin I 0.03 B-Natriuretic Peptide Total Protein 5.5 L Albumin 2.2 L Globulin 3.3 Albumin/Globulin Ratio 0.7 L Lipase 82 TSH 6.18 H Free T4 1.14 H 06/12/18 06/12/18 06/12/18 17:59 17:59 23:14 WBC RBC Hgb Hct MCV MCH MCHC RDW Plt Count MPV Neut % (Auto) Lymph % (Auto) [place] % (Auto) Eos % (Auto) Baso % (Auto) Absolute Neuts (auto) Absolute Lymphs (auto) Absolute Monos (auto) Absolute Eos (auto) Absolute Basos (auto) Absolute Nucleated RBC Immature Gran % Neutrophils % Band Neutrophils % Lymphocytes % Monocytes % Eosinophils % Basophils % Metamyelocytes % Nucleated RBC % Abs Neuts (Manual) Abs Lymphs (Manual) Abs Monocytes (Manual) Absolute Eos (Manual) Abs Basophils (Manual) Normal RBC Morphology Hypochromasia Anisocytosis Sodium Potassium Chloride Carbon Dioxide Anion Gap BUN Creatinine Est GFR ( Amer) Est GFR (Non-Af Amer) BUN/Creatinine Ratio Glucose POC Glucose (mg/dL) 75 Lactic Acid 1.8 Calcium Magnesium Total Bilirubin AST ALT Alkaline Phosphatase Troponin I B-Natriuretic Peptide 340 H Total Protein Albumin Globulin Albumin/Globulin Ratio Lipase TSH Free T4 06/13/18 06/13/18 05:35 07:11 WBC RBC Hgb Hct MCV MCH MCHC RDW Plt Count MPV Neut % (Auto) Lymph % (Auto) [place] % (Auto) Eos % (Auto) Baso % (Auto) Absolute Neuts (auto) Absolute Lymphs (auto) Absolute Monos (auto) Absolute Eos (auto) Absolute Basos (auto) Absolute Nucleated RBC Immature Gran % Neutrophils % Band Neutrophils % Lymphocytes % Monocytes % Eosinophils % Basophils % Metamyelocytes % Nucleated RBC % Abs Neuts (Manual) Abs Lymphs (Manual) Abs Monocytes (Manual) Absolute Eos (Manual) Abs Basophils (Manual) Normal RBC Morphology Hypochromasia Anisocytosis Sodium 139 Potassium 3.4 L Chloride 111 Carbon Dioxide 22 Anion Gap 6 BUN 25 H Creatinine 1.10 Est GFR ( Amer) 80.3 Est GFR (Non-Af Amer) 66.4 BUN/Creatinine Ratio 22.7 H Glucose 95 POC Glucose (mg/dL) 103 H Lactic Acid Calcium 8.0 L Magnesium Total Bilirubin AST ALT Alkaline Phosphatase Troponin I B-Natriuretic Peptide Total Protein Albumin Globulin Albumin/Globulin Ratio Lipase TSH Free T4 Clotrimazole (Mycelex Mik*) 10 mg PO BID [facility] Dextrose (D50w Syringe 50 Ml*) 12.5 gm IV PUSH .FOR FS < 60 - SS PRN PRN Reason: FS < 60 Finasteride (Proscar Tab*) 5 mg PO DAILY [facility] Furosemide (Lasix Iv*) 40 mg IV 0800,1700 [facility] Heparin Sodium (Porcine) (Heparin Vial(*)) 5,000 units SUBCUT Q8HR [facility] Last Admin: 06/13/18 05:30 Dose: 5,000 units Insulin Glargine (Lantus(*)) 15 units SUBCUT DAILY [facility] Insulin Human Lispro (Humalog*) 0 units SUBCUT ACHS [facility]; Protocol Last Admin: 06/13/18 07:25 Dose: Not Given Metoprolol Tartrate (Lopressor Tab*) 25 mg PO BID [facility] Omeprazole (Prilosec Cap*) 20 mg PO DAILY [facility] Oxycodone/Acetaminophen (Percocet 5/325 Tab*) 1 tab PO Q4H PRN PRN Reason: Pain Potassium Chloride (Klor Con Er Tab*) 40 meq PO DAILY [facility] Vancomycin HCl (Vancomycin Cap*) 125 mg PO QID [facility] Assessment: 67 yo M w locally advanced pancreatic cancer recently treated with gemcitabine/ abraxane and just discharged after a hospitalization for acute renal failure sp aggressive hydration and 40 pound fluid gain, presenting with leg weakness likely related to anasarca and deconditioning. anasarca: low albumin and aggressive hydration in patient with likely diastolic heart failure -IV diuretics -consistent weights on same scale daily (on last hospitalization this was a challenge) -watch potassium with diuresis -PT consult for deconditioning -consider repeat echo if no improvement diarrhea: long standing, medication/chemo induced, NOT active c diff, though still treating for prior c diff diabetes: cont lantus and sliding scale locally advanced pancreatic cancer: stable disease, plan for 5FU/RT as outpatient once improved clinically heparin dvt prophylaxis full code
--- NOTE | 2018-06-13 08:05 | RAD ---
INDICATION: Weakness COMPARISON: Most recent comparison chest x-rays dated June 06, 2018 TECHNIQUE: Single AP portable view of the chest was obtained. FINDINGS: Image quality is compromised due to the relative inferiority of a portable chest x-ray. Operative findings include sternotomy wires, surgical clips overlying the mediastinum and a right subclavian vein Mediport with the tip terminating at the superior vena cava. Similar to the prior chest x-ray, there is a mild degree of cardiomegaly. The pulmonary vasculature appears mildly engorged and indistinct. There are patchy densities overlying the bilateral lower lungs. There is no lobar consolidation. The costophrenic angles are appropriately defined. Visualized bones are normal for the patient's age. IMPRESSION: In the correct clinical setting chest x-ray findings could be compatible with mild cardiogenic pulmonary edema similar in appearance to the prior chest x-ray. R1
[2018-06-13] MEDS: Insulin GLARGINE(*) 1 UNITS UNIT SUBCUT SCH (08:51)
[2018-06-13] MEDS: Metoprolol Tartrate TAB* 25 MG PO SCH ×2 (08:52→20:40)
[2018-06-13] MEDS: Vancomycin CAP* 125 MG CAP PO SCH ×4 (08:52→20:40)
[2018-06-13] MEDS: Finasteride TAB* 5 MG PO SCH (08:52)
[2018-06-13] MEDS: Potassium Chlor TAB* 20 MEQ TAB.ER PO SCH (08:52)
[2018-06-13] MEDS: Omeprazole CAP* 20 MG PO SCH (08:52)
[2018-06-13] MEDS: Clotrimazole TROCHE* 10 MG TROCHE PO SCH ×2 (08:53→20:40)
[2018-06-13] MEDS: Furosemide IV* 10 MG/ML VIAL (40 MG) IV SCH ×2 (08:53→16:13)
[2018-06-13] MEDS ORDERED: Potassium Chlor TAB* 20 MEQ TAB.ER PO SCH (09:00)
[2018-06-13] MEDS ORDERED: Omeprazole CAP* 20 MG PO SCH (09:00)
[2018-06-14] MEDS: Heparin VIAL(*) 5000 UNITS/ML VIAL (FIVE THOUSAND) SUBCUT SCH ×3 (05:11→21:35)
[2018-06-14 05:25] LABS: Hematocrit 23 % (42-52); Hemoglobin 7.7 g/dl (14.0-18.0); Mean Corpuscular HGB Conc 34 g/dl (31-36); Mean Corpuscular Hemoglobin 31 pg (27-31); Mean Corpuscular Volume 91 fL (80-94); Mean Platelet Volume 8.3 um3 (7.4-10.4); Platelet Count 124 10^3/ul (150-450); Red Blood Count 2.51 10^6/ul (4.00-5.40); Red Cell Distribution Width 18 % (10.5-15); White Blood Count 7.8 10^3/ul (3.5-10.8)
[2018-06-14 05:45] LABS: EGFR Non-African American 60.6 (>60)
[2018-06-14 06:05] LABS: ABS Basophils 0 10^3/ul (0-0.2); ABS Neutrophils 4.9 10^3/ul (1.5-7.7); ABS Neutrophils 5.2 10^3/ul (1.5-7.7); Monocytes % 3 % (0-7)
[2018-06-14] MEDS: Insulin LISPRO* 1 UNITS UNIT SUBCUT SCH ×4 (09:25→20:39)
[2018-06-14] MEDS: Vancomycin CAP* 125 MG CAP PO SCH ×4 (09:25→20:39)
[2018-06-14] MEDS: Furosemide IV* 10 MG/ML VIAL (40 MG) IV SCH ×2 (09:25→17:46)
[2018-06-14] MEDS: Clotrimazole TROCHE* 10 MG TROCHE PO SCH ×2 (09:25→20:39)
[2018-06-14] MEDS: Finasteride TAB* 5 MG PO SCH (09:25)
[2018-06-14] MEDS: Omeprazole CAP* 20 MG PO SCH (09:25)
[2018-06-14] MEDS: Potassium Chlor TAB* 20 MEQ TAB.ER PO SCH (09:25)
[2018-06-14] MEDS: Metoprolol Tartrate TAB* 25 MG PO SCH ×2 (09:25→20:39)
[2018-06-14] MEDS: Insulin GLARGINE(*) 1 UNITS UNIT SUBCUT SCH (09:26)
--- NOTE | 2018-06-14 09:26 | PN ---
Subjective Date of Service: 06/14/18 Interval History: Pt feels that his fingers are "less puffy." Uses clotrimazole for oral thrush. c/o dry cough Objective Active Medications: Clotrimazole (Mycelex Mik*) 10 mg PO BID [facility] Last Admin: 06/13/18 20:40 Dose: 10 mg Dextrose (D50w Syringe 50 Ml*) 12.5 gm IV PUSH .FOR FS < 60 - SS PRN PRN Reason: FS < 60 Finasteride (Proscar Tab*) 5 mg PO DAILY [facility] Last Admin: 06/13/18 08:52 Dose: 5 mg Furosemide (Lasix Iv*) 40 mg IV 0800,1700 [facility] Last Admin: 06/13/18 16:13 Dose: 40 mg Heparin Sodium (Porcine) (Heparin Vial(*)) 5,000 units SUBCUT Q8HR [facility] Last Admin: 06/14/18 05:11 Dose: 5,000 units Heparin Sodium (Porcine) (Heparin Flush Port (Ivad)) 0 ml FLUSH DAILY [facility] Last Admin: 06/13/18 16:20 Dose: 5 ml Insulin Glargine (Lantus(*)) 15 units SUBCUT DAILY [facility] Last Admin: 06/13/18 08:51 Dose: 15 units Insulin Human Lispro (Humalog*) 0 units SUBCUT ACHS [facility]; Protocol Last Admin: 06/13/18 20:42 Dose: Not Given Metoprolol Tartrate (Lopressor Tab*) 25 mg PO BID [facility] Last Admin: 06/13/18 20:40 Dose: 25 mg Omeprazole (Prilosec Cap*) 20 mg PO DAILY [facility] Last Admin: 06/13/18 08:52 Dose: 20 mg Oxycodone/Acetaminophen (Percocet 5/325 Tab*) 1 tab PO Q4H PRN PRN Reason: Pain Potassium Chloride (Klor Con Er Tab*) 40 meq PO DAILY [facility] Last Admin: 06/13/18 08:52 Dose: 40 meq Vancomycin HCl (Vancomycin Cap*) 125 mg PO QID [facility] Last Admin: 06/13/18 20:40 Dose: 125 mg Vital Signs - 8 hr 06/14/18 06/14/18 02:56 08:01 Temperature 97.6 F 98.5 F Pulse Rate 91 80 Respiratory 18 20 Rate Blood Pressure 129/61 95/35 (mmHg) O2 Sat by Pulse 98 96 Oximetry Oxygen Devices in Use Now: None, CPAP Appearance: 67 yo obese M in nAD, aAOx3 Eyes: No Scleral Icterus, PERRLA Ears/Nose/Mouth/Throat: NL Teeth, Lips, Gums, Mucous Membranes Moist Neck: NL Appearance and Movements; NL JVP Respiratory: Symmetrical Chest Expansion and Respiratory Effort, - - crackles at b/l bases Abdominal: NL Sounds; No Tenderness; No Distention, No Hepatosplenomegaly Extremities: No Clubbing, Cyanosis, - - +1 pitting all extremities edema- less in UE's Skin: No Nodules or Sclerosis Neurological: Alert and Oriented x 3, NL Muscle Strength and Tone Result Diagrams: 06/14/18 05:00 06/14/18 05:00 Additional Lab and Data: Lab Results 06/12/18 06/12/18 06/12/18 Range/Units 17:23 17:59 17:59 WBC 10.9 H (3.5-10.8) 10^3/ul RBC 2.91 L (4.00-5.40) 10^6/ul Hgb 8.8 L (14.0-18.0) g/dl Hct 26 L (42-52) % MCV 91 (80-94) fL MCH 30 (27-31) pg MCHC 33 (31-36) g/dl RDW 18 H (10.5-15) % Plt Count 104 L (150-450) 10^3/ul MPV 8.1 (7.4-10.4) um3 Neut % (Auto) Not Reportable Lymph % (Auto) Not Reportable [place] % (Auto) Not Reportable Eos % (Auto) Not Reportable Baso % (Auto) Not Reportable Absolute Neuts (auto) 7.4 (1.5-7.7) 10^3/ul Absolute Lymphs (auto) Not Reportable Absolute Monos (auto) Not Reportable Absolute Eos (auto) Not Reportable Absolute Basos (auto) Not Reportable Absolute Nucleated RBC Not Reportable Immature Gran % 14 H (0-9) % Neutrophils % 62 (38-83) % Band Neutrophils % 12 H (0-8) % Lymphocytes % 14 L (25-47) % Monocytes % 10 H (0-7) % Eosinophils % 0 (0-6) % Basophils % 0 (0-2) % Metamyelocytes % 2 (0-2) % Nucleated RBC % Not Reportable Abs Neuts (Manual) 6.8 (1.5-7.7) 10^3/ul Abs Lymphs (Manual) 1.5 (1.0-4.8) 10^3/ul Abs Monocytes (Manual) 1.1 H (0-0.8) 10^3/ul Absolute Eos (Manual) 0 (0-0.6) 10^3/ul Abs Basophils (Manual) 0 (0-0.2) 10^3/ul Normal RBC Morphology Not Reportable Hypochromasia 1+ Anisocytosis 2+ Sodium 137 (135-145) mmol/L Potassium 3.9 (3.5-5.0) mmol/L Chloride 110 (101-111) mmol/L Carbon Dioxide 21 L (22-32) mmol/L Anion Gap 6 (2-11) mmol/L BUN 28 H (6-24) mg/dL Creatinine 1.15 (0.67-1.17) mg/dL Est GFR ( Amer) 76.3 (>60) Est GFR (Non-Af Amer) 63.1 (>60) BUN/Creatinine Ratio 24.3 H (8-20) Glucose 144 H (70-100) mg/dL POC Glucose (mg/dL) 140 H (70-100) mg/dL Lactic Acid (0.5-2.0) mmol/L Calcium 8.2 L (8.6-10.3) mg/dL Magnesium 1.8 L (1.9-2.7) mg/dL Total Bilirubin 0.90 (0.2-1.0) mg/dL AST 48 H (13-39) U/L ALT 14 (7-52) U/L Alkaline Phosphatase 144 H (34-104) U/L Troponin I 0.03 (<0.04) ng/mL B-Natriuretic Peptide ( - 100) pg/mL Total Protein 5.5 L (6.4-8.9) g/dL Albumin 2.2 L (3.2-5.2) g/dL Globulin 3.3 (2-4) g/dL Albumin/Globulin Ratio 0.7 L (1-3) Lipase 82 (11.0-82.0) U/L TSH Pending 06/12/18 06/12/18 Range/Units 17:59 17:59 WBC (3.5-10.8) 10^3/ul RBC (4.00-5.40) 10^6/ul Hgb (14.0-18.0) g/dl Hct (42-52) % MCV (80-94) fL MCH (27-31) pg MCHC (31-36) g/dl RDW (10.5-15) % Plt Count (150-450) 10^3/ul MPV (7.4-10.4) um3 Neut % (Auto) Lymph % (Auto) [place] % (Auto) Eos % (Auto) Baso % (Auto) Absolute Neuts (auto) (1.5-7.7) 10^3/ul Absolute Lymphs (auto) Absolute Monos (auto) Absolute Eos (auto) Absolute Basos (auto) Absolute Nucleated RBC Immature Gran % (0-9) % Neutrophils % (38-83) % Band Neutrophils % (0-8) % Lymphocytes % (25-47) % Monocytes % (0-7) % Eosinophils % (0-6) % Basophils % (0-2) % Metamyelocytes % (0-2) % Nucleated RBC % Abs Neuts (Manual) (1.5-7.7) 10^3/ul Abs Lymphs (Manual) (1.0-4.8) 10^3/ul Abs Monocytes (Manual) (0-0.8) 10^3/ul Absolute Eos (Manual) (0-0.6) 10^3/ul Abs Basophils (Manual) (0-0.2) 10^3/ul Normal RBC Morphology Hypochromasia Anisocytosis Sodium (135-145) mmol/L Potassium (3.5-5.0) mmol/L Chloride (101-111) mmol/L Carbon Dioxide (22-32) mmol/L Anion Gap (2-11) mmol/L BUN (6-24) mg/dL Creatinine (0.67-1.17) mg/dL Est GFR ( Amer) (>60) Est GFR (Non-Af Amer) (>60) BUN/Creatinine Ratio (8-20) Glucose (70-100) mg/dL POC Glucose (mg/dL) (70-100) mg/dL Lactic Acid 1.8 (0.5-2.0) mmol/L Calcium (8.6-10.3) mg/dL Magnesium (1.9-2.7) mg/dL Total Bilirubin (0.2-1.0) mg/dL AST (13-39) U/L ALT (7-52) U/L Alkaline Phosphatase (34-104) U/L Troponin I (<0.04) ng/mL B-Natriuretic Peptide 340 H ( - 100) pg/mL Total Protein (6.4-8.9) g/dL Albumin (3.2-5.2) g/dL Globulin (2-4) g/dL Albumin/Globulin Ratio (1-3) Lipase (11.0-82.0) U/L TSH Assess/Plan/Problems-Billing Assessment: Assessment: 67 yo M w locally advanced pancreatic cancer recently treated with gemcitabine/ abraxane and just discharged after a hospitalization for acute renal failure sp aggressive hydration and 40 pound fluid gain, presenting with leg weakness likely related to anasarca and deconditioning. anasarca: low albumin and aggressive hydration in patient with likely diastolic heart failure -cont IV diuretics -consistent weights on same scale daily -watch creatinine with diuresis-today slight increase, but pt has baseline CKD with fluctuation of renal function in the past -PT consult for deconditioning pending -consider repeat echo if no improvement diarrhea: long standing, medication/chemo induced, NOT active c diff, though still treating for prior c diff diabetes: cont lantus and sliding scale locally advanced pancreatic cancer: stable disease, plan for 5FU/RT as outpatient once improved clinically heparin dvt prophylaxis full code
[2018-06-15] MEDS: Heparin VIAL(*) 5000 UNITS/ML VIAL (FIVE THOUSAND) SUBCUT SCH ×3 (05:21→21:07)
[2018-06-15 05:45] LABS: Hematocrit 23 % (42-52); Hemoglobin 7.8 g/dl (14.0-18.0); Mean Corpuscular HGB Conc 33 g/dl (31-36); Mean Corpuscular Hemoglobin 30 pg (27-31); Mean Corpuscular Volume 92 fL (80-94); Mean Platelet Volume 8.1 um3 (7.4-10.4); Platelet Count 129 10^3/ul (150-450); Red Blood Count 2.56 10^6/ul (4.00-5.40); Red Cell Distribution Width 20 % (10.5-15)
[2018-06-15 05:47] LABS: ABS Neutrophils 4.2 10^3/ul (1.5-7.7)
[2018-06-15 06:02] LABS: EGFR Non-African American 54.7 (>60)
[2018-06-15 06:19] LABS: ABS Basophils 0 10^3/ul (0-0.2); Monocytes % 0 % (0-7)
[2018-06-15] MEDS: Insulin LISPRO* 1 UNITS UNIT SUBCUT SCH ×4 (09:44→21:00)
[2018-06-15] MEDS: Potassium Chlor TAB* 20 MEQ TAB.ER PO SCH (10:04)
[2018-06-15] MEDS: Finasteride TAB* 5 MG PO SCH (10:04)
[2018-06-15] MEDS: Lactobacillus Acidophilus* 1 TAB PO SCH ×2 (10:12→20:51)
[2018-06-15] MEDS: Vancomycin CAP* 125 MG CAP PO SCH ×4 (10:12→20:53)
[2018-06-15] MEDS: Clotrimazole TROCHE* 10 MG TROCHE PO SCH ×2 (10:13→20:52)
[2018-06-15] MEDS: Omeprazole CAP* 20 MG PO SCH (10:14)
[2018-06-15] MEDS: Metoprolol Tartrate TAB* 25 MG PO SCH ×2 (10:14→20:53)
[2018-06-15] MEDS: Cholestyramine Resin* 4 GM POWDER PO SCH ×2 (10:16→20:56)
[2018-06-15] MEDS: Furosemide IV* 100 MG in NS 0.9% 100 ML* 90 ML IV SCH ×2 (10:19→20:31)
[2018-06-15] MEDS: Insulin GLARGINE(*) 1 UNITS UNIT SUBCUT SCH (10:49)
--- NOTE | 2018-06-15 12:04 | CONS ---
CONSULTATION REPORT: DATE OF CONSULT: 06/15/18 REQUESTING PROVIDER: STEFANIA Busch CONSULTING SERVICE: Infectious Disease. REASON FOR CONSULT: Diarrhea. IMPRESSION: 1. Persistent frequent liquid stools while on vancomycin for Clostridium difficile. There is some conflicting information on whether or not he was continuing to take vancomycin while he was at home. His last Clostridium difficile test was negative though I believe that was while he was on vancomycin. The differential for his diarrhea includes recent chemotherapy, less likely inflammatory bowel including microscopic colitis. 2. Pancreatic cancer, recent chemotherapy. 3. Obesity. RECOMMENDATION: We will continue his vancomycin here and see if his bowel movements settle out, if not that would be good evidence that his diarrhea is not related to C. difficile infection. HISTORY OF PRESENT ILLNESS: This is a 67-year-old male with pancreatic cancer admitted with a fall. He had been on vancomycin for much of the last few months for C. difficile diarrhea. More recently, he had been on 4 times a day while he was here, but continued to have some diarrhea which was loose and frequent. He went home for about a day and while there, he said he was taking it 4 times a day and then came back and continued it 4 times a day; however, it sounds like another history obtained was that he was taking it twice a day when he was at home and for a few days before he left here. He is back on 4 times a day. He has had no abdominal pain or fever. Today, he has had 2 to 4 loose stools without any blood or mucus. His appetite is fair. PAST MEDICAL HISTORY: 1. Pancreatic cancer, treated with chemotherapy. 2. Obesity. 3. Left knee arthroplasty complicated by infection and revision. 4. Thoracic aortic aneurysm. 5. Left ureteral stent. 6. Aortic stenosis, status post bioprosthetic aortic valve replacement. 7. Atrial fibrillation. 8. Hypertension. 9. Obstructive sleep apnea. 10. Type 2 diabetes. 11. Status post right knee arthroplasty. 12. Status post umbilical hernia repair. MEDICATIONS: 1. Finasteride. 2. Clotrimazole. 3. Lasix. 4. Heparin subcutaneous injection. 5. Glargine. 6. Lactobacillus. 7. Metoprolol. 8. Omeprazole. 9. Vancomycin 125 mg by mouth 4 times a day. ALLERGIES: OXACILLIN caused vasculitis, MORPHINE. FAMILY HISTORY: No recurrent infections. SOCIAL HISTORY: He lives in [place] with his . No travel. REVIEW OF SYSTEMS: All negative to 14-point review of systems except as noted above in the history of present illness. PHYSICAL EXAM: Vital Signs: Temperature is 36.4, heart rate 80, respiratory rate 16, blood pressure 113/51, and oxygen saturation 97% on room air. General : He is awake and not in distress. Neurologic: He is oriented x3, follows all commands. HEENT: There is no conjunctival hemorrhage. Mucous membranes are moist. There are no oral lesions. Neck: Supple without mass. Heart: Regular rate and rhythm without murmurs, rubs, or gallops. Lungs are clear to auscultation bilaterally. Abdomen: Soft, nontender, and nondistended. There are bowel sounds present. Skin: There is no rash or splinter hemorrhage. LABORATORY DATA: White blood cell count 7, hemoglobin 7, platelets 129. Creatinine 1.3. Please see impressions and recommendations outlined above which I have discussed with STEFANIA Busch. Thanks for asking me to see Mr. Collins in consultation. [id number] #: [id number] MTDD
--- NOTE | 2018-06-15 12:55 | PN ---
Progress Note - Progress Note Date of Service: 06/15/18 SOAP: Subjective: [Reports he is feeling ok. Still grossly edematous. No change in weight since admission. Urination does not seem significantly greater than before starting IV furosemide.] Objective: [ Cholestyramine Resin (Questran*) 4 gm PO BID [facility] Last Admin: 06/15/18 10:16 Dose: 4 gm Clotrimazole (Mycelex Mik*) 10 mg PO BID [facility] Last Admin: 06/15/18 10:13 Dose: 10 mg Dextrose (D50w Syringe 50 Ml*) 12.5 gm IV PUSH .FOR FS < 60 - SS PRN PRN Reason: FS < 60 Finasteride (Proscar Tab*) 5 mg PO DAILY [facility] Last Admin: 06/15/18 10:04 Dose: 5 mg Heparin Sodium (Porcine) (Heparin Vial(*)) 5,000 units SUBCUT Q8HR [facility] Last Admin: 06/15/18 05:21 Dose: 5,000 units Heparin Sodium (Porcine) (Heparin Flush Port (Ivad)) 0 ml FLUSH DAILY [facility] Last Admin: 06/15/18 11:35 Dose: Not Given Furosemide 100 mg/ Sodium (Chloride) 100 mls @ 10 mls/hr IV Q10H [facility]; Protocol Last Admin: 06/15/18 10:19 Dose: 10 mls/hr Insulin Glargine (Lantus(*)) 15 units SUBCUT DAILY [facility] Last Admin: 06/15/18 10:49 Dose: 15 units Insulin Human Lispro (Humalog*) 0 units SUBCUT ACHS [facility]; Protocol Last Admin: 06/15/18 09:44 Dose: Not Given Lactobacillus Rhamnosus (Lactobacillus Acidophilus*) 1 tab PO BID [facility] Last Admin: 06/15/18 10:12 Dose: 1 tab Metoprolol Tartrate (Lopressor Tab*) 25 mg PO BID [facility] Last Admin: 06/15/18 10:14 Dose: 25 mg Omeprazole (Prilosec Cap*) 20 mg PO DAILY [facility] Last Admin: 06/15/18 10:14 Dose: 20 mg Oxycodone/Acetaminophen (Percocet 5/325 Tab*) 1 tab PO Q4H PRN PRN Reason: Pain Potassium Chloride (Klor Con Er Tab*) 40 meq PO DAILY [facility] Last Admin: 06/15/18 10:04 Dose: 40 meq Vancomycin HCl (Vancomycin Cap*) 125 mg PO QID [facility] Last Admin: 06/15/18 10:12 Dose: 125 mg Laboratory Results - last 24 hr 06/14/18 06/14/18 06/14/18 05:00 17:20 20:23 WBC RBC Hgb Hct MCV MCH MCHC RDW Plt Count MPV Neut % (Auto) Lymph % (Auto) [place] % (Auto) Eos % (Auto) Baso % (Auto) Absolute Neuts (auto) Absolute Lymphs (auto) Absolute Monos (auto) Absolute Eos (auto) Absolute Basos (auto) Absolute Nucleated RBC Immature Gran % Neutrophils % Band Neutrophils % Lymphocytes % Monocytes % Eosinophils % Basophils % Metamyelocytes % Nucleated RBC % Abs Neuts (Manual) Abs Lymphs (Manual) Abs Monocytes (Manual) Absolute Eos (Manual) Abs Basophils (Manual) Normal RBC Morphology Polychromasia Hem Pathologist Commnt Sodium Potassium Chloride Carbon Dioxide Anion Gap BUN Creatinine Est GFR ( Amer) Est GFR (Non-Af Amer) BUN/Creatinine Ratio Glucose POC Glucose (mg/dL) 127 H 167 H Calcium Magnesium 06/15/18 06/15/18 06/15/18 05:30 05:30 08:08 WBC 7.0 RBC 2.56 L Hgb 7.8 L Hct 23 L MCV 92 MCH 30 MCHC 33 RDW 20 H Plt Count 129 L MPV 8.1 Neut % (Auto) Not Reportable Lymph % (Auto) Not Reportable [place] % (Auto) Not Reportable Eos % (Auto) Not Reportable Baso % (Auto) Not Reportable Absolute Neuts (auto) 4.2 Absolute Lymphs (auto) Not Reportable Absolute Monos (auto) Not Reportable Absolute Eos (auto) Not Reportable Absolute Basos (auto) Not Reportable Absolute Nucleated RBC Not Reportable Immature Gran % 7 Neutrophils % 71 Band Neutrophils % 3 Lymphocytes % 22 L Monocytes % 0 Eosinophils % 0 Basophils % 0 Metamyelocytes % 4 H Nucleated RBC % Not Reportable Abs Neuts (Manual) 5.0 Abs Lymphs (Manual) 1.5 Abs Monocytes (Manual) 0 Absolute Eos (Manual) 0 Abs Basophils (Manual) 0 Normal RBC Morphology Not Reportable Polychromasia 1+ Hem Pathologist Commnt Sodium 139 Potassium 3.8 Chloride 109 Carbon Dioxide 23 Anion Gap 7 BUN 24 Creatinine 1.30 H Est GFR ( Amer) 66.2 Est GFR (Non-Af Amer) 54.7 BUN/Creatinine Ratio 18.5 Glucose 93 POC Glucose (mg/dL) 111 H Calcium 7.9 L Magnesium 1.8 L 06/15/18 11:43 WBC RBC Hgb Hct MCV MCH MCHC RDW Plt Count MPV Neut % (Auto) Lymph % (Auto) [place] % (Auto) Eos % (Auto) Baso % (Auto) Absolute Neuts (auto) Absolute Lymphs (auto) Absolute Monos (auto) Absolute Eos (auto) Absolute Basos (auto) Absolute Nucleated RBC Immature Gran % Neutrophils % Band Neutrophils % Lymphocytes % Monocytes % Eosinophils % Basophils % Metamyelocytes % Nucleated RBC % Abs Neuts (Manual) Abs Lymphs (Manual) Abs Monocytes (Manual) Absolute Eos (Manual) Abs Basophils (Manual) Normal RBC Morphology Polychromasia Hem Pathologist Commnt Sodium Potassium Chloride Carbon Dioxide Anion Gap BUN Creatinine Est GFR ( Amer) Est GFR (Non-Af Amer) BUN/Creatinine Ratio Glucose POC Glucose (mg/dL) 204 H Calcium Magnesium Vital Signs: Temp Pulse Resp BP Pulse Ox 97.9 F 84 18 102/47 98 06/15/18 11:41 06/15/18 11:41 06/15/18 11:41 06/15/18 11:41 06/15/18 11:41 Exam: Gen: Chronically ill appearing 67 yo male in NAD HEENT: MMM, no thrush CV: RRR, no m/r/g Resp: few crackles Abd: soft, nonTTP Ext: diffuse edema of all extremities] Assessment: [67 yo M w locally advanced pancreatic cancer recently treated with gemcitabine/ abraxane and just discharged after a hospitalization for acute renal failure sp aggressive hydration and 40 pound fluid gain, presenting with leg weakness likely related to anasarca and deconditioning. anasarca: low albumin and aggressive hydration in patient with likely diastolic heart failure -he does not appear to be responding well to bolus furosemide - start Lasix drip -cont daily weights and I&Os -monitor daily electrolytes and will replete as necessary -PT consult for deconditioning, may benefit from rehab -consider repeat echo if no improvement hematuria - new hematuria noted today - check UA, depending on whether this is recurrent will order CT A/P to eval for stone diarrhea: - h/o C.diff - difficult to piece together a timeline of when the diarrhea recurred and when he had tapered his vancomycin - requested re-evaluation from ID - plan to cont po vanco at this time - add cholestyramine and probiotics diabetes: - cont lantus and sliding scale locally advanced pancreatic cancer: - stable disease but poor tolerance of therapy, plan for 5FU/RT as outpatient once improved clinically heparin dvt prophylaxis full code Dispo: patient would benefit from a rehab stay, he is severely deconditioned after multiple complications and associated hospitalizations. He would like to pursue [facility] CT.]
[2018-06-15] MEDS: Furosemide IV* 10 MG/ML VIAL (40 MG) IV SCH (14:10)
[2018-06-16] MEDS: Furosemide IV* 100 MG in NS 0.9% 100 ML* 90 ML IV SCH ×2 (06:06→17:06)
[2018-06-16] MEDS: Heparin VIAL(*) 5000 UNITS/ML VIAL (FIVE THOUSAND) SUBCUT SCH ×3 (06:06→21:21)
[2018-06-16 06:27] LABS: Hematocrit 25 % (42-52); Hemoglobin 8.1 g/dl (14.0-18.0); Mean Corpuscular HGB Conc 33 g/dl (31-36); Mean Corpuscular Hemoglobin 30 pg (27-31); Mean Corpuscular Volume 92 fL (80-94); Mean Platelet Volume 7.8 um3 (7.4-10.4); Platelet Count 137 10^3/ul (150-450); Red Blood Count 2.68 10^6/ul (4.00-5.40); Red Cell Distribution Width 20 % (10.5-15); White Blood Count 6.7 10^3/ul (3.5-10.8)
[2018-06-16 06:52] LABS: EGFR Non-African American 59.5 (>60)
[2018-06-16] MEDS: Insulin LISPRO* 1 UNITS UNIT SUBCUT SCH ×4 (08:27→21:21)
[2018-06-16 08:45] LABS: ABS Basophils 0.2 10^3/ul (0-0.2); Schistocytes 1+
[2018-06-16] MEDS: Cholestyramine Resin* 4 GM POWDER PO SCH ×2 (08:53→20:39)
[2018-06-16] MEDS: Omeprazole CAP* 20 MG PO SCH (08:54)
[2018-06-16] MEDS: Metoprolol Tartrate TAB* 25 MG PO SCH ×2 (08:54→20:39)
[2018-06-16] MEDS: Lactobacillus Acidophilus* 1 TAB PO SCH ×2 (08:54→20:39)
[2018-06-16] MEDS: Vancomycin CAP* 125 MG CAP PO SCH ×4 (08:54→20:39)
[2018-06-16] MEDS: Potassium Chlor TAB* 20 MEQ TAB.ER PO SCH (08:55)
[2018-06-16] MEDS: Clotrimazole TROCHE* 10 MG TROCHE PO SCH ×2 (08:56→20:39)
[2018-06-16] MEDS: Finasteride TAB* 5 MG PO SCH (08:56)
[2018-06-16] MEDS: Insulin GLARGINE(*) 1 UNITS UNIT SUBCUT SCH (08:56)
[2018-06-16 11:39] LABS: Monocytes % 9 % (0-7)
--- NOTE | 2018-06-16 12:02 | RAD ---
Indication: Hematuria. CT of the abdomen and pelvis was performed without oral or IV contrast administration. Coronal and sagittal reconstructed images were obtained. Comparison previous exam dated June 10, 2018. There are small to moderate bilateral pleural effusions which are unchanged. The liver is normal in size. No focal lesions or intrahepatic duct dilatation is noted. A small amount of perihepatic ascites is noted. The gallbladder demonstrates no calcified gallstones. A biliary stent is in place. The spleen is normal in size. The pancreas demonstrates no mass or parenchymal dislocation. No adrenal masses are noted. The kidneys demonstrate left hydronephrosis with left hydroureter although no discrete calculi is noted. There are calcifications within the urinary bladder. This was present on previous exam. The right kidney shows no hydronephrosis although nonobstructing calculi are noted in the right kidney. No retroperitoneal lymphadenopathy is noted. Aorta and inferior vena cava are unremarkable. No dilated loops of bowel are noted. The Rachel catheter has been removed. IMPRESSION: There is left hydronephrosis although no obvious calculi is noted along the course of the left ureter. Nonobstructing calculi are noted in both kidneys. There are some calcifications noted in the urinary bladder. Biliary stent is in place. Small amount of ascites and small bilateral pleural effusions are noted which are unchanged from previous exam.
[2018-06-17] MEDS ORDERED: Furosemide IV* 10 MG/ML 10 ML VIAL (100 MG) ONE (02:25)
[2018-06-17] MEDS: Furosemide IV* 100 MG in NS 0.9% 100 ML* 90 ML IV SCH ×2 (02:41→20:49)
[2018-06-17] MEDS: Heparin VIAL(*) 5000 UNITS/ML VIAL (FIVE THOUSAND) SUBCUT SCH ×3 (05:41→21:20)
[2018-06-17 06:30] LABS: EGFR Non-African American 62.4 (>60)
[2018-06-17] MEDS: Insulin LISPRO* 1 UNITS UNIT SUBCUT SCH ×4 (08:17→23:38)
[2018-06-17] MEDS: Clotrimazole TROCHE* 10 MG TROCHE PO SCH ×2 (08:51→21:20)
[2018-06-17] MEDS: Finasteride TAB* 5 MG PO SCH (08:51)
[2018-06-17] MEDS: Cholestyramine Resin* 4 GM POWDER PO SCH ×2 (08:51→21:19)
[2018-06-17] MEDS: Metoprolol Tartrate TAB* 25 MG PO SCH ×2 (08:51→21:19)
[2018-06-17] MEDS: Vancomycin CAP* 125 MG CAP PO SCH ×4 (08:52→21:20)
[2018-06-17] MEDS: Lactobacillus Acidophilus* 1 TAB PO SCH ×2 (08:52→21:20)
[2018-06-17] MEDS: Potassium Chlor TAB* 20 MEQ TAB.ER PO SCH (08:52)
[2018-06-17] MEDS: Omeprazole CAP* 20 MG PO SCH (08:52)
[2018-06-17] MEDS: Insulin GLARGINE(*) 1 UNITS UNIT SUBCUT SCH (08:52)
[2018-06-17] MEDS ORDERED: Magnesium Sulf 4 GM/100 ML IV* 4,000 MG/100 ML BAG IVPB ONE (10:00)
--- NOTE | 2018-06-17 10:08 | PN ---
Progress Note - Progress Note Date of Service: 06/17/18 SOAP: Subjective: []Feeling OK, though frustrated with current status. Happy he cont.'s to loose wt. with diuresis, however upset that he may not be able to go to the rehab he wanted (Wt. limitation of <300 lbs.). Having 4 loose stools per day, per pt. the nursing staff noted it was 'pasty' and not watery. No abd. cramping. Urine still very dark, mickie/w[place]. CT yesterday with hydronephrosis, essentially stable, and calculi without obstruction Medications: Cholestyramine Resin (Questran*) 4 gm PO BID [facility] Last Admin: 06/17/18 08:51 Dose: 4 gm Clotrimazole (Mycelex Mik*) 10 mg PO BID [facility] Last Admin: 06/17/18 08:51 Dose: 10 mg Dextrose (D50w Syringe 50 Ml*) 12.5 gm IV PUSH .FOR FS < 60 - SS PRN PRN Reason: FS < 60 Finasteride (Proscar Tab*) 5 mg PO DAILY [facility] Last Admin: 06/17/18 08:51 Dose: 5 mg Heparin Sodium (Porcine) (Heparin Vial(*)) 5,000 units SUBCUT Q8HR [facility] Last Admin: 06/17/18 05:41 Dose: 5,000 units Heparin Sodium (Porcine) (Heparin Flush Port (Ivad)) 0 ml FLUSH DAILY [facility] Last Admin: 06/16/18 08:56 Dose: Not Given Furosemide 100 mg/ Sodium (Chloride) 100 mls @ 10 mls/hr IV Q10H [facility]; Protocol Last Admin: 06/17/18 02:41 Dose: 10 mls/hr Magnesium Sulfate (Magnesium Sulf 4 Gm/100 Ml Iv*) 4,000 mg in 100 mls @ 33.333 mls/hr IVPB ONCE ONE Stop: 06/17/18 12:59 Insulin Glargine (Lantus(*)) 15 units SUBCUT DAILY [facility] Last Admin: 06/17/18 08:52 Dose: 15 units Insulin Human Lispro (Humalog*) 0 units SUBCUT ACHS [facility]; Protocol Last Admin: 06/17/18 08:17 Dose: Not Given Lactobacillus Rhamnosus (Lactobacillus Acidophilus*) 1 tab PO BID [facility] Last Admin: 06/17/18 08:52 Dose: 1 tab Metoprolol Tartrate (Lopressor Tab*) 25 mg PO BID [facility] Last Admin: 06/17/18 08:51 Dose: 25 mg Omeprazole (Prilosec Cap*) 20 mg PO DAILY [facility] Last Admin: 06/17/18 08:52 Dose: 20 mg Oxycodone/Acetaminophen (Percocet 5/325 Tab*) 1 tab PO Q4H PRN PRN Reason: Pain Potassium Chloride (Klor Con Er Tab*) 40 meq PO DAILY [facility] Last Admin: 06/17/18 08:52 Dose: 40 meq Vancomycin HCl (Vancomycin Cap*) 125 mg PO QID [facility] Last Admin: 06/17/18 08:52 Dose: 125 mg Objective: [] Vital Signs Temp Pulse Resp BP Pulse Ox 98.5 F 92 20 116/42 99 06/17/18 02:54 06/17/18 02:54 06/17/18 07:53 06/17/18 02:54 06/17/18 02:54 A&Ox3, EOMI, [place], neuro grossly non-focal HRR, S1S2 LS clear bilat., dim. bases, resp. even and non-labored +BS, abd. round, soft, obese, non-tender +2 pitting edema to LE up to knees Intake and Output Last 24 Hours 06/15/18 06/16/18 06/17/18 06/18/18 06:59 06:59 06:59 06:59 Intake Total 1800 1760 836 960 Output Total 1900 2800 4125 475 Balance -100 -1242 -9704 485 Weight 315 lb 12.8 oz 313 lb 9.6 oz 301 lb 3.2 oz Intake: IV Fluids 126 lasix 126 Oral 1800 1760 710 960 Output: Urine 1900 2800 4125 475 Other: Estimated Void Medium # Bowel Movements 1 1 2 Estimated Stool Amount Medium Medium Large # Voids 1 Laboratory Results - last 24 hr 06/16/18 06/16/18 06/16/18 06:18 11:17 16:29 Immature Gran % 4 Neutrophils % 74 Band Neutrophils % 2 Lymphocytes % 11 L Monocytes % 9 H Eosinophils % Not Reportable Basophils % 2 Myelocytes % 1 Blast Cells % Toll Testboard Worker Hem Pathologist Commnt Sodium Potassium Chloride Carbon Dioxide Anion Gap BUN Creatinine Est GFR ( Amer) Est GFR (Non-Af Amer) BUN/Creatinine Ratio Glucose POC Glucose (mg/dL) 202 H 159 H Calcium Magnesium 06/16/18 06/17/18 06/17/18 20:41 05:45 07:47 Immature Gran % Neutrophils % Band Neutrophils % Lymphocytes % Monocytes % Eosinophils % Basophils % Myelocytes % Blast Cells % Hem Pathologist Commnt Sodium 138 Potassium 3.5 Chloride 105 Carbon Dioxide 26 Anion Gap 7 BUN 24 Creatinine 1.16 Est GFR ( Amer) 75.5 Est GFR (Non-Af Amer) 62.4 BUN/Creatinine Ratio 20.7 H Glucose 116 H POC Glucose (mg/dL) 183 H 118 H Calcium 8.1 L Magnesium 1.6 L Assessment: []67 yo male with locally advanced pancreatic cancer with progressive weakness and falls in setting of marked fluid overload with anasarca. Plan: []1. Anasarca: marked improvement with lasix gtt, CT abd/pelvis with small amt. of ascites - wt. end of Apr. approx. 285 lbs, suspect we will not be able to pull off much more wt. with gtt, however has cont.'d improvement so will cont. today - trial SCDs to help pull fluid from peripheral 2. Hypomagnesemia: replace today and recheck labs in AM 3. Hematuria: likely 2/2 calculi, no obstruction present, follow 4. Diarrhea: no evidence for active C.Diff, cont. vanco as per ID - cont. cholestramine, add imodium PRN 5. Pancreatic cancer: with stable disease on recent imaging following neoadjuvant tx., however unfortunately has had multiple complications as well as long standing co-morbidities making him a poor surgical candidate. No further chemotherapy planned for now and will consider XRT/5-FU once improved from current de-conditioning Dispo: Will need rehab, hopeful for Tuesday 06/19
[2018-06-17] MEDS ORDERED: Loperamide CAP* 2 MG PO PRN (10:18)
[2018-06-17] MEDS: Acetaminophen TAB* 325 MG PO PRN (23:37)
[2018-06-17] MEDS: cefTRIAXone* 1 GM in NS 0.9% 50 ML BAG IVPB SCH (23:38)
[2018-06-18] MEDS: Furosemide IV* 100 MG in NS 0.9% 100 ML* 90 ML IV SCH ×3 (00:24→12:30)
[2018-06-18 00:26] LABS: Urine Appearance Cloudy; Urine Blood 3+ (Negative); Urine Ketones Negative (Negative); Urine Protein 1+(30 mg/dL) (Negative); Urine Red Blood Cell 3+(>10/hpf) (Absent); Urine Specific Gravity 1.006 (1.010-1.030); Urine Urobilinogen Negative (Negative); Urine White Blood Cell 3+(>20/hpf) (Absent)
[2018-06-18 00:39] LABS: Urine Color Yellow
[2018-06-18] MEDS: Heparin VIAL(*) 5000 UNITS/ML VIAL (FIVE THOUSAND) SUBCUT SCH ×3 (05:52→21:31)
[2018-06-18 06:11] LABS: ABS Basophils 0.1 10^3/ul (0-0.2); ABS Eosinophils 0 10^3/ul (0-0.6); ABS Lymphocytes 0.8 10^3/ul (1.0-4.8); ABS Monocytes 1.2 10^3/ul (0-0.8); ABS Neutrophils 5.7 10^3/ul (1.5-7.7); ABS Nucleated RBC 0 10^3/ul; Eosinophil % 0 % (0-6); Hematocrit 25 % (42-52); Hemoglobin 8.3 g/dl (14.0-18.0); Lymphocyte % 10.5 % (25-47); Mean Corpuscular HGB Conc 33 g/dl (31-36); Mean Corpuscular Hemoglobin 30 pg (27-31); Mean Corpuscular Volume 92 fL (80-94); Mean Platelet Volume 7.8 um3 (7.4-10.4); Nucleated Red Blood Cells % 0.1; Platelet Count 118 10^3/ul (150-450); Red Blood Count 2.74 10^6/ul (4.00-5.40); Red Cell Distribution Width 20 % (10.5-15); White Blood Count 7.7 10^3/ul (3.5-10.8)
[2018-06-18 06:30] LABS: EGFR Non-African American 61.8 (>60)
--- NOTE | 2018-06-18 08:00 | RAD ---
Indication: Cough. Single frontal view of the chest performed at 0048 hours was reviewed. Comparison is made with previous exam dated June 12, 2018. Organomegaly is noted. Central line is in place. Patient is status post tracer thoracotomy. Previously identified interstitial edema appears similar to that seen previously exam. Bibasilar atelectasis is noted. IMPRESSION: NO SIGNIFICANT CHANGE SINCE PREVIOUS EXAM WITH LIKELY MILD VASCULAR CONGESTION. BIBASILAR ATELECTASIS IS NOTED.
[2018-06-18] MEDS: Insulin LISPRO* 1 UNITS UNIT SUBCUT SCH ×4 (08:23→21:30)
[2018-06-18] MEDS: Insulin GLARGINE(*) 1 UNITS UNIT SUBCUT SCH (10:03)
[2018-06-18] MEDS: Vancomycin CAP* 125 MG CAP PO SCH ×4 (10:04→21:31)
[2018-06-18] MEDS: Clotrimazole TROCHE* 10 MG TROCHE PO SCH ×2 (10:04→21:31)
[2018-06-18] MEDS: Metoprolol Tartrate TAB* 25 MG PO SCH ×2 (10:05→21:31)
[2018-06-18] MEDS: Finasteride TAB* 5 MG PO SCH (10:05)
[2018-06-18] MEDS: Potassium Chlor TAB* 20 MEQ TAB.ER PO SCH (10:05)
[2018-06-18] MEDS: Omeprazole CAP* 20 MG PO SCH (10:05)
[2018-06-18] MEDS: Lactobacillus Acidophilus* 1 TAB PO SCH ×2 (10:05→21:31)
[2018-06-18] MEDS: Cholestyramine Resin* 4 GM POWDER PO SCH ×2 (10:08→21:30)
--- NOTE | 2018-06-18 10:40 | PN ---
Progress Note - Progress Note Date of Service: 06/18/18 SOAP: Subjective: [Febrile overnight with Tmax 102F. He reports no change in symptoms however. He has a dry cough which is chronic at this point, no new SOB. Still has freq bouts of diarrhea (3 stools prior to 10a this morning). No abd pain or cramping. No urinary symptoms. Diuressing well with continued improvement in LE edema.] Objective: [ Laboratory Results - last 24 hr 06/17/18 06/17/18 06/17/18 11:53 17:02 21:22 WBC RBC Hgb Hct MCV MCH MCHC RDW Plt Count MPV Neut % (Auto) Lymph % (Auto) [place] % (Auto) Eos % (Auto) Baso % (Auto) Absolute Neuts (auto) Absolute Lymphs (auto) Absolute Monos (auto) Absolute Eos (auto) Absolute Basos (auto) Absolute Nucleated RBC Nucleated RBC % Sodium Potassium Chloride Carbon Dioxide Anion Gap BUN Creatinine Est GFR ( Amer) Est GFR (Non-Af Amer) BUN/Creatinine Ratio Glucose POC Glucose (mg/dL) 211 H 141 H 153 H Calcium Magnesium Urine Color Urine Appearance Urine pH Ur Specific [place] Urine Protein Urine Ketones Urine Blood Urine Nitrate Urine Bilirubin Urine Urobilinogen Ur Leukocyte Esterase Urine WBC (Auto) Urine RBC (Auto) Urine Bacteria Urine Glucose 06/17/18 06/18/18 06/18/18 23:50 06:00 06:00 WBC 7.7 RBC 2.74 L Hgb 8.3 L Hct 25 L MCV 92 MCH 30 MCHC 33 RDW 20 H Plt Count 118 L MPV 7.8 Neut % (Auto) 73.4 Lymph % (Auto) 10.5 L [place] % (Auto) 15.4 H Eos % (Auto) 0 Baso % (Auto) 0.7 Absolute Neuts (auto) 5.7 Absolute Lymphs (auto) 0.8 L Absolute Monos (auto) 1.2 H Absolute Eos (auto) 0 Absolute Basos (auto) 0.1 Absolute Nucleated RBC 0 Nucleated RBC % 0.1 Sodium 135 Potassium 3.4 L Chloride 102 Carbon Dioxide 28 Anion Gap 5 BUN 23 Creatinine 1.17 Est GFR ( Amer) 74.8 Est GFR (Non-Af Amer) 61.8 BUN/Creatinine Ratio 19.7 Glucose 102 H POC Glucose (mg/dL) Calcium 8.0 L Magnesium 1.9 Urine Color Yellow Urine Appearance Cloudy Urine pH 6.0 Ur Specific [place] 1.006 L Urine Protein 1+(30 mg/dl) A Urine Ketones Negative Urine Blood 3+ A Urine Nitrate Negative Urine Bilirubin Negative Urine Urobilinogen Negative Ur Leukocyte Esterase 2+ A Urine WBC (Auto) 3+(>20/hpf) A Urine RBC (Auto) 3+(>10/hpf) A Urine Bacteria Absent Urine Glucose Negative 06/18/18 08:11 WBC RBC Hgb Hct MCV MCH MCHC RDW Plt Count MPV Neut % (Auto) Lymph % (Auto) [place] % (Auto) Eos % (Auto) Baso % (Auto) Absolute Neuts (auto) Absolute Lymphs (auto) Absolute Monos (auto) Absolute Eos (auto) Absolute Basos (auto) Absolute Nucleated RBC Nucleated RBC % Sodium Potassium Chloride Carbon Dioxide Anion Gap BUN Creatinine Est GFR ( Amer) Est GFR (Non-Af Amer) BUN/Creatinine Ratio Glucose POC Glucose (mg/dL) 109 H Calcium Magnesium Urine Color Urine Appearance Urine pH Ur Specific [place] Urine Protein Urine Ketones Urine Blood Urine Nitrate Urine Bilirubin Urine Urobilinogen Ur Leukocyte Esterase Urine WBC (Auto) Urine RBC (Auto) Urine Bacteria Urine Glucose Acetaminophen (Tylenol Tab*) 650 mg PO Q6H PRN PRN Reason: PAIN OR TEMPERATURE Last Admin: 06/17/18 23:37 Dose: 650 mg Cholestyramine Resin (Questran*) 4 gm PO BID [facility] Last Admin: 06/18/18 10:08 Dose: 4 gm Clotrimazole (Mycelex Mik*) 10 mg PO BID [facility] Last Admin: 06/18/18 10:04 Dose: 10 mg Dextrose (D50w Syringe 50 Ml*) 12.5 gm IV PUSH .FOR FS < 60 - SS PRN PRN Reason: FS < 60 Finasteride (Proscar Tab*) 5 mg PO DAILY [facility] Last Admin: 06/18/18 10:05 Dose: 5 mg Heparin Sodium (Porcine) (Heparin Vial(*)) 5,000 units SUBCUT Q8HR [facility] Last Admin: 06/18/18 05:52 Dose: 5,000 units Heparin Sodium (Porcine) (Heparin Flush Port (Ivad)) 0 ml FLUSH DAILY [facility] Last Admin: 09/27/18 10:08 Dose: Not Given Ceftriaxone Sodium 1 gm/ (Sodium Chloride) 50 mls @ 200 mls/hr IVPB Q24H [facility] Last Admin: 06/17/18 23:38 Dose: 200 mls/hr Furosemide 100 mg/ Sodium (Chloride) 100 mls @ 10 mls/hr IV Q10H [facility]; Protocol Last Admin: 06/18/18 00:55 Dose: 10 mls/hr Insulin Glargine (Lantus(*)) 15 units SUBCUT DAILY [facility] Last Admin: 06/18/18 10:03 Dose: 15 units Insulin Human Lispro (Humalog*) 0 units SUBCUT ACHS [facility]; Protocol Last Admin: 06/18/18 08:23 Dose: Not Given Lactobacillus Rhamnosus (Lactobacillus Acidophilus*) 1 tab PO BID [facility] Last Admin: 06/18/18 10:05 Dose: 1 tab Loperamide HCl (Imodium Cap*) 2 mg PO DAILY [facility] Metoprolol Tartrate (Lopressor Tab*) 25 mg PO BID [facility] Last Admin: 06/18/18 10:05 Dose: 25 mg Omeprazole (Prilosec Cap*) 20 mg PO DAILY [facility] Last Admin: 06/18/18 10:05 Dose: 20 mg Oxycodone/Acetaminophen (Percocet 5/325 Tab*) 1 tab PO Q4H PRN PRN Reason: Pain Potassium Chloride (Klor Con Er Tab*) 40 meq PO DAILY [facility] Last Admin: 06/18/18 10:05 Dose: 40 meq Vancomycin HCl (Vancomycin Cap*) 125 mg PO QID [facility] Last Admin: 06/18/18 10:04 Dose: 125 mg Vital Signs Temp Pulse Resp BP Pulse Ox 97.8 F 92 18 109/59 95 06/18/18 03:55 06/18/18 03:55 06/18/18 03:55 06/18/18 03:55 06/18/18 03:55 Exam: Gen: Chronically ill appearing but in NAD, sitting up in a chair at bedside HEENT: MMM, no thrush CV: RRR, no m/r/g Resp: CTA Abd: soft, non-TTP Ext: some proximal muscle wasting and LE edema ~2+ but improving] Assessment: [67 yo male with locally advanced pancreatic cancer with progressive weakness and falls in setting of marked fluid overload with anasarca. Now developed fevers overnight. Plan: []1. Anasarca: - marked improvement with lasix gtt, plan to continue for now - weight gain noted, but with persistent negative fluid balance - requested that weight is monitored by standing scale as opposed to bed scale - likely multifactorial, but a large component of hypoalbumenia related to malnutrition 2. Fever - source of infection is not clear as he has had no change in symptoms - line and peripheral blood cultures drawn and pending - UA is abnl, culture pending - collect stool for culture and lactoferrin - ceftriaxone was empirically started overnight and will be continued until cultures return 3. Hypomagnesemia: - repleted - cont to monitor with diuresis 4. Diarrhea: no evidence for active C.Diff, cont. vanco as per ID - cont. cholestramine - try to slow diarrhea with immodium - stool culture pend as mentioned above 5. Severe protein calorie malnutrition - evidenced by severe edema and muscle wasting 6. Pancreatic cancer: with stable disease on recent imaging following neoadjuvant tx., however unfortunately has had multiple complications as well as long standing co-morbidities making him a poor surgical candidate. No further chemotherapy planned for now and will consider XRT/5-FU once improved from current de-conditioning Dispo: Will need rehab, anticipate readiness for dc in 1-2 days]
[2018-06-18] MEDS: Loperamide CAP* 2 MG PO SCH (12:04)
[2018-06-19] MEDS: cefTRIAXone* 1 GM in NS 0.9% 50 ML BAG IVPB SCH (00:45)
[2018-06-19] MEDS: Furosemide IV* 100 MG in NS 0.9% 100 ML* 90 ML IV SCH ×2 (01:23→23:11)
[2018-06-19] MEDS: Heparin VIAL(*) 5000 UNITS/ML VIAL (FIVE THOUSAND) SUBCUT SCH ×3 (06:04→22:11)
[2018-06-19] MEDS: Insulin LISPRO* 1 UNITS UNIT SUBCUT SCH ×4 (07:42→22:11)
[2018-06-19] MEDS: Omeprazole CAP* 20 MG PO SCH (09:16)
[2018-06-19] MEDS: Metoprolol Tartrate TAB* 25 MG PO SCH ×2 (09:16→22:10)
[2018-06-19] MEDS: Vancomycin CAP* 125 MG CAP PO SCH ×4 (09:16→22:11)
[2018-06-19] MEDS: Loperamide CAP* 2 MG PO SCH (09:16)
[2018-06-19] MEDS: Finasteride TAB* 5 MG PO SCH (09:16)
[2018-06-19] MEDS: Potassium Chlor TAB* 20 MEQ TAB.ER PO SCH (09:18)
[2018-06-19] MEDS: Lactobacillus Acidophilus* 1 TAB PO SCH ×2 (09:18→22:10)
[2018-06-19] MEDS: Clotrimazole TROCHE* 10 MG TROCHE PO SCH ×2 (09:18→22:11)
[2018-06-19] MEDS ORDERED: Morphine VIAL* 10 MG/ML 1 ML VIAL ONE (09:19)
[2018-06-19] MEDS: Insulin GLARGINE(*) 1 UNITS UNIT SUBCUT SCH (09:20)
[2018-06-19] MEDS: Cholestyramine Resin* 4 GM POWDER PO SCH ×2 (09:21→22:07)
[2018-06-19] MEDS ORDERED: Lidocaine 1% INJ* 10 MG/ML 30 ML SDV ONE (09:27)
[2018-06-19] MEDS ORDERED: Bupivacaine 0.5% SDV PF* 30ML VIAL ONE (09:27)
[2018-06-19] MEDS ORDERED: Lidocaine 1% MPF wEPI 200,000* 30 ML SDV ONE (09:27)
[2018-06-19] MEDS ORDERED: Bupivacaine 0.25% EPI 200,000* 30 ML SDV ONE (09:28)
--- NOTE | 2018-06-19 10:08 | PN ---
Progress Note - Progress Note Date of Service: 06/19/18 Note: Surgery Asked by Adalberto Farrar to remove port on Mr. Collins due to blood culture results. I explained to Mr. Collins the nature of port removal, its risks, benefits, and alternatives. He understands and agrees to proceed. ERICAFostcarmenza
--- NOTE | 2018-06-19 10:45 | BRIEFOPN ---
Brief Operative Note - Surgery Procedures: Procedures AMBULAT & GAIT TRAINING (01/17/09) ASSISTANCE WITH RESPIRATORY VENTILATION, <24 HRS, CPAP (01/23/18) DILATION OF COMMON BILE DUCT WITH INTRALUMINAL DEVICE, ENDO (02/02/18) DILATION OF LEFT URETER WITH INTRALUMINAL DEVICE, ENDO (01/23/18) DX ULTRASOUND-HEART (04/20/13) EXCISION OF COMMON BILE DUCT, ENDO, DIAGN (12/09/17) FUNCTIONAL PT EVALUATION (01/17/09) HEMODIALYSIS (04/20/13) INJECT ANTICOAGULANT (07/27/12) INSERT INDWELLING CATH (04/20/13) NON-INVASIVE MECHANICAL VENTILATION (01/17/09) OCCUPATIONAL THERAPY (10/25/08) OTH ARTHROTOMY-KNEE (07/27/12) PACKED CELL TRANSFUSION (07/27/12) PERIOP AUTOLOGOUS BLOOD/COMP TRANS (01/17/09) REMOVAL OF (CEMENT) SPACER (07/27/12) REMOVAL OF INTRALUMINAL DEVICE FROM HEPATOBILIARY DUCT, ENDO (02/02/18) MARNIE OF KNEE REPLACEMENT, TOTAL (ALL COMPONENTS) (07/27/12) SERUM TRANSFUSION NEC (04/20/13) TOTAL KNEE REPLACEMENT (01/17/09) TRANSFUSE NONAUT RED BLOOD CELLS IN PERIPH VEIN, PERC (06/06/18) TU REMOV URETER OBSTRUCT (03/24/02) UMBIL HERNIA REPAIR NEC (10/27/01) URETERAL CATHETERIZATION (04/08/02) VENOUS CATHETERIZATION NEC (04/20/13) [ESWL] OF THE KIDNEY, URETER AND/OR BLADDER (05/07/02) 06/19/18 Op Note Pre-op dx: pancreatic cancer/bacteremia Post-op dx: same PRocedure: removal of power port Surgeon: Yovany Asst: none Anesth: local EBL: <5 cc Complications: none Pt. tolerated procedure well and was transferred to in a stable condition. CLFoster
[2018-06-19] MEDS: Ampicillin IV* 2 GM in NS 0.9% 50 ML* 50 ML IV SCH ×3 (11:34→22:35)
[2018-06-19] MEDS ORDERED: Perflutren Lipid Microsphere* 3 ML VIAL ONE (13:43)
[2018-06-19] MEDS ORDERED: Iodixanol* (CONTRAST) 320 MG/ML 100 ML SDV IV ONE (14:06)
--- NOTE | 2018-06-19 15:12 | RAD ---
INDICATION: Enterococcus bacteremia. Assess for source. Pancreatic carcinoma. Type II diabetes. Aortic valve replacement. Previous renal failure. COMPARISON: Chest radiograph of June 18, 2018. Abdomen pelvis CT June 16, 2018. TECHNIQUE: Multidetector CT images were obtained from the lung bases to the ischial tuberosities with 150 mL Visipaque 320 IV and oral contrast. Multiplanar reformation. REPORT: VISUALIZED INFERIOR THORAX: Cardiomegaly with interval increase. Unchanged RIGHT larger than LEFT small dependent pleural effusions with proportional basilar atelectasis. LIVER / GALLBLADDER / PANCREAS / SPLEEN: Borderline decreased density of the liver relative to the spleen favoring mild fatty infiltration. No focal hepatic lesions or biliary dilatation. Common bile duct stent in place without change. Distended gallbladder without suspicious CT finding. Advanced atrophy of the pancreas. No discrete pancreatic mass visualized. Unremarkable spleen. ALIMENTARY TRACT: No CT abnormality of the upper GI or small bowel. The appendix is not visualized. Negative for RIGHT lower quadrant inflammatory change. Redundant colon. Moderate non formed stool throughout the colon. Minimal perihepatic ascites. Negative for free air or hernias. MESENTERIC: Unremarkable. ADRENAL / GENITOURINARY: Normal adrenal glands. 0.7 cm maximum dimension stone at the level of the RIGHT ureteral pelvic junction has migrated distally from the posterior midpole calyx compared with the prior exam. Despite this finding there is no RIGHT hydronephrosis. Additional smaller calyceal stones of the RIGHT kidney. Unchanged moderate LEFT hydroureteronephrosis without visualized obstructing stone or lesion. Diffuse enhancement of the uroepithelium of the LEFT ureter is concerning for potential LEFT pyelonephritis. Unchanged 3 mm nonobstructing stone upper pole calyx LEFT kidney. Distended urinary bladder without suspicious finding. Symmetric seminal vesicles. RETROPERITONEAL: Negative for lymphadenopathy. VASCULAR: Negative for aortoiliac aneurysm. Physiologic distention of the IVC. BONES: Negative for suspicious focal osseous lesions. SOFT TISSUE: Unremarkable. IMPRESSION: #. Cardiomegaly worsening compared with the prior exam. Unchanged small pleural effusions. #. Biliary stent in place. Negative for biliary dilatation. #. Moderate non formed stool throughout the colon. Consider mild gastroenteritis. #. 0.7 cm maximum dimension stone at the level of the RIGHT ureteral pelvic junction has migrated distally from the posterior midpole calyx compared with the prior exam. Despite this finding there is no RIGHT hydronephrosis. #. Moderate LEFT hydroureteronephrosis without visualized obstructing stone or lesion. Given enhancement of the uroepithelium of the LEFT ureter potential LEFT pyelonephritis.
--- NOTE | 2018-06-19 15:45 | ECHO ---
Patient: NICK CONNELLY Rec#: [id number] : 1950 Date: 06/19/2018 Age: 67y Height: 168 cm / 66.1 in Weight: 134.13 kg / 295.6 lbs Sex: M BSA: 2.37 Room#: 411 Admit Date#: 06/12/2018 Type: Inpatient Referring: Adalberto Farrar Reading: Houston Sandoval DO [employer] Operator: Martha Silva RDCS CC: HENRIQUE HIDALGO Transthoracic Echocardiogram Indication: Bacteremia BP: 139/71 HR: 82 Rhythm: A-Fib Findings History: Pancreatic cancer with chemotherapy, s/p powerport removal, obesity, thoracic aortic aneurysm, s/p bioprosthetic AVR, a-fib, HTN, JADE with CPAP, DM II. Technical Comments: The study is technically limited due to patient body habitus. Completed at 1510. Left Ventricle: The left ventricular chamber size is normal. Mild concentric left ventricular hypertrophy is observed. Left ventricular systolic function is at the lower limits of normal. The estimated ejection fraction is 50-55%. Post surgical hypokinesis of the interventricular septum is observed consistent with valve replacement. The assessment of diastolic function is non-diagnostic. Left Atrium: The left atrium is mild to moderately dilated. Right Ventricle: The right ventricle is mild to moderately dilated. The right ventricular global systolic function is low normal. Right Atrium: The right atrium is moderately dilated. Aortic Valve: There is no evidence of aortic regurgitation. There is no evidence of aortic stenosis. A bio-prosthetic aortic valve is present. The bio-prosthetic aortic valve appears to be functioning normally. Mitral Valve: There is mitral annular calcification. The mitral valve leaflets are mildly thickened. There is mild to moderate mitral regurgitation. There is no evidence of mitral stenosis. Tricuspid Valve: The tricuspid valve leaflets are normal. There is mild tricuspid regurgitation. No pulmonary hypertension is noted. There is no tricuspid stenosis. Pulmonic Valve: The pulmonic valve structure is not well visualized. There is trace to mild pulmonic regurgitation. There is no pulmonic stenosis. Pericardium: There is no significant pericardial effusion. Aorta: There is no dilatation of the ascending aorta. There is no dilatation of the aortic arch. The aortic root is normal in size. Pulmonary Artery: The main pulmonary artery is not well visualized. Venous: The inferior vena cava is not visualized. Contrast: Definity was used to optimize study. 3.5 mL of diluted Definity were utilized. Intravenous contrast was used to enhance endocardial border definition. Conclusions The left ventricular chamber size is normal. Mild concentric left ventricular hypertrophy is observed. Left ventricular systolic function is at the lower limits of normal. The estimated ejection fraction is 50-55%. The left atrium is mild to moderately dilated. The right ventricle is mild to moderately dilated. The right ventricular global systolic function is low normal. The bio-prosthetic aortic valve appears to be functioning normally. Ascending aorta repair appears normal sized of visualized portions There is mild to moderate mitral regurgitation. There is mild tricuspid regurgitation. Definity was used to optimize study. Patient appears to be in atrial fibrillation at time of study. Compared to prior study from 01/2018, RV size was previously reported as normal. Measurements Name Value Normal Range RVIDd (AP) 2D 3.8 cm (0.9 - 2.6) RVDdMajor (2D) 5.4 cm (2.2 - 4.4) RAd ISD 4CH 6.2 cm (3.4 - 4.9) RA (A4C)W 5.7 cm (2.9 - 4.6) IVSd (2D) 1.1 cm (0.6 - 1) LVPWd (2D) 1.2 cm (0.6 - 1) LVIDd (2D) 4.2 cm (3.6 - 5.4) LVIDs (2D) 3.3 cm - LV FS (2D) 20 % (25 - 45) Aortic Annulus 2 cm (1.4 - 2.6) Ao root diameter (2D) 2.8 cm (2.1 - 3.5) Ascending Ao 3.2 cm (2.1 - 3.4) Aortic arch 2.3 cm (1.8 - 3.4) LA dimension (AP) 2D 4.2 cm (2.3 - 3.8) LAd ISD 4CH 5.3 cm (2.9 - 5.3) LA ISD 4CH W 5 cm (2.5 - 4.5) Name Value Normal Range LA ESV BP (A/L) index 35 ml/m2 - Name Value Normal Range MV E-wave Vmax 1.26 m/sec - MV deceleration time 220 msec - Name Value Normal Range AV Vmax 0.9 m/sec - AV VTI 17.6 cm - AV peak gradient 3 mmHg - AV mean gradient 2 mmHg - LVOT Vmax 0.85 m/sec - LVOT VTI 15.4 cm - LVOT peak gradient 3 mmHg - LVOT mean gradient 2 mmHg - ANI Vmax 0.95 m/sec - Name Value Normal Range MR Vmax 4.9 m/sec - MR VTI 129 cm - MR flow (PISA) 37.5 ml/sec - MR ERO 0.08 cm2 - MR PISA radius 0.4 cm - MR alias Vmax 37.1 cm/sec - Name Value Normal Range TR Vmax 2.4 m/sec - TR peak gradient 23 mmHg - RAP 8 mmHg - RVSP 31 mmHg - Name Value Normal Range PV Vmax 0.9 m/sec - PV peak gradient 3 mmHg -
[2018-06-19] MEDS: Loperamide CAP* 2 MG PO PRN ×2 (17:05→22:10)
--- NOTE | 2018-06-19 17:36 | PN ---
Progress Note - Progress Note Date of Service: 06/19/18 SOAP: Subjective: [Recurrent fevers overnight, but no change in symptoms. Blood cultures growing Enterococcus in 4 of 4 bottles.] Objective: [ Laboratory Results - last 24 hr 06/18/18 06/19/18 06/19/18 20:56 07:24 11:19 POC Glucose (mg/dL) 184 H 125 H 118 H 06/19/18 16:49 POC Glucose (mg/dL) 98 Acetaminophen (Tylenol Tab*) 650 mg PO Q6H PRN PRN Reason: PAIN OR TEMPERATURE Last Admin: 06/17/18 23:37 Dose: 650 mg Cholestyramine Resin (Questran*) 4 gm PO BID [facility] Last Admin: 06/19/18 09:21 Dose: 4 gm Clotrimazole (Mycelex Mik*) 10 mg PO BID [facility] Last Admin: 06/19/18 09:18 Dose: 10 mg Dextrose (D50w Syringe 50 Ml*) 12.5 gm IV PUSH .FOR FS < 60 - SS PRN PRN Reason: FS < 60 Finasteride (Proscar Tab*) 5 mg PO DAILY [facility] Last Admin: 06/19/18 09:16 Dose: 5 mg Heparin Sodium (Porcine) (Heparin Vial(*)) 5,000 units SUBCUT Q8HR [facility] Last Admin: 06/19/18 14:06 Dose: 5,000 units Heparin Sodium (Porcine) (Heparin Flush Port (Ivad)) 0 ml FLUSH DAILY [facility] Last Admin: 06/19/18 09:30 Dose: Not Given Ampicillin Sodium 2 gm/ Sodium (Chloride) 50 mls @ 100 mls/hr IV Q6H [facility] Last Admin: 06/19/18 17:04 Dose: 100 mls/hr Insulin Glargine (Lantus(*)) 15 units SUBCUT DAILY [facility] Last Admin: 06/19/18 09:20 Dose: 15 units Insulin Human Lispro (Humalog*) 0 units SUBCUT ACHS [facility]; Protocol Last Admin: 06/19/18 16:56 Dose: Not Given Lactobacillus Rhamnosus (Lactobacillus Acidophilus*) 1 tab PO BID [facility] Last Admin: 06/19/18 09:18 Dose: 1 tab Loperamide HCl (Imodium Cap*) 2 mg PO DAILY [facility] Last Admin: 09/28/18 09:16 Dose: 2 mg Loperamide HCl (Imodium Cap*) 2 mg PO Q2H PRN PRN Reason: DIARRHEA Last Admin: 06/19/18 17:05 Dose: 2 mg Metoprolol Tartrate (Lopressor Tab*) 25 mg PO BID [facility] Last Admin: 06/19/18 09:16 Dose: 25 mg Omeprazole (Prilosec Cap*) 20 mg PO DAILY [facility] Last Admin: 06/19/18 09:16 Dose: 20 mg Oxycodone/Acetaminophen (Percocet 5/325 Tab*) 1 tab PO Q4H PRN PRN Reason: Pain Potassium Chloride (Klor Con Er Tab*) 40 meq PO DAILY [facility] Last Admin: 06/19/18 09:18 Dose: 40 meq Vancomycin HCl (Vancomycin Cap*) 125 mg PO QID [facility] Last Admin: 06/19/18 17:04 Dose: 125 mg Vital Signs Temp Pulse Resp BP Pulse Ox 98.6 F 93 18 123/48 94 06/19/18 16:19 06/19/18 16:19 06/19/18 17:05 06/19/18 16:19 06/19/18 16:19 Exam: Gen: Chronically ill appearing but in NAD, sitting up in a chair at bedside HEENT: MMM, no thrush CV: RRR, no m/r/g Resp: CTA Abd: soft, non-TTP Ext: some proximal muscle wasting and LE edema ~2+ but improving] Assessment: [67 yo male with locally advanced pancreatic cancer with progressive weakness and falls in setting of marked fluid overload with anasarca. Now developed Enterococcus bacteremia Plan: []1. Anasarca: - improved with Lasix drip - stop drip and resume usual oral Lasix dose - likely multifactorial, but a large component of hypoalbumenia related to malnutrition 2. Septicemia due to Enterococcus - stop ceftriaxone and start ampicilli 2g q 6h per ID recommendations - source is not clear - urine cx neg - CT A/P performed to eval for abscess/pyelonephritis behind an obstructing stone - CT shows a R sided stone at the UPJ, but no associated hydro, there is some enhancement of the L ureter with hydronephrosis but without an obstructing stone - asked Dr Stephenson to please evaluate him - he also has a biliary stent in place, but no signs of obstruction - he has been having profuse diarrhea and may have experienced bacterial translocation from the gut - port removed by Dr Pedroza this am and catheter tip sent for culture - TTE for precaution - requested reevaluation by ID 3. Hypomagnesemia: - repleted - cont to monitor 4. Diarrhea: no evidence for active C.Diff, cont. vanco as per ID - cont. cholestramine - try to slow diarrhea with immodium - stool culture pend 5. Severe protein calorie malnutrition - evidenced by severe edema and muscle wasting 6. Pancreatic cancer: with stable disease on recent imaging following neoadjuvant tx., however unfortunately has had multiple complications as well as long standing co-morbidities making him a poor surgical candidate. No further chemotherapy planned for now and will consider XRT/5-FU once improved from current de-conditioning Dispo: Will need rehab, discharge plans are now delayed however with new bacteremia
--- NOTE | 2018-06-19 22:02 | OP ---
AMENDED REPORT TO CORRECT ACCOUNT NUMBER - ESIGNED BEFORE ADJUSTMENTS CC: [facility]; [facility] * DATE OF OPERATION: 06/19/18 - ROOM #[id number] DATE OF : 46 SURGEON: Francine Pedroza MD DIESEL SERVICE APPRENTICE: There was no special events assistant for this case. PRE-OP DIAGNOSIS: Bacteremia. POST-OP DIAGNOSIS: Bacteremia. OPERATIVE PROCEDURE: Removal of PowerPort. INDICATIONS: Mr. Collins is a 67-year-old gentleman with a known pancreatic cancer, who has been receiving chemotherapy through a port, who recently was identified as having Enterococcus faecalis bacteremia. This prompted the plan for surgical intervention for removal of the port. DESCRIPTION OF PROCEDURE: He was brought to the operating room, left on his stretcher in the supine position, and the right chest wall at the site of the port was prepped and draped in the usual sterile fashion. After infiltrating with local anesthetic, an incision was made along the previous scar, and subcutaneous tissue was divided with electrocautery to expose the hub of the port. It was grasped and the port elevated such that the anchoring stitches could be cut. Once this was done, the port was withdrawn from the pocket and the catheter from the tract. It was handed off and segment of the tip of the catheter was sent for culture. The port pocket was cauterized and then the wound was irrigated with saline and additional local was instilled into the wound and then closure was accomplished with 3-0 Vicryl to reapproximate the subcutaneous tissue and the skin was closed with 4-0 Prolene in a subcuticular fashion. Steri-Strips and a dry sterile dressing were applied. All sponge and instrument counts were correct. He tolerated the procedure well and was transferred to Recovery in stable condition. [id number] #: [id number] [facility]
[2018-06-19] MEDS: Acetaminophen TAB* 325 MG PO PRN (22:11)
[2018-06-20] MEDS: Ampicillin IV* 2 GM in NS 0.9% 50 ML* 50 ML IV SCH ×4 (04:36→23:45)
[2018-06-20] MEDS: Heparin VIAL(*) 5000 UNITS/ML VIAL (FIVE THOUSAND) SUBCUT SCH ×3 (06:05→21:45)
--- NOTE | 2018-06-20 07:31 | RAD ---
HISTORY: eval for stone COMPARISONS: June 19, 2018 VIEWS: Frontal views of the abdomen. FINDINGS: BOWEL: There is a nonspecific bowel gas pattern, with nondilated small bowel gas noted. Oral contrast is noted within the colon. CALCULI: Evaluation for renal calculi is Limited by the presence of contrast within the renal collecting system and bladder. Again noted is left-sided hydronephrosis. BONES AND SOFT TISSUES: Degenerative changes are noted. OTHER FINDINGS: The lung bases are clear. There is no subphrenic gas. IMPRESSION: EVALUATION FOR RENAL CALCULI IS LIMITED BY THE PRESENCE OF CONTRAST WITHIN THE RENAL COLLECTING SYSTEM. THERE IS LEFT-SIDED HYDRONEPHROSIS IS NOTED ON THE PREVIOUS CT EXAMINATION. R1
--- NOTE | 2018-06-20 07:36 | PN ---
Progress Note - Progress Note Date of Service: 06/20/18 Note: Surgery Mr. Collins denies any problems at the port removal site. Vital Signs 06/19/18 06/19/18 06/19/18 08:00 09:16 11:29 Temperature Pulse Rate Respiratory 20 20 18 Rate Blood Pressure (mmHg) O2 Sat by Pulse Oximetry 06/19/18 06/19/18 06/19/18 11:46 16:19 17:05 Temperature 99.4 F 98.6 F Pulse Rate 83 93 Respiratory 24 22 18 Rate Blood Pressure 117/58 123/48 (mmHg) O2 Sat by Pulse 97 94 Oximetry 06/19/18 06/19/18 06/19/18 19:34 20:00 22:04 Temperature 99.9 F Pulse Rate 97 Respiratory 20 18 18 Rate Blood Pressure 103/47 (mmHg) O2 Sat by Pulse 97 Oximetry 06/19/18 06/19/18 06/20/18 22:10 23:30 00:20 Temperature 99.4 F Pulse Rate 84 Respiratory 18 22 18 Rate Blood Pressure 94/48 (mmHg) O2 Sat by Pulse 97 Oximetry 06/20/18 04:02 Temperature 97.6 F Pulse Rate 79 Respiratory 18 Rate Blood Pressure 99/59 (mmHg) O2 Sat by Pulse 100 Oximetry dressing is intact, no drainage Intake & Output 06/19/18 06/20/18 06/20/18 22:59 06:59 14:59 Intake Total 600 150 Output Total 600 450 Balance 0 -300 Weight 296 lb 11.2 oz Intake: IV Fluids 30 Ampicillin 10 NS (0.9%) 20 IVPB 120 Ampicillin 120 Oral 600 0 Output: Urine 600 450 Other: # Bowel Movements 1 1 Estimated Stool Amount Small Laboratory Results - last 24 hr 06/19/18 06/19/18 06/19/18 07:24 11:19 16:49 POC Glucose (mg/dL) 125 H 118 H 98 06/19/18 21:51 POC Glucose (mg/dL) 206 H POD#1 s/p Port removal; gauze dressing can be removed later today or tomorrow. Then it is okay to shower from surgical standpoint.
[2018-06-20 08:27] LABS: Hematocrit 24 % (42-52); Mean Corpuscular HGB Conc 33 g/dl (31-36); Mean Corpuscular Hemoglobin 31 pg (27-31); Mean Corpuscular Volume 92 fL (80-94); Mean Platelet Volume 8.8 um3 (7.4-10.4); Platelet Count 82 10^3/ul (150-450); Red Blood Count 2.62 10^6/ul (4.00-5.40); Red Cell Distribution Width 20 % (10.5-15); White Blood Count 5.6 10^3/ul (3.5-10.8)
[2018-06-20 08:29] LABS: ABS Basophils 0.1 10^3/ul (0-0.2); ABS Eosinophils 0 10^3/ul (0-0.6); ABS Lymphocytes 0.9 10^3/ul (1.0-4.8); ABS Monocytes 1.4 10^3/ul (0-0.8); ABS Neutrophils 3.3 10^3/ul (1.5-7.7)
[2018-06-20 08:30] LABS: EGFR Non-African American 52.9 (>60)
[2018-06-20] MEDS: Insulin LISPRO* 1 UNITS UNIT SUBCUT SCH ×4 (08:39→21:45)
[2018-06-20] MEDS: Insulin GLARGINE(*) 1 UNITS UNIT SUBCUT SCH (08:50)
[2018-06-20] MEDS: Metoprolol Tartrate TAB* 25 MG PO SCH (08:51)
[2018-06-20] MEDS: Cholestyramine Resin* 4 GM POWDER PO SCH ×2 (08:51→21:45)
[2018-06-20] MEDS: Clotrimazole TROCHE* 10 MG TROCHE PO SCH ×2 (08:51→21:43)
[2018-06-20] MEDS: Omeprazole CAP* 20 MG PO SCH (08:51)
[2018-06-20] MEDS: Loperamide CAP* 2 MG PO SCH (08:51)
[2018-06-20] MEDS: Potassium Chlor TAB* 20 MEQ TAB.ER PO SCH (08:51)
[2018-06-20] MEDS: Finasteride TAB* 5 MG PO SCH (08:51)
[2018-06-20] MEDS: Lactobacillus Acidophilus* 1 TAB PO SCH ×2 (08:51→21:44)
[2018-06-20] MEDS: Vancomycin CAP* 125 MG CAP PO SCH ×4 (09:02→21:44)
[2018-06-20 09:59] LABS: ABS Basophils 0 10^3/ul (0-0.2); Monocytes % 9 % (0-7)
[2018-06-20] MEDS ORDERED: Metoprolol Tartrate TAB* 25 MG PO ONE (20:15)
[2018-06-20] MEDS: Loperamide CAP* 2 MG PO PRN (21:45)
[2018-06-21] MEDS: Ampicillin IV* 2 GM in NS 0.9% 50 ML* 50 ML IV SCH ×4 (04:27→23:07)
[2018-06-21] MEDS: Heparin VIAL(*) 5000 UNITS/ML VIAL (FIVE THOUSAND) SUBCUT SCH ×3 (05:49→21:29)
[2018-06-21 06:49] LABS: ABS Basophils 0 10^3/ul (0-0.2); ABS Eosinophils 0 10^3/ul (0-0.6); ABS Lymphocytes 1.1 10^3/ul (1.0-4.8); ABS Monocytes 1.1 10^3/ul (0-0.8); ABS Neutrophils 2.6 10^3/ul (1.5-7.7); ABS Nucleated RBC 0 10^3/ul; Eosinophil % 0.4 % (0-6); Hematocrit 24 % (42-52); Hemoglobin 7.9 g/dl (14.0-18.0); Lymphocyte % 22.4 % (25-47); Mean Corpuscular HGB Conc 33 g/dl (31-36); Mean Corpuscular Hemoglobin 30 pg (27-31); Mean Corpuscular Volume 91 fL (80-94); Mean Platelet Volume 8.8 um3 (7.4-10.4); Nucleated Red Blood Cells % 0.1; Platelet Count 79 10^3/ul (150-450); Red Blood Count 2.61 10^6/ul (4.00-5.40); Red Cell Distribution Width 20 % (10.5-15); White Blood Count 4.8 10^3/ul (3.5-10.8)
[2018-06-21 07:08] LABS: EGFR Non-African American 55.2 (>60)
[2018-06-21] MEDS: Insulin GLARGINE(*) 1 UNITS UNIT SUBCUT SCH (07:43)
[2018-06-21] MEDS: Cholestyramine Resin* 4 GM POWDER PO SCH ×2 (07:43→21:28)
[2018-06-21] MEDS: Insulin LISPRO* 1 UNITS UNIT SUBCUT SCH ×4 (07:43→21:32)
[2018-06-21] MEDS: Clotrimazole TROCHE* 10 MG TROCHE PO SCH ×2 (07:43→21:33)
[2018-06-21] MEDS: Vancomycin CAP* 125 MG CAP PO SCH ×4 (07:44→21:20)
[2018-06-21] MEDS: Omeprazole CAP* 20 MG PO SCH (07:44)
[2018-06-21] MEDS: Lactobacillus Acidophilus* 1 TAB PO SCH ×2 (07:44→21:20)
[2018-06-21] MEDS: Potassium Chlor TAB* 20 MEQ TAB.ER PO SCH (07:44)
[2018-06-21] MEDS: Loperamide CAP* 2 MG PO PRN ×2 (07:44→13:12)
[2018-06-21] MEDS: Finasteride TAB* 5 MG PO SCH (07:56)
[2018-06-21] MEDS ORDERED: Metoprolol Tartrate TAB* 25 MG PO SCH (09:00)
[2018-06-21] MEDS ORDERED: Metoprolol Tartrate TAB* 25 MG PO ONE (09:20)
[2018-06-21] MEDS: Furosemide TAB* 40 MG PO SCH (11:47)
[2018-06-21] MEDS: Metoprolol Tartrate TAB* 25 MG PO SCH (21:19)
[2018-06-22] MEDS: Ampicillin IV* 2 GM in NS 0.9% 50 ML* 50 ML IV SCH ×4 (04:59→22:53)
[2018-06-22] MEDS: Heparin VIAL(*) 5000 UNITS/ML VIAL (FIVE THOUSAND) SUBCUT SCH ×3 (05:55→21:51)
[2018-06-22 07:15] LABS: ABS Basophils 0 10^3/ul (0-0.2); ABS Eosinophils 0 10^3/ul (0-0.6); ABS Monocytes 0.7 10^3/ul (0-0.8); ABS Neutrophils 2.6 10^3/ul (1.5-7.7); ABS Nucleated RBC 0 10^3/ul; Eosinophil % 0.6 % (0-6); Hematocrit 23 % (42-52); Hemoglobin 7.6 g/dl (14.0-18.0); Lymphocyte % 22.8 % (25-47); Mean Corpuscular HGB Conc 33 g/dl (31-36); Mean Corpuscular Hemoglobin 30 pg (27-31); Mean Corpuscular Volume 90 fL (80-94); Mean Platelet Volume 8.5 um3 (7.4-10.4); Nucleated Red Blood Cells % 0.2; Platelet Count 79 10^3/ul (150-450); Red Blood Count 2.56 10^6/ul (4.00-5.40); Red Cell Distribution Width 20 % (10.5-15); White Blood Count 4.5 10^3/ul (3.5-10.8)
[2018-06-22 07:30] LABS: EGFR Non-African American 58.9 (>60)
[2018-06-22] MEDS: Insulin GLARGINE(*) 1 UNITS UNIT SUBCUT SCH (08:54)
[2018-06-22] MEDS: Insulin LISPRO* 1 UNITS UNIT SUBCUT SCH ×4 (08:56→21:51)
[2018-06-22] MEDS: Cholestyramine Resin* 4 GM POWDER PO SCH ×2 (08:57→21:52)
[2018-06-22] MEDS: Finasteride TAB* 5 MG PO SCH (08:58)
[2018-06-22] MEDS: Omeprazole CAP* 20 MG PO SCH (08:58)
[2018-06-22] MEDS: Clotrimazole TROCHE* 10 MG TROCHE PO SCH ×2 (08:59→21:50)
[2018-06-22] MEDS: Metoprolol Tartrate TAB* 25 MG PO SCH ×2 (08:59→21:49)
[2018-06-22] MEDS: Lactobacillus Acidophilus* 1 TAB PO SCH ×2 (09:00→21:51)
[2018-06-22] MEDS: Vancomycin CAP* 125 MG CAP PO SCH (09:01)
[2018-06-22] MEDS: Furosemide TAB* 40 MG PO SCH (09:01)
[2018-06-22] MEDS: Potassium Chlor TAB* 20 MEQ TAB.ER PO SCH (09:02)
[2018-06-22] MEDS: Loperamide CAP* 2 MG PO PRN (09:20)
--- NOTE | 2018-06-22 10:15 | PN ---
Progress Note - Progress Note Date of Service: 06/22/18 SOAP: Subjective: CC: bacteremia HPI: 67 year old man with biliary stent admitted with diarrhea recently had a fever, BC grew E fecalis. On ampicillin, fever resolved. Ongoing multiple stools per day but more pasty instead of liquid. Appetite ok. No fever or rash. Knees aren't bothering him. No dysuria or urinary frequency. Objective: Vital Signs Temp 36.1 C 06/22/18 03:40 Pulse 75 06/22/18 03:40 Resp 18 06/22/18 09:20 BP 99/51 06/22/18 03:40 Pulse Ox 99 06/22/18 03:40 Intake & Output 06/21/18 06/22/18 06/22/18 18:59 06:59 18:59 Intake Total 2541 504 680 Output Total 850 1085 330 Balance 1691 -581 350 Weight 300 lb 9.6 oz Intake: IV Fluids 30 NS (0.9%) 30 IVPB 111 124 Ampicillin 111 124 Oral 2430 350 680 Output: Urine 850 1085 330 Other: Estimated Void Medium # Bowel Movements 1 1 1 Estimated Stool Amount Large Small Small # Voids 2 1 Gen:awake, no distress HEENT: no thrush Heart:RRR no murmur Lungs:CTA BL Abd:+BS NTND soft Skin: no rash MSK: no knee tenderness or effusion Laboratory Results - last 24 hr 06/21/18 06/21/18 06/21/18 11:08 17:16 21:17 WBC RBC Hgb Hct MCV MCH MCHC RDW Plt Count MPV Neut % (Auto) Lymph % (Auto) [place] % (Auto) Eos % (Auto) Baso % (Auto) Absolute Neuts (auto) Absolute Lymphs (auto) Absolute Monos (auto) Absolute Eos (auto) Absolute Basos (auto) Absolute Nucleated RBC Nucleated RBC % Sodium Potassium Chloride Carbon Dioxide Anion Gap BUN Creatinine Est GFR ( Amer) Est GFR (Non-Af Amer) BUN/Creatinine Ratio Glucose POC Glucose (mg/dL) 167 H 172 H 147 H Calcium 06/22/18 06/22/18 06/22/18 06:49 06:49 08:09 WBC 4.5 RBC 2.56 L Hgb 7.6 L Hct 23 L MCV 90 MCH 30 MCHC 33 RDW 20 H Plt Count 79 L MPV 8.5 Neut % (Auto) 59.3 Lymph % (Auto) 22.8 L [place] % (Auto) 16.3 H Eos % (Auto) 0.6 Baso % (Auto) 1.0 Absolute Neuts (auto) 2.6 Absolute Lymphs (auto) 1.0 Absolute Monos (auto) 0.7 Absolute Eos (auto) 0 Absolute Basos (auto) 0 Absolute Nucleated RBC 0 Nucleated RBC % 0.2 Sodium 134 L Potassium 4.3 Chloride 104 Carbon Dioxide 23 Anion Gap 7 BUN 29 H Creatinine 1.22 H Est GFR ( Amer) 71.3 Est GFR (Non-Af Amer) 58.9 BUN/Creatinine Ratio 23.8 H Glucose 131 H POC Glucose (mg/dL) 135 H Calcium 8.0 L Assessment: 1. E. fecalis bacteremia; has pyuria and nephrolithiasis with a R UPJ stone, UC negative; has AVR and ascending aorta repair but brief duration of symptoms , negative TTE, and no peripheral stigmata IE so unlikely; biliary stent, LFT normal so less likely abscess 2. Pancreatic cancer 3. obesity 4. diarrhea, slight improvement Plan: 1. continue amp 2 gm IV Q6hrs day 01/03 2. kidney stone eval ongoing 3. DC Vancomycin
--- NOTE | 2018-06-22 10:31 | RAD ---
INDICATION: Hydronephrosis. COMPARISON: Comparison is made with a prior CT of the abdomen and pelvis from June 19, 2018. TECHNIQUE: A CT scan of the abdomen and pelvis was performed without intravenous and without oral contrast. Contiguous axial sections were obtained from the lung bases through the symphysis pubis. Images were reconstructed in the coronal and sagittal planes. FINDINGS: LUNG BASES: There are small bilateral pleural effusions right greater than left and mild dependent bilateral lower lobe infiltrates which appear unchanged significantly. LIVER: The liver is normal in size. No significant focal abnormality is seen on this noncontrast study. GALLBLADDER: No calcified gallstones are seen. BILE DUCTS: There is a biliary stent in place. There is no gross evidence for ductal distention. SPLEEN: The spleen is mildly enlarged and unchanged. No focal abnormality is seen. PANCREAS: No gross pancreatic abnormality is seen on this noncontrast study. No ductal distention is noted. ADRENAL GLANDS: The adrenal glands are normal in size. KIDNEYS: The kidneys are normal in size. There are multiple bilateral renal calculi present. In addition there is a 9 x 7 mm calculus in the right renal pelvis in the region of the ureteropelvic junction without evidence for hydronephrosis. There is mild to moderate dilatation of the left renal calyces, renal pelvis and ureter to the level of the ureterovesical junction. The degree of calyceal dilatation is less prominent. This would be consistent with mild to moderate hydronephrosis which appears slightly improved. No ureteral calculus is seen. No bladder wall thickening is noted. AORTA: The aorta is normal in caliber without significant calcific plaque. LYMPH NODES: No significantly enlarged lymph nodes are seen. BOWEL: The stomach is moderately distended. The small bowel colon appear nondistended. There is scattered diverticuli within the colon. There is no evidence for diverticulitis or colitis. PERITONEUM: No free intraperitoneal air or fluid is seen. BONES: No significant focal osseous abnormality is seen. IMPRESSION: 1. SMALL BILATERAL PLEURAL EFFUSIONS AND DEPENDENT BILATERAL LOWER LOBE INFILTRATES, UNCHANGED. 2. MULTIPLE BILATERAL RENAL CALCULI. IN ADDITION THERE IS A 9 MM CALCULUS IN THE RIGHT RENAL PELVIS IN THE REGION OF THE URETEROPELVIC JUNCTION WHICH IS UNCHANGED WITHOUT EVIDENCE FOR HYDRONEPHROSIS. 3. [id number] LEFT HYDRONEPHROSIS SLIGHTLY IMPROVED. 4. BILIARY STENT IN PLACE WITHOUT EVIDENCE FOR DUCTAL DILATATION. 5. MODERATE GASTRIC DISTENTION.
--- NOTE | 2018-06-22 14:17 | PN ---
Progress Note - Progress Note Date of Service: 06/22/18 SOAP: Subjective: [No new fevers. Concerned that his weight is increasing again. No n/v. Still having freq bouts of diarrhea. No abd pain or flank pain.] Objective: [ Laboratory Results - last 24 hr 06/20/18 06/21/18 06/21/18 08:00 17:16 21:17 WBC RBC Hgb Hct MCV MCH MCHC RDW Plt Count MPV Neut % (Auto) Lymph % (Auto) [place] % (Auto) Eos % (Auto) Baso % (Auto) Absolute Neuts (auto) Absolute Lymphs (auto) Absolute Monos (auto) Absolute Eos (auto) Absolute Basos (auto) Absolute Nucleated RBC Nucleated RBC % Hem Pathologist Commnt Sodium Potassium Chloride Carbon Dioxide Anion Gap BUN Creatinine Est GFR ( Amer) Est GFR (Non-Af Amer) BUN/Creatinine Ratio Glucose POC Glucose (mg/dL) 172 H 147 H Calcium 06/22/18 06/22/18 06/22/18 06:49 06:49 08:09 WBC 4.5 RBC 2.56 L Hgb 7.6 L Hct 23 L MCV 90 MCH 30 MCHC 33 RDW 20 H Plt Count 79 L MPV 8.5 Neut % (Auto) 59.3 Lymph % (Auto) 22.8 L [place] % (Auto) 16.3 H Eos % (Auto) 0.6 Baso % (Auto) 1.0 Absolute Neuts (auto) 2.6 Absolute Lymphs (auto) 1.0 Absolute Monos (auto) 0.7 Absolute Eos (auto) 0 Absolute Basos (auto) 0 Absolute Nucleated RBC 0 Nucleated RBC % 0.2 Hem Pathologist Commnt Sodium 134 L Potassium 4.3 Chloride 104 Carbon Dioxide 23 Anion Gap 7 BUN 29 H Creatinine 1.22 H Est GFR ( Amer) 71.3 Est GFR (Non-Af Amer) 58.9 BUN/Creatinine Ratio 23.8 H Glucose 131 H POC Glucose (mg/dL) 135 H Calcium 8.0 L 06/22/18 11:31 WBC RBC Hgb Hct MCV MCH MCHC RDW Plt Count MPV Neut % (Auto) Lymph % (Auto) [place] % (Auto) Eos % (Auto) Baso % (Auto) Absolute Neuts (auto) Absolute Lymphs (auto) Absolute Monos (auto) Absolute Eos (auto) Absolute Basos (auto) Absolute Nucleated RBC Nucleated RBC % Hem Pathologist Commnt Sodium Potassium Chloride Carbon Dioxide Anion Gap BUN Creatinine Est GFR ( Amer) Est GFR (Non-Af Amer) BUN/Creatinine Ratio Glucose POC Glucose (mg/dL) 216 H Calcium Acetaminophen (Tylenol Tab*) 650 mg PO Q6H PRN PRN Reason: PAIN OR TEMPERATURE Last Admin: 06/19/18 22:11 Dose: 650 mg Cholestyramine Resin (Questran*) 4 gm PO BID [facility] Last Admin: 06/22/18 08:57 Dose: 4 gm Clotrimazole (Mycelex Mik*) 10 mg PO BID [facility] Last Admin: 06/22/18 08:59 Dose: 10 mg Dextrose (D50w Syringe 50 Ml*) 12.5 gm IV PUSH .FOR FS < 60 - SS PRN PRN Reason: FS < 60 Finasteride (Proscar Tab*) 5 mg PO DAILY [facility] Last Admin: 06/22/18 08:58 Dose: 5 mg Furosemide (Lasix Iv*) 40 mg IV 0800,1700 [facility] Heparin Sodium (Porcine) (Heparin Vial(*)) 5,000 units SUBCUT Q8HR [facility] Last Admin: 06/22/18 13:49 Dose: 5,000 units Ampicillin Sodium 2 gm/ Sodium (Chloride) 50 mls @ 100 mls/hr IV Q6H [facility] Last Admin: 06/22/18 11:29 Dose: 100 mls/hr Insulin Glargine (Lantus(*)) 15 units SUBCUT DAILY [facility] Last Admin: 06/22/18 08:54 Dose: 15 units Insulin Human Lispro (Humalog*) 0 units SUBCUT ACHS [facility]; Protocol Last Admin: 06/22/18 11:57 Dose: 6 units Lactobacillus Rhamnosus (Lactobacillus Acidophilus*) 1 tab PO BID [facility] Last Admin: 06/22/18 09:00 Dose: 1 tab Loperamide HCl (Imodium Cap*) 2 mg PO .SEE COMMENTS PRN PRN Reason: DIARRHEA Last Admin: 06/22/18 09:20 Dose: 2 mg Metoprolol Tartrate (Lopressor Tab*) 12.5 mg PO BID [facility] Last Admin: 06/22/18 08:59 Dose: 12.5 mg Omeprazole (Prilosec Cap*) 20 mg PO DAILY [facility] Last Admin: 06/22/18 08:58 Dose: 20 mg Oxycodone/Acetaminophen (Percocet 5/325 Tab*) 1 tab PO Q4H PRN PRN Reason: Pain Potassium Chloride (Klor Con Er Tab*) 40 meq PO DAILY [facility] Last Admin: 06/22/18 09:02 Dose: 40 meq Vital Signs Temp Pulse Resp BP Pulse Ox 98.2 F 79 18 110/52 100 06/22/18 11:21 06/22/18 11:41 06/22/18 13:50 06/22/18 11:41 06/22/18 11:21 Exam: Gen: Chronically ill appearing but in NAD, sitting up in a chair at bedside HEENT: MMM, no thrush CV: RRR, no m/r/g Resp: CTA Abd: soft, non-TTP Ext: some proximal muscle wasting and LE edema ~2-3+ ] Assessment: [67 yo male with locally advanced pancreatic cancer with progressive weakness and falls in setting of marked fluid overload with anasarca. Now developed Enterococcus bacteremia Plan: []1. Septicemia due to Enterococcus - fevers resolved and repeat cultures now clear - Cont ampicillin 2g q 6h per ID recommendations - source is not clear - urine cx neg, culture of port catheter tip is negative - CT showed L hydro, unchanged from prior and R UPJ stone without hydro - evaluated by Dr Stephenson who recommended repeating CT today or tomorrow and would recommend bilateral ureteral stents if he develops flank pain or R hydronephrosis - ID to re-evaluate 2 . Anasarca: - improved with Lasix drip, but now fluid is increasing again back on oral Lasix - resume IV bolus Lasix 40 mg bid - likely multifactorial, but a large component of hypoalbumenia related to malnutrition 3. Hypomagnesemia: - repleted - cont to monitor 4. Diarrhea: no evidence for active C.Diff, cont. vanco as per ID - cont. cholestramine - try to slow diarrhea with immodium - stool culture failed to identify any specific pathogens 5. Severe protein calorie malnutrition - evidenced by severe edema and muscle wasting 6. Pancreatic cancer: with stable disease on recent imaging following neoadjuvant tx., however unfortunately has had multiple complications as well as long standing co-morbidities making him a poor surgical candidate. No further chemotherapy planned for now and will consider XRT/5-FU once improved from current de-conditioning Dispo: Will need rehab, discharge plans are now delayed however with new bacteremia]
[2018-06-22] MEDS: Furosemide IV* 10 MG/ML VIAL (40 MG) IV SCH (17:12)
[2018-06-23] MEDS: Ampicillin IV* 2 GM in NS 0.9% 50 ML* 50 ML IV SCH ×4 (04:57→22:33)
[2018-06-23] MEDS: Heparin VIAL(*) 5000 UNITS/ML VIAL (FIVE THOUSAND) SUBCUT SCH ×3 (04:57→22:25)
[2018-06-23 07:02] LABS: ABS Basophils 0 10^3/ul (0-0.2); ABS Eosinophils 0 10^3/ul (0-0.6); ABS Lymphocytes 1.1 10^3/ul (1.0-4.8); ABS Monocytes 0.7 10^3/ul (0-0.8); ABS Neutrophils 2.6 10^3/ul (1.5-7.7); ABS Nucleated RBC 0 10^3/ul; Eosinophil % 0.9 % (0-6); Hematocrit 24 % (42-52); Hemoglobin 7.9 g/dl (14.0-18.0); Lymphocyte % 24.5 % (25-47); Mean Corpuscular HGB Conc 34 g/dl (31-36); Mean Corpuscular Hemoglobin 31 pg (27-31); Mean Corpuscular Volume 91 fL (80-94); Mean Platelet Volume 8.5 um3 (7.4-10.4); Nucleated Red Blood Cells % 0.2; Platelet Count 86 10^3/ul (150-450); Red Blood Count 2.58 10^6/ul (4.00-5.40); Red Cell Distribution Width 21 % (10.5-15); White Blood Count 4.4 10^3/ul (3.5-10.8)
[2018-06-23] MEDS: Furosemide IV* 10 MG/ML VIAL (40 MG) IV SCH ×2 (07:44→17:15)
[2018-06-23] MEDS: Insulin LISPRO* 1 UNITS UNIT SUBCUT SCH ×4 (07:44→22:22)
[2018-06-23] MEDS: Metoprolol Tartrate TAB* 25 MG PO SCH ×2 (07:44→22:21)
--- NOTE | 2018-06-23 07:46 | RAD ---
HISTORY: acute renal failure COMPARISONS: June 19, 2018, CT dated June 22, 2018 VIEWS: Frontal views of the abdomen. FINDINGS: BOWEL: There is a nonspecific bowel gas pattern, with nondilated small bowel gas noted. There is a large amount of stool within the colon. CALCULI: There is a 1.2 cm calculus of the right kidney abdomen corresponding to the UPJ stone noted on the previous examination. This is similar in location to the previous CT examination. There is several calculi overlying the left renal parenchymal shadow. BONES AND SOFT TISSUES: Degenerative changes are noted of the spine. OTHER FINDINGS: The lung bases are clear. There is no subphrenic gas. A biliary stent is noted. IMPRESSION: BILATERAL NEPHROLITHIASIS, INCLUDING A STABLE RIGHT UPJ CALCULUS. R1
[2018-06-23] MEDS: Cholestyramine Resin* 4 GM POWDER PO SCH (08:17)
[2018-06-23] MEDS: Omeprazole CAP* 20 MG PO SCH (08:17)
[2018-06-23] MEDS: Insulin GLARGINE(*) 1 UNITS UNIT SUBCUT SCH (08:17)
[2018-06-23] MEDS: Finasteride TAB* 5 MG PO SCH (08:18)
[2018-06-23] MEDS: Potassium Chlor TAB* 20 MEQ TAB.ER PO SCH (08:18)
[2018-06-23] MEDS: Lactobacillus Acidophilus* 1 TAB PO SCH ×2 (08:18→22:21)
[2018-06-23] MEDS: Clotrimazole TROCHE* 10 MG TROCHE PO SCH ×2 (08:18→22:18)
[2018-06-23] MEDS: Loperamide CAP* 2 MG PO PRN ×2 (08:18→15:45)
--- NOTE | 2018-06-23 10:53 | PN ---
Progress Note - Progress Note Date of Service: 06/23/18 SOAP: Subjective: [No new complaints. No fevers overnight. Reports he hasn't seen PT in a couple of days. Diarrhea improving slightly, but still having freq bouts and unable to make it to the commode on time.] Objective: [ Laboratory Results - last 24 hr 06/20/18 06/22/18 06/22/18 08:00 11:31 17:01 WBC RBC Hgb Hct MCV MCH MCHC RDW Plt Count MPV Neut % (Auto) Lymph % (Auto) [place] % (Auto) Eos % (Auto) Baso % (Auto) Absolute Neuts (auto) Absolute Lymphs (auto) Absolute Monos (auto) Absolute Eos (auto) Absolute Basos (auto) Absolute Nucleated RBC Nucleated RBC % Hem Pathologist Commnt Sodium Potassium Chloride Carbon Dioxide Anion Gap BUN Creatinine Est GFR ( Amer) Est GFR (Non-Af Amer) BUN/Creatinine Ratio Glucose POC Glucose (mg/dL) 216 H 128 H Calcium Total Bilirubin AST ALT Alkaline Phosphatase Total Protein Albumin Globulin Albumin/Globulin Ratio 06/22/18 06/23/18 06/23/18 20:42 06:34 06:34 WBC 4.4 RBC 2.58 L Hgb 7.9 L Hct 24 L MCV 91 MCH 31 MCHC 34 RDW 21 H Plt Count 86 L MPV 8.5 Neut % (Auto) 57.4 Lymph % (Auto) 24.5 L [place] % (Auto) 16.2 H Eos % (Auto) 0.9 Baso % (Auto) 1.0 Absolute Neuts (auto) 2.6 Absolute Lymphs (auto) 1.1 Absolute Monos (auto) 0.7 Absolute Eos (auto) 0 Absolute Basos (auto) 0 Absolute Nucleated RBC 0 Nucleated RBC % 0.2 Hem Pathologist Commnt Sodium 138 Potassium 4.2 Chloride 107 Carbon Dioxide 27 Anion Gap 4 BUN 25 H Creatinine 1.12 Est GFR ( Amer) 78.7 Est GFR (Non-Af Amer) 65.0 BUN/Creatinine Ratio 22.3 H Glucose 108 H POC Glucose (mg/dL) 176 H Calcium 8.1 L Total Bilirubin 0.60 AST 26 ALT 10 Alkaline Phosphatase 202 H Total Protein 6.0 L Albumin 2.1 L Globulin 3.9 Albumin/Globulin Ratio 0.5 L 06/23/18 07:30 WBC RBC Hgb Hct MCV MCH MCHC RDW Plt Count MPV Neut % (Auto) Lymph % (Auto) [place] % (Auto) Eos % (Auto) Baso % (Auto) Absolute Neuts (auto) Absolute Lymphs (auto) Absolute Monos (auto) Absolute Eos (auto) Absolute Basos (auto) Absolute Nucleated RBC Nucleated RBC % Hem Pathologist Commnt Sodium Potassium Chloride Carbon Dioxide Anion Gap BUN Creatinine Est GFR ( Amer) Est GFR (Non-Af Amer) BUN/Creatinine Ratio Glucose POC Glucose (mg/dL) 117 H Calcium Total Bilirubin AST ALT Alkaline Phosphatase Total Protein Albumin Globulin Albumin/Globulin Ratio Acetaminophen (Tylenol Tab*) 650 mg PO Q6H PRN PRN Reason: PAIN OR TEMPERATURE Last Admin: 06/19/18 22:11 Dose: 650 mg Clotrimazole (Mycelex Mik*) 10 mg PO BID [facility] Last Admin: 06/23/18 08:18 Dose: 10 mg Dextrose (D50w Syringe 50 Ml*) 12.5 gm IV PUSH .FOR FS < 60 - SS PRN PRN Reason: FS < 60 Finasteride (Proscar Tab*) 5 mg PO DAILY [facility] Last Admin: 06/23/18 08:18 Dose: 5 mg Furosemide (Lasix Iv*) 40 mg IV 0800,1700 [facility] Last Admin: 06/23/18 07:44 Dose: Not Given Heparin Sodium (Porcine) (Heparin Vial(*)) 5,000 units SUBCUT Q8HR [facility] Last Admin: 06/23/18 04:57 Dose: 5,000 units Ampicillin Sodium 2 gm/ Sodium (Chloride) 50 mls @ 100 mls/hr IV Q6H [facility] Last Admin: 06/23/18 10:35 Dose: 100 mls/hr Influenza Virus Vaccine (Fluarix *Quad* 2018-*) 0.5 ml IM .ONCE ONE Stop: 06/24/18 09:01 Insulin Glargine (Lantus(*)) 15 units SUBCUT DAILY [facility] Last Admin: 06/23/18 08:17 Dose: 15 units Insulin Human Lispro (Humalog*) 0 units SUBCUT ACHS [facility]; Protocol Last Admin: 06/23/18 07:44 Dose: Not Given Lactobacillus Rhamnosus (Lactobacillus Acidophilus*) 1 tab PO BID [facility] Last Admin: 10/02/18 08:18 Dose: 1 tab Loperamide HCl (Imodium Cap*) 2 mg PO .SEE COMMENTS PRN PRN Reason: DIARRHEA Last Admin: 06/23/18 08:18 Dose: 2 mg Loperamide HCl (Imodium Cap*) 2 mg PO TID [facility] Metoprolol Tartrate (Lopressor Tab*) 12.5 mg PO BID [facility] Last Admin: 06/23/18 07:44 Dose: Not Given Omeprazole (Prilosec Cap*) 20 mg PO DAILY [facility] Last Admin: 06/23/18 08:17 Dose: 20 mg Oxycodone/Acetaminophen (Percocet 5/325 Tab*) 1 tab PO Q4H PRN PRN Reason: Pain Potassium Chloride (Klor Con Er Tab*) 40 meq PO DAILY [facility] Last Admin: 06/23/18 08:18 Dose: 40 meq Vital Signs: Temp Pulse Resp BP Pulse Ox 98.4 F 88 16 102/58 98 06/23/18 07:37 06/23/18 07:37 06/23/18 08:18 06/23/18 10:02 06/23/18 07:37 Exam: Gen: Chronically ill appearing but in NAD, sitting up in a recliner at bedside HEENT: MMM, no thrush CV: RRR, no m/r/g Resp: CTA Abd: soft, non-TTP Ext: some proximal muscle wasting and LE edema ~2-3+ ] Assessment: [67 yo male with locally advanced pancreatic cancer with progressive weakness and falls in setting of marked fluid overload with anasarca. Now developed Enterococcus bacteremia without a clear source Plan: []1. Septicemia due to Enterococcus - fevers resolved and repeat cultures now clear - Cont ampicillin 2g q 6h for a total of 14 days per ID recommendations, today is day 02/02 - source is not clear - urine cx neg, culture of port catheter tip is negative - CT from 06/19 showed L hydro, unchanged from prior and R UPJ stone without hydro - evaluated by Dr Stephenson ---repeat CT 06/22 shows no change, R UPJ stone still present, but no obstruction 2 . Anasarca: - improved with Lasix drip, but now fluid increased again back on oral Lasix - resumed IV bolus Lasix 40 mg bid, cont for now - likely multifactorial, but a large component of hypoalbumenia related to malnutrition 3. Hypomagnesemia: - repleted - cont to monitor 4. Diarrhea: - no evidence for active C.Diff - stool culture failed to identify any specific pathogens - vanco stopped per ID recommendations - stop cholestramine as it doesn't seem to be helpful - start immodium three times daily to try to control diarrhea 5. Severe protein calorie malnutrition - evidenced by severe edema and muscle wasting 6. Pancreatic cancer: with stable disease on recent imaging following neoadjuvant tx., however unfortunately has had multiple complications as well as long standing co-morbidities making him a poor surgical candidate. No further chemotherapy planned for now and will consider XRT/5-FU once improved from current de-conditioning Dispo: Will need rehab, but need for q4h IV abx limits options - may need to go to swing status. If there are no additional recommendations from ID this can be done tomorrow]
[2018-06-23] MEDS: Loperamide CAP* 2 MG PO SCH ×2 (12:26→22:18)
[2018-06-24] MEDS: Ampicillin IV* 2 GM in NS 0.9% 50 ML* 50 ML IV SCH ×4 (05:58→23:18)
[2018-06-24] MEDS: Heparin VIAL(*) 5000 UNITS/ML VIAL (FIVE THOUSAND) SUBCUT SCH ×3 (07:13→21:35)
[2018-06-24] MEDS: Lactobacillus Acidophilus* 1 TAB PO SCH ×2 (10:10→21:38)
[2018-06-24] MEDS: Metoprolol Tartrate TAB* 25 MG PO SCH ×2 (10:10→21:39)
[2018-06-24] MEDS: Omeprazole CAP* 20 MG PO SCH (10:10)
[2018-06-24] MEDS: Finasteride TAB* 5 MG PO SCH (10:11)
[2018-06-24] MEDS: Potassium Chlor TAB* 20 MEQ TAB.ER PO SCH (10:11)
[2018-06-24] MEDS: Clotrimazole TROCHE* 10 MG TROCHE PO SCH ×2 (10:11→23:18)
[2018-06-24] MEDS: Insulin LISPRO* 1 UNITS UNIT SUBCUT SCH ×4 (10:12→21:37)
[2018-06-24] MEDS: Loperamide CAP* 2 MG PO SCH ×3 (10:12→21:38)
[2018-06-24] MEDS: Insulin GLARGINE(*) 1 UNITS UNIT SUBCUT SCH (10:12)
[2018-06-24] MEDS: Furosemide IV* 10 MG/ML VIAL (40 MG) IV SCH (10:12)
--- NOTE | 2018-06-24 11:53 | PN ---
Progress Note - Progress Note Date of Service: 06/24/18 SOAP: Subjective: [Reports that he is feeling well. No abd pain or flank pain. Now on scheduled immodium, diarrhea has slowed somewhat, but still incontinent. Reports ~8 BMs in the last 24 hours.] Objective: [ Acetaminophen (Tylenol Tab*) 650 mg PO Q6H PRN PRN Reason: PAIN OR TEMPERATURE Last Admin: 06/19/18 22:11 Dose: 650 mg Clotrimazole (Mycelex Mik*) 10 mg PO BID [facility] Last Admin: 06/24/18 10:11 Dose: 10 mg Dextrose (D50w Syringe 50 Ml*) 12.5 gm IV PUSH .FOR FS < 60 - SS PRN PRN Reason: FS < 60 Finasteride (Proscar Tab*) 5 mg PO DAILY [facility] Last Admin: 06/24/18 10:11 Dose: 5 mg Furosemide (Lasix Iv*) 40 mg IV 0800,1700 [facility] Last Admin: 06/24/18 10:12 Dose: 40 mg Heparin Sodium (Porcine) (Heparin Vial(*)) 5,000 units SUBCUT Q8HR [facility] Last Admin: 06/24/18 07:13 Dose: 5,000 units Ampicillin Sodium 2 gm/ Sodium (Chloride) 50 mls @ 100 mls/hr IV Q6H [facility] Last Admin: 06/24/18 05:58 Dose: 100 mls/hr Insulin Glargine (Lantus(*)) 15 units SUBCUT DAILY [facility] Last Admin: 06/24/18 10:12 Dose: 15 units Insulin Human Lispro (Humalog*) 0 units SUBCUT ACHS [facility]; Protocol Last Admin: 06/24/18 10:12 Dose: 2 units Lactobacillus Rhamnosus (Lactobacillus Acidophilus*) 1 tab PO BID [facility] Last Admin: 06/24/18 10:10 Dose: 1 tab Loperamide HCl (Imodium Cap*) 2 mg PO .SEE COMMENTS PRN PRN Reason: DIARRHEA Last Admin: 06/23/18 15:45 Dose: 2 mg Loperamide HCl (Imodium Cap*) 2 mg PO TID [facility] Last Admin: 06/24/18 10:12 Dose: 2 mg Metoprolol Tartrate (Lopressor Tab*) 12.5 mg PO BID [facility] Last Admin: 06/24/18 10:10 Dose: 12.5 mg Omeprazole (Prilosec Cap*) 20 mg PO DAILY [facility] Last Admin: 06/24/18 10:10 Dose: 20 mg Oxycodone/Acetaminophen (Percocet 5/325 Tab*) 1 tab PO Q4H PRN PRN Reason: Pain Potassium Chloride (Klor Con Er Tab*) 40 meq PO DAILY [facility] Last Admin: 06/24/18 10:11 Dose: 40 meq Vital Signs: Temp Pulse Resp BP Pulse Ox 97.5 F 79 18 107/51 98 06/24/18 11:04 06/24/18 11:04 06/24/18 10:12 06/24/18 11:04 06/24/18 11:04 Exam: Gen: Chronically ill appearing but in NAD, sitting up in a recliner at bedside HEENT: MMM, no thrush CV: RRR, no m/r/g Resp: CTA Abd: soft, non-TTP Ext: some proximal muscle wasting and LE edema ~2-3+ ] Assessment: [67 yo male with locally advanced pancreatic cancer with progressive weakness and falls in setting of marked fluid overload with anasarca. Now developed Enterococcus bacteremia without a clear source, but likely due to gut translocation in the setting of severe diarrhea that appears to be non- infectious. Plan: []1. Septicemia due to Enterococcus - fevers resolved and repeat cultures now clear - Cont ampicillin 2g q 6h for a total of 14 days per ID recommendations, today is day 03/05 - source is not clear but likely from gut translocation - urine cx neg, culture of port catheter tip is negative - CT from 06/19 showed L hydro, unchanged from prior and R UPJ stone without hydro - evaluated by Dr Stephenson ---repeat CT 06/22 shows no change, R UPJ stone still present, but no obstruction 2 . Anasarca: - improved with Lasix drip, but now fluid increased again back on oral Lasix - resumed IV bolus Lasix 40 mg bid, with good results - will transition back to oral diuretics again - start torsemide - likely multifactorial, but a large component of hypoalbumenia related to malnutrition 3. Hypomagnesemia: - repleted - cont to monitor 4. Diarrhea: - does not appear infectious - may be due to pancreatic insufficiency as a complication of his malignancy? - no evidence for active C.Diff - stool culture failed to identify any specific pathogens - vanco stopped per ID recommendations - stop cholestramine as it doesn't seem to be helpful - cont immodium three times daily to try to control diarrhea - requested GI consult 5. Severe protein calorie malnutrition - evidenced by severe edema and muscle wasting 6. Pancreatic cancer: with stable disease on recent imaging following neoadjuvant tx., however unfortunately has had multiple complications as well as long standing co-morbidities making him a poor surgical candidate. No further chemotherapy planned for now and will consider XRT/5-FU once improved from current de-conditioning Dispo: Will need rehab, but need for q6h IV abx limits options - likely swing status later today. Working with PT again, will request that he walk with the hospital aids 3 times daily in addition to his time with PT.] ]
--- NOTE | 2018-06-25 00:09 | CONSULT ---
Consult Consult: GASTROENTEROLOGY CONSULT NOTE Reason for Consult: Diarrhea HPI: Mr Collins is a 67yM with history of pancreatic cancer on chemotherapy ( Gemcitabine and Abraxane - last received several weeks ago), who was admitted with progressive weakness and falls in setting of marked fluid overload. Course complicated by Enterococcus bacteremia without clear source. GI consulted for diarrhea. Mr Collins and his provide history, although they are not able to provide significant level of detail. They believe the diarrhea has been significant (5- 7 times/day, watery, non-bloody) for past month or so. The diarrhea does not necessarily worsen after eating. The patient believes the diarrhea happens more during the day than at night. He has had issues with incontinence. Chart review reveals that patient was treated for C diff in 2012 and again in 03/2018. It appears he has been on a Vancomycin taper but has failed to have improvement in diarrhea despite at least two negative C diff tests (most recently 06/06). Dr Morgan from [place] has been following patient. Diarrhea not felt to be 2/2 C diff infection. Vancomycin recently discontinued without change in stool. Patient was started on Cholestyramine, but this has been discontinued due to lack of efficacy. Imodium has been helping a bit to control diarrhea symptoms, per patient. Mr Collins denies any other GI symptoms including: nausea/vomiting, abdominal pain, significant gas/bloating, blood in stool. He has had prior colonscopies performed by Dr Stevenson, although I am unable to access these reports at t he moment due to a technical issue. ROS: 10 out of 14 systems reviewed and negative except as above. Past Medical/Surgical History: - Pancreatic cancer on chemo and status-post biliary stenting - Chronic thoracic aortic aneurysm - Left ureteral stent - C diff x2 - Aortic stenosis s/p bioprosthetic AVR - A fib - HTN - JADE - DM2 - Obesity - R and L knee replacements - Umbilical hernia repair FAMILY HISTORY: No family hx of GI or liver disease. SOCIAL HISTORY: Former smoker, prior social ETOH. MEDS: Finasteride (Proscar Tab*) 5 mg PO DAILY [facility] Heparin Sodium (Porcine) (Heparin Vial(*)) 5,000 units SUBCUT Q8HR [facility] Ampicillin Sodium 2 gm/ Sodium (Chloride) 50 mls @ 100 mls/hr IV Q6H [facility] Insulin Glargine (Lantus(*)) 15 units SUBCUT DAILY [facility] Insulin Human Lispro (Humalog*) 0 units SUBCUT ACHS [facility]; Protocol Lactobacillus Rhamnosus (Lactobacillus Acidophilus*) 1 tab PO BID [facility] Loperamide HCl (Imodium Cap*) 2 mg PO TID and PRN Metoprolol Tartrate (Lopressor Tab*) 12.5 mg PO BID [facility] Omeprazole (Prilosec Cap*) 20 mg PO DAILY [facility] Oxycodone/Acetaminophen (Percocet 5/325 Tab*) 1 tab PO Q4H PRN Potassium Chloride (Klor Con Er Tab*) 40 meq PO DAILY [facility] Torsemide (Demadex*) 40 mg PO DAILY [facility] EXAM: Vital Signs: Temp Pulse Resp BP Pulse Ox 98 F 79 18 105/58 98 06/25/18 00:21 06/25/18 00:21 06/25/18 00:21 06/25/18 00:21 06/25/18 00:21 GEN: Tired appearing gentleman. NAD. HEENT: MMM CV: RRR, Systolic murmur PULM: Clear to auscultation ABD: +BS. Soft, non-tender, non-distended. Obese. EXT: + Edema. LABS: Laboratory Last Values WBC 4.4 10^3/ul (3.5-10.8) 06/23/18 06:34 RBC 2.58 10^6/ul (4.00-5.40) L 06/23/18 06:34 Hgb 7.9 g/dl (14.0-18.0) L 06/23/18 06:34 Hct 24 % (42-52) L 06/23/18 06:34 MCV 91 fL (80-94) 06/23/18 06:34 MCH 31 pg (27-31) 06/23/18 06:34 MCHC 34 g/dl (31-36) 06/23/18 06:34 RDW 21 % (10.5-15) H 06/23/18 06:34 Plt Count 86 10^3/ul (150-450) L 06/23/18 06:34 MPV 8.5 um3 (7.4-10.4) 06/23/18 06:34 Neut % (Auto) 57.4 % (38-83) 06/23/18 06:34 Lymph % (Auto) 24.5 % (25-47) L 06/23/18 06:34 Rush % (Auto) 16.2 % (0-7) H 06/23/18 06:34 Eos % (Auto) 0.9 % (0-6) 06/23/18 06:34 Baso % (Auto) 1.0 % (0-2) 06/23/18 06:34 Absolute Neuts (auto) 2.6 10^3/ul (1.5-7.7) 06/23/18 06:34 Absolute Lymphs (auto) 1.1 10^3/ul (1.0-4.8) 06/23/18 06:34 Absolute Monos (auto) 0.7 10^3/ul (0-0.8) 06/23/18 06:34 Absolute Eos (auto) 0 10^3/ul (0-0.6) 06/23/18 06:34 Absolute Basos (auto) 0 10^3/ul (0-0.2) 06/23/18 06:34 Absolute Nucleated RBC 0 10^3/ul 06/23/18 06:34 Immature Gran % 1 % (0-9) 06/20/18 08:00 Neutrophils % 72 % (38-83) 06/20/18 08:00 Band Neutrophils % 2 % (0-8) 06/16/18 06:18 Lymphocytes % 18 % (25-47) L 06/20/18 08:00 Monocytes % 9 % (0-7) H 06/20/18 08:00 Eosinophils % 0 % (0-6) 06/20/18 08:00 Basophils % 0 % (0-2) 06/20/18 08:00 Metamyelocytes % 1 % (0-2) 06/20/18 08:00 Myelocytes % 1 % (0-1) 06/16/18 06:18 Blast Cells % Center Rep 06/16/18 06:18 Nucleated RBC % 0.2 06/23/18 06:34 Abs Neuts (Manual) 4.0 10^3/ul (1.5-7.7) 06/20/18 08:00 Abs Lymphs (Manual) 1.0 10^3/ul (1.0-4.8) 06/20/18 08:00 Abs Monocytes (Manual) 0.5 10^3/ul (0-0.8) 06/20/18 08:00 Absolute Eos (Manual) 0 10^3/ul (0-0.6) 06/20/18 08:00 Abs Basophils (Manual) 0 10^3/ul (0-0.2) 06/20/18 08:00 Nucleated RBCs/100 WBC 0 (0-0) 06/14/18 05:00 Toxic Granulation 1+ 06/14/18 05:00 Normal RBC Morphology Normal (Normal) 06/20/18 08:00 Polychromasia 1+ 06/16/18 06:18 Hypochromasia 1+ 06/12/18 17:59 Anisocytosis 1+ 06/14/18 05:00 Microcytosis 1+ 06/16/18 06:18 Schistocytes 1+ 06/16/18 06:18 Hem Pathologist Commnt 06/20/18 08:00 Sodium 138 mmol/L (135-145) 06/23/18 06:34 Potassium 4.2 mmol/L (3.5-5.0) 06/23/18 06:34 Chloride 107 mmol/L (101-111) 06/23/18 06:34 Carbon Dioxide 27 mmol/L (22-32) 06/23/18 06:34 Anion Gap 4 mmol/L (2-11) 06/23/18 06:34 BUN 25 mg/dL (6-24) H 06/23/18 06:34 Creatinine 1.12 mg/dL (0.67-1.17) 06/23/18 06:34 Est GFR ( Amer) 78.7 (>60) 06/23/18 06:34 Est GFR (Non-Af Amer) 65.0 (>60) 06/23/18 06:34 BUN/Creatinine Ratio 22.3 (8-20) H 06/23/18 06:34 Glucose 108 mg/dL (70-100) H 06/23/18 06:34 POC Glucose (mg/dL) 131 mg/dL (70-100) H 06/24/18 21:19 Lactic Acid 1.8 mmol/L (0.5-2.0) 06/12/18 17:59 Calcium 8.1 mg/dL (8.6-10.3) L 06/23/18 06:34 Magnesium 1.9 mg/dL (1.9-2.7) 06/21/18 06:27 Total Bilirubin 0.60 mg/dL (0.2-1.0) 06/23/18 06:34 AST 26 U/L (13-39) 06/23/18 06:34 ALT 10 U/L (7-52) 06/23/18 06:34 Alkaline Phosphatase 202 U/L (34-104) H 06/23/18 06:34 Troponin I 0.03 ng/mL (<0.04) 06/12/18 17:59 B-Natriuretic Peptide 340 pg/mL (-100) H 06/12/18 17:59 Total Protein 6.0 g/dL (6.4-8.9) L 06/23/18 06:34 Albumin 2.1 g/dL (3.2-5.2) L 06/23/18 06:34 Globulin 3.9 g/dL (2-4) 06/23/18 06:34 Albumin/Globulin Ratio 0.5 (1-3) L 06/23/18 06:34 Lipase 82 U/L (11.0-82.0) 06/12/18 17:59 TSH 6.18 mcIU/mL (0.34-5.60) H 06/12/18 17:59 Free T4 1.14 ng/dL (0.61-1.12) H 06/12/18 17:59 Urine Color Yellow 06/17/18 23:50 Urine Appearance Cloudy 06/17/18 23:50 Urine pH 6.0 (5-9) 06/17/18 23:50 Ur Specific [place] 1.006 (1.010-1.030) L 06/17/18 23:50 Urine Protein 1+(30 mg/dl) (Negative) A 06/17/18 23:50 Urine Ketones Negative (Negative) 06/17/18 23:50 Urine Blood 3+ (Negative) A 06/17/18 23:50 Urine Nitrate Negative (Negative) 06/17/18 23:50 Urine Bilirubin Negative (Negative) 06/17/18 23:50 Urine Urobilinogen Negative (Negative) 06/17/18 23:50 Ur Leukocyte Esterase 2+ (Negative) A 06/17/18 23:50 Urine WBC (Auto) 3+(>20/hpf) (Absent) A 06/17/18 23:50 Urine RBC (Auto) 3+(>10/hpf) (Absent) A 06/17/18 23:50 Urine Bacteria Absent (Absent) 06/17/18 23:50 Urine Glucose Negative (Negative) 06/17/18 23:50 MICRO: - Stool studies: Stool culture negative, stool crypto/giardia negative, fecal lactoferrin positive STUDIES: - Most recent CT abdomen/pelvis from 06/22 reviewed. Some gastric distention noted. No colitis or small bowel thickening noted. Pancreas was unremarkable. Biliary stent in place. IMPRESSION AND RECOMMENDATIONS: Mr Collins is a 67yM with history of pancreatic cancer on chemotherapy ( Gemcitabine and Abraxane - last received several weeks ago), who was admitted with progressive weakness and falls in setting of marked fluid overload. Course complicated by Enterococcus bacteremia without clear source. GI consulted for watery diarrhea. Exact cause of diarrhea remains unclear at this point. Per ID, diarrhea does not appear to be related to ongoing C diff infection. Diarrhea with Abraxane ( Nabpaclitaxel) is a well-documented adverse reaction. Recommendation is to withhold until diarrhea improves significantly. Microscopic colitis (on PPI), pancreatic insufficiency, and SIBO are among a number of possible causes worth considering. - Continue Imodium for diarrhea management. Can increase up to 16 mg/day. - Check fecal pancreatic elastase to evaluate for pancreatic insufficiency. Note should be made that false positives can occur with watery dilute stool. If low, then could trial Creon TID AC. - Consider empiric treatment of SIBO with Rifaximin 550 mg TID x 14 days as we are unable to perform breath testing while inpatient. - Will consider colonoscopy with biopsies in upcoming days if symptoms persist. Patient is hesitant to pursue colonoscopy unless felt to be a necessary diagnostic test. Thank you for this consult. GI will remain available to assist with this patient.
[2018-06-25] MEDS: Ampicillin IV* 2 GM in NS 0.9% 50 ML* 50 ML IV SCH ×4 (05:01→22:56)
[2018-06-25] MEDS: Heparin VIAL(*) 5000 UNITS/ML VIAL (FIVE THOUSAND) SUBCUT SCH ×3 (05:16→21:30)
[2018-06-25] MEDS: Insulin LISPRO* 1 UNITS UNIT SUBCUT SCH ×4 (08:02→21:30)
[2018-06-25] MEDS: Torsemide TAB* 20 MG PO SCH (08:25)
[2018-06-25] MEDS: Lactobacillus Acidophilus* 1 TAB PO SCH ×2 (08:25→21:30)
[2018-06-25] MEDS: Loperamide CAP* 2 MG PO SCH ×3 (08:26→21:30)
[2018-06-25] MEDS: Potassium Chlor TAB* 20 MEQ TAB.ER PO SCH (08:26)
[2018-06-25] MEDS: Clotrimazole TROCHE* 10 MG TROCHE PO SCH ×2 (08:27→21:32)
[2018-06-25] MEDS: Metoprolol Tartrate TAB* 25 MG PO SCH ×2 (08:27→21:30)
[2018-06-25] MEDS: Finasteride TAB* 5 MG PO SCH (08:27)
[2018-06-25] MEDS: Omeprazole CAP* 20 MG PO SCH (08:27)
--- NOTE | 2018-06-25 08:35 | PN ---
Progress Note - Progress Note Date of Service: 06/25/18 SOAP: Subjective: []Feeling well. Only complaint is a 'nagging' cough. Doesn't bring up a lot but when does phlegm is clear. Will get a little winded with walking, but explains it more as "running out of steam." Denies lightheadedness when this occurs. No diarrhea this AM. Medications: Acetaminophen (Tylenol Tab*) 650 mg PO Q6H PRN PRN Reason: PAIN OR TEMPERATURE Last Admin: 06/19/18 22:11 Dose: 650 mg Clotrimazole (Mycelex Mik*) 10 mg PO BID [facility] Last Admin: 06/24/18 23:18 Dose: 10 mg Dextrose (D50w Syringe 50 Ml*) 12.5 gm IV PUSH .FOR FS < 60 - SS PRN PRN Reason: FS < 60 Finasteride (Proscar Tab*) 5 mg PO DAILY [facility] Last Admin: 06/24/18 10:11 Dose: 5 mg Heparin Sodium (Porcine) (Heparin Vial(*)) 5,000 units SUBCUT Q8HR [facility] Last Admin: 06/25/18 05:16 Dose: 5,000 units Ampicillin Sodium 2 gm/ Sodium (Chloride) 50 mls @ 100 mls/hr IV Q6H [facility] Last Admin: 06/25/18 05:01 Dose: 100 mls/hr Insulin Glargine (Lantus(*)) 15 units SUBCUT DAILY [facility] Last Admin: 06/24/18 10:12 Dose: 15 units Insulin Human Lispro (Humalog*) 0 units SUBCUT ACHS [facility]; Protocol Last Admin: 06/25/18 08:02 Dose: Not Given Lactobacillus Rhamnosus (Lactobacillus Acidophilus*) 1 tab PO BID [facility] Last Admin: 06/24/18 21:38 Dose: 1 tab Loperamide HCl (Imodium Cap*) 2 mg PO .SEE COMMENTS PRN PRN Reason: DIARRHEA Last Admin: 06/23/18 15:45 Dose: 2 mg Loperamide HCl (Imodium Cap*) 2 mg PO TID [facility] Last Admin: 06/24/18 21:38 Dose: 2 mg Metoprolol Tartrate (Lopressor Tab*) 12.5 mg PO BID [facility] Last Admin: 06/24/18 21:39 Dose: 12.5 mg Omeprazole (Prilosec Cap*) 20 mg PO DAILY [facility] Last Admin: 06/24/18 10:10 Dose: 20 mg Oxycodone/Acetaminophen (Percocet 5/325 Tab*) 1 tab PO Q4H PRN PRN Reason: Pain Potassium Chloride (Klor Con Er Tab*) 40 meq PO DAILY [facility] Last Admin: 06/24/18 10:11 Dose: 40 meq Torsemide (Demadex*) 40 mg PO DAILY [facility] Objective: [] Vital Signs Temp Pulse Resp BP Pulse Ox 97.8 F 83 20 120/53 97 06/25/18 07:26 06/25/18 07:26 06/25/18 08:03 06/25/18 07:26 06/25/18 07:26 A&Ox3, EOMI, communicating clearing and involved in plan of care Neuro grossly non-focal [place] with no obvious deformities HRI, S1S2 noted LS clear with dim. bases +BS, obese, soft and non-tender LE edema approx. +2 non-pitting without weeping Shiny, taught, brawny skin to LEs Laboratory Results - last 24 hr 06/24/18 06/24/18 06/24/18 11:11 17:06 21:19 POC Glucose (mg/dL) 175 H 132 H 131 H Intake and Output Last 24 Hours 06/23/18 06/24/18 06/25/18 06/26/18 06:59 06:59 06:59 06:59 Intake Total 1305 1105 1266 240 Output Total 2415 2840 1625 300 Balance -1110 -1735 -359 -60 Weight 296 lb 8 oz 295 lb 3.2 oz 291 lb 1.6 oz Intake: IV Fluids 145 90 75 Ampicillin 100 50 NS (0.9%) 45 40 75 IVPB 125 231 Ampicillin 125 231 Oral 1160 890 960 240 Output: Urine 2415 2840 1625 300 Other: # Bowel Movements 1 1 1 Estimated Stool Amount Medium Small Medium # Voids 1 0 0 Assessment: []67 yo male with locally advanced pancreatic cancer with progressive weakness and falls in setting of marked fluid overload with anasarca. Now developed Enterococcus bacteremia without a clear source, but likely due to gut translocation in the setting of severe diarrhea that appears to be non- infectious. Plan: []1. Septicemia due to Enterococcus: - fevers resolved and repeat cultures now clear - Cont ampicillin 2g q 6h for a total of 14 days per ID recommendations, today is day 7/14 - source is not clear but likely from gut translocation 2/2 diarrhea 2. Anasarca: - elevated BNP with LVEF lower limits of normal, 50-55% - improved with Lasix drip, but didn't respond to oral lasix, transition to oral Torsemide today - Monitor wt. closely - will transition back to oral diuretics again - start torsemide 3. Diarrhea: - no evidence for active infection, high risk for pancreatic insufficiency with known cancer - appreciate GI consult, stool study pending, hold off on Rifaximin as I do not suspect SIBO - diarrhea appears more controlled with Imodium scheduled 4. Anemia: - appears 2/2 chronic disease, however has not had iron or B12 checked - TSH elevated on admission with high free T4, recheck today - recheck CBC tomorrow AM and consider transfusion if diuresing appropriately 5. Falls: - secondary to deconditioning with tx. and anasarca, cont. PT and discharge to rehab - TID ambulation with nursing in addition to PT 6. Pancreatic Cancer: - stable on imaging, consideration for 5FU/XRT if functional status improves - f/u as outpatient Dispo: bed offer for Friday @ [place]
[2018-06-25] MEDS: Insulin GLARGINE(*) 1 UNITS UNIT SUBCUT SCH ×2 (09:34→12:25)
--- NOTE | 2018-06-25 12:22 | PN ---
Progress Note - Progress Note Date of Service: 06/25/18 SOAP: Subjective:pod#6 s/p removal of powerport [] Objective:afeb;incision Right subclavian well healed,no infection [] Assessment:stable [] Plan:pull through prolene suture removed with ease,Tegaderm dressing applied which can be removed in 5-7 days []
[2018-06-26] MEDS: Ampicillin IV* 2 GM in NS 0.9% 50 ML* 50 ML IV SCH ×4 (05:48→23:03)
[2018-06-26] MEDS: Heparin VIAL(*) 5000 UNITS/ML VIAL (FIVE THOUSAND) SUBCUT SCH ×3 (05:48→21:05)
[2018-06-26 07:47] LABS: Hematocrit 27 % (42-52); Hemoglobin 8.9 g/dl (14.0-18.0); Mean Corpuscular HGB Conc 33 g/dl (31-36); Mean Corpuscular Hemoglobin 31 pg (27-31); Mean Corpuscular Volume 92 fL (80-94); Mean Platelet Volume 8.3 um3 (7.4-10.4); Platelet Count 124 10^3/ul (150-450); Red Blood Count 2.93 10^6/ul (4.00-5.40); Red Cell Distribution Width 22 % (10.5-15); White Blood Count 6.6 10^3/ul (3.5-10.8)
[2018-06-26] MEDS: Insulin LISPRO* 1 UNITS UNIT SUBCUT SCH ×4 (07:50→20:55)
[2018-06-26 08:32] LABS: ABS Basophils 0.1 10^3/ul (0-0.2); ABS Eosinophils 0.2 10^3/ul (0-0.6); ABS Lymphocytes 1.8 10^3/ul (1.0-4.8); ABS Monocytes 0.7 10^3/ul (0-0.8); ABS Neutrophils 3.9 10^3/ul (1.5-7.7); ABS Nucleated RBC 0 10^3/ul; Eosinophil % 2.5 % (0-6); Lymphocyte % 26.7 % (25-47); Nucleated Red Blood Cells % 0.1
[2018-06-26] MEDS: Insulin GLARGINE(*) 1 UNITS UNIT SUBCUT SCH (09:09)
[2018-06-26] MEDS: Lactobacillus Acidophilus* 1 TAB PO SCH ×2 (09:10→20:54)
[2018-06-26] MEDS: Finasteride TAB* 5 MG PO SCH (09:10)
[2018-06-26] MEDS: Clotrimazole TROCHE* 10 MG TROCHE PO SCH ×2 (09:10→20:55)
[2018-06-26] MEDS: Torsemide TAB* 20 MG PO SCH (09:10)
[2018-06-26] MEDS: Loperamide CAP* 2 MG PO SCH ×3 (09:10→20:55)
[2018-06-26] MEDS: Potassium Chlor TAB* 20 MEQ TAB.ER PO SCH (09:10)
[2018-06-26] MEDS: Omeprazole CAP* 20 MG PO SCH (09:10)
[2018-06-26] MEDS: Metoprolol Tartrate TAB* 25 MG PO SCH ×2 (09:11→20:54)
--- NOTE | 2018-06-26 10:21 | PN ---
Progress Note - Progress Note Date of Service: 06/26/18 SOAP: Subjective: [Reports that he is doing well today. Diarrhea has slowed somewhat. He was able to make it to the bathroom this morning. Still no flank or abdominal pain. No fevers. Intermittent hematuria. Ambulating freq with nursing staff.] Objective: [ Laboratory Results - last 24 hr 06/25/18 06/25/18 06/25/18 07:46 11:41 14:47 WBC RBC Hgb Hct MCV MCH MCHC RDW Plt Count MPV Neut % (Auto) Lymph % (Auto) [place] % (Auto) Eos % (Auto) Baso % (Auto) Absolute Neuts (auto) Absolute Lymphs (auto) Absolute Monos (auto) Absolute Eos (auto) Absolute Basos (auto) Absolute Nucleated RBC Nucleated RBC % Sodium Potassium Chloride Carbon Dioxide Anion Gap BUN Creatinine Est GFR ( Amer) Est GFR (Non-Af Amer) BUN/Creatinine Ratio Glucose POC Glucose (mg/dL) 89 202 H Calcium Magnesium Iron 46 L TIBC 218 L % Saturation 21 Unsat Iron Binding 172 Transferrin 156 L Ferritin 1197.9 H Vitamin B12 1432 H Folate 3.96 TSH 4.61 Thyroxine (T4) 9.50 06/25/18 06/25/18 06/26/18 16:13 21:13 07:27 WBC 6.6 RBC 2.93 L Hgb 8.9 L Hct 27 L MCV 92 MCH 31 MCHC 33 RDW 22 H Plt Count 124 L MPV 8.3 Neut % (Auto) 58.4 Lymph % (Auto) 26.7 [place] % (Auto) 11.2 H Eos % (Auto) 2.5 Baso % (Auto) 1.2 Absolute Neuts (auto) 3.9 Absolute Lymphs (auto) 1.8 Absolute Monos (auto) 0.7 Absolute Eos (auto) 0.2 Absolute Basos (auto) 0.1 Absolute Nucleated RBC 0 Nucleated RBC % 0.1 Sodium Potassium Chloride Carbon Dioxide Anion Gap BUN Creatinine Est GFR ( Amer) Est GFR (Non-Af Amer) BUN/Creatinine Ratio Glucose POC Glucose (mg/dL) 108 H 175 H Calcium Magnesium Iron TIBC % Saturation Unsat Iron Binding Transferrin Ferritin Vitamin B12 Folate TSH Thyroxine (T4) 06/26/18 06/26/18 07:27 07:46 WBC RBC Hgb Hct MCV MCH MCHC RDW Plt Count MPV Neut % (Auto) Lymph % (Auto) [place] % (Auto) Eos % (Auto) Baso % (Auto) Absolute Neuts (auto) Absolute Lymphs (auto) Absolute Monos (auto) Absolute Eos (auto) Absolute Basos (auto) Absolute Nucleated RBC Nucleated RBC % Sodium 140 Potassium 4.0 Chloride 104 Carbon Dioxide 29 Anion Gap 7 BUN 18 Creatinine 1.20 H Est GFR ( Amer) 72.6 Est GFR (Non-Af Amer) 60.0 BUN/Creatinine Ratio 15.0 Glucose 102 H POC Glucose (mg/dL) 114 H Calcium 8.4 L Magnesium 1.9 Iron TIBC % Saturation Unsat Iron Binding Transferrin Ferritin Vitamin B12 Folate TSH Thyroxine (T4) Acetaminophen (Tylenol Tab*) 650 mg PO Q6H PRN PRN Reason: PAIN OR TEMPERATURE Last Admin: 06/19/18 22:11 Dose: 650 mg Clotrimazole (Mycelex Mik*) 10 mg PO BID [facility] Last Admin: 06/26/18 09:10 Dose: 10 mg Dextrose (D50w Syringe 50 Ml*) 12.5 gm IV PUSH .FOR FS < 60 - SS PRN PRN Reason: FS < 60 Finasteride (Proscar Tab*) 5 mg PO DAILY [facility] Last Admin: 06/26/18 09:10 Dose: 5 mg Heparin Sodium (Porcine) (Heparin Vial(*)) 5,000 units SUBCUT Q8HR [facility] Last Admin: 06/26/18 05:48 Dose: 5,000 units Ampicillin Sodium 2 gm/ Sodium (Chloride) 50 mls @ 100 mls/hr IV Q6H [facility] Last Admin: 06/26/18 05:48 Dose: 100 mls/hr Insulin Glargine (Lantus(*)) 15 units SUBCUT DAILY [facility] Last Admin: 06/26/18 09:09 Dose: 15 units Insulin Human Lispro (Humalog*) 0 units SUBCUT ACHS [facility]; Protocol Last Admin: 06/26/18 07:50 Dose: Not Given Lactobacillus Rhamnosus (Lactobacillus Acidophilus*) 1 tab PO BID [facility] Last Admin: 06/26/18 09:10 Dose: 1 tab Loperamide HCl (Imodium Cap*) 2 mg PO .SEE COMMENTS PRN PRN Reason: DIARRHEA Last Admin: 06/23/18 15:45 Dose: 2 mg Loperamide HCl (Imodium Cap*) 2 mg PO TID [facility] Last Admin: 06/26/18 09:10 Dose: 2 mg Metoprolol Tartrate (Lopressor Tab*) 12.5 mg PO BID [facility] Last Admin: 06/26/18 09:11 Dose: 12.5 mg Omeprazole (Prilosec Cap*) 20 mg PO DAILY [facility] Last Admin: 06/26/18 09:10 Dose: 20 mg Potassium Chloride (Klor Con Er Tab*) 40 meq PO DAILY [facility] Last Admin: 06/26/18 09:10 Dose: 40 meq Torsemide (Demadex*) 40 mg PO DAILY [facility] Last Admin: 06/26/18 09:10 Dose: 40 mg Vital Signs: Temp Pulse Resp BP Pulse Ox 98.5 F 100 18 103/52 100 06/26/18 07:32 06/26/18 07:32 06/26/18 09:10 06/26/18 07:32 06/26/18 07:32 Exam: Gen: Chronically ill appearing 67 yo male in NAD HEENT: MMM, no thrush CV: RRR, no m/r/g Resp: crackles and L lung base, R lung staley CTA Abd: soft, nonTTP Extremities: 1-2+ pitting edema bilaterally, improving [Assessment: []67 yo male with locally advanced pancreatic cancer with progressive weakness and falls in setting of marked fluid overload with anasarca. Now developed Enterococcus bacteremia without a clear source, but likely due to gut translocation in the setting of severe diarrhea that appears to be non- infectious. Plan: []1. Septicemia due to Enterococcus: - fevers resolved and repeat cultures now clear - Cont ampicillin 2g q 6h for a total of 14 days per ID recommendations, today is day 8/14 - source is not clear but likely from gut translocation 2/2 diarrhea 2. Anasarca: - elevated BNP with LVEF lower limits of normal, 50-55% - improved with Lasix drip, but didn't respond to oral lasix, transitioned to oral Torsemide yesterday with seemingly good effect - Cont monitor wt. daily 3. Diarrhea: - no evidence for active infection, high risk for pancreatic insufficiency with known cancer - appreciate GI consult, stool pancreatic elastase pending - if testing does not suggest pancreatic insufficiency then recommendation has been made to trial Rifaxamin for possible SIBO and maintaining lactose free diet - diarrhea appears more controlled with Imodium scheduled, cont at tid dosing 4. Anemia: - appears 2/2 chronic disease - iron, B12 and TSH all WNL - Hgb appears stable 5. Falls: - secondary to deconditioning with tx. and anasarca, cont. PT and discharge to rehab - TID ambulation with nursing in addition to PT 6. Pancreatic Cancer: - stable on imaging, consideration for 5FU/XRT if functional status improves - f/u as outpatient Dispo: bed offer for Friday @ [facility]
--- NOTE | 2018-06-26 14:36 | PN ---
Progress Note - Progress Note Date of Service: 06/26/18 SOAP: Subjective: CC: bacteremia HPI: 67 year old man with biliary stent admitted with diarrhea recently had a fever, BC grew E fecalis. On ampicillin, fever resolved. 2 stools today so far , loose. No abd pain or fever. Objective: Vital Signs Temp 36.8 C 06/26/18 10:46 Pulse 78 06/26/18 10:46 Resp 18 06/26/18 13:16 BP 105/50 06/26/18 10:46 Pulse Ox 95 06/26/18 10:46 Intake & Output 06/25/18 06/26/18 06/26/18 18:59 06:59 18:59 Intake Total 1255 70 480 Output Total 2250 700 475 Balance -995 -630 5 Weight 291 lb 1.6 oz 287 lb 12.8 oz Intake: IV Fluids 20 NS (0.9%) 20 IVPB 55 50 Ampicillin 55 50 Oral 1200 0 480 Output: Urine 2250 700 475 Other: Estimated Void Large Date of Last Bowel 06/25/18 Movement # Bowel Movements 3 0 1 Estimated Stool Amount Medium Small Small # Voids 0 1 Gen:awake, no distress HEENT: no thrush Heart:RRR no murmur Lungs:CTA BL Abd:+BS NTND soft Skin: no rash Laboratory Results - last 24 hr 06/25/18 06/25/18 06/25/18 07:46 14:47 16:13 WBC RBC Hgb Hct MCV MCH MCHC RDW Plt Count MPV Neut % (Auto) Lymph % (Auto) [place] % (Auto) Eos % (Auto) Baso % (Auto) Absolute Neuts (auto) Absolute Lymphs (auto) Absolute Monos (auto) Absolute Eos (auto) Absolute Basos (auto) Absolute Nucleated RBC Nucleated RBC % Sodium Potassium Chloride Carbon Dioxide Anion Gap BUN Creatinine Est GFR ( Amer) Est GFR (Non-Af Amer) BUN/Creatinine Ratio Glucose POC Glucose (mg/dL) 89 108 H Calcium Magnesium Iron 46 L TIBC 218 L % Saturation 21 Unsat Iron Binding 172 Transferrin 156 L Ferritin 1197.9 H Vitamin B12 1432 H Folate 3.96 TSH 4.61 Thyroxine (T4) 9.50 06/25/18 06/26/18 06/26/18 21:13 07:27 07:27 WBC 6.6 RBC 2.93 L Hgb 8.9 L Hct 27 L MCV 92 MCH 31 MCHC 33 RDW 22 H Plt Count 124 L MPV 8.3 Neut % (Auto) 58.4 Lymph % (Auto) 26.7 [place] % (Auto) 11.2 H Eos % (Auto) 2.5 Baso % (Auto) 1.2 Absolute Neuts (auto) 3.9 Absolute Lymphs (auto) 1.8 Absolute Monos (auto) 0.7 Absolute Eos (auto) 0.2 Absolute Basos (auto) 0.1 Absolute Nucleated RBC 0 Nucleated RBC % 0.1 Sodium 140 Potassium 4.0 Chloride 104 Carbon Dioxide 29 Anion Gap 7 BUN 18 Creatinine 1.20 H Est GFR ( Amer) 72.6 Est GFR (Non-Af Amer) 60.0 BUN/Creatinine Ratio 15.0 Glucose 102 H POC Glucose (mg/dL) 175 H Calcium 8.4 L Magnesium 1.9 Iron TIBC % Saturation Unsat Iron Binding Transferrin Ferritin Vitamin B12 Folate TSH Thyroxine (T4) 06/26/18 06/26/18 07:46 11:08 WBC RBC Hgb Hct MCV MCH MCHC RDW Plt Count MPV Neut % (Auto) Lymph % (Auto) [place] % (Auto) Eos % (Auto) Baso % (Auto) Absolute Neuts (auto) Absolute Lymphs (auto) Absolute Monos (auto) Absolute Eos (auto) Absolute Basos (auto) Absolute Nucleated RBC Nucleated RBC % Sodium Potassium Chloride Carbon Dioxide Anion Gap BUN Creatinine Est GFR ( Amer) Est GFR (Non-Af Amer) BUN/Creatinine Ratio Glucose POC Glucose (mg/dL) 114 H 137 H Calcium Magnesium Iron TIBC % Saturation Unsat Iron Binding Transferrin Ferritin Vitamin B12 Folate TSH Thyroxine (T4) Assessment: 1. E. fecalis bacteremia; resolved, has pyuria and nephrolithiasis with a R UPJ stone, UC negative 2. s/p AVR and aortic graft 3. Pancreatic cancer treated with chemotherapy 4. obesity Plan: 1. continue amp 2 gm IV Q6hrs day 8, can change to amox 500 mg po tid for 4 more days on 06/29 2. kidney stone eval ongoing
[2018-06-27 05:18] LABS: ABS Basophils 0.1 10^3/ul (0-0.2); ABS Eosinophils 0.2 10^3/ul (0-0.6); ABS Lymphocytes 1.3 10^3/ul (1.0-4.8); ABS Monocytes 0.8 10^3/ul (0-0.8); ABS Neutrophils 2.9 10^3/ul (1.5-7.7); ABS Nucleated RBC 0 10^3/ul; Eosinophil % 3.5 % (0-6); Hematocrit 26 % (42-52); Hemoglobin 8.4 g/dl (14.0-18.0); Lymphocyte % 25.4 % (25-47); Mean Corpuscular HGB Conc 33 g/dl (31-36); Mean Corpuscular Hemoglobin 30 pg (27-31); Mean Corpuscular Volume 93 fL (80-94); Nucleated Red Blood Cells % 0.2; Platelet Count 113 10^3/ul (150-450); Red Blood Count 2.78 10^6/ul (4.00-5.40); Red Cell Distribution Width 22 % (10.5-15); White Blood Count 5.3 10^3/ul (3.5-10.8)
[2018-06-27] MEDS: Ampicillin IV* 2 GM in NS 0.9% 50 ML* 50 ML IV SCH ×4 (05:23→22:45)
[2018-06-27] MEDS: Heparin VIAL(*) 5000 UNITS/ML VIAL (FIVE THOUSAND) SUBCUT SCH ×3 (05:24→21:01)
[2018-06-27 05:53] LABS: EGFR Non-African American 59.5 (>60)
--- NOTE | 2018-06-27 08:00 | PN ---
Progress Note - Progress Note Date of Service: 06/27/18 SOAP: Subjective: weight down to 283 today! diarrhea definitely slowing down. more like paste today. still unable to lift legs enough to do stairs. Objective: Vital Signs Temp Pulse Resp BP Pulse Ox 97.2 F 83 16 113/48 98 06/27/18 03:30 06/27/18 03:30 06/27/18 03:30 06/27/18 03:30 06/27/18 03:30 sitting up in chair in nad perr eomi op dry crackles left base s1 s2 nl obese nt +bs 1+ LE edema, definitely less than last week A+O x 3, globally weak LE Laboratory Results - last 24 hr 06/26/18 06/26/18 06/26/18 07:27 07:27 07:46 WBC RBC Hgb Hct MCV MCH MCHC RDW Plt Count MPV Neut % (Auto) 58.4 Lymph % (Auto) 26.7 [place] % (Auto) 11.2 H Eos % (Auto) 2.5 Baso % (Auto) 1.2 Absolute Neuts (auto) 3.9 Absolute Lymphs (auto) 1.8 Absolute Monos (auto) 0.7 Absolute Eos (auto) 0.2 Absolute Basos (auto) 0.1 Absolute Nucleated RBC 0 Nucleated RBC % 0.1 Sodium 140 Potassium 4.0 Chloride 104 Carbon Dioxide 29 Anion Gap 7 BUN 18 Creatinine 1.20 H Est GFR ( Amer) 72.6 Est GFR (Non-Af Amer) 60.0 BUN/Creatinine Ratio 15.0 Glucose 102 H POC Glucose (mg/dL) 114 H Calcium 8.4 L Magnesium 1.9 Total Bilirubin AST ALT Alkaline Phosphatase Total Protein Albumin Globulin Albumin/Globulin Ratio 06/27/18 06/27/18 04:58 04:58 WBC 5.3 RBC 2.78 L Hgb 8.4 L Hct 26 L MCV 93 MCH 30 MCHC 33 RDW 22 H Plt Count 113 L MPV 8.0 Neut % (Auto) 54.5 Lymph % (Auto) 25.4 [place] % (Auto) 15.5 H Eos % (Auto) 3.5 Baso % (Auto) 1.1 Absolute Neuts (auto) 2.9 Absolute Lymphs (auto) 1.3 Absolute Monos (auto) 0.8 Absolute Eos (auto) 0.2 Absolute Basos (auto) 0.1 Absolute Nucleated RBC 0 Nucleated RBC % 0.2 Sodium 141 Potassium 3.8 Chloride 104 Carbon Dioxide 31 Anion Gap 6 BUN 17 Creatinine 1.21 H Est GFR ( Amer) 71.9 Est GFR (Non-Af Amer) 59.5 BUN/Creatinine Ratio 14.0 Glucose 75 POC Glucose (mg/dL) Calcium 8.3 L Magnesium 1.8 L Total Bilirubin 0.60 AST 25 ALT 9 Alkaline Phosphatase 211 H Total Protein 6.3 L Albumin 2.1 L Globulin 4.2 H Albumin/Globulin Ratio 0.5 L Acetaminophen (Tylenol Tab*) 650 mg PO Q6H PRN PRN Reason: PAIN OR TEMPERATURE Last Admin: 06/19/18 22:11 Dose: 650 mg Clotrimazole (Mycelex Mik*) 10 mg PO BID [facility] Last Admin: 06/26/18 20:55 Dose: 10 mg Dextrose (D50w Syringe 50 Ml*) 12.5 gm IV PUSH .FOR FS < 60 - SS PRN PRN Reason: FS < 60 Finasteride (Proscar Tab*) 5 mg PO DAILY [facility] Last Admin: 06/26/18 09:10 Dose: 5 mg Heparin Sodium (Porcine) (Heparin Vial(*)) 5,000 units SUBCUT Q8HR [facility] Last Admin: 06/27/18 05:24 Dose: 5,000 units Ampicillin Sodium 2 gm/ Sodium (Chloride) 50 mls @ 100 mls/hr IV Q6H [facility] Last Admin: 06/27/18 05:23 Dose: 100 mls/hr Insulin Glargine (Lantus(*)) 15 units SUBCUT DAILY [facility] Last Admin: 06/26/18 09:09 Dose: 15 units Insulin Human Lispro (Humalog*) 0 units SUBCUT ACHS [facility]; Protocol Last Admin: 06/26/18 20:55 Dose: 3 units Lactobacillus Rhamnosus (Lactobacillus Acidophilus*) 1 tab PO BID [facility] Last Admin: 06/26/18 20:54 Dose: 1 tab Loperamide HCl (Imodium Cap*) 2 mg PO .SEE COMMENTS PRN PRN Reason: DIARRHEA Last Admin: 06/23/18 15:45 Dose: 2 mg Loperamide HCl (Imodium Cap*) 2 mg PO TID [facility] Last Admin: 06/26/18 20:55 Dose: 2 mg Metoprolol Tartrate (Lopressor Tab*) 12.5 mg PO BID [facility] Last Admin: 06/26/18 20:54 Dose: 12.5 mg Omeprazole (Prilosec Cap*) 20 mg PO DAILY [facility] Last Admin: 06/26/18 09:10 Dose: 20 mg Potassium Chloride (Klor Con Er Tab*) 40 meq PO DAILY [facility] Last Admin: 06/26/18 09:10 Dose: 40 meq Torsemide (Demadex*) 40 mg PO DAILY [facility] Last Admin: 06/26/18 09:10 Dose: 40 mg ASSESSMENT: 67 yo male with locally advanced pancreatic cancer with progressive weakness and falls in setting of marked fluided overload with course c/b enterococcus bacteremia. Plan: 1. Septicemia due to Enterococcus: - fevers resolved and repeat cultures now clear - Cont ampicillin 2g q 6h through , can switch to oral amoxicillin 500 mg po TID Friday for 4 more days - source is not clear but likely from gut translocation 2/2 diarrhea 2. Anasarca: - elevated BNP with LVEF lower limits of normal, 50-55% - responding nicely to torsemid - Cont monitor wt. daily 3. Diarrhea: - no evidence for active infection, high risk for pancreatic insufficiency with known cancer - appreciate GI consult, stool pancreatic elastase pending - if testing does not suggest pancreatic insufficiency then recommendation has been made to trial Rifaxamin for possible SIBO and maintaining lactose free diet - definitely improved on standing immodium 4. Anemia:ACD 5. Falls: - secondary to deconditioning with tx. and anasarca, cont. PT and discharge to rehab - TID ambulation with nursing in addition to PT 6. Pancreatic Cancer: - stable on imaging, consideration for 5FU/XRT if functional status improves - f/u as outpatient Dispo: bed offer for Friday @ [facility]
[2018-06-27] MEDS: Torsemide TAB* 20 MG PO SCH (09:01)
[2018-06-27] MEDS: Omeprazole CAP* 20 MG PO SCH (09:01)
[2018-06-27] MEDS: Insulin LISPRO* 1 UNITS UNIT SUBCUT SCH ×4 (09:01→20:59)
[2018-06-27] MEDS: Lactobacillus Acidophilus* 1 TAB PO SCH ×2 (09:02→20:57)
[2018-06-27] MEDS: Finasteride TAB* 5 MG PO SCH (09:02)
[2018-06-27] MEDS: Insulin GLARGINE(*) 1 UNITS UNIT SUBCUT SCH (09:03)
[2018-06-27] MEDS: Metoprolol Tartrate TAB* 25 MG PO SCH ×2 (09:03→20:57)
[2018-06-27] MEDS: Potassium Chlor TAB* 20 MEQ TAB.ER PO SCH (09:03)
[2018-06-27] MEDS: Loperamide CAP* 2 MG PO SCH ×3 (09:03→20:58)
[2018-06-27] MEDS: Clotrimazole TROCHE* 10 MG TROCHE PO SCH ×2 (09:03→20:59)
[2018-06-28] MEDS: Ampicillin IV* 2 GM in NS 0.9% 50 ML* 50 ML IV SCH (04:52)
[2018-06-28] MEDS: Heparin VIAL(*) 5000 UNITS/ML VIAL (FIVE THOUSAND) SUBCUT SCH ×3 (04:52→20:38)
[2018-06-28] MEDS: Torsemide TAB* 20 MG PO SCH (07:36)
[2018-06-28] MEDS: Insulin LISPRO* 1 UNITS UNIT SUBCUT SCH ×4 (07:36→20:37)
[2018-06-28] MEDS: Loperamide CAP* 2 MG PO SCH ×3 (07:37→20:36)
[2018-06-28] MEDS: Omeprazole CAP* 20 MG PO SCH (07:37)
[2018-06-28] MEDS: Lactobacillus Acidophilus* 1 TAB PO SCH ×2 (07:38→20:36)
[2018-06-28] MEDS: Metoprolol Tartrate TAB* 25 MG PO SCH ×2 (07:39→20:35)
[2018-06-28] MEDS: Finasteride TAB* 5 MG PO SCH (07:40)
[2018-06-28] MEDS: Potassium Chlor TAB* 20 MEQ TAB.ER PO SCH (07:40)
[2018-06-28] MEDS: Clotrimazole TROCHE* 10 MG TROCHE PO SCH ×2 (07:40→20:36)
[2018-06-28] MEDS: Insulin GLARGINE(*) 1 UNITS UNIT SUBCUT SCH (07:40)
--- NOTE | 2018-06-28 11:58 | PN ---
Subjective Date of Service: 06/28/18 Interval History: Pt is feeling ok. He states he feels still weak but is going to rehab tomorrow. He is pleased about the drop in weight. He is down from 326lb to 281lb and states he has not been under 300lb in years. He denies any SOB. He states his stool is generally improved and now pasty to slightly formed. Objective Active Medications: Acetaminophen (Tylenol Tab*) 650 mg PO Q6H PRN PRN Reason: PAIN OR TEMPERATURE Last Admin: 06/19/18 22:11 Dose: 650 mg Amoxicillin (Amoxicillin Po (*)) 500 mg PO TID [facility] Clotrimazole (Mycelex Mik*) 10 mg PO BID [facility] Last Admin: 06/28/18 07:40 Dose: 10 mg Dextrose (D50w Syringe 50 Ml*) 12.5 gm IV PUSH .FOR FS < 60 - SS PRN PRN Reason: FS < 60 Finasteride (Proscar Tab*) 5 mg PO DAILY [facility] Last Admin: 06/28/18 07:40 Dose: 5 mg Heparin Sodium (Porcine) (Heparin Vial(*)) 5,000 units SUBCUT Q8HR [facility] Last Admin: 06/28/18 04:52 Dose: 5,000 units Insulin Glargine (Lantus(*)) 15 units SUBCUT DAILY [facility] Last Admin: 06/28/18 07:40 Dose: 15 units Insulin Human Lispro (Humalog*) 0 units SUBCUT ACHS [facility]; Protocol Last Admin: 06/28/18 07:36 Dose: Not Given Lactobacillus Rhamnosus (Lactobacillus Acidophilus*) 1 tab PO BID [facility] Last Admin: 06/28/18 07:38 Dose: 1 tab Loperamide HCl (Imodium Cap*) 2 mg PO .SEE COMMENTS PRN PRN Reason: DIARRHEA Last Admin: 06/23/18 15:45 Dose: 2 mg Loperamide HCl (Imodium Cap*) 2 mg PO TID [facility] Last Admin: 06/28/18 07:37 Dose: 2 mg Metoprolol Tartrate (Lopressor Tab*) 12.5 mg PO BID [facility] Last Admin: 06/28/18 07:39 Dose: 12.5 mg Omeprazole (Prilosec Cap*) 20 mg PO DAILY [facility] Last Admin: 10/07/18 07:37 Dose: 20 mg Potassium Chloride (Klor Con Er Tab*) 40 meq PO DAILY [facility] Last Admin: 06/28/18 07:40 Dose: 40 meq Torsemide (Demadex*) 40 mg PO DAILY [facility] Last Admin: 06/28/18 07:36 Dose: 40 mg Vital Signs - 8 hr 06/28/18 06/28/18 06/28/18 07:31 07:37 08:00 Temperature 98.0 F Pulse Rate 86 Respiratory 14 16 18 Rate Blood Pressure 112/53 (mmHg) O2 Sat by Pulse 98 Oximetry Oxygen Devices in Use Now: None Appearance: Middle aged morbidly obese male sitting up in a chair, NAD Eyes: No Scleral Icterus Ears/Nose/Mouth/Throat: Mucous Membranes Moist Respiratory: Symmetrical Chest Expansion and Respiratory Effort, Clear to Auscultation Cardiovascular: NL Sounds; No Murmurs; No JVD, RRR, - - 1-2+ LE edema Abdominal: NL Sounds; No Tenderness; No Distention Extremities: No Clubbing, Cyanosis Skin: No Nodules or Sclerosis Neurological: Alert and Oriented x 3 Result Diagrams: 06/27/18 04:58 06/27/18 04:58 Additional Lab and Data: Lab Results 06/12/18 06/12/18 06/12/18 Range/Units 17:23 17:59 17:59 WBC 10.9 H (3.5-10.8) 10^3/ul RBC 2.91 L (4.00-5.40) 10^6/ul Hgb 8.8 L (14.0-18.0) g/dl Hct 26 L (42-52) % MCV 91 (80-94) fL MCH 30 (27-31) pg MCHC 33 (31-36) g/dl RDW 18 H (10.5-15) % Plt Count 104 L (150-450) 10^3/ul MPV 8.1 (7.4-10.4) um3 Neut % (Auto) Not Reportable Lymph % (Auto) Not Reportable [place] % (Auto) Not Reportable Eos % (Auto) Not Reportable Baso % (Auto) Not Reportable Absolute Neuts (auto) 7.4 (1.5-7.7) 10^3/ul Absolute Lymphs (auto) Not Reportable Absolute Monos (auto) Not Reportable Absolute Eos (auto) Not Reportable Absolute Basos (auto) Not Reportable Absolute Nucleated RBC Not Reportable Immature Gran % 14 H (0-9) % Neutrophils % 62 (38-83) % Band Neutrophils % 12 H (0-8) % Lymphocytes % 14 L (25-47) % Monocytes % 10 H (0-7) % Eosinophils % 0 (0-6) % Basophils % 0 (0-2) % Metamyelocytes % 2 (0-2) % Nucleated RBC % Not Reportable Abs Neuts (Manual) 6.8 (1.5-7.7) 10^3/ul Abs Lymphs (Manual) 1.5 (1.0-4.8) 10^3/ul Abs Monocytes (Manual) 1.1 H (0-0.8) 10^3/ul Absolute Eos (Manual) 0 (0-0.6) 10^3/ul Abs Basophils (Manual) 0 (0-0.2) 10^3/ul Normal RBC Morphology Not Reportable Hypochromasia 1+ Anisocytosis 2+ Sodium 137 (135-145) mmol/L Potassium 3.9 (3.5-5.0) mmol/L Chloride 110 (101-111) mmol/L Carbon Dioxide 21 L (22-32) mmol/L Anion Gap 6 (2-11) mmol/L BUN 28 H (6-24) mg/dL Creatinine 1.15 (0.67-1.17) mg/dL Est GFR ( Amer) 76.3 (>60) Est GFR (Non-Af Amer) 63.1 (>60) BUN/Creatinine Ratio 24.3 H (8-20) Glucose 144 H (70-100) mg/dL POC Glucose (mg/dL) 140 H (70-100) mg/dL Lactic Acid (0.5-2.0) mmol/L Calcium 8.2 L (8.6-10.3) mg/dL Magnesium 1.8 L (1.9-2.7) mg/dL Total Bilirubin 0.90 (0.2-1.0) mg/dL AST 48 H (13-39) U/L ALT 14 (7-52) U/L Alkaline Phosphatase 144 H (34-104) U/L Troponin I 0.03 (<0.04) ng/mL B-Natriuretic Peptide ( - 100) pg/mL Total Protein 5.5 L (6.4-8.9) g/dL Albumin 2.2 L (3.2-5.2) g/dL Globulin 3.3 (2-4) g/dL Albumin/Globulin Ratio 0.7 L (1-3) Lipase 82 (11.0-82.0) U/L TSH Pending 06/12/18 06/12/18 Range/Units 17:59 17:59 WBC (3.5-10.8) 10^3/ul RBC (4.00-5.40) 10^6/ul Hgb (14.0-18.0) g/dl Hct (42-52) % MCV (80-94) fL MCH (27-31) pg MCHC (31-36) g/dl RDW (10.5-15) % Plt Count (150-450) 10^3/ul MPV (7.4-10.4) um3 Neut % (Auto) Lymph % (Auto) [place] % (Auto) Eos % (Auto) Baso % (Auto) Absolute Neuts (auto) (1.5-7.7) 10^3/ul Absolute Lymphs (auto) Absolute Monos (auto) Absolute Eos (auto) Absolute Basos (auto) Absolute Nucleated RBC Immature Gran % (0-9) % Neutrophils % (38-83) % Band Neutrophils % (0-8) % Lymphocytes % (25-47) % Monocytes % (0-7) % Eosinophils % (0-6) % Basophils % (0-2) % Metamyelocytes % (0-2) % Nucleated RBC % Abs Neuts (Manual) (1.5-7.7) 10^3/ul Abs Lymphs (Manual) (1.0-4.8) 10^3/ul Abs Monocytes (Manual) (0-0.8) 10^3/ul Absolute Eos (Manual) (0-0.6) 10^3/ul Abs Basophils (Manual) (0-0.2) 10^3/ul Normal RBC Morphology Hypochromasia Anisocytosis Sodium (135-145) mmol/L Potassium (3.5-5.0) mmol/L Chloride (101-111) mmol/L Carbon Dioxide (22-32) mmol/L Anion Gap (2-11) mmol/L BUN (6-24) mg/dL Creatinine (0.67-1.17) mg/dL Est GFR ( Amer) (>60) Est GFR (Non-Af Amer) (>60) BUN/Creatinine Ratio (8-20) Glucose (70-100) mg/dL POC Glucose (mg/dL) (70-100) mg/dL Lactic Acid 1.8 (0.5-2.0) mmol/L Calcium (8.6-10.3) mg/dL Magnesium (1.9-2.7) mg/dL Total Bilirubin (0.2-1.0) mg/dL AST (13-39) U/L ALT (7-52) U/L Alkaline Phosphatase (34-104) U/L Troponin I (<0.04) ng/mL B-Natriuretic Peptide 340 H ( - 100) pg/mL Total Protein (6.4-8.9) g/dL Albumin (3.2-5.2) g/dL Globulin (2-4) g/dL Albumin/Globulin Ratio (1-3) Lipase (11.0-82.0) U/L TSH Microbiology and Other Data: Microbiology 06/20/18 08:00 Aerobic Blood Culture - Final Blood Venous Not Reportable Anaerobic Blood Culture - Final Not Reportable Blood Culture - Final No Growth Day 5 06/20/18 07:55 Aerobic Blood Culture - Final Blood Venous No Growth Day 5 Anaerobic Blood Culture - Final Not Reportable 06/18/18 10:28 Stool Culture - Final Stool Stool Gross Appearance - Final Shiga Toxin I & II - Final Stool Lactoferrin - Final Cryptosporidium/Giardia - Final Neg Cryptosporidium/Giardia 06/19/18 14:00 Catheter Tip Culture - Final Catheter Tip NO GROWTH DAY 4 Cath tip cultures with >15 CFU are considered clinically significant. It is recommended procedure that peripheral blood cultures be collected in parallel with cath tip submission. Clinical Microbiology Procedures Handbook, Second Edition, Jere, 2004. 06/17/18 21:50 Aerobic Blood Culture - Final Blood Line Enterococcus Faecalis Anaerobic Blood Culture - Final Enterococcus Faecalis 06/17/18 21:54 Aerobic Blood Culture - Final Blood Venous Enterococcus Faecalis Anaerobic Blood Culture - Final Enterococcus Faecalis 06/17/18 23:50 Urine Culture - Final Urine Assess/Plan/Problems-Billing 67 yo M w locally advanced pancreatic cancer recently treated with gemcitabine/ abraxane admitted for anasarca. - Patient Problems (1) Bacteremia due to Enterococcus Current Visit: Yes Status: Acute Code(s): R78.81 - BACTEREMIA; B95.2 - ENTEROCOCCUS THE CAUSE OF DISEASES CLASSIFIED ELSEWHERE SNOMED Code(s): 171191909914 Comment: Pt lost IV access this AM. Per Dr. Siddiqui, plan was to change to amoxicillin 500mg TID x 4 more days starting tomorrow. As no further IV access and plan is for rehab tomorrow, change to amoxicillin starting today for 5 days. (2) Anasarca Current Visit: Yes Status: Acute Code(s): R60.1 - GENERALIZED EDEMA SNOMED Code(s): 717939410 Comment: Much improved from admission though the patient still has significant LE edema. Continue JC wraps and torsemide. Monitor electrolytes/ renal function intermittently on the high dose diuretic. (3) Diarrhea Current Visit: Yes Status: Acute Code(s): R19.7 - DIARRHEA, UNSPECIFIED SNOMED Code(s): 44772824 Comment: Resolving on standing imodium. Monitor stool frequency/consistency. (4) Pancreatic cancer Current Visit: Yes Status: Acute Comment: Management per oncology. Chemo currently on hold. (5) Diabetes mellitus Current Visit: Yes Status: Acute Code(s): E11.9 - TYPE 2 DIABETES MELLITUS WITHOUT COMPLICATIONS SNOMED Code(s): 16640955 Comment: Sugars are under good control on lantus 15 units daily. (6) DVT prophylaxis Current Visit: Yes Status: Acute Code(s): [id number] - SNOMED Code(s): 271191499 Comment: SQ heparin (7) Full code status Current Visit: Yes Status: Acute Code(s): Z78.9 - OTHER SPECIFIED HEALTH STATUS SNOMED Code(s): 190948978
[2018-06-28] MEDS: Amoxicillin PO (*) 500 MG CAP PO SCH ×2 (14:59→20:35)
[2018-06-29] MEDS: Heparin VIAL(*) 5000 UNITS/ML VIAL (FIVE THOUSAND) SUBCUT SCH (05:40)
[2018-06-29] MEDS: Torsemide TAB* 20 MG PO SCH (08:16)
[2018-06-29] MEDS: Omeprazole CAP* 20 MG PO SCH (08:16)
[2018-06-29] MEDS: Insulin GLARGINE(*) 1 UNITS UNIT SUBCUT SCH (08:16)
[2018-06-29] MEDS: Clotrimazole TROCHE* 10 MG TROCHE PO SCH (08:17)
[2018-06-29] MEDS: Loperamide CAP* 2 MG PO SCH (08:17)
[2018-06-29] MEDS: Metoprolol Tartrate TAB* 25 MG PO SCH (08:17)
[2018-06-29] MEDS: Amoxicillin PO (*) 500 MG CAP PO SCH (08:17)
[2018-06-29] MEDS: Potassium Chlor TAB* 20 MEQ TAB.ER PO SCH (08:17)
[2018-06-29] MEDS: Lactobacillus Acidophilus* 1 TAB PO SCH (08:17)
[2018-06-29] MEDS: Finasteride TAB* 5 MG PO SCH (08:17)
[2018-06-29] MEDS: Insulin LISPRO* 1 UNITS UNIT SUBCUT SCH ×2 (08:22→12:31)
--- NOTE | 2018-06-29 11:08 | DS ---
- Discharge Summary Admission Date: 06/12/2018 Discharge Date: 06/29/2018 Discharge Diagnosis: 1. Septicemia secondary to enterococcus: source unclear, however felt 2/2 gut translocation d/t cont.'d diarrhea, resolved with abx. 2. Anasarca secondary to severe protein caloric malnutrition: marked improvement following lasix gtt with approx. 40 lb. wt. loss, now on oral diuretic 3. Falls secondary to severe weakness with deconditioning: slow improvement following diuresis and PT, d/c to SNF for rehab 4. Diarrhea: chronic, now improved with scheduled imodium, stool pancreatic elastase pending 5. Diabetes: cont. insulin 6. Pancreatic Cancer: potential 5FU/XRT if performance status improves, will eval. as an outpatient 7. Renal calculi and hydronephrosis: stable hydro, non-obstructing stones, monitoring Discharge Medications: Medication Instructions Recorded Confirmed Type Finasteride TAB* [Proscar TAB*] 5 mg PO DAILY 01/23/18 06/12/18 History Insulin GLARGINE(*) [Lantus(*)] 15 units SUBCUT DAILY 02/24/18 06/12/18 History Omeprazole CAP* [Prilosec CAP* 20 20 mg PO DAILY 04/21/18 06/12/18 History MG] Clotrimazole MIK* [Mycelex 10 mg PO BID 06/06/18 06/12/18 History Mik*] oxyCODONE/Acetamin 5/325 MG* 1 tab PO Q4H PRN tab 06/11/18 06/12/18 Rx [Percocet 5/325 TAB*] Acetaminophen TAB* [Tylenol TAB*] 650 mg PO Q6H PRN tab 06/29/18 Rx Amoxicillin PO (*) [Amoxicillin 500 mg PO TID 4 Days cap 06/29/18 Rx 500 MG CAP*] Insulin LISPRO* [HumaLOG*] 0 units SUBCUT ACHS unit 06/29/18 Rx Lactobacillus Acidophilus* 1 tab PO BID tab 06/29/18 Rx Loperamide CAP* [Imodium CAP*] 2 mg PO .SEE COMMENTS PRN cap 06/29/18 Rx Loperamide CAP* [Imodium CAP*] 2 mg PO TID cap 06/29/18 Rx Metoprolol Tartrate TAB* 12.5 mg PO BID tab 06/29/18 Rx [Lopressor TAB*] Potassium Chlor TAB* [Potassium 40 meq PO DAILY tab.er 06/29/18 Rx Chlor TAB 20 MEQ*] Torsemide TAB* [Demadex 20 MG*] 40 mg PO DAILY tab 06/29/18 Rx Hospital Course: Please see admission note for full H&P, however briefly, Mr. Collins is well known to our service due to his unfortunate diagnoses of locally advanced pancreatic cancer with treatment course complicated by several admissions. He was admitted 06/06/18-06/11/18 following a fall and unfortunately fell again shortly after discharge, on 06/12, and was unable to get up. He activated EMS and was brought to the ER where he was admitted to the hospital on 06/12 with severe fluid volume overload and started on IV bolus lasix. His weight on admission was 320lbs. On 06/15 a lasix drip was initiated as he had not had any significant improvement in his weight. ID was consulted due to cont.'d diarrhea and hx. of C.Diff. and vancomycin PO was continued. He also experienced hematuria on 06/[address] of the abd. and pelvis was obtained to evaluate for obstruction renal calculi; this revealed Left hydro (stable) and non-obstructing stones in the right kidney. On 06/18 Ceftriaxone was initiated due to fevers overnight and subsequent blood cultures revealed 4/4 positive for Enterococcus. On 06/19 he was transitioned to Ampicillin with plan for 14 day course as per ID. An echo, repeat CT, and urine culture were obtained without obvious source for sepsis. Dr. Pedroza removed his port and the tip ultimately was negative for growth. While the source for his bacteremia has not been obvious it is felt he likely had translocation from the gut due to his chronic diarrhea. With bacteremia and improved weight he was transitioned back to oral lasix. Repeat blood cultures on 06/20 were negative. On 06/[address] was repeated to follow-up on his hydronephrosis and renal calculi, this was essentially stable therefore he did not have stents placed. He had recurrent weight gain and IV bolus lasix was resumed. Per ID the vancomycin was stopped on 06/22 as well. On 06/24 GI was consulted due to cont.'d diarrhea and imodium was then scheduled. Mr. Collins declined colonoscopy and stool for pancreatic elastase was sent out. His diarrhea has since continued to improve with scheduled imodium. He has not had any further fevers and continues to gain strength, albeit slowly, with PT. He was transitioned to oral Torsemide on 06/25 and has continued to loose weight, now at 280 lbs. On 06/28 his peripheral IV fell out and per ID he was transitioned to PO Amoxicillin 500 mg TID to complete 14 day course (5 more days). While the anasarca has improved he remains very weak and has not been able to perform stairs therefore he will be discharged to subacute rehab today. He will follow-up with Dr. Tran in approximately two weeks at which time we will re-assess his ability to resume any therapy. Plan of care was reviewed at length with all questions answered. >40 min spent with >50% face to face counseling
[2018-06-29 12:22] VITALS: BP 104/52
== END 2018-06-29 12:30 | DRG 640 ==
LOC: ED 17:02 → MED 21:12 → UNDODISIN 06-29 13:20
PROVIDERS: ADMIT Hospitalist; ATTEND Internal Medicine Hematology & Oncology
PROC: 02PYX3Z Removal of Infusion Device from Great Vessel, External Approach (ICD-10-PCS; 2018-06-19)
PROC: 0JPT0WZ Removal of Totally Implantable Vascular Access Device from Trunk Subcutaneous Tissue and Fascia, Open Approach (ICD-10-PCS; principal; 2018-06-19 12:30)
DX: E43 Unspecified severe protein-calorie malnutrition (principal); A41.81 Sepsis due to Enterococcus; C25.0 Malignant neoplasm of head of pancreas; N13.6 Pyonephrosis; Z68.42 Body mass index [BMI] 45.0-49.9, adult; I71.2 Thoracic aortic aneurysm, without rupture; Z96.0 Presence of urogenital implants; I48.91 Unspecified atrial fibrillation; I10 Essential (primary) hypertension; G47.33 Obstructive sleep apnea (adult) (pediatric); Z96.653 Presence of artificial knee joint, bilateral; B37.9 Candidiasis, unspecified; R13.10 Dysphagia, unspecified; W18.30XA Fall on same level, unspecified, initial encounter; N40.0 Benign prostatic hyperplasia without lower urinary tract symptoms; K21.9 Gastro-esophageal reflux disease without esophagitis; M19.042 Primary osteoarthritis, left hand; M19.041 Primary osteoarthritis, right hand; E11.36 Type 2 diabetes mellitus with diabetic cataract; R31.9 Hematuria, unspecified; K52.9 Noninfective gastroenteritis and colitis, unspecified; E87.70 Fluid overload, unspecified; E83.42 Hypomagnesemia; D64.9 Anemia, unspecified; E66.01 Morbid (severe) obesity due to excess calories; Z23 Encounter for immunization; Q99.8 Other specified chromosome abnormalities; Z95.2 Presence of prosthetic heart valve; Z88.0 Allergy status to penicillin; Z88.5 Allergy status to narcotic agent; Z82.49 Family history of ischemic heart disease and other diseases of the circulatory system; Z72.0 Tobacco use; Z72.89 Other problems related to lifestyle; Y92.002 Bathroom of unspecified non-institutional (private) residence as the place of occurrence of the external cause; Z87.442 Personal history of urinary calculi; Z92.21 Personal history of antineoplastic chemotherapy
CPT/HCPCS: 36415; 36591; 71045; 71046; 71260; 74018; 74176; 74177; 80048; 80053; 81003; 81015; 82607; 82656; 82728; 82746; 83540; 83550; 83605; 83630; 83690; 83735; 83880; 84436; 84439; 84443; 84484; 85025; 85049; 85060; 85610; 86850; 86900; 86901; 86905; 86922; 87040; 87045; 87046; 87071; 87077; 87086; 87186; 87205; 87328; 87329; 87493; 87899; 90686; 93005; 93306; 96360; 96361; 99214; 99231; 99232; 99233; 99239; 99284; 99285; A9270-GY; C8929; G0463; G8978-GP-CJ; G8978-GP-CK; G8978-GP-CM; G8979-GP-CI; G8979-GP-CJ; G8987-GO-CK; G8988-GO-CI; J0290; J0692; J0696; J1642; J1644; J1650; J1940; J2001; J2270; J3475; P9035; P9040; Q9967

== ENCOUNTER 2018-08-05 13:17 | Inpatient (IN) | payer MEDICARE ==
[2018-08-05] MEDS ORDERED: Prochlorperazine TAB* 10 MG PO PRN (14:54)
[2018-08-05] MEDS ORDERED: Dextrose 50% Syringe 50 ML* 25 GM/50 ML SYRINGE IV PUSH PRN (15:35)
[2018-08-05] MEDS: Insulin LISPRO* 1 UNITS UNIT SUBCUT SCH ×2 (16:49→20:56)
[2018-08-05] MEDS: Ampicillin ADVAN(*) 2 GM in NS 0.9% 100 ML* 100 ML IVPB SCH ×2 (16:53→20:57)
[2018-08-05] MEDS ORDERED: Warfarin TAB(*) 3 MG PO ONE (17:00)
[2018-08-06] MEDS: Ampicillin ADVAN(*) 2 GM in NS 0.9% 100 ML* 100 ML IVPB SCH ×4 (03:22→21:39)
[2018-08-06] MEDS: Insulin LISPRO* 1 UNITS UNIT SUBCUT SCH ×4 (07:21→21:22)
[2018-08-06] MEDS ORDERED: Alteplase (CATHFLO)* 2 MG VIAL ONE (08:30)
[2018-08-06 08:39] LABS: ABS Basophils 0 10^3/ul (0-0.2); ABS Eosinophils 0 10^3/ul (0-0.6); ABS Lymphocytes 1.4 10^3/ul (1.0-4.8); ABS Monocytes 0.3 10^3/ul (0-0.8); ABS Neutrophils 3.5 10^3/ul (1.5-7.7); ABS Nucleated RBC 0 10^3/ul; Eosinophil % 0.6 % (0-6); Hematocrit 24 % (42-52); Lymphocyte % 26.2 % (25-47); Mean Corpuscular HGB Conc 33 g/dl (31-36); Mean Corpuscular Hemoglobin 30 pg (27-31); Mean Corpuscular Volume 90 fL (80-94); Mean Platelet Volume 7.6 fL (7.4-10.4); Nucleated Red Blood Cells % 0.1; Platelet Count 103 10^3/ul (150-450); Red Cell Distribution Width 18 % (10.5-15); White Blood Count 5.3 10^3/ul (3.5-10.8)
[2018-08-06 08:55] LABS: INR 2.18 (0.77-1.02)
[2018-08-06 08:56] LABS: EGFR Non-African American 58.9 (>60)
[2018-08-06] MEDS: Torsemide TAB* 20 MG PO SCH (13:13)
[2018-08-06] MEDS: Anidulafungin* 100 MG in NS 0.9% 100 ML* 100 ML IVPB SCH (18:30)
[2018-08-06] MEDS ORDERED: Warfarin TAB(*) 3 MG PO ONE (19:00)
[2018-08-07] MEDS: Ampicillin ADVAN(*) 2 GM in NS 0.9% 100 ML* 100 ML IVPB SCH ×4 (04:00→20:53)
[2018-08-07] MEDS: Insulin LISPRO* 1 UNITS UNIT SUBCUT SCH ×4 (07:55→20:52)
[2018-08-07] MEDS: Torsemide TAB* 20 MG PO SCH (12:51)
[2018-08-07] MEDS: Anidulafungin* 100 MG in NS 0.9% 100 ML* 100 ML IVPB SCH (17:01)
[2018-08-07] MEDS: Warfarin TAB(*) 3 MG PO SCH (18:38)
[2018-08-08] MEDS: Ampicillin ADVAN(*) 2 GM in NS 0.9% 100 ML* 100 ML IVPB SCH ×4 (04:10→22:17)
[2018-08-08 05:25] LABS: ABS Basophils 0 10^3/ul (0-0.2); ABS Eosinophils 0 10^3/ul (0-0.6); ABS Lymphocytes 1.5 10^3/ul (1.0-4.8); ABS Monocytes 0.3 10^3/ul (0-0.8); ABS Neutrophils 2.8 10^3/ul (1.5-7.7); ABS Nucleated RBC 0 10^3/ul; Eosinophil % 0.8 % (0-6); Hematocrit 22 % (42-52); Hemoglobin 7.4 g/dl (14.0-18.0); Lymphocyte % 31.5 % (25-47); Mean Corpuscular HGB Conc 33 g/dl (31-36); Mean Corpuscular Hemoglobin 30 pg (27-31); Mean Corpuscular Volume 89 fL (80-94); Mean Platelet Volume 7.4 fL (7.4-10.4); Nucleated Red Blood Cells % 0.1; Platelet Count 105 10^3/ul (150-450); Red Blood Count 2.49 10^6/ul (4.00-5.40); Red Cell Distribution Width 18 % (10.5-15); White Blood Count 4.7 10^3/ul (3.5-10.8)
[2018-08-08 05:31] LABS: INR 1.96 (0.77-1.02)
[2018-08-08] MEDS: Insulin LISPRO* 1 UNITS UNIT SUBCUT SCH ×4 (08:06→22:17)
[2018-08-08] MEDS ORDERED: Metoprolol Tartrate TAB* 25 MG ONE (11:55)
[2018-08-08] MEDS: Metoprolol Tartrate TAB* 25 MG PO SCH ×2 (12:00→22:17)
[2018-08-08] MEDS: Torsemide TAB* 20 MG PO SCH (12:00)
[2018-08-08] MEDS: Warfarin TAB(*) 3 MG PO SCH (16:55)
[2018-08-08] MEDS: Anidulafungin* 100 MG in NS 0.9% 100 ML* 100 ML IVPB SCH (18:10)
[2018-08-09] MEDS: Ampicillin ADVAN(*) 2 GM in NS 0.9% 100 ML* 100 ML IVPB SCH ×2 (04:35→09:39)
[2018-08-09] MEDS: Omeprazole CAP* 20 MG PO SCH (05:09)
[2018-08-09] MEDS: Metoprolol Tartrate TAB* 25 MG PO SCH ×2 (07:14→21:30)
[2018-08-09] MEDS: Insulin LISPRO* 1 UNITS UNIT SUBCUT SCH ×4 (07:18→21:30)
--- NOTE | 2018-08-09 08:27 | PN ---
Progress Note - Progress Note Date of Service: 08/09/18 SOAP: Subjective: []Feels fine and is doing well. Concerned about his medications. Dextrose (D50w Syringe 50 Ml*) 12.5 gm IV PUSH .FOR FS < 60 - SS PRN PRN Reason: FS < 60 Heparin Sodium (Porcine) (Heparin Flush Picc/Ml/Cvc(*)) 1 - 3 ml FLUSH 0600, 1800 [facility]; Protocol Last Admin: 08/09/18 05:09 Dose: 1 ml Ampicillin Sodium 2 gm/ Sodium (Chloride) 100 mls @ 200 mls/hr IVPB Q6H [facility] Last Admin: 08/09/18 04:35 Dose: 200 mls/hr Anidulafungin 100 mg/ Sodium (Chloride) 130 mls @ 65 mls/hr IVPB Q24H [facility] Last Admin: 08/08/18 18:10 Dose: 65 mls/hr Insulin Human Lispro (Humalog*) 0 units SUBCUT [facility]; Protocol Last Admin: 08/09/18 07:18 Dose: Not Given Metoprolol Tartrate (Lopressor Tab*) 12.5 mg PO Q12HR [facility] Last Admin: 08/09/18 07:14 Dose: 12.5 mg Omeprazole (Prilosec Cap*) 20 mg PO DAILY@0600 [facility] Last Admin: 08/09/18 05:09 Dose: 20 mg Pharmacy Profile Note (Coumadin Daily Reminder*) 1 note FOLLOW UP 1700 [facility] Last Admin: 08/08/18 16:55 Dose: 1 note Prochlorperazine (Compazine Tab*) 10 mg PO Q6HR PRN PRN Reason: NAUSEA Torsemide (Demadex*) 20 mg PO Q24H [facility] Last Admin: 08/08/18 12:00 Dose: 20 mg Warfarin Sodium (Coumadin Tab(*)) 3 mg PO 1700 [facility] Last Admin: 08/08/18 16:55 Dose: 3 mg Objective: [] Vital Signs Temp Pulse Resp BP Pulse Ox 97.9 F 80 18 132/74 99 08/08/18 11:18 08/09/18 07:10 08/09/18 07:42 08/09/18 07:10 08/08/18 11:18 HEENT - OM no lesions, no thrush. pale CTA RRR S1S2 Obeses Ext no edema PICC in place 08/06/18 08/06/18 08/06/18 08:21 08:21 08:21 WBC 5.3 RBC 2.70 L Hgb 8.0 L Hct 24 L MCV 90 MCH 30 MCHC 33 RDW 18 H Plt Count 103 L MPV 7.6 Neut % (Auto) 66.1 Lymph % (Auto) 26.2 [place] % (Auto) 6.6 Eos % (Auto) 0.6 Baso % (Auto) 0.5 Absolute Neuts (auto) 3.5 Absolute Lymphs (auto) 1.4 Absolute Monos (auto) 0.3 Absolute Eos (auto) 0 Absolute Basos (auto) 0 Absolute Nucleated RBC 0 Nucleated RBC % 0.1 INR (Anticoag Therapy) 2.18 H Sodium 137 Potassium 3.7 Chloride 111 Carbon Dioxide 23 Anion Gap 3 BUN 24 Creatinine 1.22 H Est GFR ( Amer) 71.3 Est GFR (Non-Af Amer) 58.9 BUN/Creatinine Ratio 19.7 Glucose 82 POC Glucose (mg/dL) Calcium 8.1 L Total Bilirubin 0.50 AST 25 ALT 9 Alkaline Phosphatase 123 H Total Protein 6.3 L Albumin 1.7 L Globulin 4.6 H Albumin/Globulin Ratio 0.4 L 08/06/18 08/06/18 08/06/18 12:28 17:58 21:18 WBC RBC Hgb Hct MCV MCH MCHC RDW Plt Count MPV Neut % (Auto) Lymph % (Auto) [place] % (Auto) Eos % (Auto) Baso % (Auto) Absolute Neuts (auto) Absolute Lymphs (auto) Absolute Monos (auto) Absolute Eos (auto) Absolute Basos (auto) Absolute Nucleated RBC Nucleated RBC % INR (Anticoag Therapy) Sodium Potassium Chloride Carbon Dioxide Anion Gap BUN Creatinine Est GFR ( Amer) Est GFR (Non-Af Amer) BUN/Creatinine Ratio Glucose POC Glucose (mg/dL) 162 H 140 H 168 H Calcium Total Bilirubin AST ALT Alkaline Phosphatase Total Protein Albumin Globulin Albumin/Globulin Ratio 08/07/18 08/07/18 08/07/18 07:42 11:37 17:04 WBC RBC Hgb Hct MCV MCH MCHC RDW Plt Count MPV Neut % (Auto) Lymph % (Auto) [place] % (Auto) Eos % (Auto) Baso % (Auto) Absolute Neuts (auto) Absolute Lymphs (auto) Absolute Monos (auto) Absolute Eos (auto) Absolute Basos (auto) Absolute Nucleated RBC Nucleated RBC % INR (Anticoag Therapy) Sodium Potassium Chloride Carbon Dioxide Anion Gap BUN Creatinine Est GFR ( Amer) Est GFR (Non-Af Amer) BUN/Creatinine Ratio Glucose POC Glucose (mg/dL) 112 H 152 H 162 H Calcium Total Bilirubin AST ALT Alkaline Phosphatase Total Protein Albumin Globulin Albumin/Globulin Ratio 08/07/18 08/08/18 08/08/18 20:24 05:10 05:10 WBC 4.7 RBC 2.49 L Hgb 7.4 L Hct 22 L MCV 89 MCH 30 MCHC 33 RDW 18 H Plt Count 105 L MPV 7.4 Neut % (Auto) 60.0 Lymph % (Auto) 31.5 [place] % (Auto) 7.1 H Eos % (Auto) 0.8 Baso % (Auto) 0.6 Absolute Neuts (auto) 2.8 Absolute Lymphs (auto) 1.5 Absolute Monos (auto) 0.3 Absolute Eos (auto) 0 Absolute Basos (auto) 0 Absolute Nucleated RBC 0 Nucleated RBC % 0.1 INR (Anticoag Therapy) 1.96 H Sodium Potassium Chloride Carbon Dioxide Anion Gap BUN Creatinine Est GFR ( Amer) Est GFR (Non-Af Amer) BUN/Creatinine Ratio Glucose POC Glucose (mg/dL) 170 H Calcium Total Bilirubin AST ALT Alkaline Phosphatase Total Protein Albumin Globulin Albumin/Globulin Ratio 08/08/18 08/08/18 08/08/18 07:59 12:02 17:01 WBC RBC Hgb Hct MCV MCH MCHC RDW Plt Count MPV Neut % (Auto) Lymph % (Auto) [place] % (Auto) Eos % (Auto) Baso % (Auto) Absolute Neuts (auto) Absolute Lymphs (auto) Absolute Monos (auto) Absolute Eos (auto) Absolute Basos (auto) Absolute Nucleated RBC Nucleated RBC % INR (Anticoag Therapy) Sodium Potassium Chloride Carbon Dioxide Anion Gap BUN Creatinine Est GFR ( Amer) Est GFR (Non-Af Amer) BUN/Creatinine Ratio Glucose POC Glucose (mg/dL) 112 H 155 H 152 H Calcium Total Bilirubin AST ALT Alkaline Phosphatase Total Protein Albumin Globulin Albumin/Globulin Ratio 08/08/18 08/09/18 21:07 07:17 WBC RBC Hgb Hct MCV MCH MCHC RDW Plt Count MPV Neut % (Auto) Lymph % (Auto) [place] % (Auto) Eos % (Auto) Baso % (Auto) Absolute Neuts (auto) Absolute Lymphs (auto) Absolute Monos (auto) Absolute Eos (auto) Absolute Basos (auto) Absolute Nucleated RBC Nucleated RBC % INR (Anticoag Therapy) Sodium Potassium Chloride Carbon Dioxide Anion Gap BUN Creatinine Est GFR ( Amer) Est GFR (Non-Af Amer) BUN/Creatinine Ratio Glucose POC Glucose (mg/dL) 168 H 122 H Calcium Total Bilirubin AST ALT Alkaline Phosphatase Total Protein Albumin Globulin Albumin/Globulin Ratio Assessment: []67 year on IV ABX following multi pathogen urosepsis. Plan: []1.Will complete ABX on the 2. Continue current medication 3. Check K and INR tomorrow. 4. Will look into have any needed imaging before he goes home.
[2018-08-09] MEDS: Torsemide TAB* 20 MG PO SCH (12:54)
[2018-08-09] MEDS: Ampicillin IV* 2 GM in NS 0.9% 100 ML* 100 ML IVPB SCH ×2 (15:48→21:30)
[2018-08-09] MEDS: Warfarin TAB(*) 3 MG PO SCH (16:00)
[2018-08-09] MEDS: Anidulafungin* 100 MG in NS 0.9% 100 ML* 100 ML IVPB SCH (16:40)
[2018-08-10] MEDS: Ampicillin IV* 2 GM in NS 0.9% 100 ML* 100 ML IVPB SCH ×4 (04:18→20:19)
[2018-08-10] MEDS: Omeprazole CAP* 20 MG PO SCH (05:11)
[2018-08-10 05:37] LABS: INR 1.78 (0.77-1.02)
[2018-08-10 05:47] LABS: EGFR Non-African American 54.3 (>60)
[2018-08-10] MEDS: Insulin LISPRO* 1 UNITS UNIT SUBCUT SCH ×4 (09:16→20:20)
[2018-08-10] MEDS: Metoprolol Tartrate TAB* 25 MG PO SCH ×2 (09:17→20:19)
[2018-08-10] MEDS: Torsemide TAB* 20 MG PO SCH (12:20)
[2018-08-10] MEDS: Warfarin TAB(*) 3 MG PO SCH (17:42)
[2018-08-10] MEDS: Anidulafungin* 100 MG in NS 0.9% 100 ML* 100 ML IVPB SCH (17:42)
[2018-08-11] MEDS: Ampicillin IV* 2 GM in NS 0.9% 100 ML* 100 ML IVPB SCH ×4 (05:01→21:26)
[2018-08-11] MEDS: Omeprazole CAP* 20 MG PO SCH (06:02)
[2018-08-11] MEDS: Insulin LISPRO* 1 UNITS UNIT SUBCUT SCH ×4 (08:07→21:28)
[2018-08-11] MEDS: Metoprolol Tartrate TAB* 25 MG PO SCH ×2 (09:55→22:28)
[2018-08-11] MEDS: Torsemide TAB* 20 MG PO SCH (12:41)
[2018-08-11] MEDS: Warfarin TAB(*) 3 MG PO SCH (17:33)
[2018-08-12] MEDS: Ampicillin IV* 2 GM in NS 0.9% 100 ML* 100 ML IVPB SCH ×2 (03:29→08:33)
[2018-08-12] MEDS: Omeprazole CAP* 20 MG PO SCH (05:01)
[2018-08-12 07:53] VITALS: BP 121/70
[2018-08-12] MEDS: Insulin LISPRO* 1 UNITS UNIT SUBCUT SCH (07:56)
[2018-08-12] MEDS: Metoprolol Tartrate TAB* 25 MG PO SCH (08:34)
[2018-08-12 09:12] LABS: ABS Basophils 0 10^3/ul (0-0.2); ABS Eosinophils 0 10^3/ul (0-0.6); ABS Lymphocytes 1.4 10^3/ul (1.0-4.8); ABS Monocytes 0.3 10^3/ul (0-0.8); ABS Nucleated RBC 0 10^3/ul; Hematocrit 23 % (42-52); Hemoglobin 7.6 g/dl (14.0-18.0); Mean Corpuscular HGB Conc 32 g/dl (31-36); Mean Corpuscular Hemoglobin 29 pg (27-31); Mean Corpuscular Volume 89 fL (80-94); Mean Platelet Volume 7.3 fL (7.4-10.4); Nucleated Red Blood Cells % 0.1; Platelet Count 119 10^3/ul (150-450); Red Blood Count 2.63 10^6/ul (4.00-5.40); Red Cell Distribution Width 18 % (10.5-15); White Blood Count 3.8 10^3/ul (3.5-10.8)
[2018-08-12 09:24] LABS: EGFR Non-African American 58.9 (>60)
--- NOTE | 2018-08-12 11:14 | DS ---
- Discharge Summary Admission date:08/05/18 Discharge date: 08/12/18 Discharge Diagnosis: 1. Sepsis: s/p 10 days IV ampicillin, blood cultures negative 2. A.Fib: on beta abdulkadir and coumadin, will check INR 08/21 3. Pancreatic Cancer: plan for RT, port film 08/21, f/u medonc 08/21 Discharge Medications: Medication Instructions Recorded Confirmed Type Finasteride TAB* [Proscar TAB*] 5 mg PO DAILY 01/23/18 08/07/18 History Insulin GLARGINE(*) [Lantus(*)] 15 units SUBCUT DAILY 02/24/18 08/07/18 History Omeprazole CAP* [Prilosec CAP* 20 20 mg PO DAILY 04/21/18 08/07/18 History MG] Metoprolol Tartrate TAB* 12.5 mg PO BID tab 06/29/18 08/07/18 Rx [Lopressor TAB*] Loperamide CAP* [Imodium CAP*] 2 mg PO DAILY PRN 07/28/18 08/07/18 History Lactobacillus Acidophilus* 1 tab PO DAILY tab 08/05/18 08/07/18 Rx Potassium Chlor TAB* [Potassium 20 meq PO DAILY tab.er 08/05/18 08/07/18 Rx Chlor TAB 20 MEQ*] Prochlorperazine TAB* [Compazine 10 mg PO Q6HR PRN tab 08/12/18 Rx Tab*] Torsemide TAB* [Demadex 20 MG*] 20 mg PO Q24H tab 08/12/18 Rx Warfarin TAB(*) [Coumadin TAB(*)] 3 mg PO 1700 #14 tab 08/12/18 Rx Hospital Course: Please see admission note for full H&P, however briefly, Mr. Pantoja is well known to our service due to his unfortunate diagnosis of locally advanced pancreatic cancer, considered unresectable d/t limited response to FOLFIRINOX and co-morbid conditions. He was admitted to swing status on 08/05/18 for IV ampicillin q6hrs to complete a full 10 day course which completed today. He has been very stable during his swing stay and has had no complications with therapy. He will be discharged home today with plan for RT as previously planned to start the week of 08/24. He will f/u with [facility] 08/21/18 and will have labs drawn that day as well. Plan of care reviewed at length and all questions answered. >40 min spent with >50% face to face counseling
== END 2018-08-12 13:15 | disposition home or self-care (01) | DRG 871 ==
LOC: MED 13:17
PROVIDERS: ADMIT Internal Medicine Hematology & Oncology; ATTEND Internal Medicine Hematology & Oncology
PROC: 02HV33Z Insertion of Infusion Device into Superior Vena Cava, Percutaneous Approach (ICD-10-PCS; principal; 2018-08-06)
DX: A41.81 Sepsis due to Enterococcus (principal); E43 Unspecified severe protein-calorie malnutrition; I21.A9 Other myocardial infarction type; C25.9 Malignant neoplasm of pancreas, unspecified; Z68.42 Body mass index [BMI] 45.0-49.9, adult; N13.2 Hydronephrosis with renal and ureteral calculous obstruction; M86.669 Other chronic osteomyelitis, unspecified tibia and fibula; B37.7 Candidal sepsis; I48.91 Unspecified atrial fibrillation; E66.01 Morbid (severe) obesity due to excess calories; E11.36 Type 2 diabetes mellitus with diabetic cataract; I11.9 Hypertensive heart disease without heart failure; E11.9 Type 2 diabetes mellitus without complications; I25.10 Atherosclerotic heart disease of native coronary artery without angina pectoris; M19.042 Primary osteoarthritis, left hand; M19.041 Primary osteoarthritis, right hand; Z96.653 Presence of artificial knee joint, bilateral; E86.0 Dehydration; G47.33 Obstructive sleep apnea (adult) (pediatric); E78.5 Hyperlipidemia, unspecified; Z79.01 Long term (current) use of anticoagulants; Z88.1 Allergy status to other antibiotic agents; Z88.5 Allergy status to narcotic agent; Z95.2 Presence of prosthetic heart valve; Z87.442 Personal history of urinary calculi; Z86.19 Personal history of other infectious and parasitic diseases; Z87.891 Personal history of nicotine dependence
CPT/HCPCS: 36415; 71045; 77334; 77470; 80048; 80053; 85025; 85610; 99239; A9270-GY; C1751; G8978-GP-CI; G8979-GP-CH; G8979-GP-CI; G8980-GP-CI; J0290; J0348; J2997

== ENCOUNTER 2018-08-24 07:48 | Day surgery (SDC) | payer MEDICARE ==
--- NOTE | 2018-08-21 15:11 | HP ---
CC: Dr. Tran * ADMITTING HISTORY AND PHYSICAL: DATE OF ADMISSION: 08/24/18. ADMITTING DIAGNOSIS: Right renal calculus. PLANNED PROCEDURE: Shock-wave lithotripsy of right renal calculus. HISTORY OF PRESENT ILLNESS: Nathan Collins is a 67-year-old gentleman who has had multiple admissions in the last couple of months for issues related to pancreatic cancer and also to sepsis related to an obstructing calculus in the right ureter, which required urgent right stent insertion. He is now being brought in for shock- wave lithotripsy. PAST MEDICAL HISTORY: Outlined in his multiple recent history and physical but is significant for: 1. Recent diagnosis of pancreatic carcinoma. 2. History of atrial fibrillation. 3. Hypertension. 4. Kidney stones. 5. Thoracic aneurysm. 6. Obstructive sleep apnea. 7. Longstanding history of diabetes mellitus. 8. Coronary artery disease. 9. Chronic osteomyelitis of the lower leg. PAST SURGICAL HISTORY: Significant for aortic valve replacement in 2012 and total right knee replacement and multiple total left knee replacement. MEDICATIONS: 1. Coumadin, which is currently on hold. 2. Finasteride 5 mg daily. 3. Omeprazole 20 mg daily. 4. Potassium chloride 40 mEq daily. 5. Torsemide 40 mg a day. 6. Metoprolol 12.5 twice a day. 7. Lantus insulin as instructed. PHYSICAL EXAMINATION GENERAL: Reveals a pleasant, middle-aged, overweight gentleman. VITAL SIGNS: Blood pressure is 110/60, pulse of 88 per minute, oxygen saturation 96% on room air. LUNGS: Clear bilaterally. CARDIOVASCULAR: S1, S2, no murmurs. ABDOMEN: Soft with right flank tenderness. IMPRESSION: A 67-year-old gentleman, status post right stent insertion for an obstructing right ureteral calculus with sepsis who has been treated with intravenous antibiotics and intravenous antifungals and is now being brought in for shock-wave lithotripsy of right renal calculus. [id number]/[facility] #: [id number] MTDD
[~2018-08-24 07:48] MED LIST changes: +Famotidine IV* 10 MG/ML 2 ML (20 mg) IV ONE
[2018-08-24] MEDS ORDERED: Famotidine IV* 10 MG/ML 2 ML (20 mg) ONE (08:08)
[2018-08-24] MEDS ORDERED: cefTRIAXone(*) 2 GM ADDV.VIAL IVPB ONE (08:08)
[2018-08-24] MEDS ORDERED: Morphine VIAL* 10 MG/ML 1 ML VIAL ONE (08:08)
[2018-08-24 09:08] LABS: INR 1.32 (0.77-1.02)
[2018-08-24] MEDS ORDERED: HYDROcodone/ACETAMIN 5-325 MG* 1 TAB PO PRN (10:25)
[2018-08-24] MEDS ORDERED: oxyCODONE/Acetamin 5/325 MG* TAB PO PRN (10:25)
[2018-08-24] MEDS ORDERED: fentaNYL* 50 MCG/ML 2 ML VIAL (100 MCG VIAL) IV PRN (10:25)
[2018-08-24] MEDS ORDERED: DiMENhydriNATE IV* 50 MG/ML VIAL IV PUSH PRN (10:25)
[2018-08-24] MEDS ORDERED: Naloxone* 0.4 MG/ML 1 ML VIAL IV PRN (10:25)
[2018-08-24] MEDS ORDERED: Propofol* 10 MG/ML 20 ML BTL ONE (10:39)
[2018-08-24] MEDS ORDERED: Lidocaine 2% PF * 5 ML VIAL ONE (10:39)
[2018-08-24] MEDS ORDERED: fentaNYL* 50 MCG/ML 2 ML VIAL (100 MCG VIAL) ONE (10:40)
[2018-08-24] MEDS ORDERED: EPHEDrine (Pressors)* 50 MG/ML VIAL ONE (10:47)
[2018-08-24] MEDS ORDERED: Ondansetron INJ* 2 MG/ML VIAL ONE (11:01)
[2018-08-24] MEDS ORDERED: Furosemide IV* 10 MG/ML 2 ML VIAL (20 MG) ONE (11:02)
[2018-08-24] MEDS ORDERED: Vancomycin(*) 1,000 MG in NS 0.9% 250 ML* 250 ML IVPB ONE (12:00)
[2018-08-24 12:03] VITALS: BP 119/60
--- NOTE | 2018-08-25 07:45 | OP ---
CC: Krystyna Jones MD; Dr. Tran * DATE OF OPERATION: 08/24/18 - [facility] DATE OF : 46 SURGEON: Abran Stephenson MD ANESTHESIOLOGIST: Dr. Grant. ANESTHESIA: General. PRE-OP DIAGNOSES: 1. Calculus right proximal ureter. 2. Right renal calculi. POST-OP DIAGNOSES: 1. Calculus right proximal ureter. 2. Right renal calculi. OPERATIVE PROCEDURE: Shockwave lithotripsy of calculus right proximal ureter. COMPLICATIONS: None. POSTOPERATIVE CONDITION: Stable. INDICATIONS: Nathan Collins is a 67-year-old gentleman who had undergone urgent right stent insertion because of an obstructing calculus in the right proximal ureter associated with urosepsis. Because of his history of positive blood cultures, I am reluctant to put him through a ureteroscopy and he is now being brought in for shockwave lithotripsy of the calculus in the right proximal ureter. He also has additional smaller calculi in the right kidney, which I am not planning to treat at the present time because his INR is still 1.3 in spite of being off the Coumadin for more than a week. DESCRIPTION OF PROCEDURE: After induction of general anesthesia, the patient was placed on the lithotripsy table in supine position. The calculus adjacent to the proximal part of the stent was localized using fluoroscopy. Shockwave lithotripsy was commenced at a rate of 60 shocks per minute. Periodic imaging revealed good localization and a total of 2800 shocks were administered. The plan is to obtain a postoperative CT to assess the degree of fragmentation (as this is difficult to assess on a KUB with a large calculus in the ureter) before determining timing of stent removal. [id number]/[facility] #: [id number] [facility]
== END 2018-08-24 14:24 | disposition home or self-care (01) ==
LOC: OR 07:48
PROVIDERS: ATTEND Urology
DX: N20.1 Calculus of ureter (principal); E11.9 Type 2 diabetes mellitus without complications; Z79.4 Long term (current) use of insulin; Z79.01 Long term (current) use of anticoagulants; I48.91 Unspecified atrial fibrillation; C25.9 Malignant neoplasm of pancreas, unspecified; I25.10 Atherosclerotic heart disease of native coronary artery without angina pectoris; I10 Essential (primary) hypertension; G47.33 Obstructive sleep apnea (adult) (pediatric); M86.669 Other chronic osteomyelitis, unspecified tibia and fibula; Z95.2 Presence of prosthetic heart valve; I34.0 Nonrheumatic mitral (valve) insufficiency; D64.9 Anemia, unspecified
CPT/HCPCS: 36415; 74018; 85610; J0696; J1940; J2270; J2405; J2704; J3010; J3370

== ENCOUNTER 2018-12-21 13:14 | Inpatient (IN) | payer MEDICARE ==
[2018-12-21] MEDS ORDERED: Piperacillin/Tazobac ADVAN(*) 3.375 GM in NS 0.9% 100 ML* 100 ML IVPB ONE (13:15)
[2018-12-21] MEDS ORDERED: Zosyn per Pharmacy* NOTE FOLLOW UP SCH (14:00)
[2018-12-21] MEDS ORDERED: Ondansetron INJ* 2 MG/ML VIAL IV PRN (15:09)
[2018-12-21] MEDS: ZOSYN 3.375 GM Q8H per EXTENDED INFUSION IVPB SCH ×2 (17:57)
[2018-12-21] MEDS: Enoxaparin(*) 40 MG/0.4 ML SYR SUBCUT SCH (17:57)
--- NOTE | 2018-12-21 19:49 | CONS ---
CC: Dr. Nolen * CONSULTATION REPORT: DATE OF CONSULT: 12/21/18 CHIEF COMPLAINT: Abdominal pain. HISTORY OF PRESENT ILLNESS: This pleasant 68-year-old gentleman was admitted by the hematology service for abdominal pain, jaundice, elevated lactic acid level, and findings of dilated gallbladder and biliary tree on CT scan. He had a stent placed 2 times in the past since his diagnosis of pancreatic cancer. He is currently feeling better without significant abdominal pain. No nausea or vomiting. No fevers or chills. PAST MEDICAL HISTORY: 1. Pancreatic cancer, diagnosed in November of 2017. He underwent neoadjuvant treatment in December. 2. Thoracic aortic aneurysm. 3. Aortic stenosis. 4. AFib. 5. Hypertension. 6. Obstructive sleep apnea. PAST SURGICAL HISTORY: Prior urologic procedure for stone removal. He has had a knee replacement with a revision, umbilical hernia repair, valve replacement with aortic bioprosthetic valve, and a biliary stent placed in January. MEDICATIONS: Include: 1. Cholestyramine. 2. Finasteride. 3. Lasix. 4. Potassium. 5. Lantus. 6. Metoprolol. 7. Omeprazole. 8. Victoza. ALLERGIES: OXACILLIN and MORPHINE. FAMILY HISTORY: Denies history of pancreatic cancer. SOCIAL HISTORY: He is here with his and daughter. REVIEW OF SYSTEMS: As per history of present illness. PHYSICAL EXAM: He is currently afebrile. Vital signs are stable. HEENT: Sclerae are somewhat icteric. The oral mucosa is pink and moist. Neck is supple. Abdomen is obese, soft, nontender. No signs of peritonitis. Slight discomfort throughout the abdomen with palpation. No masses or hernias are noted. DIAGNOSTIC STUDIES/LAB DATA: Laboratory studies show elevated lactic acid level of 3.2. Radiologic studies as per history of present illness with a CT scan showing dilated common bile duct, intrahepatic duct, and gallbladder. IMPRESSION AND PLAN: Abdominal pain of unknown etiology. Elevated lactic acid level that should be repeated. Other labs are pending. After reviewing the CT report, with dilated ducts and gallbladder down to the stent and concern about obstructive area in the stent, he has a consult in with GI for evaluation as well as MRCP. Plan is pending those results. At this point, it does not appear to be consistent with cholecystitis. [id number]/[facility] #: [id number] [facility]
[2018-12-21] MEDS: Metoprolol Tartrate TAB* 25 MG PO SCH (20:47)
[2018-12-21] MEDS: HYDROmorphone INJ1* 1 MG/ML SYRINGE IV SLOW PU PRN (20:47)
--- NOTE | 2018-12-21 22:30 | CONS ---
CONSULTATION REPORT: DATE OF CONSULT: 12/21/18 REQUESTING PHYSICIAN: Dr. Nolen. INDICATION: Fever, jaundice, known pancreatic cancer with bile duct stent. HISTORY OF PRESENT ILLNESS: Mr. Collins is a very pleasant 68-year-old gentleman who was diagnosed with pancreatic cancer, who completed chemotherapy earlier this year. The patient states on Friday he developed abdominal pain in the epigastrium and then dark urine and some fevers. He presented to his oncologist today and they directly admitted him to the hospital. He does have a biliary stent in place and it had been changed in the past. Currently, he is feeling slightly better. He has had pain medicine, fluids, and has been started on antibiotics. He just got back from an MRCP. I do not have these results yet. PAST MEDICAL HISTORY: Significant for pancreatic cancer, thoracic aortic aneurysm, atrial fibrillation, osteomyelitis, hypertension, obstructive sleep apnea, type 2 diabetes. PAST SURGICAL HISTORY: Includes multiple colonoscopies, knee replacements, umbilical hernia repair, aortic valve bioprosthetic valve replacement. CURRENT MEDICATIONS: Include: 1. Finasteride 5 mg. 2. Potassium. 3. Lantus. 4. Metoprolol. 5. Omeprazole 20. 6. Oxycodone. 7. Torsemide. FAMILY HISTORY: No pancreatic cancer in the family. SOCIAL HISTORY: He rarely drinks alcohol, quit smoking many years ago. REVIEW OF SYSTEMS: 12 systems were reviewed, other than that mentioned in the HPI were unremarkable. PHYSICAL EXAM: Temperature is 97.1, blood pressure is 123/49, pulse is 71, respiratory rate of 22, O2 sat is 100%. General: Mildly ill-appearing male, in no apparent distress, alert, oriented, pleasant, fluent. HEENT: Mucous membranes are dry. Conjunctivae are jaundiced. Sclerae are icteric. Neck is supple. Trachea is midline. Heart: Irregular rate and rhythm. Lungs: Clear to auscultation. Abdomen is obese, positive bowel sounds, soft. Mild epigastric tenderness. No rebound or guarding. No masses were felt. Skin is warm and dry. DIAGNOSTIC STUDIES/LAB DATA: Labs of note, his white count is 10.7, hemoglobin is 10, platelet count of 168. INR from a month ago was 1.33. Sodium is 130, BUN is 33, creatinine is 1.81. His total bilirubin is 9.6. AST is 74, ALT is 45, alk phos is 695. He has abdominal CT from this morning which shows biliary stent in place, increasing intrahepatic ductal dilatation when compared to the previous exam on October, gallbladder is distended, right pleural effusion, ascites appears to be slightly increased from previous exam. ASSESSMENT AND PLAN: This is a very pleasant gentleman with known pancreatic cancer, status post treatment, who has a biliary stent in place. He does have evidence of cholangitis. He is on antibiotics at this point, likely his stent is blocked. There is upstream dilatation. He does have an MRCP pending. I would recommend we continue fluids, antibiotics, and pain control. He likely will need repeat ERCP with stent replacement tomorrow. [id number]/[facility] #: [id number] [facility]
[2018-12-21] MEDS: NS 0.9% 1000 ML** 1,000 ML IV SCH (23:43)
[2018-12-22] MEDS: ZOSYN 3.375 GM Q8H per EXTENDED INFUSION IVPB SCH ×6 (01:46→17:58)
[2018-12-22 06:59] LABS: INR 1.62 (0.77-1.02)
[2018-12-22 07:08] LABS: Albumin 1.8 g/dL (3.2-5.2); Albumin/Globulin Ratio 0.4 (1-3); BUN/Creatinine Ratio 20.5 (8-20); Calcium 8.2 mg/dL (8.6-10.3); EGFR African American 49.8 (>60); EGFR Non-African American 41.2 (>60); Globulin 4.2 g/dL (2-4); Potassium 3.9 mmol/L (3.5-5.0); Total Bilirubin 7.1 mg/dL (0.2-1.0)
[2018-12-22 07:11] LABS: ABS Basophils 0 10^3/ul (0-0.2); ABS Eosinophils 0 10^3/ul (0-0.6); ABS Lymphocytes 0.6 10^3/ul (1.0-4.8); ABS Monocytes 0.2 10^3/ul (0-0.8); ABS Neutrophils 5.3 10^3/ul (1.5-7.7); ABS Nucleated RBC 0 10^3/ul; Eosinophil % 0.1 %; Hematocrit 23 % (36-46); Hemoglobin 7.7 g/dL (14.0-18.0); Lymphocyte % 10.2 %; Mean Corpuscular HGB Conc 34 g/dL (31-36); Mean Corpuscular Hemoglobin 31 pg (27-31); Mean Corpuscular Volume 92 fL (80-94); Mean Platelet Volume 8.8 fL (7.4-10.4); Nucleated Red Blood Cells % 0; Platelet Count 101 10^3/uL (150-450); Red Blood Count 2.47 10^6 /uL (4.18-5.48); Red Cell Distribution Width 17 % (10.5-15); White Blood Count 6.2 10^3/uL (3.5-10.8)
[2018-12-22] MEDS: Insulin GLARGINE(*) 1 UNITS UNIT SUBCUT SCH (08:47)
[2018-12-22] MEDS: Finasteride TAB* 5 MG PO SCH ×2 (08:47→11:45)
[2018-12-22] MEDS: Torsemide TAB* 20 MG PO SCH (08:47)
[2018-12-22] MEDS: Metoprolol Tartrate TAB* 25 MG PO SCH ×2 (08:47→20:35)
[2018-12-22] MEDS: NS 0.9% 1000 ML** 1,000 ML IV SCH ×2 (09:20→19:35)
[2018-12-22] MEDS: HYDROmorphone INJ1* 1 MG/ML SYRINGE IV SLOW PU PRN ×2 (11:10→20:35)
[2018-12-22] MEDS: Enoxaparin(*) 40 MG/0.4 ML SYR SUBCUT SCH (17:58)
[2018-12-23] MEDS: ZOSYN 3.375 GM Q8H per EXTENDED INFUSION IVPB SCH ×6 (02:10→17:02)
[2018-12-23] MEDS: NS 0.9% 1000 ML** 1,000 ML IV SCH ×2 (05:47→17:03)
[2018-12-23] MEDS: Finasteride TAB* 5 MG PO SCH ×2 (05:49→10:28)
[2018-12-23] MEDS: Torsemide TAB* 20 MG PO SCH ×2 (05:50→10:28)
[2018-12-23 08:51] LABS: ABS Basophils 0 10^3/ul (0-0.2); ABS Eosinophils 0.1 10^3/ul (0-0.6); ABS Lymphocytes 0.6 10^3/ul (1.0-4.8); ABS Monocytes 0.2 10^3/ul (0-0.8); ABS Neutrophils 4.9 10^3/ul (1.5-7.7); ABS Nucleated RBC 0 10^3/ul; Eosinophil % 0.9 %; Hematocrit 23 % (36-46); Hemoglobin 7.6 g/dL (14.0-18.0); Lymphocyte % 10.5 %; Mean Corpuscular HGB Conc 34 g/dL (31-36); Mean Corpuscular Hemoglobin 31 pg (27-31); Mean Corpuscular Volume 92 fL (80-94); Mean Platelet Volume 8.3 fL (7.4-10.4); Nucleated Red Blood Cells % 0; Platelet Count 102 10^3/uL (150-450); Red Blood Count 2.45 10^6 /uL (4.18-5.48); Red Cell Distribution Width 17 % (10.5-15); White Blood Count 5.8 10^3/uL (3.5-10.8)
[2018-12-23] MEDS: HYDROmorphone INJ1* 1 MG/ML SYRINGE IV SLOW PU PRN (09:05)
[2018-12-23 09:17] LABS: Albumin 1.8 g/dL (3.2-5.2); Albumin/Globulin Ratio 0.5 (1-3); BUN/Creatinine Ratio 21.3 (8-20); Calcium 7.9 mg/dL (8.6-10.3); EGFR African American 53.9 (>60); EGFR Non-African American 44.5 (>60); Potassium 3.3 mmol/L (3.5-5.0); Total Protein 5.8 g/dL (6.4-8.9)
[2018-12-23] MEDS: Insulin GLARGINE(*) 1 UNITS UNIT SUBCUT SCH (10:01)
[2018-12-23] MEDS: Metoprolol Tartrate TAB* 25 MG PO SCH ×2 (11:13→21:11)
--- NOTE | 2018-12-23 11:38 | PN ---
Progress Note - Progress Note Date of Service: 12/23/18 SOAP: Subjective: [ERCP pending for later today. Still has intermittent abdominal pain. No n/v. No BM. No further fevers.] Objective: [ Laboratory Results - last 24 hr 12/22/18 12/22/18 12/22/18 12:47 16:43 23:10 WBC RBC Hgb Hct MCV MCH MCHC RDW Plt Count MPV Neut % (Auto) Lymph % (Auto) [place] % (Auto) Eos % (Auto) Baso % (Auto) Absolute Neuts (auto) Absolute Lymphs (auto) Absolute Monos (auto) Absolute Eos (auto) Absolute Basos (auto) Absolute Nucleated RBC Nucleated RBC % Sodium Potassium Chloride Carbon Dioxide Anion Gap BUN Creatinine Est GFR ( Amer) Est GFR (Non-Af Amer) BUN/Creatinine Ratio Glucose POC Glucose (mg/dL) 160 H 150 H 160 H Calcium Total Bilirubin AST ALT Alkaline Phosphatase Total Protein Albumin Globulin Albumin/Globulin Ratio 12/23/18 12/23/18 12/23/18 08:31 08:31 08:39 WBC 5.8 RBC 2.45 L Hgb 7.6 L Hct 23 L MCV 92 MCH 31 MCHC 34 RDW 17 H Plt Count 102 L MPV 8.3 Neut % (Auto) 84.3 Lymph % (Auto) 10.5 [place] % (Auto) 4.0 Eos % (Auto) 0.9 Baso % (Auto) 0.3 Absolute Neuts (auto) 4.9 Absolute Lymphs (auto) 0.6 L Absolute Monos (auto) 0.2 Absolute Eos (auto) 0.1 Absolute Basos (auto) 0 Absolute Nucleated RBC 0 Nucleated RBC % 0 Sodium 134 L Potassium 3.3 L Chloride 105 Carbon Dioxide 21 L Anion Gap 8 BUN 33 H Creatinine 1.55 H Est GFR ( Amer) 53.9 Est GFR (Non-Af Amer) 44.5 BUN/Creatinine Ratio 21.3 H Glucose 129 H POC Glucose (mg/dL) 147 H Calcium 7.9 L Total Bilirubin 6.00 H AST 28 ALT 21 Alkaline Phosphatase 362 H Total Protein 5.8 L Albumin 1.8 L Globulin 4.0 Albumin/Globulin Ratio 0.5 L Enoxaparin Sodium (Lovenox(*)) 40 mg SUBCUT Q24H [facility] Last Admin: 12/22/18 17:58 Dose: Not Given Finasteride (Proscar Tab*) 5 mg PO QAM [facility] Last Admin: 12/23/18 10:28 Dose: Not Given Hydromorphone HCl (Dilaudid Inj1s*) 1 mg IV SLOW PU Q4H PRN PRN Reason: PAIN Last Admin: 12/23/18 09:05 Dose: 1 mg Sodium Chloride (Ns 0.9% 1000 Ml) 1,000 mls @ 100 mls/hr IV PER RATE [facility] Last Admin: 12/23/18 05:47 Dose: 100 mls/hr Piperacillin Sod/Tazobactam (Sod 3.375 gm/ Sodium Chloride) 100 mls @ 25 mls/ hr IVPB Q8H [facility] Last Admin: 12/23/18 02:10 Dose: 25 mls/hr Potassium Chloride (Potassium Chloride 10 Meq/50 Ml Ivpremix*) 10 meq in 50 mls @ 50 mls/hr IV Q1H [facility] Stop: 12/23/18 14:59 Insulin Glargine (Lantus(*)) [facility] [place] Last Admin: 12/23/18 10:01 Dose: Not Given Metoprolol Tartrate (Lopressor Tab*) 12.5 mg PO BID [facility] Last Admin: 12/22/18 20:35 Dose: Not Given Ondansetron HCl (Zofran Inj*) 4 mg IV Q4H PRN PRN Reason: NAUSEA Pharmacy Consult (Zosyn Per Pharmacy*) 1 note FOLLOW UP .ZOSYN PER PHARMACY [facility] Potassium Chloride (Klor Con Er Tab*) 40 meq PO BID [facility] Vital Signs: Temp Pulse Resp BP Pulse Ox 99.3 F 95 22 95/52 98 12/23/18 11:17 12/23/18 11:17 12/23/18 11:17 12/23/18 11:17 12/23/18 11:17 Exam: Gen: chronically ill appearing 68 yo male in NAD, accompanied by his HEENT: MMM CV: RRR no m/r/g Resp: CTA, limited exam Abd: soft, diffusely TTP, BS active Ext: trace edema Assessment: [68 yo male with limited stage pancreatic CA s/p combined modality therapy which he completed in September who was admitted with new jaundice and fever. MRCP suggestive of obstruction of the biliary stent at the distal bile duct and is pending ERCP. Plan: [1. Cholangitis with obstructed biliary stent - blood cultures negative - cont Zosyn - pending ERCP with biliary stent exchange with Dr Stevenson later today - Tbili slowly improving 2. Pancreatic CA - s/p combined modality therapy finishing Sep 2018 - no evidence for recurrent/progressive disease on recent imaging 3. IDDM - well controlled Dispo: pending ERCP, plan dc home later this week
[2018-12-23] MEDS: KCL 10 MEQ/50 ML IVPREMIX* 10 MEQ/50 ML BAG IV SCH ×3 (12:30→18:13)
[2018-12-23] MEDS ORDERED: Lactated Ringers 1000 ML Bag* 1,000 ML IV SCH (15:00)
[2018-12-23] MEDS ORDERED: Naloxone* 0.4 MG/ML 1 ML VIAL IV PRN (15:39)
[2018-12-23] MEDS ORDERED: fentaNYL* 50 MCG/ML 2 ML VIAL (100 MCG VIAL) IV PRN (15:39)
[2018-12-23] MEDS ORDERED: Ondansetron INJ* 2 MG/ML VIAL IV PRN (15:39)
[2018-12-23] MEDS: Enoxaparin(*) 40 MG/0.4 ML SYR SUBCUT SCH (17:10)
[2018-12-23] MEDS: Potassium Chlor TAB* 20 MEQ TAB.ER PO SCH (21:04)
--- NOTE | 2018-12-23 23:21 | PRO ---
DATE: 12/23/18 - ROOM #[id number] REFERRING PHYSICIAN: Emre Nolen MD * PROCEDURE: ERCP with removal clogged plastic stent and insertion of 6 cm Wallstent. INDICATION: This 68-year-old man with localized pancreatic cancer, had a stent placed last January. He has undergone chemotherapy and radiation. He is thought to be too high risk for surgery. He recently developed some abdominal discomfort and then fever. He was admitted and placed on antibiotics and his bilirubin was elevated. Informed consent was obtained with an opportunity for questions, special concerns, and a travel discussion. He is an inpatient. ENDOSCOPIST: Ramsey Stevenson MD ANESTHESIOLOGIST: Dr. Hdz FINDINGS: He is a morbidly obese man, positioned on the x-ray table in a semi- prone position. General anesthesia was induced by Dr. Hdz. He was padded and covered with a warmer. ERCP: Esophagus - 10% views are normal. Stomach - there was a fair amount of retained soupy debris in the gastric fundus. With insufflation, the antrum was seen and had some irritation and normal contours but no mass or restriction. The upper gastric body was not really seen at all given the retention. The pylorus was normal and the scope entered it with a twist. Duodenum - normal contours. The old stent had slipped down fairly far and was projecting into the distal third or even fourth portion of the duodenum. With multiple maneuvers, it was finally possible to capture the rubens on the distal portion and then the stent was pulled out slowly. The patient was then reintubated. A sphincterotome was flexed and approached the prior sphincterotomy. It readily entered into the distal duct and then cannulated into the mid common duct. The guidewire was placed deeply in the liver and locked. A dye injection was done and this demonstrated an irregular margin about one-third of the way up from the papilla to the liver. Thus, a 6- cm stent was chosen. The stent was deployed in a standard fashion and there was immediate flow and gush of purulent and gritty bilious material. Post placement films appeared to show appropriate orientation of the stent with 3 or 4 diamonds of wire protruding. Procedure was terminated. IMPRESSION: 1. Removal of clogged plastic common bile duct stent. 2. Placement of a 6 cm metal Wallstent - further treatment per Dr. Nolen. [id number]/[facility] #: [id number] [facility]PITALAsh
[2018-12-24] MEDS: ZOSYN 3.375 GM Q8H per EXTENDED INFUSION IVPB SCH ×4 (01:31→09:56)
[2018-12-24] MEDS: NS 0.9% 1000 ML** 1,000 ML IV SCH (04:15)
[2018-12-24 06:22] LABS: ABS Basophils 0 10^3/ul (0-0.2); ABS Eosinophils 0 10^3/ul (0-0.6); ABS Lymphocytes 0.8 10^3/ul (1.0-4.8); ABS Monocytes 0.4 10^3/ul (0-0.8); ABS Nucleated RBC 0 10^3/ul; Eosinophil % 0.3 %; Hematocrit 24 % (36-46); Lymphocyte % 11.1 %; Mean Corpuscular HGB Conc 33 g/dL (31-36); Mean Corpuscular Hemoglobin 30 pg (27-31); Mean Corpuscular Volume 92 fL (80-94); Mean Platelet Volume 8.2 fL (7.4-10.4); Nucleated Red Blood Cells % 0; Platelet Count 114 10^3/uL (150-450); Red Blood Count 2.64 10^6 /uL (4.18-5.48); Red Cell Distribution Width 17 % (10.5-15); White Blood Count 7.2 10^3/uL (3.5-10.8)
[2018-12-24 06:37] LABS: Albumin 1.9 g/dL (3.2-5.2); Albumin/Globulin Ratio 0.5 (1-3); BUN/Creatinine Ratio 18.7 (8-20); Calcium 7.9 mg/dL (8.6-10.3); EGFR African American 53.9 (>60); EGFR Non-African American 44.5 (>60); Globulin 4.2 g/dL (2-4); Magnesium 1.7 mg/dL (1.9-2.7); Potassium 3.3 mmol/L (3.5-5.0); Total Protein 6.1 g/dL (6.4-8.9)
[2018-12-24] MEDS ORDERED: Magnesium Sulf 4 GM/100 ML IV* 4,000 MG/100 ML BAG IVPB ONE (09:00)
[2018-12-24] MEDS ORDERED: KCL 20 MEQ/100 ML IVPREMIX* 20 MEQ/100 ML BAG IV SCH (09:00)
--- NOTE | 2018-12-24 09:44 | DS ---
- Discharge Summary ADMIT DATE: 12/21/18 DISCHARGE DATE: 12/24/18 DISCHARGE DIAGNOSIS: 1. sepsis from cholangitis 2. blocked biliary stent 3. pancreatic cancer, clinically [place] DISCHARGE MEDICATIONS: Home Medications Medication Instructions Recorded Confirmed Type Finasteride TAB* [Proscar TAB*] 5 mg PO QAM 01/23/18 12/21/18 History Insulin GLARGINE(*) [Lantus(*)] 15 units SUBCUT QAM 02/24/18 12/21/18 History Omeprazole CAP (NF) [Prilosec CAP* 20 mg PO QAM 04/21/18 12/21/18 History 20 MG] Metoprolol Tartrate TAB* 12.5 mg PO BID tab 06/29/18 12/21/18 Rx [Lopressor TAB*] Loperamide CAP* [Imodium CAP*] 2 mg PO DAILY PRN 07/28/18 12/21/18 History Prochlorperazine TAB* [Compazine 10 mg PO Q6HR PRN tab 08/12/18 12/21/18 Rx Tab*] Torsemide TAB* [Demadex 20 MG*] 40 mg PO QAM 08/17/18 12/21/18 History oxyCODONE/Acetamin 5/325 MG* 1 tab PO Q6H PRN 12/21/18 12/21/18 History [Percocet 5/325 TAB*] Levofloxacin TAB* [Levaquin 250 750 mg PO Q48H #2 tab 12/24/18 Rx Tab*] Potassium Chlor TAB* [Potassium 40 meq PO BID #60 tab.er 12/24/18 Rx Chlor TAB 20 MEQ*] DISCHARGE FOLLOW UP: 1. Dr. Tran 01/08 at 10:40 am , should have CMP for potassium dose and bilirubin monitoring HOSPITAL COURSE: See full details, briefly 68 yo M w locally advanced pancreatic cancer who completed combined modality therapy in September now p/w sepsis in the setting of cholantitis in the setting of a blocked plastic biliary stent. This was changed by Dr. Stevenson on 12/23. There was no clear evidence of recurrent disease. He will go on oral antibiotics for one week (three doses of levaquin)- as discussed with Dr. Siddiqui who is very familiar with the patient. He did require significantly higher doses of potassium, and we will check this on his follow up visit. >30 mins spent, >50% in face to face counseling
[2018-12-24] MEDS ORDERED: Levofloxacin TAB* 250 MG PO SCH (10:00)
[2018-12-24] MEDS: Metoprolol Tartrate TAB* 25 MG PO SCH (10:07)
[2018-12-24] MEDS: Potassium Chlor TAB* 20 MEQ TAB.ER PO SCH (10:07)
[2018-12-24] MEDS: Finasteride TAB* 5 MG PO SCH (10:07)
[2018-12-24] MEDS: KCL 10 MEQ/50 ML IVPREMIX* 10 MEQ/50 ML BAG IV SCH ×3 (10:12→13:59)
[2018-12-24] MEDS: Insulin GLARGINE(*) 1 UNITS UNIT SUBCUT SCH (10:12)
[2018-12-24 14:14] VITALS: BP 116/55
[2018-12-26] MEDS ORDERED: Levofloxacin TAB* 750 MG PO SCH (10:00)
== END 2018-12-24 15:40 | disposition home or self-care (01) | DRG 919 ==
LOC: MED 13:15 → PREOBSVTOIN 14:10
PROVIDERS: ADMIT Internal Medicine Hematology & Oncology; ATTEND Internal Medicine Hematology & Oncology
PROC: 0FPB8DZ Removal of Intraluminal Device from Hepatobiliary Duct, Via Natural or Artificial Opening Endoscopic (ICD-10-PCS; 2018-12-23)
PROC: 0F798DZ Dilation of Common Bile Duct with Intraluminal Device, Via Natural or Artificial Opening Endoscopic (ICD-10-PCS; principal; 2018-12-23 14:15)
DX: T85.898A Other specified complication of other internal prosthetic devices, implants and grafts, initial encounter (principal); A41.9 Sepsis, unspecified organism; M86.669 Other chronic osteomyelitis, unspecified tibia and fibula; E87.2 Acidosis; C25.9 Malignant neoplasm of pancreas, unspecified; I48.2 Chronic atrial fibrillation; E11.9 Type 2 diabetes mellitus without complications; E78.00 Pure hypercholesterolemia, unspecified; G47.33 Obstructive sleep apnea (adult) (pediatric); K80.50 Calculus of bile duct without cholangitis or cholecystitis without obstruction; Y73.2 Prosthetic and other implants, materials and accessory gastroenterology and urology devices associated with adverse incidents; Z96.653 Presence of artificial knee joint, bilateral; I12.9 Hypertensive chronic kidney disease with stage 1 through stage 4 chronic kidney disease, or unspecified chronic kidney disease; N18.9 Chronic kidney disease, unspecified; I34.0 Nonrheumatic mitral (valve) insufficiency; E66.01 Morbid (severe) obesity due to excess calories; Z95.2 Presence of prosthetic heart valve; Z87.891 Personal history of nicotine dependence; Z72.89 Other problems related to lifestyle; Y92.9 Unspecified place or not applicable; Z98.49 Cataract extraction status, unspecified eye; Z88.5 Allergy status to narcotic agent; Z88.8 Allergy status to other drugs, medicaments and biological substances; Z68.36 Body mass index [BMI] 36.0-36.9, adult
CPT/HCPCS: 36415; 74181; 74328; 76376; 80053; 83605; 83735; 85025; 85610; 99232; A9270-GY; J1170; J1650; J2543; J3475; J3480

== ENCOUNTER 2019-06-11 11:41 | Emergency (ER) | payer MEDICARE ==
--- OUTSIDE RECORDS SUMMARY | 2019-06-11 12:00 | XMS REPORT | Continuity of Care Document ---
:1950 External Reference #:[id number] Author Name Latosha Eng MD (transmitted by agent of provider January Egan) Address [address], [address] [place] [phone] Care Team Providers Name Role Phone Krystyna Jones MD - Internal Care Team Information Nursing Director Medicine Problems Active Problems Provider Date Type 2 diabetes mellitus Dmitry Banegas M.D. Onset: 09/03/2011 Benign essential hypertension Dmitry Banegas M.D. Onset: 09/03/2011 Obstructive sleep apnea syndrome Dmitry Banegas M.D. Onset: 09/03/2011 Pure hypercholesterolemia Dmitry Banegas M.D. Onset: 09/03/2011 Aneurysm of thoracic aorta Dmitry Banegas M.D. Onset: 09/03/2011 Uric acid urolithiasis Dmitry Banegas M.D. Onset: 09/03/2011 Chronic osteomyelitis of lower leg Sushil Norris M.D. Onset: 2011 Sleep apnea Dmitry Banegas M.D. Onset: 07/14/2012 Aortic valve disorder Dmitry Banegas M.D. Onset: 07/14/2012 Atrial fibrillation Sid Wick M.D., Onset: 08/06/2013 [facility] Essential hypertension Dmitry Banegas M.D. Onset: 09/05/2015 Chronic atrial fibrillation Dmitry Banegas M.D. Onset: 09/05/2015 Localized, primary osteoarthritis Bon Walker M.D. Onset: 10/12/2015 Arthroplasty of knee Bon Walker M.D. Onset: 10/12/2015 Late effect of medical and surgical Bon Walker M.D. Onset: 04/11/2016 care complication Thoracic aortic ectasia Sid Wick M.D., Onset: 07/09/2017 [facility] Cigar smoker Sid Wick M.D., Onset: 07/09/2017 [facility] Heart valve replacement Sid Wick M.D., Onset: 12/22/2017 [facility] Acute renal failure syndrome Eric Steele M.D. Onset: 06/07/2018 Morbid obesity Eric Steele M.D. Onset: 06/07/2018 Anemia Eric Steele M.D. Onset: 06/07/2018 Body mass index 40+ - severely obese Eric Steele M.D. Onset: 06/07/2018 Nervous system symptoms Libby Sidhu D.O. Onset: 06/12/2018 Malignant tumor of pancreas Libby Sidhu D.O. Onset: 06/12/2018 Adverse effect of antineoplastic and More Powell M.D. Onset: 06/14/2018 immunosuppressive drugs, initial encounter Toxic enterocolitis More Powell M.D. Onset: 06/14/2018 Chronic kidney disease More Powell M.D. Onset: 06/14/2018 Bacteremia Libby Sihdu D.O. Onset: 06/28/2018 Genus Enterococcus Libby Sidhu D.O. Onset: 06/28/2018 Edema Libby Sidhu D.O. Onset: 06/28/2018 Enthesopathy of knee Bon Walker M.D. Onset: 09/09/2018 Social History Type Date Description Comments Sex Unknown Cigarette Use Quit at age 18 1-1.5ppd; still smokes an occ.cigar Pt denies smoking pipe, e-cigarettes, or using chewing tobacco. Tobacco Use Start: Unknown Former Cigarette End: Unknown Smoker Tobacco Use Start: Unknown Occasional cigar Not for a year and a half. 05/14/19 Smoking Status Reviewed: 05/14/19 Occasional cigar Not for a year and a half. 05/14/19 ETOH Use Drinks Alcoholic Beverages Rarely Tobacco Use Start: Unknown Patient is a former Quit early , End: Unknown smoker oocasional cigar with friends Recreational Drug Use Denies Drug Use Tobacco Use Start: Unknown Started smoking at 15. <1 pk per day Exercise Type/Frequency Exercises sporadically Physical therapy following knee replacements Allergies, Adverse Reactions, Alerts Active Allergies Reaction Severity Comments Date Oxacillin Contact dermatitis rash 05/21/2012 Morphine itch 09/04/2012 Inactive Allergies NKDA 10/27/2007 Medications Active Medications SIG Qnty Indications Ordering Provider Date Ferrous Gluconate 1 by mouth twice 180tabs D50.9 Krystyna Jones, 2018 a day M.D. 324(38Fe) mg Tablets Onetouch Ultra Blue Use To Test 100units Carmelita Cotton, 06/06/2015 Blood Sugar M.D. Strips Twice Daily DX E11.9 Finasteride Take 1 Tablet By 90tabs Krystyna Jones, 07/08/2014 5mg Mouth Every Day M.D. Tablets BD Pen use with lantus 100units Dmitry Banegas, 05/03/2014 Needle/Short/Ultrafi solostar daily M.D. ne/31G X 5/16" 31G X 8 mm [facility] Percocet take 1-2 tabs by 60tabs Bon Walker, 03/02/2014 5-325mg mouth q4-6 hours M.D. Tablets as needed pain Metoprolol Tartrate 1/2 tab by mouth 180tabs Sid Wick, 07/22/2013 twice a day M.D., [facility], [facility] 25mg Tablets Klor-Con M20 2 tabs by mouth 30tabs Sid Wick, 05/12/2013 20Meq every day M.D., [facility], [facility] Tablets ER Onetouch Ultra Blue use to test 100units Dmitry Banegas, 05/27/2012 blood sugar M.D. Strips twice daily and as needed e11.9 New Cpap Machine New machine to G47.33 Dmitry Banegas, 03/04/2012 replace pt's M.D. 1994 model Lancets use as directed 100units Dmitry Banegas, [facility] Benadryl Allergy 2 by mouth in Unknown 25mg the morning and Capsules as needed Tylenol 2 tablets every Unknown 325mg 4 hours as Capsules needed Clotrimazole As needed Unknown 10mg Mik Ondansetron dissolve one Unknown 4mg tablet orally Tablets Dispers every 8 hours as needed for nausea Torsemide Take 2 Tablets Unknown 20mg By Mouth Daily Tablets Lantus Solostar inject 15 units Krystyna Jones, daily M.DOral 100Unit/ML Solution Pen-Inject Loperamide HCL As needed Unknown Medications Administered in Office Medication SIG Qnty Indications Ordering Provider Date Celestone 3 mg and 3mg Bon Walker M.D. 03/17/2019 Injection Depomedrol 40MG Bon Walker M.D. 12/02/2018 Injection Depomedrol 40MG Bon Walker M.D. 09/09/2018 Injection Inj, Regadenoson, 0.1 MG Serjio Gillespie M.D. 12/12/2017 Injection Technetium TC 99M TetrofosmSerjio caldwell M.D. 12/12/2017 Per Unit Dose Up To 40 Millicuries Injection Inj, Regadenoson, 0.1 MG Vianney Cantu M.D. 07/23/2012 Injection Technetium TC 99M TetrofosminVianney M.D. 07/23/2012 Per Unit Dose Up To 40 Millicuries Injection Immunizations CPT Code Status Date Vaccine Lot # [id number] Given 06/24/2018 Influenza Virus Vaccine, Quadrivalent, Split, Preservative Free [id number] Given 06/06/2017 Influenza Virus Vaccine, Quadrivalent, Split, [id number] Preservative Free 34245 Given 06/07/2016 Influenza Virus Vaccine, Quadrivalent, Split, [id number] Preservative Free [id number] Given 06/06/2015 Influenza Virus Vaccine, Quadrivalent, Split, [id number] Preservative Free 03714 Given 03/06/2015 Pneumonia Vaccine [id number] Given 10/06/2014 Fluzone Vaccine [id number] Given 12/01/2013 Tdap - Tetanus/Diptheria/Acellular Pertussis [id number] 88230 Given 12/01/2013 Pneumococcal Conjugate Vaccine 13 Valent For [id number] Intramuscular Use 19894 Given 07/21/2013 Flu Vaccine Split Virus Preservative Free For [id number] Indiv 3Yr Older [id number] Given 07/14/2012 Fluvirin Im 3Yrs And Older [id number] 18672 Given 04/16/2007 Pneumonia Vaccine [id number] Given 07/09/2004 Td (History By Patient) Vital Signs Date Vital Result Comment 05/14/2019 9:22am Height 67.25 inches 5'7.25" Weight 230.00 lb Heart Rate 69 /min BP Systolic Sitting 102 mmHg Rue large cuff BP Diastolic Sitting 58 mmHg Rue large cuff Respiratory Rate 18 /min O2 % BldC Oximetry 96 % On Ra BMI (Body Mass Index) 35.8 kg/m2 Neck Circumference in inches 17.25 03/17/2019 9:29am Height 67.25 inches 5'7.25" Weight 223.00 lb Heart Rate 62 /min BP Systolic 128 mmHg BP Diastolic 76 mmHg Body Temperature 97.8 F Pain Level 4 BMI (Body Mass Index) 34.7 kg/m2 Results Test Date Facility Test Result H/L Range Note Urine Microalbumin 04/09/2019 [facility] Ur Microalbumin 21.5 mg /L Random [address] (mg/L) [place] [address] [phone] Urine Creatinine 23.44 mg/dL Urine Microalbumin/Creatinine 91.7 High <31 Lipid Profile 04/09/2019 [facility] Triglycerides 98 mg/dL 1 (Trig/Chol/HDL) [address] [place] [address] [phone] Cholesterol 114 mg/dL 2 HDL Cholesterol 32.8 mg/dL 3 LDL Cholesterol 62 mg/dL 4 Comp Metabolic 04/09/2019 [facility] Sodium 137 mmol/L Normal 135-145 Panel [address] [place] [address] [phone] Potassium 3.8 mmol/L Normal 3.5-5.0 Chloride 104 mmol/L Normal 101-111 Co2 Carbon Dioxide 25 mmol/L Normal 22-32 Anion Gap 8 mmol/L Normal 2-11 Glucose 127 mg/dL High 70-100 Blood Urea Nitrogen 36 mg/dL High 6-24 Creatinine 1.97 mg/dL High 0.67-1.17 BUN/Creatinine Ratio 18.3 Normal 8-20 Calcium 9.1 mg/dL Normal 8.6-10.3 Total Protein 7.7 g/dL Normal 6.4-8.9 Albumin 3.4 g/dL Normal 3.2-5.2 Globulin 4.3 g/dL High 2-4 Albumin/Globulin Ratio 0.8 Low 1-3 Total Bilirubin 0.60 mg/dL Normal 0.2-1.0 Alkaline Phosphatase 132 U/L High 34-104 Alt 8 U/L Normal 7-52 Ast 12 U/L Low 13-39 Egfr Non- 33.8 >60 Egfr 40.9 >60 5 CBC Auto 04/09/2019 [facility] White Blood 7.5 10^3/uL Normal 3.5-10.[address] [place] [address] [phone] Red Blood Count 3.33 10^6/uL Low 4.18-5.48 Hemoglobin 9.6 g/dL Low 14.0-18.0 Hematocrit 30 % Low 42-52 Mean Corpuscular Volume 89 fL Normal 80-94 Mean Corpuscular Hemoglobin 29 pg Normal 27-31 Mean Corpuscular HGB Conc 33 g/dL Normal 31-36 Red Cell Distribution Width 18 % High 10-15 Platelet Count 153 10^3/uL Normal 150-450 Mean Platelet Volume 6.9 fL Low 7.4-10.4 Abs Neutrophils 4.4 10^3/uL Normal 1.5-7.7 Abs Lymphocytes 2.3 10^3/uL Normal 1.0-4.8 Abs Monocytes 0.7 10^3/uL Normal 0-0.8 Abs Eosinophils 0.1 10^3/uL Normal 0-0.6 Abs Basophils 0.0 10^3/uL Normal 0-0.2 Abs Nucleated RBC 0.0 10^3/uL Granulocyte % 58.7 % Lymphocyte % 30.1 % Monocyte % 9.3 % Eosinophil % 1.5 % Basophil % 0.4 % Nucleated Red Blood Cells % 0.1 Laboratory test 04/09/2019 [facility] CA 19-9 19 U/mL <35 [address] [place] [address] [phone] Laboratory test 03/08/2019 [facility] Hemoglobin A1c 5.9 5-7 finding Comp Metabolic 01/29/2019 [facility] Sodium 138 Normal 135- [address] mmol/[place] [address] [phone] Potassium 3.9 mmol/L Normal 3.5-5.0 Chloride 104 mmol/L Normal 101-111 Co2 Carbon Dioxide 30 mmol/L Normal 22-32 Anion Gap 4 mmol/L Normal 2-11 Glucose 87 mg/dL Normal 70-100 Blood Urea Nitrogen 32 mg/dL High 6-24 Creatinine 1.69 mg/dL High 0.67-1.17 BUN/Creatinine Ratio 18.9 Normal 8-20 Calcium 8.8 mg/dL Normal 8.6-10.3 Total Protein 8.3 g/dL Normal 6.4-8.9 Albumin 2.7 g/dL Low 3.2-5.2 Globulin 5.6 g/dL High 2-4 Albumin/Globulin Ratio 0.5 Low 1-3 Total Bilirubin 1.00 mg/dL Normal 0.2-1.0 Alkaline Phosphatase 145 U/L High 34-104 Alt 8 U/L Normal 7-52 Ast 15 U/L Normal 13-39 Egfr Non- 40.3 >60 Egfr 48.8 >60 7 CBC Auto 01/29/2019 [facility] White Blood 7.7 10^3/uL Normal 3.5-10.[address] [place] [address] [phone] Red Blood Count 2.91 10^6/uL Low 4.18-5.48 Hemoglobin 8.6 g/dL Low 14.0-18.0 Hematocrit 26 % Low 42-52 Mean Corpuscular Volume 90 fL Normal 80-94 Mean Corpuscular Hemoglobin 30 pg Normal 27-31 Mean Corpuscular HGB Conc 33 g/dL Normal 31-36 Red Cell Distribution Width 16 % High 10.5-15 Platelet Count 161 10^3/uL Normal 150-450 Mean Platelet Volume 7.6 fL Normal 7.4-10.4 Abs Neutrophils 5.1 10^3/uL Normal 1.5-7.7 Abs Lymphocytes 1.8 10^3/uL Normal 1.0-4.8 Abs Monocytes 0.6 10^3/uL Normal 0-0.8 Abs Eosinophils 0.1 10^3/uL Normal 0-0.6 Abs Basophils 0.0 10^3/uL Normal 0-0.2 Abs Nucleated RBC 0.0 10^3/uL Granulocyte % 66.3 % Lymphocyte % 23.1 % Monocyte % 8.4 % Eosinophil % 1.8 % Basophil % 0.4 % Nucleated Red Blood Cells % 0.1 Laboratory test 01/29/2019 [facility] CA 19-9 35 U/mL Abnormal <35 [address] [place] [address] [phone] Comp Metabolic 01/08/2019 [facility] Sodium 136 mmol/L Normal 135-[address] [place] [address] [phone] Potassium 3.8 mmol/L Normal 3.5-5.0 Chloride 101 mmol/L Normal 101-111 Co2 Carbon Dioxide 31 mmol/L Normal 22-32 Anion Gap 4 mmol/L Normal 2-11 Glucose 90 mg/dL Normal 70-100 Blood Urea Nitrogen 25 mg/dL High 6-24 Creatinine 1.57 mg/dL High 0.67-1.17 BUN/Creatinine Ratio 15.9 Normal 8-20 Calcium 8.4 mg/dL Low 8.6-10.3 Total Protein 7.9 g/dL Normal 6.4-8.9 Albumin 2.3 g/dL Low 3.2-5.2 Globulin 5.6 g/dL High 2-4 Albumin/Globulin Ratio 0.4 Low 1-3 Total Bilirubin 1.70 mg/dL High 0.2-1.0 Alkaline Phosphatase 325 U/L High 34-104 Alt 9 U/L Normal 7-52 Ast 25 U/L Normal 13-39 Egfr Non- 43.9 >60 Egfr 53.1 >60 9 CBC Auto 01/08/2019 [facility] White Blood 8.3 10^3/uL Normal 3.5-10.[address] [place] [address] [phone] Red Blood Count 3.05 10^6/uL Low 4.18-5.48 Hemoglobin 9.5 g/dL Low 14.0-18.0 Hematocrit 29 % Low 36-46 Mean Corpuscular Volume 94 fL Normal 80-94 Mean Corpuscular Hemoglobin 31 pg Normal 27-31 Mean Corpuscular HGB Conc 33 g/dL Normal 31-36 Red Cell Distribution Width 16 % High 10.5-15 Platelet Count 209 10^3/uL Normal 150-450 Mean Platelet Volume 7.4 fL Normal 7.4-10.4 Abs Neutrophils 5.4 10^3/uL Normal 1.5-7.7 Abs Lymphocytes 2.1 10^3/uL Normal 1.0-4.8 Abs Monocytes 0.6 10^3/uL Normal 0-0.8 Abs Eosinophils 0.1 10^3/uL Normal 0-0.6 Abs Basophils 0 10^3/uL Normal 0-0.2 Abs Nucleated RBC 0 10^3/uL Granulocyte % 64.9 % Lymphocyte % 25.7 % Monocyte % 7.3 % Eosinophil % 1.8 % Basophil % 0.3 % Nucleated Red Blood Cells % 0.1 CBC Auto 01/01/2019 [facility] White Blood 10.8 10^3/uL Normal 3.5-10.[address] [place] [address] [phone] Red Blood Count 2.84 10^6/uL Low 4.18-5.48 Hemoglobin 8.8 g/dL Low 14.0-18.0 Hematocrit 27 % Low 36-46 Mean Corpuscular Volume 94 fL Normal 80-94 Mean Corpuscular Hemoglobin 31 pg Normal 27-31 Mean Corpuscular HGB Conc 33 g/dL Normal 31-36 Red Cell Distribution Width 17 % High 10.5-15 Platelet Count 164 10^3/uL Normal 150-450 Mean Platelet Volume 7.7 fL Normal 7.4-10.4 Abs Neutrophils 7.9 10^3/uL High 1.5-7.7 Abs Lymphocytes 1.8 10^3/uL Normal 1.0-4.8 Abs Monocytes 0.9 10^3/uL High 0-0.8 Abs Eosinophils 0.1 10^3/uL Normal 0-0.6 Abs Basophils 0 10^3/uL Normal 0-0.2 Abs Nucleated RBC 0 10^3/uL Granulocyte % 73.7 % Lymphocyte % 16.6 % Monocyte % 8.0 % Eosinophil % 1.3 % Basophil % 0.4 % Nucleated Red Blood Cells % 0.1 Comp Metabolic 01/01/2019 [facility] Sodium 135 mmol/L Normal 135-[address] [place] [address] [phone] Potassium 3.8 mmol/L Normal 3.5-5.0 Chloride 101 mmol/L Normal 101-111 Co2 Carbon Dioxide 28 mmol/L Normal 22-32 Anion Gap 6 mmol/L Normal 2-11 Glucose 155 mg/dL High 70-100 Blood Urea Nitrogen 24 mg/dL Normal 6-24 Creatinine 1.46 mg/dL High 0.67-1.17 BUN/Creatinine Ratio 16.4 Normal 8-20 Calcium 8.0 mg/dL Low 8.6-10.3 Total Protein 7.1 g/dL Normal 6.4-8.9 Albumin 2.2 g/dL Low 3.2-5.2 Globulin 4.9 g/dL High 2-4 Albumin/Globulin Ratio 0.4 Low 1-3 Total Bilirubin 2.20 mg/dL High 0.2-1.0 Alkaline Phosphatase 418 U/L High 34-104 Alt 14 U/L Normal 7-52 Ast 31 U/L Normal 13-39 Egfr Non- 47.7 >60 Egfr 57.8 >60 10 Liver Function 01/01/2019 [facility] Direct 1.10 mg/dL High 0.03-0.[address] [place] [address] [phone] Indirect Bilirubin 1.1 mg/dL High 0.3-1.0 Iron & Iron Binding 01/01/2019 [facility] Iron 43 g/dL Low 50-[address] [place] [address] [phone] Unsaturated Iron Binding < 170 g/dL Total Iron Binding Capacity 185 g/dL Low 250-450 Transferrin 132 mg/dL Low 203-362 % Iron Saturation 23 % Normal 15-55 Laboratory 01/01/2019 [facility] CA 19-9 173 U/mL Abnormal < 35 11 test finding [address] [place] [address] [phone] Laboratory 12/21/2018 [facility] Blood SEE RESULT 12 test finding [address] [place] [address] [phone] Rapid 12/21/2018 [facility] Influenza A NEGATIVE Negative 13 Influenza A & [address] [place] [place] [address] [phone] Influenza B Molecular NEGATIVE Negative Laboratory test 12/21/2018 [facility] CA 19-9 3421 U/mL Abnormal <35 [address] [place] [address] [phone] Urine Culture And 12/21/2018 [facility] Urine SEE RESULT [address] [place] [address] [phone] Laboratory test 12/21/2018 [facility] Amylase < 10 U/L Low 29- [address] [place] [address] [phone] Lipase < 10 U/L Low 11.0-82.0 Manual Differential 12/21/2018 [facility] Immature 26 % High 0 -[address] [place] [address] [phone] Neutrophil % 65 % Band % 25 % High 0-8 Lymphocytes % 6 % Monocytes % 3 % Metamyelocytes % 1 % Normal 0-2 Abs Neutrophils 9.7 10^3/uL High 1.5-7.7 Abs Lymphocytes 0.6 10^3/uL Low 1.0-4.8 Abs Monocytes 0.3 10^3/uL Normal 0-0.8 RBC Morphology Normal Normal CBC Auto 12/21/2018 [facility] White Blood 10.7 10^3/uL Normal 3.5-10.[address] [place] [address] [phone] Red Blood Count 3.22 10^6/uL Low 4.18-5.48 Hemoglobin 10.0 g/dL Low 14.0-18.0 Hematocrit 31 % Low 36-46 Mean Corpuscular Volume 95 fL High 80-94 Mean Corpuscular Hemoglobin 31 pg Normal 27-31 Mean Corpuscular HGB Conc 33 g/dL Normal 31-36 Red Cell Distribution Width 17 % High 10.5-15 Platelet Count 168 10^3/uL Normal 150-450 Mean Platelet Volume 8.0 fL Normal 7.4-10.4 Abs Neutrophils 9.6 10^3/uL High 1.5-7.7 Abs Lymphocytes 0.7 10^3/uL Low 1.0-4.8 Abs Monocytes 0.3 10^3/uL Normal 0-0.8 Abs Eosinophils 0 10^3/uL Normal 0-0.6 Abs Basophils 0 10^3/uL Normal 0-0.2 Urinalysis Profile 12/21/2018 [facility] Urine Color Lisseth [address] [place] [address] [phone] Urine Appearance Turbid Urine Specific [place] 1.011 Normal 1.010-1.030 Urine pH 5.0 Normal 5-9 Urine Urobilinogen Positive Abnormal Negative Urine Ketones Negative Negative Urine Protein Negative Negative Urine Leukocytes 2+ Abnormal Negative Urine Blood 1+ Abnormal Negative Urine Nitrite Negative Negative Urine Bilirubin 1+ Abnormal Negative Urine Glucose Negative Negative Urine White Blood Cell 3+(>20/hpf) Abnormal Absent Urine Red Blood Cell Trace(0-2/hpf) Absent Urine Bacteria Absent Absent Urine Squamous Epithelial Cell Present Abnormal Absent Urine Yeast Present Abnormal Absent Laboratory 12/21/2018 [facility] Lactic 4.6 mmol/L Critical 0.5-2.0 16 test finding [address] [place] [address] [phone] Comp Metabolic 12/21/2018 [facility] Sodium 130 mmol/L Low 135 -[address] [place] [address] [phone] Potassium 3.9 mmol/L Normal 3.5-5.0 Chloride 95 mmol/L Low 101-111 Co2 Carbon Dioxide 23 mmol/L Normal 22-32 Anion Gap 12 mmol/L High 2-11 Glucose 188 mg/dL High 70-100 Blood Urea Nitrogen 33 mg/dL High 6-24 Creatinine 1.81 mg/dL High 0.67-1.17 BUN/Creatinine Ratio 18.2 Normal 8-20 Calcium 9.1 mg/dL Normal 8.6-10.3 Total Protein 8.3 g/dL Normal 6.4-8.9 Albumin 2.5 g/dL Low 3.2-5.2 Globulin 5.8 g/dL High 2-4 Albumin/Globulin Ratio 0.4 Low 1-3 Total Bilirubin 9.60 mg/dL High 0.2-1.0 Alkaline Phosphatase 695 U/L High 34-104 Alt 45 U/L Normal 7-52 Ast 74 U/L High 13-39 Egfr Non- 37.2 >60 Egfr 45.1 >60 17 Laboratory test 12/21/2018 [facility] Rapid SEE RESULT [address] [place] [address] Antigen [phone] CBC Auto Diff 11/27/2018 [facility] White Blood 5.0 10^3/uL Normal 3.5-[address] Count 0.8 [place], [place] [id number] [phone] Red Blood Count 2.29 10^6/uL Low 4.00-5.40 Hemoglobin 6.9 g/dL Low 14.0-18.0 Hematocrit 22 % Low 42-52 Mean Corpuscular Volume 94 fL Normal 80-94 Mean Corpuscular Hemoglobin 30 pg Normal 27-31 Mean Corpuscular HGB Conc 32 g/dL Normal 31-36 Red Cell Distribution Width 17 % High 10.5-15 Platelet Count 132 10^3/uL Low 150-450 Mean Platelet Volume 8.3 fL Normal 7.4-10.4 Abs Neutrophils 3.5 10^3/uL Normal 1.5-7.7 Abs Lymphocytes 1.0 10^3/uL Normal 1.0-4.8 Abs Monocytes 0.4 10^3/uL Normal 0-0.8 Abs Eosinophils 0 10^3/uL Normal 0-0.6 Abs Basophils 0 10^3/uL Normal 0-0.2 Abs Nucleated RBC 0 10^3/uL Granulocyte % 69.5 % Lymphocyte % 20.3 % Monocyte % 8.6 % Eosinophil % 1.0 % Basophil % 0.6 % Nucleated Red Blood Cells % 0.2 Comp Metabolic 11/27/2018 [facility] Sodium 139 mmol/L Normal 135-[address] [place] [address] [phone] Potassium 3.3 mmol/L Low 3.5-5.0 Chloride 105 mmol/L Normal 101-111 Co2 Carbon Dioxide 29 mmol/L Normal 22-32 Anion Gap 5 mmol/L Normal 2-11 Glucose 196 mg/dL High 70-100 Blood Urea Nitrogen 19 mg/dL Normal 6-24 Creatinine 1.72 mg/dL High 0.67-1.17 BUN/Creatinine Ratio 11.0 Normal 8-20 Calcium 7.6 mg/dL Low 8.6-10.3 Total Protein 6.7 g/dL Normal 6.4-8.9 Albumin 2.0 g/dL Low 3.2-5.2 Globulin 4.7 g/dL High 2-4 Albumin/Globulin Ratio 0.4 Low 1-3 Total Bilirubin 1.10 mg/dL High 0.2-1.0 Alkaline Phosphatase 1047 U/L High 34-104 Alt 24 U/L Normal 7-52 Ast 51 U/L High 13-39 Egfr Non- 39.5 >60 Egfr 47.8 >60 19 Iron & Iron Binding 11/27/2018 [facility] Iron 51 g/dL Normal 50-212 [address]acity [address] [place] [address] [phone] Unsaturated Iron Binding < 119 g/dL Total Iron Binding Capacity 134 g/dL Low 250-450 Transferrin 96 mg/dL Low 203-362 % Iron Saturation 38 % Normal 15-55 Laboratory test 11/26/2018 [facility] In House Hemoglobin A1c 5.3 5-7 finding CBC Auto Diff 11/16/2018 [facility] White Blood 7.4 Normal 3.5 -10.[address] Count 10^3/[place] [address] [phone] Red Blood Count 2.58 10^6/uL Low 4.00-5.40 Hemoglobin 7.8 g/dL Low 14.0-18.0 Hematocrit 24 % Low 42-52 Mean Corpuscular Volume 94 fL Normal 80-94 Mean Corpuscular Hemoglobin 30 pg Normal 27-31 Mean Corpuscular HGB Conc 32 g/dL Normal 31-36 Red Cell Distribution Width 18 % High 10.5-15 Platelet Count 136 10^3/uL Low 150-450 Mean Platelet Volume 8.0 fL Normal 7.4-10.4 Abs Neutrophils 4.8 10^3/uL Normal 1.5-7.7 Abs Lymphocytes 1.9 10^3/uL Normal 1.0-4.8 Abs Monocytes 0.6 10^3/uL Normal 0-0.8 Abs Eosinophils 0 10^3/uL Normal 0-0.6 Abs Basophils 0.1 10^3/uL Normal 0-0.2 Abs Nucleated RBC 0 10^3/uL Granulocyte % 64.6 % Lymphocyte % 25.7 % Monocyte % 8.5 % Eosinophil % 0.5 % Basophil % 0.7 % Nucleated Red Blood Cells % 0.1 Comp Metabolic 11/16/2018 [facility] Sodium 136 mmol/L Normal 135-[address] [place] [address] [phone] Potassium 3.8 mmol/L Normal 3.5-5.0 Chloride 102 mmol/L Normal 101-111 Co2 Carbon Dioxide 30 mmol/L Normal 22-32 Anion Gap 4 mmol/L Normal 2-11 Glucose 146 mg/dL High 70-100 Blood Urea Nitrogen 21 mg/dL Normal 6-24 Creatinine 1.56 mg/dL High 0.67-1.17 BUN/Creatinine Ratio 13.5 Normal 8-20 Calcium 8.0 mg/dL Low 8.6-10.3 Total Protein 7.0 g/dL Normal 6.4-8.9 Albumin 2.1 g/dL Low 3.2-5.2 Globulin 4.9 g/dL High 2-4 Albumin/Globulin Ratio 0.4 Low 1-3 Total Bilirubin 0.50 mg/dL Normal 0.2-1.0 Alkaline Phosphatase 592 U/L High 34-104 Alt 16 U/L Normal 7-52 Ast 30 U/L Normal 13-39 Egfr Non- 44.2 >60 Egfr 53.5 >60 20 Laboratory test 11/16/2018 [facility] CA 19-9 168 U/mL Abnormal <35 [address] [place] [id number] [phone] Desirable: <150 Borderline High: 150-199 High: 200-499 Very High: >500 2 Desirable: <200 Borderline High: 200-239 High: >239 3 Low: <40 Desirable: 40-60 High: >60 4 Desirable: <100 Near Optimal: 100-129 Borderline High: 130-159 High: 160-189 Very High: >189 5 Because ethnic data is not always readily available, this report includes an eGFR for both -Americans and non- Americans. The National Kidney Disease Education Program (NKDEP) does not endorse the use of the MDRD equation for patients that are not between the ages of 18 and 70, are , have extremes of body size, muscle mass, or nutritional status, or are non- or non-. According to the National Kidney Foundation, irrespective of diagnosis, the stage of the disease is based on the level of kidney function: Stage Description GFR(mL/min/1.73 m(2)) 1 Kidney damage with normal or decreased GFR 90 2 Kidney damage with mild decrease in GFR 60-89 3 Moderate decrease in GFR 30-59 4 Severe decrease in GFR 15-29 5 Kidney failure <15 (or dialysis) 6 ADDITIONAL INFORMATION The testing method is an immunoenzymatic assay manufactured by [employer] and performed on the Needl DxI 800. Values obtained with different assay methods or kits may be different and cannot be used interchangeably. Test results cannot be interpreted as absolute evidence for the presence or absence of malignant disease. Test Performed by: [facility] - [place] [address] [place] [address] 7 Because ethnic data is not always readily available, this report includes an eGFR for both -Americans and non- Americans. The National Kidney Disease Education Program (NKDEP) does not endorse the use of the MDRD equation for patients that are not between the ages of 18 and 70, are , have extremes of body size, muscle mass, or nutritional status, or are non- or non-. According to the National Kidney Foundation, irrespective of diagnosis, the stage of the disease is based on the level of kidney function: Stage Description GFR(mL/min/1.73 m(2)) 1 Kidney damage with normal or decreased GFR 90 2 Kidney damage with mild decrease in GFR 60-89 3 Moderate decrease in GFR 30-59 4 Severe decrease in GFR 15-29 5 Kidney failure <15 (or dialysis) 8 ADDITIONAL INFORMATION The testing method is an immunoenzymatic assay manufactured by [employer] and performed on the UniCel DxI 800. Values obtained with different assay methods or kits may be different and cannot be used interchangeably. Test results cannot be interpreted as absolute evidence for the presence or absence of malignant disease. Test Performed by: [facility] [place] [address] [place] [address] 9 Because ethnic data is not always readily available, this report includes an eGFR for both -Americans and non- Americans. The National Kidney Disease Education Program (NKDEP) does not endorse the use of the MDRD equation for patients that are not between the ages of 18 and 70, are , have extremes of body size, muscle mass, or nutritional status, or are non- or non-. According to the National Kidney Foundation, irrespective of diagnosis, the stage of the disease is based on the level of kidney function: Stage Description GFR(mL/min/1.73 m(2)) 1 Kidney damage with normal or decreased GFR 90 2 Kidney damage with mild decrease in GFR 60-89 3 Moderate decrease in GFR 30-59 4 Severe decrease in GFR 15-29 5 Kidney failure <15 (or dialysis) 10 Because ethnic data is not always readily available, this report includes an eGFR for both -Americans and non- Americans. The National Kidney Disease Education Program (NKDEP) does not endorse the use of the MDRD equation for patients that are not between the ages of 18 and 70, are , have extremes of body size, muscle mass, or nutritional status, or are non- or non-. According to the National Kidney Foundation, irrespective of diagnosis, the stage of the disease is based on the level of kidney function: Stage Description GFR(mL/min/1.73 m(2)) 1 Kidney damage with normal or decreased GFR 90 2 Kidney damage with mild decrease in GFR 60-89 3 Moderate decrease in GFR 30-59 4 Severe decrease in GFR 15-29 5 Kidney failure <15 (or dialysis) 11 ADDITIONAL INFORMATION The testing method is an immunoenzymatic assay manufactured by [employer] and performed on the Needl DxI 800. Values obtained with different assay methods or kits may be different and cannot be used interchangeably. Test results cannot be interpreted as absolute evidence for the presence or absence of malignant disease. Test Performed by: [facility] - [facility] [address] [place] [address] 12 SEE RESULT BELOW Name: NATHAN CONNELLY : [address]: Koko Tran MD Acct: [id number] Unit: [id number] AGE: 68 Location: [facility] Re12/21/18 SEX: M Status: REG REF SPEC: [id number] ALLEN: 12/21/[address]: Koko Tran MD REQ: [id number] RECD: 12/21/18 STATUS: COMP OTHR DR: Krystyna Jones MD _ SOURCE: BLOOD,VENO SPDESC: ORDERED: Blood Cult COMMENTS: Verbal to [id number] by [email or web address] at 1556 on 12/24/18. Results read back accurately. PRELIMINARY ANEROBIC GRAM POSITIVE BACILLI: Verbal to DR. TRAN by [id number] at 0902 on 12/25/18. Results read back accurately. Procedure Result Reported Site Aerobic Culture Bottle Final 12/26/18- 1027 ML No Growth Day 5 Anaerobic Culture Bottle Final 04/07/19- 0729 ML Anaerobic Btl Gram Stain Gram Positive Bacilli Organism 1 EUBACTERIUM SPECIES JERRELL HE -ANAEROBIC GRAM POSITIVE BACILLI FORMERLY KNOWN EUBACTERIUM LENTUM. * ML - Main Lab . END OF REPORT DEPARTMENT OF PATHOLOGY, [address] [place] [address] Yonny Fernandez M.D. Director [facility] # [id number] 13 Television Maintenance Worker: [id number] ADDITIONAL INFORMATION The testing method is an immunoenzymatic assay manufactured by [employer] and performed on the Needl DxI 800. Values obtained with different assay methods or kits may be different and cannot be used interchangeably. Test results cannot be interpreted as absolute evidence for the presence or absence of malignant disease. Test Performed by: [facility] - [facility] [address] [place] [id number] 15 SEE RESULT BELOW Name: NATHAN CONNELLY : [address]: Koko Tran MD Acct: [id number] Unit: [id number] AGE: 68 Location: [facility] Re12/21/18 SEX: M Status: REG REF SPEC: [id number] ALLEN: 12/21/[address] [facility] [address]: Koko Tran MD REQ: [id number] RECD: 12/21/18 STATUS: COMP OTHR DR: Krystyna Jones MD _ SOURCE: URINE SPDESC: ORDERED: Urine Culture Procedure Result Reported Site Urine Culture Final 12/22/18- 905 ML No Growth (<1,000 CFU/mL) * ML - Main Lab . END OF REPORT DEPARTMENT OF PATHOLOGY, [address] [place] [id number] Yonny Fernandez M.D. Director [facility] # [id number] 16 Critical Result LACT:4.6 Called to [id number] at: 09:44:51 by:[email or web address] Read back by:EMMETT MARINA Severe Sepsis and Septic Shock Management Bundle Measure requires all lactic acids initially measuring >2.0 mmol/L be repeated. 17 Because ethnic data is not always readily available, this report includes an eGFR for both -Americans and non- Americans. The National Kidney Disease Education Program (NKDEP) does not endorse the use of the MDRD equation for patients that are not between the ages of 18 and 70, are , have extremes of body size, muscle mass, or nutritional status, or are non- or non-. According to the National Kidney Foundation, irrespective of diagnosis, the stage of the disease is based on the level of kidney function: Stage Description GFR(mL/min/1.73 m(2)) 1 Kidney damage with normal or decreased GFR 90 2 Kidney damage with mild decrease in GFR 60-89 3 Moderate decrease in GFR 30-59 4 Severe decrease in GFR 15-29 5 Kidney failure <15 (or dialysis) 18 SEE RESULT BELOW Name: MARICELNATHAN : [address]: Koko Tran MD Acct: [id number] Unit: [id number] AGE: 68 Location: [facility] Re12/21/18 SEX: M Status: REG REF SPEC: [id number] ALLEN: 12/21/[address] [facility] [address]: Koko Tran MD REQ: [id number] RECD: 12/21/18 STATUS: ANNE ROJO DR: Krystyna Jones MD _ SOURCE: NASAL SPDESC: ORDERED: Flu A B Request Procedure Result Reported Site Rapid Influenza A B Request Final 12/21/18937 ML Specimen received for Influenza A/B Molecular testing * ML - Main Lab . END OF REPORT DEPARTMENT OF PATHOLOGY, [address] [place] [address] Yonny Fernandez M.D. Director [facility] # [id number] Because ethnic data is not always readily available, this report includes an eGFR for both -Americans and non- Americans. The National Kidney Disease Education Program (NKDEP) does not endorse the use of the MDRD equation for patients that are not between the ages of 18 and 70, are , have extremes of body size, muscle mass, or nutritional status, or are non- or non-. According to the National Kidney Foundation, irrespective of diagnosis, the stage of the disease is based on the level of kidney function: Stage Description GFR(mL/min/1.73 m(2)) 1 Kidney damage with normal or decreased GFR 90 2 Kidney damage with mild decrease in GFR 60-89 3 Moderate decrease in GFR 30-59 4 Severe decrease in GFR 15-29 5 Kidney failure <15 (or dialysis) 20 Because ethnic data is not always readily available, this report includes an eGFR for both -Americans and non- Americans. The National Kidney Disease Education Program (NKDEP) does not endorse the use of the MDRD equation for patients that are not between the ages of 18 and 70, are , have extremes of body size, muscle mass, or nutritional status, or are non- or non-. According to the National Kidney Foundation, irrespective of diagnosis, the stage of the disease is based on the level of kidney function: Stage Description GFR(mL/min/1.73 m(2)) 1 Kidney damage with normal or decreased GFR 90 2 Kidney damage with mild decrease in GFR 60-89 3 Moderate decrease in GFR 30-59 4 Severe decrease in GFR 15-29 5 Kidney failure <15 (or dialysis) 21 ADDITIONAL INFORMATION The testing method is an immunoenzymatic assay manufactured by [employer] and performed on the Needl DxI 800. Values obtained with different assay methods or kits may be different and cannot be used interchangeably. Test results cannot be interpreted as absolute evidence for the presence or absence of malignant disease. Test Performed by: [facility] [place] [address] [place] [address] Procedures Date Code Description Status 03/17/2019 42195 Inject/Drain Joint/Bursa Major W/O US Completed 03/10/2019 63693 EKG Tracing & Interpretation Completed 01/27/2019 37116 ECHO Transthoracic, Real-Time 2D With Doppler And Completed Color Flow 01/27/2019 30653 ECHO Transthoracic, Real-Time 2D With Doppler And Completed Color Flow 12/23/2018 62136 Ercp Removal & Exchange Stents Biliary/Pancreatic Duct Completed 12/02/2018 40328 Inject Tendon Sheath Or Ligament Aponeurosis Eg Completed Plantar Fascia 05/21/2018 500253576 Diabetic Retinal Eye Exam Completed 03/27/2017 927911356 Diabetic Retinal Eye Exam Completed 05/09/2016 15031258 Colonoscopy Completed 08/04/2014 687548989 Diabetic Retinal Eye Exam Completed 02/26/2011 18758258 Colonoscopy Completed 01/07/2008 39021561 Colonoscopy Completed Medical Devices Description No Information Available Encounters Type Date Location Provider Dx Diagnosis Office Visit 03/17/2019 Orthopedic Bon Walker, Z96.652 Presence of left 9:30a [facility] artificial knee joint M76.32 Iliotibial band syndrome, left leg Office Visit 03/10/2019 9:15a [facility] Sid Blake I77.810 Thoracic aortic Of Cheryl Wick M.D., ectasia FACC, FASNC I25.10 Athscl heart disease of [place] coronary artery w/o ang pctrs I48.2 Chronic atrial fibrillation Z95.4 Presence of other heart-valve replacement Office Visit 03/08/2019 10:30a [facility] Internal Krystyna Robert, E11.22 Type 2 diabetes Medicine - Jameel Harrington mellitus w diabetic chronic kidney disease E78.2 Mixed hyperlipidemia I48.91 Unspecified atrial fibrillation G47.33 Obstructive sleep apnea (adult) (pediatric) I73.9 Peripheral vascular disease, unspecified I77.810 Thoracic aortic ectasia E11.9 Type 2 diabetes mellitus without complications Office 12/22/2018 [facility] Gastroenterology Ramsey Mendez T85.898A Oth complication Visit 7:00a MD Graham of other internal prosth dev/grft, init R17 Unspecified jaundice Office Visit 12/21/2018 7:00a Surgical Sukhjinder Boss R10.9 Unspecified [facility] Gayle MD abdominal pain R74.0 Nonspec elev of levels of transamns & lactic acid dehydrgnse K82.8 Other specified diseases of gallbladder C25.9 Malignant neoplasm of pancreas, unspecified Office Visit 12/02/2018 9:45a Orthopedic Bon Walker M70.52 Other bursitis [facility] [place] of knee, left C.M.A. knee Z96.652 Presence of left artificial knee joint Office Visit 11/26/2018 [employer] Internal Krystyna E11.22 Type 2 10:30a Medicine-Martinez Jones M.D. diabetes mellitus w diabetic chronic kidney disease R39.89 Other symptoms and signs involving the genitourinary system I48.91 Unspecified atrial fibrillation Z95.2 Presence of prosthetic heart valve D50.9 Iron deficiency anemia, unspecified Assessments Date Code Description Provider 05/14/2019 G47.33 Obstructive sleep apnea (adult) Latosha Eng MD (pediatric) 03/17/2019 Z96.652 Presence of left artificial knee Bon Walker M.D. joint 03/17/2019 M76.32 Iliotibial band syndrome, left leg Bon Walker M.D. 03/10/2019 I77.810 Thoracic aortic ectasia Sid Wick M.D., [facility], [facility] 03/10/2019 I25.10 Athscl heart disease of [place] Sid Wick M.D., [facility], coronary artery w/o ang pctrs [facility] 03/10/2019 I48.2 Chronic atrial fibrillation Sid Wick M.D., [facility], [facility] 03/10/2019 Z95.4 Presence of other heart-valve Sid Wick M.D., [facility], replacement [facility] 03/08/2019 E11.22 Type 2 diabetes mellitus with Krystyna Jones M.D. diabetic chronic kidney diseas 03/08/2019 E78.2 Mixed hyperlipidemia Krystyna Jones M.D. 03/08/2019 I48.91 Unspecified atrial fibrillation Krystyna Jones M.D. 03/08/2019 G47.33 Obstructive sleep apnea (adult) Krystyna Jones M.D. (pediatric) 03/08/2019 I73.9 Peripheral vascular disease, Krystyna Jones M.D. unspecified 03/08/2019 I77.810 Thoracic aortic ectasia Krystyna Jones M.D. 03/08/2019 E11.9 Type 2 diabetes mellitus without Krystyna Jones M.D. complications 01/27/2019 I77.810 Thoracic aortic ectasia Sid Wick M.D., [facility], [facility] 01/27/2019 I77.810 Thoracic aortic ectasia Traveling ECHO 1 12/23/2018 T85.898A Oth complication of other internal Ramsey Stevenson MD prosth dev/grft, init 12/23/2018 C25.9 Malignant neoplasm of pancreas, Ramsey Stevenson MD unspecified 12/22/2018 T85.898A Oth complication of other internal Ramsey Stevenson MD prosth dev/grft, init 12/22/2018 R17 Unspecified jaundice Ramsey Stevenson MD 12/21/2018 R10.9 Unspecified abdominal pain Sukhjinder Gayle MD 12/21/2018 R74.0 Nonspec elev of levels of transamns Sukhjinder Gayle MD & lactic acid dehydrgnse 12/21/2018 K82.8 Other specified diseases of Sukhjinder Gayle MD gallbladder 12/21/2018 C25.9 Malignant neoplasm of pancreas, Sukhjinder Gayle MD unspecified 12/02/2018 M70.52 Other bursitis of knee, left knee Bon Walker M.D. 12/02/2018 Z96.652 Presence of left artificial knee Bon Walker M.D. joint 11/26/2018 E11.22 Type 2 diabetes mellitus with Krystyna Jones M.D. diabetic chronic kidney diseas 11/26/2018 R39.89 Other symptoms and signs involving Krsytyna Jones M.D. the genitourinary system 11/26/2018 I48.91 Unspecified atrial fibrillation Krystyna Jones M.D. 11/26/2018 Z95.2 Presence of prosthetic heart valve Krystyna Jones M.D. 11/26/2018 D50.9 Iron deficiency anemia, unspecified Krystyna Jones M.D. Plan of Treatment Future Appointment(s):06/04/2019 9:30 am - Linda Scott NP at [facility]07/28/2019 9:30 am - Bon Walker M.D. at [facility]/08/2019 9:50 am - Krystyna Jones M.D. at [facility] - Latosha Eng MDG47.33 Obstructive sleep apnea (adult) (pediatric)Follow up:2 weeks Functional Status Description No Information Available Mental Status Description No Information Available Referrals Refer to Reason for Referral Status Appt Date [facility] Sent 05/14/2019 [address] [place] [id number] [phone]
[2019-06-11 12:24] LABS: Urine Appearance Cloudy; Urine Bacteria Absent (Absent); Urine Bilirubin Negative (Negative); Urine Blood 3+ (Negative); Urine Color Amber; Urine Glucose Negative (Negative); Urine Ketones Negative (Negative); Urine Nitrite Negative (Negative); Urine Protein 1+(30 mg/dL) (Negative); Urine Red Blood Cell 3+(>10/hpf) (Absent); Urine Specific Gravity 1.009 (1.010-1.030); Urine Urobilinogen Negative (Negative); Urine White Blood Cell 3+(>20/hpf) (Absent)
--- NOTE | 2019-06-11 12:32 | ED ---
GI/ HPI - HPI Summary HPI Summary: This patient is a 68 year old male with a Hx of pancreatic cancer presenting to [facility] with a chief complaint of hematuria since yesterday. Pt stated that he has more blood than usual in the urine and Dr. Stephenson, Urology told him to come here and have a possible CT scan done. She states the urine is a dark red and it is not clear. He denies dysuria but states there may be some burning. Pt denies any fever, chills, erythema of eyes, sore throat, CP, SOB, cough, abdominal pain, N/V, myalgia, edema, rash, or dizziness. - History of Current Complaint Chief Complaint: EDUrogenitalProblems Time Seen by Provider: 06/11/19 12:21 Stated Complaint: BLOOD IN URINE PER PT Hx Obtained From: Patient Onset/Duration: Started Hours Ago Pain Intensity: 0 - Additional Pertinent History Primary Care Physician: [id number] - Allergy/Home Medications Allergies/Adverse Reactions: Allergies Allergy/AdvReac Type Severity Reaction Status Date / Time oxacillin Allergy Severe Rash Verified 06/11/19 11:44 morphine AdvReac Severe Itching Verified 06/11/19 11:44 Home Medications: Home Medications Acetaminophen TAB* [Tylenol TAB*] 650 mg PO Q4H PRN 06/11/19 [History Confirmed 06/11/19] Clotrimazole REY* [Mycelex REY*] 10 mg MT SEE INSTRUCTIONS 06/11/19 [ History Confirmed 06/11/19] Ferrous Gluconate TAB* [Fergon TAB*] 325 mg PO DAILY 06/11/19 [History Confirmed 06/11/19] Ondansetron TAB* [Zofran 4 MG Tab*] 4 mg PO Q8HR PRN 06/11/19 [History Confirmed 06/11/19] Potassium Chlor TAB* [Potassium Chlor TAB 20 MEQ*] 40 meq PO DAILY 06/11/19 [ History Confirmed 06/11/19] diPHENhydraMINE PO* [Benadryl PO 25 MG TAB*] 50 mg PO QAM PRN 06/11/19 [History Confirmed 06/11/19] PMH/Surg Hx/FS Hx/Imm Hx Endocrine/Hematology History: Reports: Hx Diabetes - type 2, Hx Anemia, Other Endocrine/Hematological Disorders - ANEMIA Cardiovascular History: Reports: Hx Aneurysm - aneurysm repair and aortic valve repair 12/02/12 [facility], Hx Atrial Fibrillation, Hx Congestive Heart Failure - POSSIBLY X 1 IN THE PAST, Hx Coronary Artery Disease, Hx Hypertension - on meds, Hx Valvular Heart Disease, Other Cardiovascular Problems/Disorders - AORTIC VALVE REPLACEMENT 11/2012 [facility], aortic anuerysm repaired Denies: Hx Pacemaker/ICD Respiratory History: Reports: Hx Sleep Apnea, Other Respiratory Problems/ Disorders - SLEEP APNEA, BIPAP DEPENDENT Denies: Hx Asthma GI History: Reports: Hx Jaundice - improving since stent, Other GI Disorders - COLITIS C DIFF 2014 History: Reports: Hx Dialysis - 2 day hx 2014 when he was dx with C diff, Hx Kidney Stones - NUMEROUS EPISODES, SHOCKED, DR GILES [place], Hx Renal Disease - hx previous abnormal gfr, Other Problems/Disorders - CARRIE Musculoskeletal History: Reports: Hx Arthritis - HANDS Sensory History: Reports: Hx Cataracts - left EYE ONLY Denies: Hx Contacts or Glasses, Hx Deafness, Hx Hearing Aid Opthamlomology History: Reports: Hx Cataracts - left EYE ONLY Denies: Hx Contacts or Glasses Neurological History: Denies: Hx Dementia Psychiatric History: Denies: Hx Panic Disorder - Cancer History Cancer Type, Location and Year: PANCREATIC CA Hx Chemotherapy: Yes - last chemo January 10 Hx Radiation Therapy: No - Surgical History Surgery Procedure, Year, and Place: POWER PORT. AORTIC VALVE REPLACEMENT - PIG VALVE. SHI KNEES - REPLACEMENT. 1983 - Rt THUMB. LITHROTRIPSY. ERCP Xs 2. POWER PORT REMOVED Hx Anesthesia Reactions: No - Immunization History Date of Tetanus Vaccine: UTD Date of Influenza Vaccine: UTD Infectious Disease History: No Infectious Disease History: Reports: Hx Clostridium Difficile - negative on 06/06 Denies: Traveled Outside the [place] in Last 30 Days - Family History Known Family History: Negative: Blood Disorder - Social History Alcohol Use: None Alcohol Amount: 1-2 Substance Use Type: Reports: None Smoking Status (MU): Former Smoker Amount Used/How Often: smoked for 3-4 years 1/2ppd Have You Smoked in the Last Year: Yes Review of Systems Negative: Fever, Chills Negative: Erythema Negative: Sore Throat Negative: Chest Pain Negative: Shortness Of Breath, Cough Negative: Abdominal Pain, Vomiting, Nausea Positive: hematuria. Negative: dysuria Negative: Myalgia, Edema Negative: Rash Neurological: Other - Neg: Dizziness All Other Systems Reviewed And Are Negative: No Physical Exam - Summary Physical Exam Summary: Constitutional: Well-developed, Well-nourished, Alert. (-) Distressed Skin: Warm, Dry HENT: Normocephalic; Atraumatic Eyes: Conjunctiva normal Neck: Musculoskeletal ROM normal neck. (-) JVD, (-) Stridor, (-) Tracheal deviation Cardio: Rhythm regular, rate normal, Heart sounds normal; Intact distal pulses; The pedal pulses are 2+ and symmetric. Radial pulses are 2+ and symmetric. (-) Murmur Pulmonary/Chest wall: Effort normal. (-) Respiratory distress, (-) Wheezes, (-) Rales Abd: Soft, (-) tenderness, (-) Distension, (-) Guarding, (-) Rebound Musculoskeletal: (-) Edema Lymph: (-) Cervical adenopathy Neuro: Alert, Oriented x3 Psych: Mood and affect Normal Triage Information Reviewed: Yes Vital Signs On Initial Exam: Initial Vitals Temp Pulse Resp BP Pulse Ox 97.6 F 67 15 146/77 100 06/11/19 11:42 06/11/19 11:42 06/11/19 11:42 06/11/19 11:42 06/11/19 11:42 Vital Signs Reviewed: Yes Diagnostics - Vital Signs Vital Signs Temp Pulse Resp BP Pulse Ox 06/11/19 11:42 97.6 F 67 15 146/77 100 - Laboratory Lab Results: Lab Results 06/11/19 Range/Units 12:07 Urine Color Lisseth Urine Appearance Cloudy Urine pH 5.0 (5-9) Ur Specific [place] 1.009 L (1.010-1.030) Urine Protein 1+(30 mg/dl) A (Negative) Urine Ketones Negative (Negative) Urine Blood 3+ A (Negative) Urine Nitrate Negative (Negative) Urine Bilirubin Negative (Negative) Urine Urobilinogen Negative (Negative) Ur Leukocyte Esterase 2+ A (Negative) Urine WBC (Auto) 3+(>20/hpf) A (Absent) Urine RBC (Auto) 3+(>10/hpf) A (Absent) Urine Bacteria Absent (Absent) Urine Glucose Negative (Negative) Result Diagrams: 06/11/19 13:11 06/11/19 13:11 Lab Statement: Any lab studies that have been ordered have been reviewed, and results considered in the medical decision making process. GIGU Course/Dx - Course Course Of Treatment: This patient is a 68 year old male with a Hx of pancreatic cancer presenting to [facility] with a chief complaint of hematuria since yesterday. Urine was clear but had a blood tinge. No stone visualized. Could be hemorrhagic cystitis. He's voiding well. A plan for discharge was discussed with the patient and he was agreeable with this plan. - Diagnoses Provider Diagnoses: Hematuria Discharge ED - Sign-Out/Discharge Documenting (check all that apply): Patient Departure - Discharge Patient Received Moderate/Deep Sedation with Procedure: No - Discharge Plan Condition: Stable Disposition: HOME Prescriptions: Sulfamethox/Trimethoprim DS* [Bactrim DS 800/160 TAB*] 1 tab PO BID #10 tab Patient Education Materials: Hematuria (ED) Referrals: Abran Stephenson MD [Medical Doctor] - Additional Instructions: Follow up with Dr. Stephenson in 2-3 days. Get plenty of fluids. Return to ED with new or worsening symptoms. - Attestation Statements Document Initiated by Scribe: Yes Documenting Scribe: Robert Licona Provider For Whom Scribe is Documenting (Include Credential): Spike Shanks MD Scribe Attestation: Robert Bell, scribed for Spike Shanks MD on 06/11/19 at 1455. Status of Scribe Document: Ready
[2019-06-11 13:43] LABS: Albumin 3.4 g/dL (3.2-5.2); BUN/Creatinine Ratio 24.3 (8-20); C Reactive Protein 33.08 mg/L (<8.01); Calcium 8.9 mg/dL (8.6-10.3); EGFR African American 60.6 (>60); EGFR Non-African American 50.1 (>60); Globulin 3.5 g/dL (2-4); Potassium 3.8 mmol/L (3.5-5.0); Total Bilirubin 0.3 mg/dL (0.2-1.0); Total Protein 6.9 g/dL (6.4-8.9)
[2019-06-11 13:49] LABS: ABS Eosinophils 0.1 10^3/ul (0-0.6); ABS Lymphocytes 2.1 10^3/ul (1.0-4.8); ABS Monocytes 0.7 10^3/ul (0-0.8); ABS Neutrophils 3.7 10^3/ul (1.5-7.7); Eosinophil % 1.6 %; Hematocrit 30 % (42-52); Hemoglobin 9.7 g/dL (14.0-18.0); Lymphocyte % 31.3 %; Mean Corpuscular HGB Conc 32 g/dL (31-36); Mean Corpuscular Hemoglobin 29 pg (27-31); Mean Corpuscular Volume 89 fL (80-94); Mean Platelet Volume 7.5 fL (7.4-10.4); Nucleated Red Blood Cells % 0.1; Platelet Count 142 10^3/uL (150-450); Red Blood Count 3.38 10^6 /uL (4.18-5.48); Red Cell Distribution Width 16 % (10-15); White Blood Count 6.7 10^3/uL (3.5-10.8)
[2019-06-11] MEDS ORDERED: Sulfamethox/Trimethoprim DS 800/160* TAB PO ONE (14:50)
[2019-06-11 14:54] VITALS: BP 105/49
== END 2019-06-11 15:00 | disposition home or self-care (01) ==
LOC: ED 11:41
DX: R31.9 Hematuria, unspecified (principal); E11.9 Type 2 diabetes mellitus without complications; I25.10 Atherosclerotic heart disease of native coronary artery without angina pectoris; I10 Essential (primary) hypertension; I48.91 Unspecified atrial fibrillation; Z95.2 Presence of prosthetic heart valve; Z96.653 Presence of artificial knee joint, bilateral; Z85.07 Personal history of malignant neoplasm of pancreas; Z88.5 Allergy status to narcotic agent; Z88.0 Allergy status to penicillin; Z87.891 Personal history of nicotine dependence
CPT/HCPCS: 36415; 74176; 80053; 81003; 81015; 83605; 83690; 85025; 86140; 87086; 99283; A9270-GY

== ENCOUNTER → 2019-08-04 05:38 | Day surgery (SDC) | payer MEDICARE ==
--- NOTE | 2019-07-22 06:35 | HP ---
CC: Dr. Krystyna Jones; Dr. Koko Tran; Dr. Sid Wick * ADMITTING HISTORY AND PHYSICAL: DATE OF ADMISSION: 08/04/19 ADMITTING DIAGNOSES: 1. Bladder lesion. 2. Gross hematuria. PLANNED PROCEDURE: Cystoscopy, transurethral resection of bladder lesions. SURGEON: Dr. Stephenson. HISTORY OF PRESENT ILLNESS: Nathan Collins is a 68-year-old former smoker who was recently evaluated for gross hematuria. Cystoscopy revealed multiple areas in the posterior bladder wall which have somewhat atypical appearance and may represent either primary bladder neoplasm or possibly some form of metastatic tumor to the bladder. PAST MEDICAL HISTORY: Significant for: 1. Pancreatic carcinoma diagnosed in November of 2017, treated with chemotherapy and considered surgically inoperable. 2. History of aortic stenosis (underwent aortic valve replacement in 2012). 3. Diabetes mellitus. 4. History of morbid obesity. 5. History of atrial fibrillation. MEDICATIONS ON ADMISSION: 1. Ferrous gluconate 324 mg daily. 2. Finasteride 5 mg daily. 3. K-Bridget 2 tablets of 20 mEq daily. 4. Lantus SoloSTAR 15 units subcutaneous daily. 5. Metoprolol 12.5 mg twice a day. 6. Omeprazole p.r.n. 7. Ondansetron p.r.n. 8. Oxycodone p.r.n. 9. Torsemide 40 mg daily. ALLERGIES AND INTOLERANCES: MORPHINE SULFATE and OXACILLIN. FAMILY HISTORY: Negative for bladder cancer. SOCIAL HISTORY: Smoking history: He is a former smoker who quit in 1970s. REVIEW OF SYSTEMS: He denies any chest pain or shortness of breath. He has done remarkably well in terms of his pancreatic cancer and has lost quite a bit of weight and reports having a normal appetite and normal exercise tolerance. PHYSICAL EXAMINATION GENERAL: Reveals a pleasant elderly gentleman. He is alert and oriented. VITAL SIGNS: Blood pressure is 112/64, pulse 73 per minute regular, oxygen saturation 98% on room air, temperature 96.1. LUNGS: Clear bilaterally. CARDIOVASCULAR: Exam reveals regular rate and rhythm. S1, S2. ABDOMEN: Soft, obese without any flank tenderness (he also has a history of recurrent bilateral renal calculi and has had multiple surgical procedures for that). IMPRESSION: A 68-year-old former smoker with recent onset of gross hematuria and the above described findings on office cystoscopy. Planned procedure is cystoscopy, transurethral resection of bladder lesions. [id number]/[facility] #: [id number] [facility]
[~2019-08-04 05:38] MED LIST changes: +Acetaminophen TAB* 325 MG PO PRN; -Buffered Lidocaine 0.9% SYRIN* 5 ML/SYR SYRINGE INTRADERM ONE; +Buffered Lidocaine 1% SYRIN* 1 ML/SYRINGE INTRADERM ONE; +DiMENhydriNATE IV* 50 MG/ML VIAL IV PUSH PRN; +Famotidine IV* 10 MG/ML 2 ML (20 mg) ONE; +Furosemide IV* 10 MG/ML 2 ML VIAL (20 MG) ONE; +HYDROcodone/ACETAMIN 5-325 MG* 1 TAB PO PRN; +Lactated Ringers 1000 ML Bag* 1,000 ML IV SCH; +Lidocaine 2% JELLY* 6 ML JELLY TOPICAL ONE; +Lidocaine 2% PF * 5 ML VIAL ONE; +Midazolam* 1 MG/ML 2 ML VIAL (2 MG) ONE; +Naloxone* 0.4 MG/ML 1 ML VIAL IV PRN; +Ondansetron INJ* 2 MG/ML VIAL ONE; +Propofol* 10 MG/ML 20 ML BTL ONE; +cefTRIAXone(*) 2 GM ADDV.VIAL IVPB ONE; +fentaNYL* 50 MCG/ML 2 ML VIAL (100 MCG VIAL) IV PRN; +fentaNYL* 50 MCG/ML 2 ML VIAL (100 MCG VIAL) ONE; +oxyCODONE TAB* 5 MG TAB PO PRN
[2019-08-04 06:52] LABS: INR 1.12 (0.82-1.09)
--- NOTE | 2019-08-04 10:01 | OP ---
CC: Dr. Krystyna Jones; Dr. Koko Tran * DATE OF OPERATION: 08/04/19 - [facility] DATE OF : 46 SURGEON: Abran Stephenson MD ANESTHESIOLOGIST: Dr. Grant. ANESTHESIA: General. PRE-OP DIAGNOSES: 1. Hematuria. 2. Bladder lesions. POST-OP DIAGNOSES: 1. Hematuria. 2. Bladder lesions. OPERATIVE PROCEDURE: Cystoscopy, transurethral resection and fulguration of bladder lesions (5 to 6 cm aggregate). COMPLICATIONS: None. ESTIMATED BLOOD LOSS: Minimal. FINDINGS: Multiple areas of thickened, raised, hyperemic mucosa scattered throughout posterior bladder wall. CATHETER: 20-American Rachel. POSTOPERATIVE CONDITION: Stable. INDICATIONS: Nathan Collins is a 68-year-old gentleman with a history of pancreatic cancer who was recently evaluated for gross hematuria. He was noted to have multiple areas of abnormal appearing mucosa noted in the bladder and this was not a typical appearance of bladder tumor. He is now being brought in for further evaluation and management for the etiology of these bladder lesions. DESCRIPTION OF PROCEDURE: After induction of general anesthesia, patient was placed in dorsal lithotomy position. Sequential compression devices were in place and functioning. Initial cystoscopy revealed a normal-appearing urethra with a mildly enlarged prostate. The bladder was examined. The right and left ureteral orifices were normal in position and configuration, scattered throughout the posterior bladder wall and also parts of the anterior wall. There were multiple areas of thickened, raised, hyperemic mucosa. Initially using a biopsy forceps, development representative biopsies were obtained and sent for histopathology. Next the resecto-scope was introduced, and I tried to resect as much of these lesions as I could and the coagulating current was used for hemostasis. At the end of the procedure hemostasis appeared satisfactory and there was no evidence of bladder perforation. A 20-American Rachel was placed for temporary bladder drainage. The patient tolerated the procedure satisfactorily and was transferred back to the recovery area in stable condition. [id number]/[facility] #: [id number] [facility]ENTERAsh
[2019-08-04 10:19] VITALS: BP 152/77
== END | disposition home or self-care (01) ==
LOC: OR 05:38
PROVIDERS: ATTEND Urology
DX: N32.9 Bladder disorder, unspecified (principal); N30.21 Other chronic cystitis with hematuria; E11.9 Type 2 diabetes mellitus without complications; Z79.4 Long term (current) use of insulin; Z87.891 Personal history of nicotine dependence
CPT/HCPCS: 36415; 85610; 85730; 88305; J0696; J1940; J2250; J2405; J2704; J3010

== ENCOUNTER 2019-09-20 09:20 | Day surgery (SDC) | payer MEDICARE ==
[~2019-09-20 09:20] MED LIST changes: -Buffered Lidocaine 1% SYRIN* 1 ML/SYRINGE INTRADERM ONE; -DiMENhydriNATE IV* 50 MG/ML VIAL IV PUSH PRN; -Famotidine IV* 10 MG/ML 2 ML (20 mg) IV ONE; -Famotidine IV* 10 MG/ML 2 ML (20 mg) ONE; -Furosemide IV* 10 MG/ML 2 ML VIAL (20 MG) ONE; -HYDROcodone/ACETAMIN 5-325 MG* 1 TAB PO PRN; -Lactated Ringers 1000 ML Bag* 1,000 ML IV SCH; -Lidocaine 2% JELLY* 6 ML JELLY TOPICAL ONE; -Lidocaine 2% PF * 5 ML VIAL ONE; -Midazolam* 1 MG/ML 2 ML VIAL (2 MG) ONE; -Naloxone* 0.4 MG/ML 1 ML VIAL IV PRN; -Ondansetron INJ* 2 MG/ML VIAL ONE; -Propofol* 10 MG/ML 20 ML BTL ONE; -cefTRIAXone(*) 2 GM ADDV.VIAL IVPB ONE; -fentaNYL* 50 MCG/ML 2 ML VIAL (100 MCG VIAL) IV PRN; -fentaNYL* 50 MCG/ML 2 ML VIAL (100 MCG VIAL) ONE; -oxyCODONE TAB* 5 MG TAB PO PRN
[2019-09-20] MEDS ORDERED: Midazolam* 1 MG/ML 2 ML VIAL (2 MG) ONE (10:24)
[2019-09-20] MEDS ORDERED: Tetracaine 0.5% OPTH.SOL 4 ML* 1 DROP BTL ONE (10:54)
[2019-09-20] MEDS ORDERED: Neomycin/Polymy/Dex OPHTH.OIN* 3.5 GM ONE (10:54)
[2019-09-20] MEDS ORDERED: Ketorolac 0.5% OPHTH (NF) 0.5 % 5 ML BTL ONE (10:54)
[2019-09-20] MEDS ORDERED: Povidone Iodine 5% OPTH* 30 ML BTL ONE (10:54)
[2019-09-20] MEDS ORDERED: Tropicamide 1% OPTH.SOL* BTL ONE (10:54)
[2019-09-20] MEDS ORDERED: Phenylephrine OPHTH SOL 2.5%* 2 ML ONE (10:54)
[2019-09-20] MEDS ORDERED: Cyclopentolate 1% OPTH.SOL* 2 ML BTL ONE (10:54)
[2019-09-20] MEDS ORDERED: acetaZOLAMIDE TAB* 250 MG ONE (10:54)
[2019-09-20] MEDS ORDERED: Lidocaine 1% MPF ** 5 ML VIAL ONE (10:54)
[2019-09-20 11:53] VITALS: BP 133/65
--- NOTE | 2019-09-20 22:20 | OP ---
OPERATIVE REPORT: DATE OF OPERATION: 09/20/19 - [facility] DATE OF : 46 SURGEON: Sukhjinder Bach M.D. ANESTHESIOLOGIST: Yudy Ling DO. ANESTHESIA: Monitored anesthesia care. PRE-OP DIAGNOSIS: Cataract, left eye. POST-OP DIAGNOSIS: Cataract, left eye with floppy iris syndrome. OPERATIVE PROCEDURE: Extracapsular cataract extraction of the left eye with intraocular lens implant. IMPLANT: SN60WF 20.0 diopter lens to the left eye. COMPLICATIONS: None. DESCRIPTION OF PROCEDURE: The patient was given phenylephrine 2.5 % and cyclopentolate 1% eye drops to the operative eye in the preoperative area. The patient was taken to the operating room where a time-out was taken to identify the correct patient, site, and side of surgery. The patient's left eye was prepped and draped in the usual sterile fashion with 5% Betadine. A second time -out was taken to verify the correct patient, side, and site of surgery, and correct lens implant. A lid speculum was placed to the left eye. A 1-mm paracentesis blade was used to make a clear corneal incision in the inferotemporal position. Preservative-free 1% lidocaine was injected into the anterior chamber. DisCoVisc was then injected into the anterior chamber. A 2.75-mm keratome blade was used to make a triplanar incision at the superotemporal position. A Malyugin ring was then inserted due to poor iris dilation and floppy iris syndrome. A cystotome initiated a capsulorrhexis, which was completed with Utrata forceps in a continuous and curvilinear manner. Hydrodissection of the lens was performed with BSS on a cannula. The lens could be spun in a capsular bag. The phacoemulsification handpiece was used with a [id number]-[id number] technique to remove the nucleus. The I/A handpiece then removed the residual cortical lens material. DisCoVisc was injected to inflate the capsular bag. The planned SN60WF 20.0 diopter lens was then injected into the capsular bag. The Malyugin ring was then removed from the anterior chamber. The residual DisCoVisc was removed from the eye with the I/A handpiece. The corneal incisions were hydrated and no leaks occurred at physiologic pressure around 20 mmHg per palpation. The lid speculum was removed and drapes were removed. Maxitrol ointment was placed to the surface of the operative eye. An adhesive patch and shield were then placed on the operative eye. The patient was taken to the postoperative area in stable condition. [id number]/[facility] #: [id number] [facility]
== END 2019-09-20 11:45 | disposition home or self-care (01) ==
LOC: OREAST 09:20
PROVIDERS: ATTEND Student in an Organized Health Care Education/Training Program
DX: H25.812 Combined forms of age-related cataract, left eye (principal); H21.81 Floppy iris syndrome; E11.9 Type 2 diabetes mellitus without complications; Z79.84 Long term (current) use of oral hypoglycemic drugs; I25.2 Old myocardial infarction; I48.91 Unspecified atrial fibrillation; Z79.01 Long term (current) use of anticoagulants; F17.210 Nicotine dependence, cigarettes, uncomplicated; Z95.2 Presence of prosthetic heart valve; G47.33 Obstructive sleep apnea (adult) (pediatric); Z87.442 Personal history of urinary calculi
CPT/HCPCS: A9270-GY; J2250; V2632